=== PATIENT | male | born 1950 | race Caucasian/White ===

== ENCOUNTER 2018-03-20 12:15 | Inpatient (IN) | payer OTHER ==
[2018-03-20] MEDS ORDERED: NA CHLORIDE 0.9% 1,000 ML ONE (12:35)
[2018-03-20] MEDS ORDERED: FAMOTIDINE 20 MG/2 ML VIAL IV ONE (12:35)
[2018-03-20] MEDS ORDERED: ONDANSETRON 4 MG/2 ML VIAL ONE (12:35)
[2018-03-20 12:44] LABS: Absolute Lymphocytes (CBC) 0.9 K/uL (0.7-4.9); Absolute Monocytes 0.4 K/uL (0.1-1.3); Absolute Neutrophil 4.6 K/uL (1.8-8.0); Basophils % 1.2 % (0-1.3); Eosinophils % 1.9 % (0-4.4); Hematocrit 34.7 % (39.6-49.0); Lymphocytes % 14.6 % (15.3-44.8); MCH 31.2 pg (27.0-35.0); MCV 89.9 fL (80-100); MPV 8.9 fL (7.6-11.3); Monocytes % 7.2 % (3.3-12.3); RBC Red Blood Cell Count 3.86 M/uL (4.33-5.43)
--- NOTE | 2018-03-20 13:03 | RAD REPORT ---
EXAM DESCRIPTION: RAD - Chest Single View - 03/20/2018 12:55 pm CLINICAL HISTORY: Cough, weakness, ataxia COMPARISON: July 2010 TECHNIQUE: AP portable chest image was obtained 1252 hours . FINDINGS: No peripheral mass, consolidation or failure finding. Lung markings are not significantly different from the prior study. Minimal fullness of the right hilum is not substantially different wh en adjusting for the difference between the current AP film and the prior PA film. Heart and vasculat ure are normal. No measurable pleural effusion and no pneumothorax. No gross bony abnormality seen. N o acute aortic findings suspected. IMPRESSION: No acute cardiopulmonary process. When adjusting for technique differences, chest is not substantially different from July 2010.
[2018-03-20 13:05] LABS: Protime INR 1.15
[2018-03-20 14:47] LABS: Albumin 3.5 g/dL (3.4-5.0); Bilirubin Direct 0.1 mg/dL (0-0.2); Bilirubin Total 0.6 mg/dL (0.2-1.0); Magnesium 2.3 mg/dL (1.8-2.4); Potassium 3.8 mmol/L (3.5-5.1)
--- NOTE | 2018-03-20 14:51 | EKG ---
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
--- NOTE | 2018-03-20 15:18 | ER ---
Nurse's Notes [facility] Name: Jhonatan Solis Age: 67 yrs Sex: Male : 1950 Arrival Date: 03/20/2018 Time: 12:19 Bed 4 Private MD: Diagnosis: Syncope and collapse;Vomiting;Weakness;Malaise and fatigue;Atrial fibrillation and flutter Presentation: 03/20 12:19 Presenting complaint: EMS states: Pt c/o N/V and increased weakness for the past few jl7 days. 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 Transition of care: patient was not received from another setting of care. Onset of symptoms was March 17, 2018. Risk Assessment: Do you want to hurt yourself or someone else? Patient reports no desire to harm self or others. Initial Sepsis Screen: Does the patient meet any 2 criteria? No. Patient's initial sepsis screen is negative. Does the patient have a suspected source of infection? No. Patient's initial sepsis screen is negative. Care prior to arrival: Medication(s) given: Normal saline infusion, 500 mL, IV initiated. 20 GA, in the right antecubital area. 12:19 Method Of Arrival: EMS: [facility] jl7 12:19 Acuity: TAMAR 3 jl7 Triage Assessment: 12:26 General: Appears in no apparent distress. uncomfortable, Behavior is calm, cooperative, jl7 appropriate for age. Pain: Denies pain. GI: Reports nausea, vomiting, Patient currently denies diarrhea. Historical: - Allergies: 12:26 Levaquin; jl7 - Home Meds: 12:26 Lisinopril Oral [Active]; carvedilol oral oral [Active]; Aricept Oral [Active]; jl7 PreserVision AREDS oral oral [Active]; - PMHx: 12:26 Hyperlipidemia; Hypertension; Atrial Fib; Depression; stent; jl7 - PSHx: 12:26 partial L nephrectomy; Cholecystectomy; L medial meniscus; R medial menicus repair jl7 08/04/13; green light repair; bladder stone removal by cystotomy; partial L neprectomy; - Immunization history:: Adult Immunizations up to date. - Social history:: Smoking status: Patient/guardian denies using tobacco, Patient uses alcohol, occasionally. - Ebola Screening: : No symptoms or risks identified at this time. - Family history:: not pertinent. Screenin:30 Abuse screen: Denies threats or abuse. Denies injuries from another. iw 12:55 Nutritional screening: No deficits noted. Tuberculosis screening: No symptoms or risk jl7 factors identified. Fall Risk IV access (20 points). Gait- Weak (10 pts.). Total Smyth Fall Scale indicates Low Risk Score (25-44 pts). Fall prevention measures have been instituted. Side Rails Up X 2 Placed close to Nursing Station Frequent Obs/Assesments occuring Family Present and informed to notify staff if they need to leave bedside As available Patient and Family Educated on Fall Prevention Program and strategies. Assessment: 12:30 General: Appears in no apparent distress. uncomfortable, Behavior is calm, cooperative, jl7 appropriate for age. Pain: Denies pain. 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 Cardiovascular: Patient's skin is warm and dry. Respiratory: Airway is patent Respiratory effort is even, unlabored, Respiratory pattern is regular, symmetrical, Breath sounds are clear bilaterally. GI: Abdomen is flat, non-distended, Bowel sounds present X 4 quads. : No signs and/or symptoms were reported regarding the genitourinary system. EENT: No signs and/or symptoms were reported regarding the EENT system. Musculoskeletal: No signs and/or symptoms reported regarding the musculoskeletal system. 13:18 Reassessment: Patient appears in no apparent distress at this time. Patient is resting ae1 with eyes closed, respirations even and unlabored. 14:04 Reassessment: Lab reports they are having trouble with the analyzer and have had to iw rerun labs. 15:00 Reassessment: Patient and/or family updated on plan of care and expected duration. Pain jl7 level reassessed. Patient is alert, oriented x 3, equal unlabored respirations, skin warm/dry/pink. 16:00 Reassessment: Patient and/or family updated on plan of care and expected duration. Pain jl7 level reassessed. Patient is alert, oriented x 3, equal unlabored respirations, skin warm/dry/pink. 17:00 Reassessment: Pt requesting to talk to the provider prior to Lovenox injection. jl7 Provider notified and states he will be to bedside. 17:15 Reassessment: Dr. Monson at bedside discussing plan of care. jl7 19:35 Reassessment: Patient appears in no apparent distress at this time. Patient and/or aa1 family updated on plan of care and expected duration. Pain level reassessed. Patient is alert, oriented x 3, equal unlabored respirations, skin warm/dry/pink. Report given to Rozina on 4th floor Patient states feeling better. Vital Signs: 12:26 BP 154 / 87; Pulse 56; Resp 16 S; Pulse Ox 100% on R/A; Weight 98.43 kg (R); Height 6 jl7 ft. 1 in. (185.42 cm) (R); 12:55 BP 135 / 91; Pulse 90; Resp 16; Pulse Ox 96% ; jl7 13:17 BP 147 / 99; Pulse 83; Resp 14; Pulse Ox 93% on R/A; ae1 14:00 BP 148 / 98; Pulse 83; Resp 16; Pulse Ox 96% on R/A; jl7 16:30 BP 153 / 106; Pulse 94; Resp 18; Pulse Ox 98% ; jl7 17:15 BP 151 / 101; Pulse 88; Resp 16; Pulse Ox 98% ; jl7 17:37 BP 155 / 104; Pulse 77; Resp 16; Pulse Ox 98% ; Pain 0/10; jl7 19:36 BP 153 / 101; Pulse 95; Resp 16; Temp 98.2; Pulse Ox 97% on R/A; Pain 0/10; aa1 12:26 Body Mass Index 28.63 (98.43 kg, 185.42 cm) jl7 ED Course: 12:19 Patient arrived in ED. jl7 12:22 Triage completed. jl7 12:23 José Monson MD is Attending Physician. [facility] 12:26 Arm band placed on right wrist. jl7 12:29 Initial lab(s) drawn, by dc, sent to lab. Maintain EMS IV. Dressing intact. Good blood iw return noted. Site clean \T\ dry. Gauge \T\ site: 20 RAC. 12:31 EKG done, by pharmacy resource tech. reviewed by José Monson MD. at1 12:46 Rubén Ji RN is Primary Nurse. jl7 12:55 XRAY Chest (1 view) In Process Unspecified. EDMS 12:55 Patient has correct armband on for positive identification. Placed in gown. Bed in low jl7 position. Call light in reach. Side rails up X 1. wound nurse on. Pulse ox on. NIBP on. Warm blanket given. 15:14 Cesar Arceo MD is Hospitalizing Provider. kylie 15:21 US Carotid Artery Bilateral In Process Unspecified. EDMS 16:50 EKG done, by pharmacy resource tech. reviewed by José Monson MD. sm3 17:38 Report given to SERGE [place]. jl7 17:49 Inserted saline lock: 20 gauge in left forearm, using aseptic technique. aj 18:28 Patient moved to MRI via wheelchair. em2 18:36 MRI completed. Patient tolerated well. Patient moved back from [facility]. em2 19:32 No provider procedures requiring assistance completed. Patient admitted, IV remains in aa1 place. Administered Medications: 12:45 Drug: NS 0.9% 500 ml Route: IV; Rate: bolus; Site: right antecubital; jl7 13:30 Follow up: Response: No adverse reaction; IV Status: Completed infusion jl7 12:46 Drug: Zofran 4 mg Route: IVP; Site: right antecubital; jl7 13:20 Follow up: Response: No adverse reaction; Nausea unchanged jl7 12:48 Drug: Pepcid 20 mg Route: IVP; Site: right antecubital; jl7 13:20 Follow up: Response: No adverse reaction jl7 13:30 Drug: NS 0.9% 1000 ml Route: IV; Rate: 125 ml/hr; Site: right antecubital; jl7 19:40 Follow up: IV Status: Infusion continued upon admission aa1 19:02 Drug: Sotalol 40 mg Route: PO; aj 19:50 Follow up: Response: No adverse reaction; No change in condition aa1 Outcome: 15:18 Decision to Hospitalize by Provider. kylie 19:50 Admitted to [facility] accompanied by tech, via wheelchair, room 423, with chart, Report aa1 called to Rozina 19:50 Condition: stable 19:50 Instructed on the need for admit, Demonstrated understanding of instructions. 19:56 Patient left the ED. bb Signatures: Dispatcher [employer] EDLetty Sparks, RN RN aa1 Rabia Diane, RN José Gil MD MD cha Ballard, Brenda, RN RN Gita Cyr RN RN iw Montes, Enrique 2 Rabia basilio, tool and die maker level five EKG Tat1 Rian Araya RN RN ae1 Rubén Ji RN RN jl7 Nan Ruiz 3 Corrections: (The following items were deleted from the chart) 17:13 12:45 NS 0.9% 1000 ml IV at 125 ml/hr in right antecubital jl7 jl7
--- NOTE | 2018-03-20 15:19 | EDPHYS ---
Physician Documentation [facility] Name: Jhonatan Solis Age: 67 yrs Sex: Male : 1950 Arrival Date: 03/20/2018 Time: 12:19 Bed 4 Private MD: ED Physician José Monson HPI: 03/20 12:24 This 67 yrs old Male presents to ER via EMS with complaints of kylie Nausea/Vomiting. 12:24 The patient presents to the emergency department with nausea, vomiting. Onset: The kylie symptoms/episode began/occurred 21 day(s) ago. Possible causes: unknown. The symptoms are aggravated by nothing. The symptoms are alleviated by nothing. Associated signs and symptoms: The patient has no apparent associated signs or symptoms. Severity of symptoms: At their worst the symptoms were mild in the emergency department the symptoms are unchanged. The patient has not experienced similar symptoms in the past. Historical: - Allergies: 12:26 Levaquin; jl7 - Home Meds: 12:26 Lisinopril Oral [Active]; carvedilol oral oral [Active]; Aricept Oral [Active]; jl7 PreserVision AREDS oral oral [Active]; - PMHx: 12:26 Hyperlipidemia; Hypertension; Atrial Fib; Depression; stent; jl7 - PSHx: 12:26 partial L nephrectomy; Cholecystectomy; L medial meniscus; R medial menicus repair jl7 08/04/13; green light repair; bladder stone removal by cystotomy; partial L neprectomy; - Immunization history:: Adult Immunizations up to date. - Social history:: Smoking status: Patient/guardian denies using tobacco, Patient uses alcohol, occasionally. - Ebola Screening: : No symptoms or risks identified at this time. - Family history:: not pertinent. ROS: 12:24 Constitutional: Negative for fever, chills, and weight loss, Eyes: Negative for injury, kylie pain, redness, and discharge, ENT: Negative for injury, pain, and discharge, Neck: Negative for injury, pain, and swelling, Cardiovascular: Negative for chest pain, palpitations, and edema, Respiratory: Negative for shortness of breath, cough, wheezing, and pleuritic chest pain, Back: Negative for injury and pain, : Negative for injury, bleeding, discharge, and swelling, MS/Extremity: Negative for injury and deformity, Skin: Negative for injury, rash, and discoloration, Neuro: Negative for headache, weakness, numbness, tingling, and seizure, Psych: Negative for depression, anxiety, suicide ideation, homicidal ideation, and hallucinations, Allergy/Immunology: Negative for hives, rash, and allergies, Endocrine: Negative for neck swelling, polydipsia, polyuria, polyphagia, and marked weight changes, Hematologic/Lymphatic: Negative for swollen nodes, abnormal bleeding, and unusual bruising. 12:24 Abdomen/GI: Positive for nausea and vomiting. Exam: 12:24 Constitutional: This is a well developed, well nourished patient who is awake, alert, kylie and in no acute distress. Head/Face: Normocephalic, atraumatic. Eyes: Pupils equal round and reactive to light, extra-ocular motions intact. Lids and lashes normal. Conjunctiva and sclera are non-icteric and not injected. Cornea within normal limits. Periorbital areas with no swelling, redness, or edema. ENT: Nares patent. No nasal discharge, no septal abnormalities noted. Tympanic membranes are normal and external auditory canals are clear. Oropharynx with no redness, swelling, or masses, exudates, or evidence of obstruction, uvula midline. Mucous membranes moist. Neck: Trachea midline, no thyromegaly or masses palpated, and no cervical lymphadenopathy. Supple, full range of motion without nuchal rigidity, or vertebral point tenderness. No Meningismus. Chest/axilla: Normal chest wall appearance and motion. Nontender with no deformity. No lesions are appreciated. Cardiovascular: Regular rate and rhythm with a normal S1 and S2. No gallops, murmurs, or rubs. Normal PMI, no JVD. No pulse deficits. Respiratory: Lungs have equal breath sounds bilaterally, clear to auscultation and percussion. No rales, rhonchi or wheezes noted. No increased work of breathing, no retractions or nasal flaring. Abdomen/GI: Soft, non-tender, with normal bowel sounds. No distension or tympany. No guarding or rebound. No evidence of tenderness throughout. Back: No spinal tenderness. No costovertebral tenderness. Full range of motion. Male : Normal genitalia with no discharge or lesions. Skin: Warm, dry with normal turgor. Normal color with no rashes, no lesions, and no evidence of cellulitis. MS/ Extremity: Pulses equal, no cyanosis. Neurovascular intact. Full, normal range of motion. Neuro: Awake and alert, GCS 15, oriented to person, place, time, and situation. Cranial nerves II-XII grossly intact. Motor strength 5/5 in all extremities. Sensory grossly intact. Cerebellar exam normal. Normal gait. Psych: Awake, alert, with orientation to person, place and time. Behavior, mood, and affect are within normal limits. Vital Signs: 12:26 BP 154 / 87; Pulse 56; Resp 16 S; Pulse Ox 100% on R/A; Weight 98.43 kg (R); Height 6 jl7 ft. 1 in. (185.42 cm) (R); 12:55 BP 135 / 91; Pulse 90; Resp 16; Pulse Ox 96% ; jl7 13:17 BP 147 / 99; Pulse 83; Resp 14; Pulse Ox 93% on R/A; ae1 14:00 BP 148 / 98; Pulse 83; Resp 16; Pulse Ox 96% on R/A; jl7 16:30 BP 153 / 106; Pulse 94; Resp 18; Pulse Ox 98% ; jl7 17:15 BP 151 / 101; Pulse 88; Resp 16; Pulse Ox 98% ; jl7 17:37 BP 155 / 104; Pulse 77; Resp 16; Pulse Ox 98% ; Pain 0/10; jl7 19:36 BP 153 / 101; Pulse 95; Resp 16; Temp 98.2; Pulse Ox 97% on R/A; Pain 0/10; aa1 12:26 Body Mass Index 28.63 (98.43 kg, 185.42 cm) [facility] MDM: 12:23 Patient medically screened. [facility] 12:29 Data reviewed: vital signs, nurses notes. [facility] 03/20 12:24 Order name: Basic Metabolic Panel; Complete Time: 15:07 [facility] 03/20 12:24 Order name: CBC with Diff; Complete Time: 13:52 [facility] 03/20 12:24 Order name: Ckmb; Complete Time: 15:07 [facility] 03/20 12:24 Order name: CPK; Complete Time: 15:07 [facility] 03/20 12:24 Order name: LFT's; Complete Time: 15:07 [facility] 03/20 12:24 Order name: Magnesium; Complete Time: 15:07 [facility] 03/20 12:24 Order name: NT PRO-BNP; Complete Time: 15:07 [facility] 03/20 12:24 Order name: PT-INR; Complete Time: 13:52 [facility] 03/20 12:24 Order name: Ptt, Activated; Complete Time: 13:52 [facility] 03/20 12:24 Order name: Troponin (emerg Dept Use Only); Complete Time: 13:52 [facility] 03/20 12:24 Order name: Lipase; Complete Time: 15:07 [facility] 03/20 14:43 Order name: Urine Dipstick--Ancillary (enter results); Complete Time: 16:30 03/20 15:13 Order name: Cortisol; Complete Time: 16:40 [facility] 03/20 15:13 Order name: TSH; Complete Time: 16:40 [facility] 03/20 12:24 Order name: XRAY Chest (1 view); Complete Time: 13:52 [facility] 03/20 15:12 Order name: US Carotid Artery Bilateral; Complete Time: 19:40 [facility] 03/20 15:12 Order name: Echo w/ Doppler [facility] 03/20 15:25 Order name: MRI - Brain Wo Cont [facility] 03/20 15:25 Order name: Basic Metabolic Panel [facility] 03/20 15:25 Order name: Basic Metabolic Panel [facility] 03/20 15:25 Order name: CBC with Automated Diff [facility] 03/20 15:25 Order name: CBC with Automated Diff [facility] 03/20 15:26 Order name: Troponin I [facility] 03/20 15:26 Order name: Troponin I; Complete Time: 16:40 [facility] 03/20 15:26 Order name: Troponin I [facility] 03/20 18:51 Order name: MRI; Complete Time: 19:40 [facility] 03/20 12:24 Order name: EKG; Complete Time: 12:24 03/20 12:24 Order name: Cardiac monitoring; Complete Time: 12:59 kylie 03/20 12:24 Order name: EKG - Nurse/Tech; Complete Time: 12:59 kylie 03/20 12:24 Order name: IV Saline Lock; Complete Time: 12:59 [facility] 03/20 12:24 Order name: Labs collected and sent; Complete Time: 12:59 kylie 03/20 12:24 Order name: O2 Per Protocol; Complete Time: 12:59 kylie 03/20 12:24 Order name: O2 Sat Monitoring; Complete Time: 12:59 03/20 15:25 Order name: CONS Physician Consult [facility] 03/20 15:25 Order name: CONS Physician Consult [facility] 03/20 15:25 Order name: Consistent Carb (ADA) [address] [facility] 03/20 15:25 Order name: EKG Electrocardiogram [facility] 03/20 15:25 Order name: EKG Electrocardiogram [facility] 03/20 15:25 Order name: EKG Electrocardiogram [facility] 03/20 15:25 Order name: EKG Electrocardiogram [facility] 03/20 16:39 Order name: EKG; Complete Time: 16:41 kylie 03/20 16:39 Order name: EKG - Nurse/Tech; Complete Time: 17:13 kylie Administered Medications: 12:45 Drug: NS 0.9% 500 ml Route: IV; Rate: bolus; Site: right antecubital; jl7 13:30 Follow up: Response: No adverse reaction; IV Status: Completed infusion jl7 12:46 Drug: Zofran 4 mg Route: IVP; Site: right antecubital; jl7 13:20 Follow up: Response: No adverse reaction; Nausea unchanged jl7 12:48 Drug: Pepcid 20 mg Route: IVP; Site: right antecubital; jl7 13:20 Follow up: Response: No adverse reaction jl7 13:30 Drug: NS 0.9% 1000 ml Route: IV; Rate: 125 ml/hr; Site: right antecubital; jl7 19:40 Follow up: IV Status: Infusion continued upon admission aa1 19:02 Drug: Sotalol 40 mg Route: PO; aj 19:50 Follow up: Response: No adverse reaction; No change in condition aa1 Disposition: 03/20/18 15:18 Hospitalization ordered by Cesar Arceo for Observation. Preliminary diagnosis are Syncope and collapse, Vomiting, Weakness, Malaise and fatigue, Atrial fibrillation and flutter. - Bed requested for Telemetry/MedSurg (observation). - Status is Observation. bb - Condition is Fair. - Problem is new. - Symptoms have improved. UTI on Admission? No Signatures: Dispatcher [employer] [facility] Roxana Enriquez Amanda RN José Gil MD MD cha Ballard, Brenda RN Rubén Jefferson RN RN jl7 Pauline Kam RN RN df Letty Tinoco RN aa1 Corrections: (The following items were deleted from the chart) 16:54 15:18 Hospitalization Ordered by Cesar Arceo MD for Observation. Preliminary diagnosis kylie is Syncope and collapse; Vomiting; Weakness; Malaise and fatigue. Bed requested for Telemetry/MedSurg (observation). Status is Observation. Condition is Fair. Problem is new. Symptoms have improved. UTI on Admission? No. kylie 17:01 16:54 03/20/2018 15:18 Hospitalization Ordered by Cesar Arceo MD for Observation. bd Preliminary diagnosis is Syncope and collapse; Vomiting; Weakness; Malaise and fatigue; Atrial fibrillation and flutter. Bed requested for Telemetry/MedSurg (observation). Status is Observation. Condition is Fair. Problem is new. Symptoms have improved. UTI on Admission? No. kylie 18:51 17:01 03/20/2018 15:18 Hospitalization Ordered by Cesar Arceo MD for Observation. df Preliminary diagnosis is Syncope and collapse; Vomiting; Weakness; Malaise and fatigue; Atrial fibrillation and flutter. Bed requested for Telemetry/MedSurg (observation). Status is Observation. Condition is Fair. Problem is new. Symptoms have improved. UTI on Admission? No. bd 19:56 18:51 03/20/2018 15:18 Hospitalization Ordered by Cesar Arceo MD for Observation. bb Preliminary diagnosis is Syncope and collapse; Vomiting; Weakness; Malaise and fatigue; Atrial fibrillation and flutter. Bed requested for Telemetry/MedSurg (observation). Status is Observation. Condition is Fair. Problem is new. Symptoms have improved. UTI on Admission? No. df
[2018-03-20] MEDS ORDERED: ACETAMINOPHEN 500 MG TAB PO PRN (15:22)
[2018-03-20] MEDS ORDERED: ONDANSETRON 4 MG/2 ML VIAL IV PRN (15:22)
[2018-03-20 15:29] LABS: Urine Blood NEGATIVE (NEG); Urine Glucose NEGATIVE (NEG); Urine Protein NEGATIVE (NEG); Urine Specific Gravity 1.025 (1.005-1.030); Urine pH 6.5 (5.0-7.0)
[2018-03-20] MEDS ORDERED: ENOXAPARIN 100 MG/ML SYR SQ ONE (17:05)
--- NOTE | 2018-03-20 18:30 | RAD REPORT ---
EXAM DESCRIPTION: KAYLI - CACHORRO - 03/20/2018 4:02 pm CLINICAL HISTORY: Dizziness, syncope COMPARISON: None. TECHNIQUE: Real-time sonographic evaluation of both carotid systems was performed. Doppler interroga tion was performed with waveform tracing bilaterally. FINDINGS: Normal high resistance waveforms are noted in both external carotid arteries. The common c arotid arteries and internal carotid arteries show normal low resistance waveforms. Soft plaquing seen in the right carotid bulb with calcified plaquing in the left carotid bulb. On vis ual inspection no significant luminal narrowing identifiable. Peak systolic and end diastolic velocit y values and the ICA/CCA ratios are in the non-hemodynamically significant range. Common carotid velo cities are 61 cm/second on the right and 66 cm/second on the left. Internal carotid velocities range from 45-53 cm/second on the right and 44-66 cm/second on the left. ICA/CCA ratios are 0.9 on the righ t and 1.0 on the left. No dissection findings. Antegrade flow seen in both vertebral arteries. Velocity values and ratios were recorded and are retained in the patient's imaging records. IMPRESSION: Bilateral carotid bulb calcified and noncalcified plaquing changes are present. No signi ficant luminal narrowing identified. Velocity values and ratios do not indicate any hemodynamically significant stenosis. No dissection findings.
--- NOTE | 2018-03-20 18:50 | RAD REPORT ---
EXAM DESCRIPTION: MRI - Brain Wo Cont - 03/20/2018 6:38 pm CLINICAL HISTORY: Nausea, vomiting, increasing weakness, ataxia COMPARISON: None. TECHNIQUE: Sagittal T1-weighted images were obtained along with axial PD, heavily T2-weighted and T2 -FLAIR images. Axial DWI and ADC mapping sequences were also obtained along with coronal heavily T2-w eighted images. FINDINGS: No intracranial hemorrhage, mass or acute infarction. There is no edema or shift of midlin e structures. No extra-axial fluid collections. Cortes-matter/white matter junction is preserved. Signa l voids are seen as a normal finding in the major intracranial vessels. Volume loss changes are mild. Ventricular size is in proportion. T2/IR signal abnormalities are seen in the periventricular white matter with a small area in the anterior superior left cerebellum. No th alamus or basal ganglia signal abnormalities. No brainstem signal abnormality. Findings are consisten t with a mild chronic ischemic pattern. No characteristics that would favor demyelinization over tear down matcher betty ischemic change. Vasculitis and migraine headache etiologies are doubtful without supporting clin ical presentation. No globe or orbital content abnormality. No sella or supra sella abnormality. No tonsillar ectopia. Mastoid air cells and paranasal sinuses are clear. IMPRESSION: No infarction changes are present. No mass, hemorrhage or acute intracranial finding. Atrophy is mild and there is mild cerebral chronic ischemic change. No chronic ischemic changes of th e brainstem, thalamus or basal ganglia tissues.
[2018-03-20] MEDS ORDERED: SOTALOL HCL 80 MG TAB ONE (19:01)
[2018-03-20] MEDS ORDERED: ENOXAPARIN 80 MG/0.8 ML SQ SCH (21:00)
[2018-03-20] MEDS: NA CHLORIDE 0.9% 1,000 ML IV SCH (21:34)
[2018-03-21] MEDS: NA CHLORIDE 0.9% 1,000 ML IV SCH ×3 (01:19→21:24)
[2018-03-21 05:15] VITALS: BMI 28.6
--- NOTE | 2018-03-21 05:19 | HP ---
Date of Admission: 03/20/2018 Chief Complaint: Nausea, vomiting, and fainting. History Of Present Illness: A 67-year-old pleasant male patient who was at his office today, and all of a sudden, he had an episode of where he nausea, vomiting, associated with cold sweats, diaphoresis, and felt dizzy and lightheaded and weak. He was brought into emergency room with these complaints. After he was evaluated in the ER, he was admitted to the hospital. There is questionable history of atrial fibrillation in the past, and he was on some anticoagulant medication, but the patient says that he stopped it as it was discontinued by branch customer service representative, and we will have to wait for cardiology's input on this one, but he has been taking aspirin as prescribed along with his antihypertensive medication and cholesterol medication. He recently saw Dr. Gonzalez and has some gait disturbances, that Dr. Gonzalez is concerned about cerebellar ataxia. The patient denies any fall, injury. He says that usually at nighttime he feels like he has to spit some clear mucus multiple times, and in the morning when he wakes up, he has little bit stomach upset, and once he drinks his morning tea and gets up and walks around, he feels well for the rest of the day. He came into the ER, was evaluated. Initial EKG was normal, sinus rhythm with sinus bradycardia with heart rate around 58 per minute, and subsequently, he went into atrial fibrillation with slow ventricular response with heart rate around 60 per minute. When I saw him in the ER, he was in atrial fibrillation with heart rate around 100 per minute. He denies any chest pain, shortness of breath. Past Medical History: Significant for hypertension, coronary artery disease, right kidney cancer, hyperlipidemia, benign prostatic hypertrophy, impaired fasting glucose. Past Surgical History: Significant for partial nephrectomy due to kidney cancer , prostate biopsy in 2003 which came back negative for high PSA, cataract surgery, coronary artery angioplasty with stent placement in August 2015, arthroscopic knee surgery, cholecystectomy, and LASIK surgery on her eyes. Review of Systems: GI: As mentioned above. Constitutional: As mentioned above. All other systems reviewed and negative. Allergies: TO LEVAQUIN, CAUSING PAIN IN HIS HANDS. Family History: Significant for hypertension, lung cancer, ulcerative colitis. Social History: Negative for smoking or alcohol use. Medications: Aspirin 81 mg daily, carvedilol 3.125 mg p.o. b.i.d., donepezil 10 mg p.o. daily, lisinopril 5 mg p.o. daily, rosuvastatin 10 mg p.o. daily. Physical Examination: Vital Signs. Height is 6 feet 1 inch, weight 218 pounds or weight 98.8 kg, respiratory rate 16, temperature 98, pulse 102, blood pressure was 170/107 when I saw him in emergency room. General: Awake, alert, oriented, not in distress. HEENT: Head atraumatic, normocephalic. Conjunctivae nonerythematous. Sclerae white. Mouth, no thrush or edema noted. Ears/Nose, no mass, lesion, discharge noted. Neck: Supple. No JVD, lymph nodes, bruit, thyromegaly noted. Lungs: Bilateral good equal air entry. Clear to auscultation. No rhonchi. No rales. Heart: Normal heart sounds, no murmur or gallop. Abdomen: Soft, bowel sounds normal. No guarding, rigidity, tenderness, mass, hepatosplenomegaly, distention, or bruit noted. Extremities: No leg edema. No calf tenderness. Skin: No rash, ulcer, cellulitis. Lymphatics: No lymph node enlargement in neck, supraclavicular, infraclavicular region. Neuro: No focal neurological deficit. Chest: Unremarkable. External Genitalia: Deferred. Rectal: Deferred. Laboratory Data: White count 6.1, hemoglobin 12, platelets 220. Sodium 141, potassium 3.8, chloride 109, bicarb 25, BUN 20, creatinine 1.20, glucose 105. Liver function tests unremarkable. Troponin less than 0.02. TSH 0.61. Lipase 390. Magnesium 2.2. Urinalysis normal. Chest x-ray: No acute cardiopulmonary changes. Impression: 1. Atrial fibrillation. 2. Syncope. 3. Coronary artery disease. 4. Hypertension. 5. Mixed hyperlipidemia. 6. Kidney cancer. 7. Benign prostatic hypertrophy. 8. Impaired fasting glucose. Plan: Admit the patient to hospital for further evaluation and management of this problem. The patient is appropriate for inpatient and is expected to spend 2 midnights in hospital. We will go ahead and get an echo with carotid Doppler and start the patient on Lovenox. We will consider to car changer to Xarelto or Eliquis probably tomorrow or at the time of discharge. Cardiology consultation will be requested. I did discuss details with branch customer service representative, Dr. Ambrocio, who is on-call, and as per my discussion, we will go ahead and start him on sotalol 40 mg twice a day and we will not give carvedilol. We will continue his lisinopril, make adjustment on antihypertensive medication if necessary. We will continue his cholesterol medications per order. Details and plan of treatment discussed with the patient and his , and I will see him tomorrow morning for followup. YARELI/EMILY Voice ID: [id number] RADHA
[2018-03-21 05:21] LABS: Hematocrit 36.6 % (39.6-49.0); MCH 31.1 pg (27.0-35.0); MCV 89.2 fL (80-100)
[2018-03-21 05:22] LABS: Absolute Lymphocytes (CBC) 1.2 K/uL (0.7-4.9); Absolute Monocytes 0.5 K/uL (0.1-1.3); Absolute Neutrophil 3.4 K/uL (1.8-8.0); Basophils % 1.2 % (0-1.3); Lymphocytes % 23.5 % (15.3-44.8); MPV 9.3 fL (7.6-11.3); Monocytes % 8.8 % (3.3-12.3)
[2018-03-21 05:42] LABS: Potassium 4.5 mmol/L (3.5-5.1)
[2018-03-21] MEDS ORDERED: SOTALOL HCL 80 MG TAB PO SCH (06:00)
--- NOTE | 2018-03-21 06:02 | EKG ---
Test Date: 2018-03-20 Test Time: 16:40:37 Mechanics Handyman: LINDSEY MEASUREMENT RESULTS: Intervals: Rate: 81 DC: QRSD: 94 QT: 386 QTc: 448 [place]: P: DC: QRS: 64 T: 66 INTERPRETIVE STATEMENTS: Atrial fibrillation Abnormal ECG Compared to ECG 03/20/2018 12:25:26 Sinus bradycardia no longer present Electronically Signed On 03-21-18 06:01:52 CDT by Leander Hidalgo
--- NOTE | 2018-03-21 06:02 | EKG ---
Test Date: 2018-03-20 Test Time: 21:17:16 [place] Tower Loader: RT T MEASUREMENT RESULTS: Intervals: Rate: 77 FL: QRSD: 94 QT: 404 QTc: 457 [place]: P: FL: QRS: 25 T: 50 INTERPRETIVE STATEMENTS: Atrial fibrillation with a competing junctional pacemaker Abnormal ECG Compared to ECG 03/20/2018 16:40:37 No significant changes Electronically Signed On 03-21-18 06:01:24 CDT by Leander Hidalgo
[2018-03-21] MEDS ORDERED: SOTALOL HCL 80 MG TAB PO ONE (08:30)
--- NOTE | 2018-03-21 08:30 | ECHO ---
HEIGHT: 6 ft 1 in WEIGHT: 217 lb 0 oz DATE OF STUDY: 03/20/[address]: José Monson MD 2-DIMENSIONAL: YES M.MODE: YES DOPPLER: YES COLOR FLOW: YES TDS: NO PORTABLE: YES DEFINITY: NO BUBBLE STUDY: NO DIAGNOSIS: SYNCOPE CARDIAC HISTORY: CATHERIZATION: YES SURGERY: NO PROSTHETIC VALVE: NO PACEMAKER: NO MEASUREMENTS (cm) DIASTOLIC (NORMALS) SYSTOLIC (NORMALS) IVSd 1.1 (0.6-1.2) LA Diam (1.9-4.0) LVEF 58% LVIDd 3.1 (3.5-5.7) LVIDs 2.2 (2.0-3.5) %FS 30% LVPWd 0.8 (0.6-1.2) Ao Diam 3.8 (2.0-3.7) 2 DIMENSIONAL ASSESSMENT: RIGHT ATRIUM: NORMAL LEFT ATRIUM: DILATED RIGHT VENTRICLE: NORMAL LEFT VENTRICLE: NORMAL TRICUSPID VALVE: NORMAL MITRAL VALVE: NORMAL PULMONIC VALVE: NORMAL AORTIC VALVE: NORMAL PERICARDIAL EFFUSION: NONE AORTIC ROOT: NORMAL LEFT VENTRICULAR WALL MOTION: NORMAL DOPPLER/COLOR FLOW: NORMAL COMMENTS: NORMAL LEFT VENTRICULAR EJECTION FRACTION. DILATED LEFT ATRIUM. ATRIAL FIBRILLATION. HEART RATE 60-80 BEATS PER MINUTE. TECHNOLOGIST: [place] JO
[2018-03-21] MEDS: ASPIRIN EC 81 MG TAB PO SCH (09:06)
[2018-03-21] MEDS: ENOXAPARIN 100 MG/ML SYR SQ SCH ×2 (09:06→21:24)
[2018-03-21] MEDS ORDERED: REGADENOSON 0.4 MG/5 ML SYR IV ONE (09:47)
--- NOTE | 2018-03-21 12:13 | PN ---
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 I think we need to do a pharmacologic nuclear stress reynaldo t because of his history of obtuse marginal stent, make sure he is not suffering again from angina. I will have him remain on enoxaparin and sotalol and if he is still in atrial fibrillation tomorrow, I will recommend we do a cardioversion, chronic long-term anticoagulation is clearly indicated. DANY/EMILY Voice ID: [id number] Report ID: [id number]
--- NOTE | 2018-03-21 12:27 | RAD REPORT ---
EXAM DESCRIPTION: NM - Rest Stress Cardiac Imaging - 03/21/2018 12:17 pm CLINICAL HISTORY: Chest pain COMPARISON: None. TECHNIQUE: The patient was administered approximately 10 mCi of Tc 99m Sestamibi prior to resting SP ECT imaging of the heart. The patient was then administered approximately 30 mCi of Tc 99m Sestamibi following exercise or pharmacologic stress. Multiplanar SPECT images were reviewed. FINDINGS: The end diastolic volume is 105 ml, the end systolic volume is 52 ml, and the ejection fra ction is 51 %. No stress-induced ischemic change identifiable. Relatively diminished activity along the inferior wal l base and midportion does not change between rest and stress imaging. This is probably diaphragm att enuation artifact. Inferior wall scarring is unlikely but can be correlated with any EKG findings. IMPRESSION: No stress-induced ischemia. Diminished inferior wall activity is favored to be attenuation artifact rather than scarring. Correla tion can be made with EKG findings. End-diastolic volume and ejection fraction are normal range.
--- NOTE | 2018-03-21 12:38 | TREADPHA ---
DX: CHEST PAIN Date of Study: 03/21/2018 Ht: 6 1 Wt: 217 lb 0 oz Consulting Physician: LASHAWN MEDICATIONS: TYLENOL, ASPIRIN, LOVENOX, ZOFRAN, BETAPACE HISTORY: 67 YEAR OLD MALE WITH COMPLAINTS OF CHEST PAIN. HISTORY OF HYPERLIPIDEMIA, ATRIAL FIBRILLATION, DEPRESSION AND STENT PHYSICIAL EXAMINATION: RESTING B.P.: 142/60 RESTING H.R.: 52 RESTING EKG: SINUS BRADYCARDIA PROTOCOL: LEXISCAN EXERCISE TIME: 3:30 B.P. AT PEAK STRESS: 120/78 IMPRESSION: LEXISCAN INJECTED, CARDIOLITE INJECTED PER PROTOCOL. SEE NUCLEAR MEDICINE REPORT. NO SUPRAVENTRICULAR TACHYCARDIA. NO VENTRICULAR TACHYCARDIA. NO PREMATURE VENTRICUALR COMPLEXES. DENIED CHEST PAIN. NON-DIAGNOSTIC ELECTROCARDIOGRAM WITH LEXISCAN STRESS.
[2018-03-21] MEDS: SOTALOL HCL 80 MG TAB PO SCH (17:33)
[2018-03-21] MEDS ORDERED: ROSUVASTATIN 10 MG TAB PO SCH (21:00)
--- NOTE | 2018-03-21 22:51 | PN ---
Date of Progress Note: 03/21/2018 Subjective: Patient was seen this morning for followup. No new complaints or problems reported by h im overnight. No chest pain. No shortness of breath. Objective: Vital Signs: Reviewed. HEENT Examination: Unremarkable. Lungs: Clear to auscultation. Heart: Heart sounds normal. Abdomen: Soft. Bowel sounds normal. No guarding, rigidity, tenderness, or distention. Extremities: No leg edema. Laboratory Data: White count 5.2, hemoglobin 12.8, platelets 232. Sodium 143, potassium 4.5, chlori de 110, bicarb 29, BUN 18, creatinine 1.20, glucose 91, troponin less than 0.02. Carotid Doppler pam ws some plaque buildup, but no evidence of any hemodynamically significant stenotic lesion. MRI of t he brain was negative for any acute findings; it does show evidence of some chronic ischemic changes, likely due to underlying atherosclerosis. Impression: 1.Atrial fibrillation, paroxysmal. 2.Hypertension. 3.Hyperlipidemia, mixed. 4.Kidney cancer. Plan: The patient was still in atrial fibrillation this morning when I saw him, and he was getting s otalol 40 mg twice a day. I did increase the dose to 80 mg twice a day. We will continue Lovenox an d continue his statin therapy. Fasting lipid profile will be done tomorrow. Today, the patient will have echocardiogram and a stress test, and I will see him tomorrow for followup. Possible discharge to go home tomorrow if the stress test comes back negative. Details and plan of treatment discussed wit h him. YARELI/MODL Voice ID: [id number] Report ID: [id number]
[2018-03-22] MEDS: SOTALOL HCL 80 MG TAB PO SCH (05:47)
[2018-03-22] MEDS: NA CHLORIDE 0.9% 1,000 ML IV SCH (05:47)
[2018-03-22] MEDS: ASPIRIN EC 81 MG TAB PO SCH (08:11)
[2018-03-22 08:40] VITALS: BP 148/84; TEMP 97.1
[2018-03-22] MEDS ORDERED: LISINOPRIL 5 MG PO SCH (09:00)
[2018-03-22 09:59] VITALS: O2SAT 97
--- NOTE | 2018-03-23 05:29 | DS ---
Date of Discharge: 03/22/2018 Disposition: Discharged to go home. Physical Examination: HEENT: Unremarkable. Lungs: Clear to auscultation. Heart: Sounds normal. Abdomen: Soft. Bowel sounds normal. No guarding, rigidity, tenderness, or distention. Extremities: No leg edema. Discharge Medications And Instructions: 1.Lisinopril 5 mg 1 tablet by mouth daily in morning. 2.Sotalol 80 mg 1 tablet by mouth 2 times a day, like 8 a.m. and 8 p.m. 3.Xarelto 20 mg p.o. daily with evening meal. 4.Donepezil 10 mg p.o. daily. 5.Rosuvastatin 10 mg p.o. daily at bedtime. 6.Follow up at my office in 3 weeks. 7.Follow up with Dr. Hidalgo in 2 weeks. Hospital Course: A 67-year-old male patient, admitted to the hospital with nausea, vomiting, and mauricio nting type of problem. Please see dictated H and P for more information. After the patient was eval uated in the emergency room, he was admitted to the hospital. Initially when he came into the ER, he was in sinus rhythm but while he was in the emergency room he went into atrial fibrillation. After his admission to the hospital, he did not have any recurrence of nausea or vomiting, weakness, sweati ng, etc. Cardiac enzymes remained negative. Cardiology consultation was obtained from Dr. Ambrocio/Jhon Hidalgo. Because of his atrial fibrillation, he was started on Lovenox and sotalol which was 40 mg twice a day. Day after admission, sotalol dose was increased to 80 mg twice a day because he was st ill in atrial fibrillation with heart rate around 70-80 per minute. He tolerated sotalol very well a nd he did convert to sinus rhythm with this medication. Echocardiogram showed normal ejection fracti on. No other significant finding on echocardiogram. Carotid Doppler showed evidence of carotid lucia ry plaquing without any evidence of hemodynamically significant stenotic lesion. Stress test shows n o evidence of stress-induced ischemia. MRI of the brain was negative for any acute stroke. It did s how some changes of chronic ischemic changes. Chest x-ray, no acute changes noted. Blood work other duval unremarkable. The patient was feeling fine, had no complaints, and I did talk to him about the importance of taking his medications as prescribed, and instruction explained to him. I will see him for followup on outpatient basis. Final Diagnoses: 1.Paroxysmal atrial fibrillation. 2.Syncope. 3.Coronary artery disease. 4.Hypertension. 5.Mixed hyperlipidemia. 6.Kidney cancer. 7.Benign prostatic hypertrophy. 8.Impaired fasting glucose. YARELI/MODL Voice ID: [id number] Report ID: [id number]
--- NOTE | 2018-03-24 00:29 | PN ---
History: He was followed by Dr. Arceo and Dr. Hidalgo for atrial fibrillation, was placed on Betapace 80 mg b.i.d. Had a negative Cardiolite, negative echo, remained in sinus rhythm since Betapace has b een initiated. He is feeling great. We will send him home on Betapace and an anticoagulant of choic e by Dr. Arceo. We would like to see him in the office in the next 2 weeks. KING/EMILY Voice ID: [id number] Report ID: [id number]
== END 2018-03-22 10:24 | disposition home or self-care (01) | DRG 310 ==
LOC: ER 12:15 → SUPCPDRO 12:15 → OBSVTOIN 15:18 → INTOOBSV 15:18 → ERHOLD 15:18 → 4TH 19:36 → OBSVTOIN 21:31
PROVIDERS: ADMIT Internal Medicine; ATTEND Internal Medicine
DX: I48.0 Paroxysmal atrial fibrillation (principal); I25.10 Atherosclerotic heart disease of native coronary artery without angina pectoris; I10 Essential (primary) hypertension; E78.2 Mixed hyperlipidemia; N40.0 Benign prostatic hyperplasia without lower urinary tract symptoms; R73.01 Impaired fasting glucose; Z95.5 Presence of coronary angioplasty implant and graft; Z85.528 Personal history of other malignant neoplasm of kidney; Z79.82 Long term (current) use of aspirin; Z90.5 Acquired absence of kidney; Z88.1 Allergy status to other antibiotic agents
CPT/HCPCS: 36415; 70551; 71045; 78452; 80048; 80061; 80076; 81003; 82533; 82550; 82553; 83690; 83735; 83880; 84443; 84484; 85025; 85610; 85730; 93005; 93017; 93306; 93880; 96361; 96374; 96375; 97163; 99285; A9500; J1650; J2405; J2785; J7030

== ENCOUNTER → 2021-02-17 | Day surgery (SDC) | payer OTHER ==
[2021-02-11 09:30] LABS: Absolute Lymphocytes (CBC) 0.9 K/uL (0.7-4.9); Basophils % 1.2 % (0-1.3); Hematocrit 40.4 % (39.6-49.0); Lymphocytes % 14.8 % (15.3-44.8); MPV 9.4 fL (7.6-11.3)
--- NOTE | 2021-02-11 09:43 | RAD REPORT ---
EXAM DESCRIPTION: RAD - Chest Pa And Lat (2 Views) - 02/11/2021 9:35 am CLINICAL HISTORY: preop Chest pain. COMPARISON: Chest Single View dated 03/20/2018; Abdomen 1 View (KUB) dated 06/14/2016; ABDOMEN 1 VIEW KUB dated 05/13/2015; ABDOMEN 1 VIEW KUB dated 04/21/2015 FINDINGS: The lungs are clear. The heart is normal in size. No displaced fractures. IMPRESSION: No acute or concerning finding suspected.
[2021-02-11 09:47] LABS: Protime INR 1.52
[2021-02-11 09:50] LABS: Potassium 4.6 mmol/L (3.5-5.1)
== END ==
LOC: OR 06:40
PROVIDERS: ATTEND Orthopaedic Surgery Sports Medicine
DX: M25.562 Pain in left knee (principal); M17.12 Unilateral primary osteoarthritis, left knee; Z20.822 Contact with and (suspected) exposure to COVID-19; Z88.3 Allergy status to other anti-infective agents; Z53.8 Procedure and treatment not carried out for other reasons
CPT/HCPCS: 85025; 80048; 36415; 85610; 85730; 71046; U0002

== ENCOUNTER 2021-03-04 13:02 | Emergency (ER) | payer OTHER ==
--- OUTSIDE RECORDS SUMMARY | 2021-03-04 13:07 | XMS REPORT | Continuity of Care Document ---
:1950 Author Organization [facility] t Address [address] [place] [address] Care Team Providers Name Role Phone Milagros Arceo MD Primary Care Physician Violet Mccormick DO Attending Clinician Patricia Hayward MD Attending Clinician Eren PhD, K Attending Clinician MERVIN RUIZ Attending Clinician Unavailable REBECA ROME Attending Clinician Unavailable Payers Payer Name Policy Type Policy Number Effective Expiration Source Date Date MEDICAREMEDICARE PART [id number] 2013 Negrito Castro AND 00:00:00 Mandaen [id number] [place] A \T\ B [id number] - MEDICARE GENERIC PPO - GENERIC [id number] 2019 PAYOR 00:00:00 Problems Condition Condition Condition Status Onset Resolution Last Treating Co mments Source Name Details Category Date Date Treatment Clinician Date Nausea Nausea Disease Active [place] 02-24 [facility] 00:00: st 00 Anorexia Anorexia Disease Active [place] 02[place]24 [facility] 00:00: st 00 Diarrhea Diarrhea Disease Active [place] due to due to 02-24 [facility] malabsorpt malabsorpt 00:00: st ion ion 00 Weight Weight Disease Active [place] loss, loss, 02-24 [facility] unintentio unintentio 00:00: st nal nal 00 Allergies, Adverse Reactions, Alerts Allergy Allergy Status Severity Reaction(s) Onset Inactive Treating Comm ents Source Name Type Date Date Clinician Levoflox Propensi Active Other [facility] 7-[facility] reaction( [facility] - adverse 00:00: s): Medical reaction 00 Unknown - Cent[facility] r s See commentsO ther reaction( s): Unknown - See comments Social History Social Habit Start Date Stop Date Quantity Comments Source Exposure to Not sure [place] [facility] dist SARS-CoV-2 (event) Tobacco use and 2021-02-24 2021-02-24 Never used Keith Glass ethodist exposure 00:00:00 00:00:00 Sex Ass[birth year] At [birth year] Parker Quan ethodist 00:00:00 00:00:00 Medications Ordered Filled Start Stop Current Ordering Indication Dosage Frequency Signature Comments Components Source Medication Medication Date Date Medication? Clinician (SIG) Name Name ascorbic Yes 500mg QD Take 500 [place] acid, 6-23 mg by [facility] vitamin C, 16:22: mouth st (ascorbic 08 daily. acid with lisa hips) 500 MG tablet calcium Yes 1{tbl} Q.5D Take 1 [place] carbonate-v 6-23 tablet by Met hodi itamin D3 16:22: mouth 2 st 500 mg-200 08 (two) unit per times a tablet day with meals. vitamin E Yes 1000U QD Take 1,000 [place] 1000 UNIT 6-23 Units by Method i capsule 16:22: mouth st 08 daily. vitamin A Yes 93978A QD [place] [id number] UNIT 6-23 10,000 [facility] capsule 16:22: Units by st 07 mouth daily. vit B comp Yes 1{tbl} QD Take 1 Rekha ston no.3-folic- 6-23 tablet by Met hodi C-biotin 16:22: mouth st (NEPHRO-VIT 07 daily. E RX) 1-60-300 mg-mg-mcg tablet mecobalamin Yes Take by Rekha ston (B12 ACTIVE 6-23 mouth. Method i ORAL) 16:22: st 07 evolocumab Yes Inject [place] (REPATHA) 6-23 under the Meth[facility] di 140 mg/mL 16:18: skin. st pen 28 injector injection aspirin Yes 81mg Take 81 mg [place] (ECOTRIN) 6-23 by mouth. [facility] di 81 MG 16:12: st enteric 18 coated tablet levothyroxi Yes TAKE 1 [place] 5-02 TABLET BY [facility] (Euthyrox) 00:00: MOUTH ONCE s t 125 mcg 00 DAILY tablet hydrocortis Yes 10mg Take 10 mg [place] one 4-30 by mouth. [facility] (CORTEF) 10 00:00: st MG tablet 00 donepeziL Yes TAKE 1 [place] (ARICEPT) 1-04 TABLET BY Metho di 10 MG 00:00: MOUTH ONCE st tablet 00 DAILY rivaroxaban 2017-09 Yes [place] (XARELTO) 1-26 [facility] 20 mg 00:00: st tablet 00 sotaloL 2017-09 Yes 80mg Take 80 mg [place] (BETAPACE) 09-29 by mouth. Meth zoë 80 MG 00:00: st tablet 00 lisinopriL Yes Keith (PRINIVIL) 02-26 [facility] 5 mg tablet 00:00: st 00 Vital Signs Vital Name Observation Time Observation Value Comments Source Systolic blood 2021-02-24 16:10:00 142 mm[Hg] Nadjato n Mandaen pressure Diastolic blood 2021-02-24 16:10:00 87 mm[Hg] [place] Mandaen pressure Heart rate 2021-02-24 16:10:00 67 /min Keith Huang Body temperature 2021-02-24 16:10:00 36.78 [place]ah [place] Manda[place] Body height 2021-02-24 16:10:00 185.4 cm Keith Huang Body weight 2021-02-24 16:10:00 99.338 kg [place] Mandaen BMI 2021-02-24 16:10:00 28.89 kg/m2 Keith Huang Procedures This patient has no known procedures. Plan of Care Planned Activity Planned Date Details Comments Source Future Scheduled 2021-04-04 INFLUENZA VACCINE [facility] n Mandaen Test 00:00:00 [code = INFLUENZA VACCINE] Future Scheduled 2020-09-[address] [facility] - Test 00:00:00 (12+) [code = Medical Center DEPRESSION SCREENING (12+)] Future Scheduled 2020-05-05 INFLUENZA VACCINE (#1) [facility] Test 00:00:00 [code = INFLUENZA Medical Ce nter VACCINE (#1)] Future Scheduled 2014-12-[address] [facility] - Test 00:00:00 WELLNESS (YEAR 2 or Medical Center FIRST YEAR if no IPPE) [code = MEDICARE ANNUAL WELLNESS (YEAR 2 or FIRST YEAR if no IPPE)] Future Scheduled 2013 PNEUMOCOCCAL 65+ YRS [facility] - Test 00:00:00 (1 of 1 - Medical Center [id number] PCV13) [code = PNEUMOCOCCAL 65+ YRS (1 of 1 - [id number] PCV13)] Future Scheduled 1998 COLONOSCOPY SCREENING [place] [facility]anda[facility] Test 00:00:00 [code = COLONOSCOPY SCREENING] Future Scheduled 1998 SHINGLES VACCINES (#1) [place] [facility]anda[facility] Test 00:00:00 [code = SHINGLES VACCINES (#1)] Future Scheduled 1966 Hepatitis C screening [place] Manda[facility] Test 00:00:00 (procedure) [code = 101439194] Future Scheduled [address] [facility] - Test 00:00:00 malignant neoplasm of Medica l Center colon (procedure) [code = 496442874] Encounters Start End Encounter Admission Attending Care Care Encounter Source Date/Time Date/Time Type Type Clinicians Facility Department ID 2021-02-25 2021-02-25 Office Reshma Mccormick [facility] [id number] 07:55:50 08:59:16 Visit H AMBULATOR [id number] Y [id number] 2021-02-24 2021-02-24 Outpatient [facility] [id number] [place] 00:00:00 00:00:[address] 2021-01-05 2021-01-05 Office KEMI Jason [id number] 12:31:06 15:54:26 Visit Guru Beckford AMBULATOR [id number] Y [id number] 2020-09-09 2020-09-09 Outpatient KEMI RUIZ [facility] [id number] [facility] 10:43:52 16:03:26 MANUELITO haro of Medicin e Results Test Description Test Time Test Comments Results Result Comments Source CT, ABDOMEN 2019-11-18 FINAL REPORT PATIENT 09:23:00 ID: [id number] CT abdomen and pelvis with contrast History: Abnormal CT scan Comparison: none Technique: serial axial imaging was performed following up to 100cc of non ionic iodinated intravenous contrast as per departmental protocol. Multiplanar images are reconstructed and reviewed when indicated. This CT examination is performed using one or more of the following dose reduction techniques: Automated exposure control, adjustment of the mA and /or kV according to patient size, and/or use of iterative reconstruction technique. Findings:Unremarkable appearance of pancreas and spleen. Scattered simple-appearing hepatic cysts, largest measuring 12 mm in size. Liver is otherwise unremarkable. The patient is status post cholecystectomy. There is nonspecific prominence of the common bile duct, without visualized skeletal obstructive lesion. This could reflect reservoir effect. Multiple bilateral simple appearing renal cysts, many of which are parapelvic in location. Otherwise, unremarkable appearance of the adrenal glands, kidneys, ureters, and bladder. . No small or large bowel obstruction. No apparent bowel wall thickening. Moderate sigmoid diverticulosis, without diverticulitis. No findings to indicate acute appendicitis. No free fluid or lymphadenopathy. No abdominal aortic aneurysm. Scattered sclerotic lesions throughout the axial skeleton, the largest of which is seen within the right iliac crest measuring 17 mm in size. No pathologic fracture is seen. Impression: 1. No acute findings in the abdomen or pelvis.2. Scattered nonaggressive sclerotic lesions throughout the axial skeleton measuring up to 17 mm in size. Differential diagnostic considerations would include multiple bone islands versus sclerotic bone metastases. Recommend further evaluation with nuclear bone scan.3. Moderate sigmoid diverticulosis, without diverticulitis. Signed: [place] MDReport Verified Date/Time: 11/18/2019 09:23:12 Reading Location: [facility] C0X Ortho Consult Reading Room -CREATININE 2019-11-18 08:47:00 Test Item Value Reference Range Interpretation Comme nts POC-CREATININE (BEAKER) 1.1 mg/dL 0.6-1.3 : TE STED AT [facility] 0213 (test code = 1859) [facility] [address]: Rest Room Attendant /Android Framework Developer ID = [id number] for BOBBI MESSER POC-EGFR (SARAVANAN) (test 66 mL/min/1.73M2 code = 1860) CT, HEART CORONARY TIEN, WITHOUT IV [id number] 13:48:00FINAL REPORT EXAM: CT Coronary calcium scoring only WITHOUT contrast INDICATION: encounter for preventative health examination COMPARISON: Chest radiograph 10/17/2019 TECHNIQUE: Prospectively triggered multi-detector CT technology was with minimal slice thickness, without intravenous administration of contrast. Postprocessing to evaluate for coronary artery calcium score was performed. IV CONTRAST: None ORAL CONTRAST: None COMPLICATIONS: NoneRADIATION DOSE: Total DLP: 114.4 mGy*cm Estimated effective dose: (DLP x 0.015 x size factor) mSv CTDIvol has been reviewed. It is below the limits set by the Radiation Protocol Committee (RPC). FINDINGS: CALCIUM SCORE: The observed Agatston Calcium Score of 1851 is at percentile greater than 90% for subjects of the same age and gender who are free of clinical cardiovascular disease and treated diabetes. The Agatston score for each vessel is as follows:LM: 133LAD: 661LCx: 762RCA: 296 DISTRIBUTION OF THE CALCIFIED PLAQUES: Extensive calcified plaque throughout all coronary arteries. Normal origin of the coronary arteries. LIMITED CHEST:Limited non-contrast views of the visualizedchest show no abnormality within chest wall and mediastinum. Few calcified lymph nodes in the AP window and left hilar region. In addition, there are multiple enlarged noncalcified lymph nodes in the right and left paratracheal and AP window as well as subcarinal regions. The largest measures 1.6 cm in transverse diameter in the subcarinal region. There is a 7 mm subpleural solid nodule in the anterior left upper lobe on series 1, image 23. Mild scarring in the right lower lobe. The visualized portions of the ascending and descending thoracic aorta are of normal size. LIMITED ABDOMEN:Limited imag es of the upper abdomen reveal no abnormalities of the visualized organs. BONES:No acute osseous abnormalities. IMPRESSION: Total Agatston Calcium Score: 1851 that corresponds to percentile greater than%, representing extensive plaque burden distributed in all coronary arteries. Mediastinal lymphadenopathy and indeterminate 7 mm solid nodule of uncertain etiology. If these findings are unknown to the patient, recommend further evaluation with CT chest and pulmonary consultation. Signed: Bobbi Sharif MDRepdeng Verified Date/Time: 10/07/2019 13:48:52 RAD, BONE DENSITY [id number] 12:53:00Reason for Exam:- >encounter for preventative health examinationFINAL REPORT Exam: Bone mineral density study. History: Osteopenia. Comparison: None Discussion: Evaluation of the left forearm, bilateral hips, and lumbar spine was performed utilizing DEXA Hologic bone densitometer. The study is technically adequate.Left forearm 1/3 bone mineral density: 0.915gm/cm2, T-score is 1.8, Z-score is 3.2. Left forearm total bone mineral density: 0.653gm/cm2, T- score is -0.7, Z-score is 0.6. Left hip total bone mineral density: 0.983gm/cm2, T-score is -0.3, Z-score is 0.4. Left hip femoral neck bone mineral density: 0.841gm/cm2, T-score is -0.7, Z-score is 0.6. Right hip total bone mineral density: 0.957gm/cm2, T-score is -0.5, Z-score is 0.2. Right hip femoral neck bone mineral density: 0.847gm/cm2, T-score is -0.6, Z-score is 0.6. Lumbar spine total bone mineral density: 1.360gm/cm2, T-score is 2.4, Z-score is 3.4. Impression:1.Normal bone mineral density of the left forearm, fracture risk is not increased.2.Normal bone mineral density of the left hip, fracture risk is not increased.3.Normal bone mineral density of the right hip, fracture risk is not increased.4.Normal bone mineral density of the lumbar spine, fracture risk is not increased. Least significant change (LSC) for bone mineral density as provided by spring intern is 0.023 g/cm2 for lumbar spine and 0.027 g/cm2 for total hip. 10 -year fracture risk per WHO Fracture Risk Assessment Tool (FRAX) for:Not reported when T scores are at or above -1.0The above fracture probabili ty is calculated for an untreated patient. Fracture probably may be lower if the patient has received treatment. All treatment decisions require clinical judgment and consideration of individual patient factors, including patient preferences, comorbidities, previous drug use and risk factors not captured in the FRAX model (e.g. frailty, falls, vitamin D deficiency, increased bone turnover, interval significant decline in BMD). The patient's fracture risk is compared to an age-matched control. Medical evaluation for secondary causes of low bone bone mineral density may be appropriate. Correlate clinically for the necessity and timing of the next bone mineral density study. Signed: Bobbi Sharif Verified Date/Time: 10/07/2019 12:53:26 RAD, CHEST, 2 [id number] 08:57:00Reason for Exam:->encounter for preventative health examinationFINAL REPORT CHEST RADIOGRAPH - 2 VIEWS INDICATION: Encounter for preventative health examination. COMPARISON: None FINDINGS:LINES: None LUNGS: The lungs are well inflated. No evidence of pneumonia or pulmonary edema. There is a faint focal opacity in the left lower lung, best seen on one of the frontal views, and less conspicuous on additional frontal view. PLEURA: No evidence of pleural effusion or pneumothorax. HEART AND MEDIASTINUM: The cardiac silhouette is unremarkable. Calcified bilateral hilar lymph nodes. BONES: No acute osseous abnormality. UPPER ABDOMEN: No evide nce of free intraperitoneal air. IMPRESSION:No acute radiographic abnormality. A focal opacity in the left lower lung, which may represent superimposition of structures or atelectasis. Underlying pulmonary nodule is not excluded. Recommend repeat radiograph or chest CT for further evaluation. Signed: Jack Zhao Verified Date/Time: 10/07/2019 08:57:55 Reading Location: [facility] Reading Room [address] [place] [address]
[2021-03-04] MEDS ORDERED: ONDANSETRON 4 MG/2 ML VIAL ONE (14:22)
[2021-03-04] MEDS ORDERED: dexAMETHasone 10 MG/ML VIAL ONE (14:22)
[2021-03-04] MEDS ORDERED: MORPHINE 2 MG/ML SYR ONE (14:22)
[2021-03-04] MEDS ORDERED: FAMOTIDINE 20 MG/2 ML VIAL IV ONE (14:22)
[2021-03-04 14:23] LABS: Urine Blood Trace-intact (Negative); Urine Glucose Negative (Negative); Urine Protein Negative (Negative); Urine Specific Gravity >=1.030 (1.005-1.030)
[2021-03-04] MEDS ORDERED: NA CHLORIDE 0.9% 1,000 ML ONE (14:23)
--- NOTE | 2021-03-04 15:25 | RAD REPORT ---
EXAM DESCRIPTION: MRI - Lumbar Spine Wo Con - 03/04/2021 2:51 pm CLINICAL HISTORY: Pain;Numbness/tingling;Radiculopathy COMPARISON: Abdomen Pelvis W/Wo Contrast dated 10/30/2019 TECHNIQUE: Sagittal T1-weighted, T2-weighted and T2-STIR weighted sequences were obtained. Axial T1 -weighted and heavily T2-weighted sequenceswere obtained through the lumbar disc levels. FINDINGS: Lumbar bodies are normal in height and alignment. No suspicious marrow signal. No paraspi nal masses. Conus is normal with no clumping or thickening of the cauda equina. T12-L1 level: No significant findings. L1-2 level: Disc is desiccated. There is mild circumferential disc material with an annular fissure i n the midline. No central spinal stenosis and no significant foraminal stenosis. L2-3 level: Disc is thinned and desiccated. There is a prominent circumferential bulging of disc mate rial with endplate spurring. Posterior ligamentous thickening and facet hypertrophy are present. Ther e is significant circumferential narrowing of the thecal sac and central canal narrowed to 8 mm. Mild bilateral foraminal stenosis present. L3-4 level: Disc is desiccated. Minimal disc bulge is present. No foraminal stenosis or central spina l stenosis. Facet degenerative change and ligamentous thickening changes are mild. L4-5 level: Disc is desiccated without loss in disc height. There is a small midline disc herniation flattening the thecal sac. Thecal sac is reduced to 9-10 mm. Prominent facet joint degenerative mckeon es are present. The facet hypertrophy, endplate spurring and disc bulge changes result in moderate bi lateral foraminal stenosis. L5-S1 level: There is significant loss in disc height with desiccation change. No herniation or signi ficant disc bulge in the central canal. Facet degenerative changes are present. There is disc bulge a nd endplate spurring changes in each exit foramen causing moderate foraminal stenosis. IMPRESSION: No compression fracture or pathologic bone process identifiable. Degenerative changes are present throughout the lumbar spine as detailed. There is L2-3 central spina l stenosis and L4-5 borderline to mild central spinal stenosis. Multiple levels cause foraminal stenosis. Findings are detailed at each level in the body of the repo rt.
[2021-03-04 16:24] LABS: Absolute Lymphocytes (CBC) 0.9 K/uL (0.7-4.9); Basophils % 1.2 % (0-1.3); Hematocrit 40.8 % (39.6-49.0); Lymphocytes % 15.6 % (15.3-44.8); MPV 9.7 fL (7.6-11.3); RBC Red Blood Cell Count 4.59 M/uL (4.33-5.43)
[2021-03-04 16:39] LABS: Potassium 3.7 mmol/L (3.5-5.1)
[2021-03-04 16:40] LABS: Albumin 3.7 g/dL (3.4-5.0); Bilirubin Total 0.8 mg/dL (0.2-1.0); Protein, Total 7.3 g/dL (6.4-8.2)
--- NOTE | 2021-03-04 17:38 | RAD REPORT ---
EXAM DESCRIPTION: CT - Angio Aorta For Dissection - 03/04/2021 5:07 pm CLINICAL HISTORY: BACK PAIN;Abdominal distention, history of renal cell carcinoma COMPARISON: Two view chest February 11, CT abdomen and pelvis October 2019, CT chest December 2010 TECHNIQUE: Dynamically enhanced 3 mm thick images of the chest, abdomen, and upper pelvis were obtai [place] during administration of approximately 150mL Isovue 370 IV contrast. Sagittal and coronal reconst ruction images were generated using MIP and reviewed. Exam utilizes a protocol to evaluate entire cou rse of the aorta. All CT scans are performed using dose optimization technique as appropriate and may include automated exposure control or mA/KV adjustment according to patient size. FINDINGS: Aorta is normal in diameter with no dissection or other acute aortic findings. Aortoiliac atherosclerotic calcifications are present primarily below the renal vascular level. No significant l uminal narrowing. Reconstruction images show no significant findings. Pulmonary arteries are normal. No cardiomegaly, pericardial thickening or pericardial effusion. No mass or infiltrate in the lung parenchyma. No pleural thickening, pleural effusion or pneumothorax . Multiple mediastinal and hilar lymph nodes are present greater than typically seen. Most of the lymph nodes range 1.5 to 2 0.5 cm in size. There is a confluence of subcarinal lymphadenopathy that measur es 4 x 2.5 cm in size. Multiple small hilar lymph nodes are seen. These abnormal lymph nodes were not present on 2010 study. No intervening cross-sectional imaging of the chest available. No chest wall mass or abnormal axillary lymphadenopathy. Celiac, SMA and renal arteries show no suspicious findings. Small cysts in the liver have show no change from October 2019. Solid mass lesion or worrisome liver finding. No pancreatic or peripancreatic abnormality. No acute splenic finding. Cholecystectomy clip s are present. No abnormal biliary tree dilatation. No adrenal abnormality. Symmetric function is see n in the kidneys. Numerous bilateral parapelvic cysts are again noted. No residual or recurrent mass lesion of either kidney. No perinephric stranding. Small cluster of lymph nodes noted near the gastro hepatic ligament unchanged from most recent comparison. No new or progressive abdominal or pelvic lym phadenopathy pattern. Prominent sigmoid diverticulosis without diverticulitis. No acute GI process identifiable. No free ai r, free fluid or inflammatory stranding. No inguinal lymphadenopathy, hernia or other finding to exp hammad the patient's current pain pattern. No muscle hematoma, mass or soft tissue abnormality. Prostate gland is prominent and has a lobulated contour. This is not clearly different from compariso n. Urinary bladder remains mostly contracted which limits assessment of the bladder base. Prostate pr ojects into the bladder base. No posttraumatic or pathologic fracture changes the proximal left femur left hemipelvis. Numerous kimmy iably sized blastic areas are seen in the skeleton. These have not changed since the October [address] ud. IMPRESSION: Negative CT scan of the aorta for acute finding. Multiple abnormal mediastinal and hilar lymph nodes new from 2011 imaging. No intervening studies chely ilable imaging the chest. Prostate gland is prominent projecting into the bladder base. Base the bladder has a somewhat lobulat ed appearance that may be due to the prostate gland or possibly a bladder related abnormality. On mul tiple prior studies and bladder has been too contracted to allow accurate assessment. Multiple blastic skeletal changes are present not clearly different from October 2019. Both prostate and bladder malignancies could account for the skeletal findings and the chest findings. Correlation is needed to determine if either of these malignancies have been diagnosed in this patient. No abnormality on this study seen that would explain the left hip growing or lower abdomen pain patte rn.
--- NOTE | 2021-03-04 18:15 | ER ---
Nurse's Notes [facility] Name: Jhonatan Solis Age: 70 yrs Sex: Male : 1950 Arrival Date: 03/04/2021 Time: 13:03 Bed 24 Private MD: Matthew Arceo C Diagnosis: Low back pain;Sciatica, left side;Pain in left hip Presentation: 03/04 13:30 Chief complaint: Patient states: L low back pain radiating to L hip and groin, denies ph injury. Coronavirus screen: Client denies travel out of the [place] in the last 14 days. At this time, the client does not indicate any symptoms associated with coronavirus-19. Ebola Screen: No symptoms or risks identified at this time. Initial Sepsis Screen: Does the patient meet any 2 criteria? No. Patient's initial sepsis screen is negative. Does the patient have a suspected source of infection? No. Patient's initial sepsis screen is negative. Risk Assessment: Do you want to hurt yourself or someone else? Patient reports no desire to harm self or others. Onset of symptoms was March 04, 2021. 13:30 Method Of Arrival: Ambulatory ph 13:30 Acuity: TAMAR 3 ph Historical: - Allergies: 13:31 Levaquin; ph - PMHx: 13:31 Atrial Fib; Depression; Hyperlipidemia; Hypertension; stent; Kidney cancer; ph - PSHx: 13:31 L kidney partially removed; ph - Immunization history:: Client reports receiving the 2nd dose of the Covid vaccine. - Social history:: Smoking status: Patient denies any tobacco usage or history of. Patient uses alcohol, occasionally. - Family history:: not pertinent. Screenin:50 Abuse screen: Denies threats or abuse. Denies injuries from another. Nutritional ld1 screening: No deficits noted. Tuberculosis screening: No symptoms or risk factors identified. Fall Risk None identified. Assessment: 13:50 General: Appears in no apparent distress. comfortable, Behavior is calm, cooperative, ld1 appropriate for age. Pain: Complains of pain in left low back Pain does not radiate. Pain currently is 8 out of 10 on a pain scale. Quality of pain is described as throbbing, Pain began 2-3 days ago. Is continuous, Aggravated by Inhaling. Neuro: Level of Consciousness is awake, alert, obeys commands, Oriented to person, place, time, situation. Cardiovascular: Capillary refill < 3 seconds Patient's skin is warm and dry. Respiratory: Airway is patent Respiratory effort is even, unlabored, Respiratory pattern is regular, symmetrical. GI: Abdomen is flat, non-distended. : No signs and/or symptoms were reported regarding the genitourinary system. EENT: No signs and/or symptoms were reported regarding the EENT system. Derm: No signs and/or symptoms reported regarding the dermatologic system. Musculoskeletal: No signs and/or symptoms reported regarding the musculoskeletal system. 15:19 Reassessment: Patient appears in no apparent distress at this time. No changes from ld1 previously documented assessment. Patient is alert, oriented x 3, equal unlabored respirations, skin warm/dry/pink. 16:45 Reassessment: Patient appears in no apparent distress at this time. No changes from ld1 previously documented assessment. Patient is alert, oriented x 3, equal unlabored respirations, skin warm/dry/pink. Waiting on results with at bedside. RR 20. 17:30 Reassessment: Patient appears in no apparent distress at this time. No changes from ld1 previously documented assessment. Patient is alert, oriented x 3, equal unlabored respirations, skin warm/dry/pink. Vital Signs: 13:30 BP 154 / 94; Pulse 66; Resp 18; Temp 98.2; Pulse Ox 100% on R/A; Weight 98.88 kg; ph Height 6 ft. 1 in. (185.42 cm); 13:50 BP 154 / 94; Pulse 56; Resp 18; Pulse Ox 96% on R/A; ld1 15:19 BP 136 / 78; Pulse 56; Resp 18; Pulse Ox 96% on R/A; Pain 0/10; ld1 16:45 BP 174 / 91; Pulse 51; Resp 18; Pulse Ox 98% on R/A; ld1 17:23 BP 185 / 97; Pulse 51; Resp 18; Pulse Ox 99% on R/A; ld1 18:55 BP 167 / 82; Pulse 60; Resp 18; Pulse Ox 100% ; ld1 13:30 Body Mass Index 28.76 (98.88 kg, 185.42 cm) ph ED Course: 13:03 Patient arrived in ED. am2 13:03 Matthew Arceo MD is Private Physician. am2 13:25 José Monson MD is Attending Physician. kylie 13:26 Lottie Green, SERGE is Primary Nurse. ld1 13:31 Triage completed. ph 13:32 Arm band placed on Patient placed in an exam room, on a stretcher. ph 13:50 Patient has correct armband on for positive identification. Placed in gown. Bed in low ld1 position. Call light in reach. Side rails up X2. Pulse ox on. NIBP on. Door closed. Noise minimized. Warm blanket given. 13:50 No provider procedures requiring assistance completed. Maintain EMS IV. Dressing ld1 intact. Good blood return noted. Site clean \T\ dry. Gauge \T\ site: 18G LFA. 14:39 MRI Lumbar Spine wo Con In Process Unspecified. EDMS 17:12 CT Aorta for Dissection In Process Unspecified. EDMS 18:12 Matthew Arceo MD is Referral Physician. kylie 18:13 Siddharth Summers MD is Referral Physician. kylie 18:13 Clifton Crooks MD is Referral Physician. kylie 18:55 IV discontinued, intact, bleeding controlled, No redness/swelling at site. ld1 Administered Medications: 15:18 Drug: morphine 2 mg Route: IVP; Site: right antecubital; ld1 15:18 Drug: Zofran (Ondansetron) 4 mg Route: IVP; Site: right antecubital; ld1 15:18 Drug: Decadron - Dexamethasone 10 mg Route: IVP; Site: right antecubital; ld1 15:18 Drug: Pepcid (famotidine) 20 mg Route: IVP; Site: right antecubital; ld1 15:19 Drug: NS 0.9% 1000 ml Route: IV; Rate: 125 ml/hr; Site: right antecubital; ld1 Outcome: 18:14 Discharge ordered by . kylie 18:55 Discharged to home ambulatory. ld1 18:55 Condition: stable 18:55 Discharge instructions given to patient, family, Instructed on discharge instructions, follow up and referral plans. medication usage, Demonstrated understanding of instructions, follow-up care, medications. 18:55 Patient left the ED. ld1 Signatures: Dispatcher [employer] EDMS José Monson MD MD cha Hall, Patricia, RN Rabia Doe ph am2 Lottie Green RN RN ld1 Corrections: (The following items were deleted from the chart) 15:21 15:19 Pulse 56bpm; Resp 18bpm; Pulse Ox 96% RA; Pain 0/10; ld1 ld1
--- NOTE | 2021-03-04 18:15 | EDPHYS ---
Physician Documentation [facility] Name: Jhonatan Solis Age: 70 yrs Sex: Male : 1950 Arrival Date: 03/04/2021 Time: 13:03 Bed 24 Private MD: Matthew Arceo C ED Physician José Monson HPI: 03/04 15:25 This 70 yrs old Male presents to ER via Ambulatory with complaints of Back kylie Pain. 15:25 The patient presents with pain that is acute, with no known mechanism of injury. The kylie symptoms are located in the left low back and left mid back. Onset: The symptoms/episode began/occurred 4 day(s) ago. The pain does not radiate. Associated signs and symptoms: The patient has no apparent associated signs or symptoms. The problem was sustained from unknown cause. Modifying factors: The patient symptoms are alleviated by nothing, the patient symptoms are aggravated by movement. Severity of symptoms: At their worst the symptoms were moderate, in the emergency department the symptoms are unchanged. Historical: - Allergies: 13:31 Levaquin; ph - PMHx: 13:31 Atrial Fib; Depression; Hyperlipidemia; Hypertension; stent; Kidney cancer; ph - PSHx: 13:31 L kidney partially removed; ph - Immunization history:: Client reports receiving the 2nd dose of the Covid vaccine. - Social history:: Smoking status: Patient denies any tobacco usage or history of. Patient uses alcohol, occasionally. - Family history:: not pertinent. ROS: 15:25 Constitutional: Negative for fever, chills, and weight loss, Eyes: Negative for injury, kylie pain, redness, and discharge, ENT: Negative for injury, pain, and discharge, Neck: Negative for injury, pain, and swelling, Cardiovascular: Negative for chest pain, palpitations, and edema, Respiratory: Negative for shortness of breath, cough, wheezing, and pleuritic chest pain, Abdomen/GI: Negative for abdominal pain, nausea, vomiting, diarrhea, and constipation, : Negative for injury, bleeding, discharge, and swelling, Skin: Negative for injury, rash, and discoloration, Neuro: Negative for headache, weakness, numbness, tingling, and seizure, Psych: Negative for depression, anxiety, suicide ideation, homicidal ideation, and hallucinations, Allergy/Immunology: Negative for hives, rash, and allergies, Endocrine: Negative for neck swelling, polydipsia, polyuria, polyphagia, and marked weight changes, Hematologic/Lymphatic: Negative for swollen nodes, abnormal bleeding, and unusual bruising. 15:25 Back: Positive for pain at rest, pain with movement, radiated pain, of the left low back. Exam: 15:25 Constitutional: This is a well developed, well nourished patient who is awake, alert, kylie and in no acute distress. Head/Face: Normocephalic, atraumatic. Eyes: Pupils equal round and reactive to light, extra-ocular motions intact. Lids and lashes normal. Conjunctiva and sclera are non-icteric and not injected. Cornea within normal limits. Periorbital areas with no swelling, redness, or edema. ENT: Nares patent. No nasal discharge, no septal abnormalities noted. Tympanic membranes are normal and external auditory canals are clear. Oropharynx with no redness, swelling, or masses, exudates, or evidence of obstruction, uvula midline. Mucous membranes moist. Neck: Trachea midline, no thyromegaly or masses palpated, and no cervical lymphadenopathy. Supple, full range of motion without nuchal rigidity, or vertebral point tenderness. No Meningismus. Chest/axilla: Normal chest wall appearance and motion. Nontender with no deformity. No lesions are appreciated. Cardiovascular: Regular rate and rhythm with a normal S1 and S2. No gallops, murmurs, or rubs. Normal PMI, no JVD. No pulse deficits. Respiratory: Lungs have equal breath sounds bilaterally, clear to auscultation and percussion. No rales, rhonchi or wheezes noted. No increased work of breathing, no retractions or nasal flaring. Abdomen/GI: Soft, non-tender, with normal bowel sounds. No distension or tympany. No guarding or rebound. No evidence of tenderness throughout. Male : Normal genitalia with no discharge or lesions. Skin: Warm, dry with normal turgor. Normal color with no rashes, no lesions, and no evidence of cellulitis. MS/ Extremity: Pulses equal, no cyanosis. Neurovascular intact. Full, normal range of motion. Neuro: Awake and alert, GCS 15, oriented to person, place, time, and situation. Cranial nerves II-XII grossly intact. Motor strength 5/5 in all extremities. Sensory grossly intact. Cerebellar exam normal. Normal gait. Psych: Awake, alert, with orientation to person, place and time. Behavior, mood, and affect are within normal limits. 15:25 Back: pain, that is moderate, ROM is decreased, normal spinal alignment noted, CVA tenderness, is absent, vertebral tenderness, is not appreciated, muscle spasm, is appreciated in the left low back, left mid back, right mid back and right low back. Vital Signs: 13:30 BP 154 / 94; Pulse 66; Resp 18; Temp 98.2; Pulse Ox 100% on R/A; Weight 98.88 kg; ph Height 6 ft. 1 in. (185.42 cm); 13:50 BP 154 / 94; Pulse 56; Resp 18; Pulse Ox 96% on R/A; ld1 15:19 BP 136 / 78; Pulse 56; Resp 18; Pulse Ox 96% on R/A; Pain 0/10; ld1 16:45 BP 174 / 91; Pulse 51; Resp 18; Pulse Ox 98% on R/A; ld1 17:23 BP 185 / 97; Pulse 51; Resp 18; Pulse Ox 99% on R/A; ld1 18:55 BP 167 / 82; Pulse 60; Resp 18; Pulse Ox 100% ; ld1 13:30 Body Mass Index 28.76 (98.88 kg, 185.42 cm) ph MDM: 13:25 Patient medically screened. kylie 15:40 Differential diagnosis: Abdominal Aortic Aneurysm chronic back pain, Fatigue Fracture kylie Hydronephrosis Neoplasm Obesity Osteoarthritis Osteoporosis Perforated Ulcer ruptured disc, sprain, Ureterolithiasis vertebral fracture. Data reviewed: vital signs, nurses notes, lab test result(s), CBC, electrolytes, radiologic studies, CT scan, MRI. Data interpreted: electronic device monitor: rate is 56 beats/min, rhythm is regular, Pulse oximetry: on room air is 96 %. Test interpretation: by ED physician or midlevel provider:. Counseling: I had a detailed discussion with the patient and/or guardian regarding: the historical points, exam findings, and any diagnostic results supporting the discharge/admit diagnosis, lab results, radiology results. 03/04 13:52 Order name: CBC with Diff; Complete Time: 17:10 [facility] 03/04 13:52 Order name: Comprehensive Metabolic Panel; Complete Time: 17:10 [facility] 03/04 13:52 Order name: MRI Lumbar Spine wo Con; Complete Time: 15:38 [facility] 03/04 14:23 Order name: Urine Dipstick-Ancillary; Complete Time: 15:38 EDPR 03/04 16:07 Order name: Lipase [facility] 03/04 16:07 Order name: Lipase; Complete Time: 17:10 EDPR 03/04 13:52 Order name: Urine Dipstick-Ancillary (obtain specimen); Complete Time: 14:22 [facility] 03/04 15:40 Order name: CT Aorta for Dissection; Complete Time: 17:58 kylie Administered Medications: 15:18 Drug: morphine 2 mg Route: IVP; Site: right antecubital; ld1 15:18 Drug: Zofran (Ondansetron) 4 mg Route: IVP; Site: right antecubital; ld1 15:18 Drug: Decadron - Dexamethasone 10 mg Route: IVP; Site: right antecubital; ld1 15:18 Drug: Pepcid (famotidine) 20 mg Route: IVP; Site: right antecubital; ld1 15:19 Drug: NS 0.9% 1000 ml Route: IV; Rate: 125 ml/hr; Site: right antecubital; ld1 Disposition Summary: 03/04/21 18:14 Discharge Ordered Location: Home kylie Problem: new kylie Symptoms: have improved kylie Condition: Stable kylie Diagnosis - Low back pain kylie - Sciatica, left side kylie - Pain in left hip kylie Followup: kylie - With: Matthew Arceo MD - When: 5 - 6 days - Reason: Recheck today's complaints, Continuance of care, Re-evaluation by your physician Followup: kylie - With: Siddharth Summers MD - When: 2 - 3 days - Reason: Recheck today's complaints, Continuance of care, Re-evaluation by your physician Followup: kylie - With: Clifotn Crooks MD - When: 2 - 3 days - Reason: Recheck today's complaints, Re-evaluation by your physician Discharge Instructions: - Discharge Summary Sheet kylie - Arthritis kylie - Acute Back Pain, Adult kylie - Chronic Back Pain kylie - Musculoskeletal Pain kylie - Sciatica kylie - Back Injury Prevention, [id number] kylie - Chronic Back Pain, [id number] kylie Forms: - Medication Reconciliation Form kylie - Thank You Letter kylie - Antibiotic Education kylie - Prescription Opioid Use kylie Prescriptions: - Zofran 4 mg Oral tablet - take 1 tablet by ORAL route 4 times per day; 20 tablet; Refills: 0, Product [facility] Selection Permitted - acetaminophen-codeine 300-15 mg Oral tablet - take 2 tablet by ORAL route every 4-6 hours; 20 tablet; Refills: 0, Product [facility] Selection Permitted Signatures: Dispatcher [employer] José Massey MD MD cha Hall, Patricia, RN RN Lottie Green RN RN ld1
[2021-03-04 19:08] VITALS: TEMP 98.2
[2021-03-04 19:16] VITALS: BP 167/82; O2SAT 100
== END 2021-03-04 18:55 | disposition home or self-care (01) ==
LOC: ER 13:02
DX: M54.32 Sciatica, left side (principal); M25.552 Pain in left hip; I10 Essential (primary) hypertension; Z88.1 Allergy status to other antibiotic agents; Z85.528 Personal history of other malignant neoplasm of kidney
CPT/HCPCS: 85025; 36415; 81003; 83690; 80053; 71275; 74175; 72148; 96375; 96374; 99284; Q9967; J1100; J2270; J7030; J2405

== ENCOUNTER 2021-04-08 10:48 | Emergency (ER) | payer OTHER ==
--- OUTSIDE RECORDS SUMMARY | 2021-04-08 10:52 | XMS REPORT | Continuity of Care Document ---
:1950 Author Organization [facility] t Address [address] Bob [address] [place] [id number] Care Team Providers Name Role Phone Milagros Arceo MD Primary Care Physician Beata VALENTINE Attending Clinician Unavailable Particia Hayward MD Attending Clinician Violet Mccormick DO Attending Clinician Eren PhD, K Attending Clinician MERVIN RUIZ Attending Clinician Unavailable REBECA ROME Attending Clinician Unavailable Payers Payer Name Policy Type Policy Number Effective Expiration Source Date Date MEDICAREMEDICARE PART [id number] 2013 [facility] AND 00:00:00 [facility] [id number] [place] [facility] \T\ B [id number] - MEDICARE GENERIC PPO - GENERIC [id number] 2019 PAYOR 00:00:00 Problems Condition Condition Condition Status Onset Resolution Last Treating Co mments Source Name Details Category Date Date Treatment Clinician Date Diarrhea Diarrhea Disease Active Metho di due to due to 02-24 malabsorpt malabsorpt 00:00: Ho spita ion ion 00 l Weight Weight Disease Active Methodi loss, loss, 02-24 st unintentio unintentio 00:00: Ho spita nal nal 00 l Nausea Nausea Disease Active Methodi 02-24 st 00:00: Hospita 00 l Anorexia Anorexia Disease Active Metho di 02-24 00:00: Hospita 00 l Allergies, Adverse Reactions, Alerts Allergy Allergy Status Severity Reaction(s) Onset Inactive Treating Comm ents Source Name Type Date Date Clinician Levoflox Propensi Active Other [facility] 7-[facility] reaction( [facility] - adverse 00:[facility]: s): Medical reaction 00 Unknown - Cente r s See commentsO ther reaction( s): Unknown - See comments Levoflox Propensi Active GI Other Method i acin ty to Intolerance 713 reaction( st adverse 00:00: s): Hospita reaction 00 Unknown - l s to See drug commentsO ther reaction( s): Unknown - See commentsO ther reaction( s): Unknown - See commentsO ther reaction( s): Unknown - See commentsO ther reaction( s): Unknown - See comments Social History Social Habit Start Date Stop Date Quantity Comments Source [facility] Tobacco use and 2021-02-24 2021-02-24 Never used [facility] exposure 00:00:00 00:00:00 [birth year] [facility] 00:00:00 00:00:00 Smoking Status Start Date Stop Date Source Unknown if ever smoked [facility] Medications Ordered Filled Start Stop Current Ordering Indication Dosage Frequency Signature Comments Components Source Medication Medication Date Date Medication? Clinician (SIG) Name Name deshawn 2020- Yes 625mg Q.5D Take 1 Me thodi (WELCHOL) 8 09-[address] 625 mg 00:00: 04:59 (625 mg Hospita tablet 00 :00 total) by l mouth 2 (two) times a day with meals for 60 doses. colesevelam 2020- No 625mg Q.5D Take 1 Me thodi (WELCHOL) 04-01 08-[address] 625 mg 00:00: 00:00 (625 mg Hospita tablet 00 :00 total) by l mouth 2 (two) times a day with meals for 60 doses. ascorbic Yes 500mg QD Take 500 Meth zoë acid, 6-[address] vitamin C, 21:22: mouth Hospit a (ascorbic 08 daily. l acid with lisa hips) 500 MG tablet calcium Yes 1{tbl} Q.5D Take 1 Method i carbonate-v - tablet by st itamin D3 21:22: mouth 2 Hospi ta 500 mg-200 08 (two) l unit per times a tablet day with meals. vitamin E Yes 1000U QD Take 1,000 M ethodi 1000 UNIT 6-[address] capsule 21:22: mouth Hospita 08 daily. l vitamin A 0 [place] [id number] [address] UNIT -23 10,000 st capsule 21:22: Units by Hospit a 07 mouth l daily. vit B comp Yes 1{tbl} QD Take 1 Met hodi no.3-folic- 02-24 tablet by C-biotin 21:22: mouth Hospita (NEPHRO-VIT 07 daily. l E RX) 1-60-300 mg-mg-mcg tablet mecobalamin Yes Take by Met hodi (B12 ACTIVE 02-[address] ORAL) 21:22: Hospita 07 l evolocumab Yes Inject Metho di (REPATHA) 02-[address] 140 mg/mL 21:18: skin. Hospita pen 28 l injector injection aspirin Yes 81mg Take 81 mg Meth zoë (ECOTRIN) 02-[address] 81 MG 21:12: Hospita enteric 18 l coated tablet levothyroxi Yes TAKE 1 Meth zoë ne 5-[address] (Euthyrox) 00:00: MOUTH ONCE H ospita 125 mcg 00 DAILY l tablet hydrocortis Yes 10mg Take 10 mg Methodi one 4-[address] (CORTEF) 10 00:00: Hospit a MG tablet 00 l donepeziL Yes TAKE 1 Method i (ARICEPT) 1-[address] 10 MG 00:00: MOUTH ONCE Hospit a tablet 00 DAILY l rivaroxaban 2017-09 Yes Method i (XARELTO) 09-29 st 20 mg 00:00: Hospita tablet 00 l sotaloL 2017-09 Yes 80mg Take 80 mg Meth zoë (BETAPACE) 09-[address] 80 MG 00:00: Hospita tablet 00 l lisinopriL Yes Methodi (PRINIVIL) 02-26 st 5 mg tablet 00:00: Hospit a 00 l Vital Signs Vital Name Observation Time Observation Value Comments Source Body height 2021-03-16 14:38:00 185.4 cm [facility] Body weight 2021-03-16 14:38:00 99.791 kg [facility] BMI 2021-03-16 14:38:00 29.03 kg/m2 [facility] Systolic blood 2021-02-24 21:10:00 142 mm[Hg] [facility] pressure Diastolic blood 2021-02-24 21:10:00 87 mm[Hg] [facility] pressure Heart rate 2021-02-24 21:10:00 67 /min [facility] Body temperature 2021-02-24 21:10:00 36.78 Norah [facility] Procedures Procedure Date / Time Performed Performing Clinician Sour e FECAL CALPROTECTIN 2021-03-18 19:36:00 [facility] PANCREATIC ELASTASE, 2021-03-18 19:36:00 [facility] FECAL FECAL FAT, QUALITATIVE 2021-03-18 19:36:00 [facility] ENTEROGRAPHY 2021-03-16 15:28:16 [place] [facility] POC CREATININE 2021-03-16 14:45:00 [facility] 2021-03-16 14:45:00 [facility] FOLATE LEVEL 2021-03-16 12:51:00 [place] [facility] VITAMIN B12 LEVEL 2021-03-16 12:51:00 [facility] TOTAL IRON BINDING 2021-03-16 12:51:00 [facility] CAPACITY CELIAC DISEASE PANEL 2021-02-24 22:02:00 [facility] Plan of Care Planned Activity Planned Date Details Comments Source Future Scheduled 2020-09-[address] [...] 00:00:00 (1 of 1 - Medical Center [id number] PCV13) [code = PNEUMOCOCCAL 65+ YRS (1 of 1 - YBVH82_Rvzayso PCV13)] Future Scheduled [address] [facility] - Test 00:00:00 malignant neoplasm of [facility] colon (procedure) [code = 228515510] Future Scheduled Hepatitis C screening [facility] Test (procedure) [code = 861283032] Future Scheduled COLONOSCOPY SCREENING [facility] Test [code = COLONOSCOPY SCREENING] Future Scheduled SHINGLES VACCINES (#1) [facility] Test [code = SHINGLES VACCINES (#1)] Future Scheduled INFLUENZA VACCINE Method ist Hospital Test [code = INFLUENZA VACCINE] Encounters Start End Encounter Admission Attending Care Care Encounter Source Date/Time Date/Time Type Type Clinicians Facility Department ID 2021-04-05 2021-04-05 Orders Beata, 1.2.840.1 [id number] Methodi 00:00:00 00:00:00 Only Jai [address]98.1.[address] 3.430.2.7 Hospit a .3.579854 l .8 2021-04-05 2021-04-05 Orders Beata, 1.2.840.1 [id number] Methodi 00:00:00 00:00:00 Only Jai 54188.1.[address] 3.430.2.7 Hospit a .3.695003 l .8 2021-03-26 2021-03-26 Orders Pita 1.2.840.1 [id number] Methodi 00:00:00 00:00:00 Only Bar Gomez 90287.1.[address] 3.430.2.7 Hospit a .3.623987 l .8 2021-03-18 2021-03-18 Orders Pita, 1.2.840.1 [id number] Methodi 00:00:00 00:00:00 Only Bar Gomez 67771.1.[address] 3.430.2.7 Hospit a .3.171150 l .8 2021-03-16 2021-03-16 Lab Pita 1.2.840.1 [id number] Methodi 07:48:55 07:53:55 Bar Gomez [address]97[address] 3.430.2.7 Hospit a .3.527997 l .8 2021-03-16 2021-03-16 Outpatient P[facility] [id number] [place] 00:00:00 00:00:00 BAR [address] 2021-03-16 2021-03-16 Outpatient PITA [facility] [id number] [address] [place] 00:00:00 00:00:00 BAR [address] 2021-03-16 2021-03-16 Travel 1.2.840.1 1.2.159.735 [id number] Methodi 00:00:00 00:00:[address] 3.430.2.7 0.2.7.3.698 Ho spita .3.477151 084.8 l .8 2021-03-10 2021-03-10 Travel 1.2.840.1 1.2.139.907 2205 [id number] Methodi 00:00:00 00:00:[address] 3.430.2.7 0.2.7.3.698 Ho spita .3.126546 084.8 l .8 2021-02-26 2021-02-26 Travel 1.2.840.1 1.2.671.071 [id number] [id number] Methodi 00:00:00 00:00:[address] 3.430.2.7 0.2.7.3.698 Ho spita .3.485159 084.8 l .8 2021-02-25 2021-02-25 Office Anny Reshma CARISA 1.2.840.114 [id number] 07:55:50 08:59:16 Visit H AMBULATOR 350.1.13.21 Y 0.2.7.2.686 [id number] 800 2021-02-24 2021-02-24 Office Pita 1.2.840.1 [id number] Methodi 14:50:16 17:17:15 Visit Bar QuanValentino 80615.1.[address] 3.430.2.7 Hospit a .3.772777 l .8 2021-02-24 2021-02-24 Outpatient PITA [facility] [id number] [place] 00:00:00 00:00:[address] 2021-02-24 2021-02-24 Travel 1.2.840.1 1.2.027.850 [id number] Methodi 00:00:00 00:00:[address] 3.430.2.7 0.2.7.3.698 Ho spita .3.506617 084.8 l .8 2021-01-05 2021-01-05 Office KEMI Jason 1.2.840.114 [id number] 12:31:06 15:54:26 Visit Guru Beckford AMBULATOR 350.1.13.21 Y 0.2.7.2.686 [id number] 2020-09-09 2020-09-09 Outpatient KEMI RUIZ [facility] [id number] [place] 10:43:52 16:03:26 MANUELITO Blanc Results Test Description Test Time Test Comments Results Result Comments Source Fecal fat, qualitative 2021-03-25 21:08:00 Test Item Value Reference Range Interpretation Comme nts Fat qual neutral, stool (test code = 14702-3) Normal Fat qual, stool (test code = 48817-9) Normal LORETTA (test code = LORETTA) [facility] [id number] 18:10:00 Test Item Value Reference Range Interpretation Comments Pancreatic elastase See_Comment [Automa ary message] The (test code = 79477-7) system which generated this result tra nsmitted reference range : >200 ug Elast./g. The r eference range was not u sed to interpret this result as normal/abnormal . LORETTA (test code = LORETTA) [facility] [id number] 14:10:00 Test Item Value Reference Range Interpretation Comments Fecal calprotectin (test code = 17 ug/g 0-120 85041-1) LORETTA (test code = LORETTA) [facility] disease [id number] 13:12:00 Test Item Value Reference Range Interpretation Comments Endomysial IgA (test code = Negative Negative 31433-6) Tissue transglutaminase Ab, IgA <2 0-3 (test code = 16856-4) IgA (test code = 2458-8) 228 mg/dL 61-437 LORETTA (test code = LORETTA) [facility]12 [id number] 08:07:00 Test Item Value Reference Range Interpretation Comments Vitamin B12 (test code = 2132-9) 552 pg/mL 232-1245 LORETTA (test code = LORETTA) [facility] [id number] 08:07:00 Test Item Value Reference Range Interpretation Comments Folate (test code = 2284-8) 9.7 ng/mL >3.0 LORETTA (test code = LORETTA) [facility] binding [id number] 07:07:00 Test Item Value Reference Range Interpretation Comments Iron binding capacity (test code = 313 ug/dL 875-413 3860-7) Unsaturated iron binding capacity 242 ug/dL 111-343 (test code = 2501-5) Iron level (test code = 2498-4) 71 ug/dL 38-169 Iron saturation (test code = 23 % 15-55 2502-3) LORETTA (test code = LORTETA) [facility], [id number] 09:23:00FINAL REPORT CT abdomen and pelvis with contrast History: Abnormal CT scan Com parison: none Technique: serial axial imaging was performed [...] Findings:Unremarkable appearance of pancreas and spleen. Scattered simple- appearing hepatic cysts, largest measuring 12 mm in [...] kidneys, ureters, and bladder. . No small orlarge bowel obstruction. No apparent bowel wall thickening. Moderate sigmoid diverticulosis, without diverticulitis. No findings to indicate acute appendicitis. No free fluid or lymphadenopathy. Noabdominal aortic aneurysm. Scattered sclerotic lesions throughout the [...] islands versus sclerotic bone metastases. Recommend further evaluationwith nuclear bone scan.3. Moderate sigmoid diverticulosis, without diverticulitis. Signed: [place] MDReport Verified Date/Time: 11/18/2019 09:23:12 Reading Location: [address] Ortho ConsultReading Room -[id number] 08:47:00 Test Item Value Reference Range Interpretation Comments POC-CREATININE 1.1 mg/dL 0.6-1.3 : TESTED AT [facility] ([facility]) (test [address] [facility] Jason [facility] code = 1859) A, [facility] [phone]: Labor Gang Supervisor/Techni mary ID = [id number] for CORDELIA FIERRO ICA POC-EGFR 66 mL/min/1.73M2 ([facility]) (test code = 1860) CT, HEART CORONARY TIEN, WITHOUT IV [id number] 13:48:00FINAL REPORT EXAM: CT Coronary calcium scoring [...] chest and pulmonary consultation. Signed: Bobbi Sharif MDReport Verified Date/Time: 10/07/2019 13:48:52 RAD, BONE DENSITY [id number] 12:53:00Reason for Exam:- >encounter for preventative health [...] for bone mineral density as provided by news anchor is 0.023 g/cm2 for lumbar spine and [...] Verified Date/Time: 10/07/2019 12:53:26 RAD, CHEST, 2 [id number] 08:57:00Reason for Exam:->encounter for preventative health examinationFINAL [...] Zhao Verified Date/Time: 10/07/2019 08:57:55 Reading Location: [facility] Reading Room [address] [place] [address]
--- NOTE | 2021-04-08 12:00 | RAD REPORT ---
EXAM DESCRIPTION: RAD - Chest Single View - 04/08/2021 11:49 am CLINICAL HISTORY: COUGH Chest pain. COMPARISON: Chest Pa And Lat (2 Views) dated 02/11/2021; Chest Single View dated 03/20/2018; Abdomen 1 View (KUB) dated 06/14/2016; ABDOMEN 1 VIEW KUB dated 05/13/2015; Angio Aorta For Dissection dated 03/04/2021; Lumbar Spine Wo Con dated 03/04/2021 FINDINGS: Portable technique limits examination quality. The lungs are grossly clear. The heart is normal in size. No displaced fractures. IMPRESSION: No acute intrathoracic process suspected.
--- NOTE | 2021-04-08 13:31 | ER ---
Nurse's Notes [facility] Name: Jhonatan Solis Age: 70 yrs Sex: Male : 1950 Arrival Date: 04/08/2021 Time: 10:53 Bed 4 Private MD: Matthew Arceo C Diagnosis: Shortness of breath;COVID Presentation: 04/08 11:09 Chief complaint: Patient states: Fatigue, N/V/D x 2 - 3 days. Coronavirus screen: ca1 Client denies travel out of the [place] in the last 14 days. diarrhea, fatigue, nausea, vomiting. Client presents with at least one sign or symptom that may indicate coronavirus-19. Standard/surgical mask placed on the client. Provider contacted for isolation considerations. Ebola Screen: Patient negative for fever greater than or equal to 101.5 degrees Fahrenheit, and additional compatible Ebola Virus Disease symptoms Patient denies exposure to infectious person. Patient denies travel to an Ebola-affected area in the 21 days before illness onset. No symptoms or risks identified at this time. Initial Sepsis Screen: Does the patient meet any 2 criteria? No. Patient's initial sepsis screen is negative. Does the patient have a suspected source of infection? No. Patient's initial sepsis screen is negative. Risk Assessment: Do you want to hurt yourself or someone else? Patient reports no desire to harm self or others. Onset of symptoms was April 08, 2021. 11:09 Method Of Arrival: Wheelchair ca1 11:09 Acuity: TAMAR 3 ca1 Historical: - Allergies: 11:12 Levaquin; ca1 - PMHx: 11:12 Atrial Fib; Depression; Hyperlipidemia; Hypertension; kidney cancer; stent; ca1 - PSHx: 11:12 L kidney partially removed; ca1 - Immunization history:: Client reports receiving the 2nd dose of the Covid vaccine, Client reports receiving the 1st dose of the Covid vaccine, Pneumococcal vaccine is not up to date, Flu vaccine is not up to date. - Social history:: Smoking status: Patient denies any tobacco usage or history of. Screenin:16 Abuse screen: Denies threats or abuse. Nutritional screening: No deficits noted. ll1 Tuberculosis screening: No symptoms or risk factors identified. 13:37 Fall Risk None identified. Ambulatory Aid- Crutches/Cane/Walker (15 pts). Gait- Weak ll1 (10 pts.). Total Smyth Fall Scale indicates Low Risk Score (25-44 pts). Fall prevention measures have been instituted. Side Rails Up X 2 Frequent Obs/Assesments occuring As available Patient and Family Educated on Fall Prevention Program and strategies. Assessment: 13:36 General: Appears in no apparent distress. Behavior is calm, cooperative, appropriate ll1 for age. Pain: Denies pain. Neuro: No deficits noted. Cardiovascular: No deficits noted. Respiratory: No deficits noted. GI: Abdomen is flat, Bowel sounds present X 4 quads. Reports nausea, vomiting. Vital Signs: 11:09 BP 109 / 77; Pulse 94; Resp 18; Temp 98.6; Pulse Ox 97% on R/A; Weight 99.79 kg (R); ca1 Height 6 ft. 1 in. (185.42 cm) (R); Pain 0/10; 11:09 Body Mass Index 29.03 (99.79 kg, 185.42 cm) ca1 ED Course: 10:53 Patient arrived in ED. mr 10:53 Matthew Arceo MD is Private Physician. mr 11:11 Triage completed. ca1 11:12 Arm band placed on right wrist. ca1 11:27 Juan Alberto Robles MD is Attending Physician. kdr 11:49 CXR XRAY In Process Unspecified. EDMS 13:12 Patient placed in an exam room, on a stretcher. ll1 13:15 Abilio Moore RN is Primary Nurse. ll1 13:16 Patient has correct armband on for positive identification. Bed in low position. Call ll1 light in reach. Cardiac monitoring not applicable on this patient. 13:29 Matthew Arceo MD is Referral Physician. kdr 13:36 No provider procedures requiring assistance completed. Patient did not have IV access ll1 during this emergency room visit. Administered Medications: No medications were administered Outcome: 13:30 Discharge ordered by . kdr 13:36 Discharged to home ambulatory. ll1 13:36 Condition: stable 13:36 Discharge instructions given to patient, family, Instructed on discharge instructions, follow up and referral plans. Demonstrated understanding of instructions, follow-up care. 13:37 Patient left the ED. ll1 Signatures: Dispatcher [employer] EDMS Juan Alberto Robles MD MD kdr Kellie Sharma mr Denia Palacio RN RN ca1 Fide Moorey, RN RN ll1
--- NOTE | 2021-04-08 13:31 | EDPHYS ---
Physician Documentation [facility] Name: Jhonatan Solis Age: 70 yrs Sex: Male : 1950 Arrival Date: 04/08/2021 Time: 10:53 Bed 4 Private MD: Matthew Arceo C ED Physician Juan Alberto Robles HPI: 04/08 16:05 This 70 yrs old Male presents to ER via Wheelchair with complaints of Covid kdr Symptoms. 16:05 The patient has shortness of breath at rest, with light activity. Onset: The kdr symptoms/episode began/occurred gradually, 3 day(s) ago. Duration: The symptoms are continuous, and are steadily getting worse. The patient's shortness of breath is aggravated by exertion, light activity, is alleviated by rest. Associated signs and symptoms: Pertinent positives:. Severity of symptoms: At their worst the symptoms were mild in the emergency department the symptoms are unchanged. The patient has not experienced similar symptoms in the past. The patient has not recently seen a physician. Patient had a recent exposure to a Covid positive patient from [place]. Additionally, his was recently diagnosed with Covid.. 16:12 Over the past 2 to 3 days, the patient has some very mild nausea vomiting and kdr occasional diarrhea. The patient is stable on my initial exam and completely nontoxic appearing.. Historical: - Allergies: 11:12 Levaquin; ca1 - PMHx: 11:12 Atrial Fib; Depression; Hyperlipidemia; Hypertension; kidney cancer; stent; ca1 - PSHx: 11:12 L kidney partially removed; ca1 - Immunization history:: Client reports receiving the 2nd dose of the Covid vaccine, Client reports receiving the 1st dose of the Covid vaccine, Pneumococcal vaccine is not up to date, Flu vaccine is not up to date. - Social history:: Smoking status: Patient denies any tobacco usage or history of. ROS: 16:12 Constitutional: Negative for fever, chills, and weight loss, Eyes: Negative for injury, kdr pain, redness, and discharge, Neck: Negative for injury, pain, and swelling, Cardiovascular: Negative for chest pain, palpitations, and edema, Respiratory: Negative for shortness of breath, cough, wheezing, and pleuritic chest pain, Back: Negative for injury and pain, : Negative for injury, bleeding, discharge, and swelling, MS/Extremity: Negative for injury and deformity. 16:12 Abdomen/GI: Positive for nausea, vomiting, and diarrhea, Negative for abdominal cramps, abdominal distension, anorexia, dysphagia, hematemesis, black/tarry stool, rectal pain, rectal bleeding, bowel incontinence. Exam: 16:12 Constitutional: This is a well developed, well nourished patient who is awake, alert, kdr and in no acute distress. No further exam was conducted. Patient was alert and oriented and appropriate. He had no signs of any physical distress or limitations. Vital Signs: 11:09 BP 109 / 77; Pulse 94; Resp 18; Temp 98.6; Pulse Ox 97% on R/A; Weight 99.79 kg (R); ca1 Height 6 ft. 1 in. (185.42 cm) (R); Pain 0/10; 11:09 Body Mass Index 29.03 (99.79 kg, 185.42 cm) ca1 MDM: 13:30 Patient medically screened. kdr 16:12 Data reviewed: vital signs, nurses notes. Counseling: I had a detailed discussion with kdr the patient and/or guardian regarding: the historical points, exam findings, and any diagnostic results supporting the discharge/admit diagnosis, lab results, radiology results, the need for outpatient follow up. Special discussion: I discussed with the patient/guardian in detail that at this point there is no indication for admission to the hospital. It is understood, however, that if the symptoms persist or worsen the patient needs to return immediately for re-evaluation. ED course: The patient was very affable and indicated understanding of his current diagnosis. His family member was present with him in the room. I presumed it to be his son. I explained the findings to both the patient and his son. I discussed the fact that his vital signs were stable and that he was otherwise well-appearing. I indicated that he would be discharged with instructions for [id number] medications at this time. The patient and his son were agreeable to discharge and follow-up with Dr. Arceo. Prior to my final discussion with the patient and his son, I had called Dr. Arceo to relate all findings to him and to indicate to Dr. Arceo that I would be planning on discharging the patient based on findings. Dr. Arceo had no further orders or requests. Subsequently, I was called by administration informed that the patient's family had called to complain about the patient not being admitted to the hospital. There was absolutely no indication of any concern for this at the time of my final discussion with the patient and his son. I subsequently contacted Dr. Arceo to inform him of the concern expressed by the family. He said he would call the family today and follow-up with them and respond to any further concerns that they may have.. 04/08 11:07 Order name: Flu; Complete Time: 13:02 ca1 04/08 11:27 Order name: CXR XRAY; Complete Time: 13: kdr 04/08 12:40 Order name: SARS-COV-2 RT PCR; Complete Time: 13: EDMS Administered Medications: No medications were administered Disposition Summary: 04/08/21 13:30 Discharge Ordered Location: Home kdr Problem: an ongoing problem kdr Symptoms: are unchanged kdr Condition: Stable kdr Diagnosis - Shortness of breath kdr - COVID kdr Followup: kdr - With: Matthew Arceo MD - When: 2 - 3 days - Reason: If symptoms return, Further diagnostic work-up, Recheck today's complaints, Continuance of care, Re-evaluation by your physician Discharge Instructions: - Discharge Summary Sheet kdr - Shortness of Breath, Adult, [id number] kdr - COVID-19 Frequently Asked Questions kdr - Things to Know about the COVID-19 Pandemic - [facility] kdr Forms: - Medication Reconciliation Form kdr - Thank You Letter kdr Signatures: Dispatcher [employer] Juan Alberto Camacho MD MD kdr Denia Palacio RN RN ca1 Corrections: (The following items were deleted from the chart) 11:19 11:08 CORONAVIRUS+BRZ ordered. ED[facility] EDMS
[2021-04-08 13:47] VITALS: BP 109/77; TEMP 98.6; O2SAT 97
== END 2021-04-08 13:37 | disposition home or self-care (01) ==
LOC: ER 10:48
DX: U07.1 COVID-19 (principal); I10 Essential (primary) hypertension; Z85.528 Personal history of other malignant neoplasm of kidney; Z88.1 Allergy status to other antibiotic agents
CPT/HCPCS: 87804 ×2; 71045; 99283; U0003

== ENCOUNTER 2021-04-24 18:56 | Emergency (ER) | payer OTHER ==
--- OUTSIDE RECORDS SUMMARY | 2021-04-24 18:59 | XMS REPORT | Continuity of Care Document ---
:1950 Author Organization [facility] t Address [address] [place] [address] Care Team Providers Name Role Phone Milagros Arceo MD Primary Care Physician Violet MCCORMICK Attending Clinician Unavailable Beata VALENTINE Attending Clinician Unavailable Patricia Hayward MD Attending Clinician Violet Mccormick DO Attending Clinician Eren PhD, K Attending Clinician MERVIN RUIZ Attending Clinician Unavailable REBECA ROME Attending Clinician Unavailable Payers Payer Name Policy Type Policy Number Effective Expiration Source Date Date MEDICARE PART A \T\ B [id number] - MEDICARE GENERIC PPO - GENERIC [id number] 2019 PAYOR 00:00:00 MEDICAREMEDICARE PART [id number] 2013 [facility] AND 00:00:00 [facility] [id number] [address], [place] Condition Condition Condition Status Onset Resolution Last Treating Co mments Source Name Details Category Date Date Treatment Clinician Date Diarrhea Diarrhea Disease Active Metho di due to due to 02-24 st malabsorpt malabsorpt 00:00: Ho spita ion ion 00 l Weight Weight Disease Active Methodi loss, loss, - st unintentio unintentio 00:00: Ho spita nal nal 00 l Nausea Nausea Disease Active Methodi 02-24 st 00:00: Hospita 00 l Anorexia Anorexia Disease Active Metho di 6-23 st 00:00: Hospita 00 l Allergies, Adverse Reactions, [...] Other Method i acin ty to Intolerance 7-13 reaction( st adverse 00:00: s): Hospita reaction 00 Unknown - l s to See drug commentsO ther reaction( s): Unknown - See commentsO ther reaction( s): Unknown - See commentsO ther reaction( s): Unknown - See commentsO ther reaction( s): Unknown - See comments Social History Social Habit Start Date Stop Date Quantity Comments Source [facility] sure [facility] Tobacco use and 2021-02-24 2021-02-24 Never used [facility] exposure 00:00:00 00:00:00 [birth year] [facility] 00:00:00 00:00:00 Smoking Status Start Date Stop Date Source Unknown if ever smoked [facility] Medications Ordered Filled Start Stop Current Ordering Indication Dosage Frequency Signature Comments Components Source Medication Medication Date Date Medication? Clinician (SIG) Name Name deshawn 2020- Yes 625mg Q.5D Take 1 Me thodi (WELCHOL) 04-[address] 625 mg 00:00: 04:59 (625 mg Hospita tablet 00 :00 total) by l mouth 2 (two) times a day with meals for 60 doses. colesevelam 2020- Yes 625mg Q.5D Take 1 Me thodi (WELCHOL) 04-[address] 625 mg 00:00: 04:59 (625 mg Hospita tablet 00 :00 total) by l mouth 2 (two) times a day with meals for 60 doses. yairsevelam 2020- No 625mg Q.5D Take 1 Me thodi (WELCHOL) 04-[address] 625 mg 00:00: 00:00 (625 mg Hospita tablet 00 :00 total) by l mouth 2 (two) times a day with meals for 60 doses. colesevelam 202-0 2021- No 625mg Q.5D Take 1 Me thodi (WELCHOL) 04-01 08-[address] 625 mg 00:00: 00:00 (625 mg Hospita tablet 00 :00 total) by l mouth 2 (two) times a day with meals for 60 doses. ascorbic 2020-0 Yes 500mg QD Take 500 Meth zoë acid, 6-23 mg by vitamin C, 21:22: mouth Hospit a (ascorbic 08 daily. l acid with lisa hips) 500 MG tablet calcium 2020-0 Yes 1{tbl} Q.5D Take 1 Method i carbonate-v 6-23 tablet by itamin D3 21:22: mouth 2 Hospi ta 500 mg-200 08 (two) l unit per times a tablet day with meals. vitamin E 2020-0 Yes 1000U QD Take 1,000 M ethodi 1000 UNIT 6-[address] capsule 21:22: mouth Hospita 08 daily. l ascorbic 2020-0 Yes 500mg QD Take 500 Meth zoë acid, 6-23 mg by vitamin C, 21:22: mouth Hospit a (ascorbic 08 daily. l acid with lisa hips) 500 MG tablet calcium 2020-0 Yes 1{tbl} Q.5D Take 1 Method i carbonate-v 6-23 tablet by itamin D3 :22: mouth 2 Hospi ta 500 mg-200 08 (two) l unit per times a tablet day with meals. vitamin E 2020-0 Yes 1000U QD Take 1,000 M ethodi 1000 UNIT 6-[address] capsule :22: mouth Hospita 08 daily. l vitamin A 2020-0 [place] 83129F [place] [id number] UNIT 6-23 10,000 [address] capsule 21:22: Units by Hospit a 07 mouth l daily. vit B comp 2020-0 Yes 1{tbl} QD Take 1 Met hodi no.3-folic- 6-23 tablet by C-biotin 21:22: mouth Hospita (NEPHRO-VIT 07 daily. l E RX) 1-60-300 mg-mg-mcg tablet mecobalamin 2020-0 Yes Take by Met ana paulai (B12 ACTIVE 6-[address] ORAL) 21:22: Hospita 07 l vitamin A Yes 27984M [place] i [id number] UNIT 02-24 10,000 [address] capsule 21:22: Units by Hospit a 07 mouth l daily. vit B comp Yes 1{tbl} QD Take 1 Met rigoberto no.3-folic- 02-[address] C-biotin 21:22: mouth Hospita (NEPHRO-VIT 07 daily. l E RX) 1-60-300 mg-mg-mcg tablet mecobalamin Yes Take by Met hodi (B12 ACTIVE 02-[address] ORAL) 21:22: Hospita 07 l evolocumab Yes Inject Metho di (REPATHA) 02-[address] 140 mg/mL 21:18: skin. Hospita pen 28 l injector injection evolocumab Yes Inject Metho di (REPATHA) 02-[address] 140 mg/mL 21:18: skin. Hospita pen 28 l injector injection aspirin Yes 81mg Take 81 mg Meth zoë (ECOTRIN) 02-[address] 81 MG 21:12: Hospita enteric 18 l coated tablet aspirin Yes 81mg Take 81 mg Meth zoë (ECOTRIN) [address] 81 MG 21:12: Hospita enteric 18 l coated tablet levothyroxi Yes TAKE 1 Meth zoë ne 5-[address] (Euthyrox) 00:00: MOUTH ONCE H ospita 125 mcg 00 DAILY l tablet levothyroxi Yes TAKE 1 Meth zoë ne 5-[address] (Euthyrox) 00:00: MOUTH ONCE H ospita 125 mcg 00 DAILY l tablet hydrocortis Yes 10mg Take 10 mg Methodi one 4-[address] (CORTEF) 10 00:00: Hospit a MG tablet 00 l hydrocortis Yes 10mg Take 10 mg Methodi one 4-[address] (CORTEF) 10 00:00: Hospit a MG tablet 00 l donepeziL Yes TAKE 1 Method i (ARICEPT) 1-[address] 10 MG 00:00: MOUTH ONCE Hospit a tablet 00 DAILY l donepeziL Yes TAKE 1 Method i (ARICEPT) 1-[address] 10 MG 00:00: MOUTH ONCE Hospit a tablet 00 DAILY l rivaroxaban 2017-09 Yes Method i (XARELTO) 1- st 20 mg 00:00: Hospita tablet 00 l sotaloL 2017-09 Yes 80mg Take 80 mg Meth zoë (BETAPACE) 09-[address] 80 MG 00:00: Hospita tablet 00 l rivaroxaban 2017-09 Yes Method i (XARELTO) - st 20 mg 00:00: Hospita tablet 00 l sotaloL 2017-09 Yes 80mg Take 80 mg Meth zoë (BETAPACE) 09-[address] 80 MG 00:00: Hospita tablet 00 l lisinopriL Yes Methodi (PRINIVIL) 6-25 st 5 mg tablet 00:00: Hospit a 00 l lisinopriL Yes Methodi (PRINIVIL) 6-25 st 5 mg tablet 00:00: Hospit a 00 l Vital Signs Vital Name Observation Time Observation Value Comments Source Body height 2021-03-16 14:38:00 185.4 cm [facility] Body weight 2021-03-16 14:38:00 99.791 kg [facility] BMI 2021-03-16 14:38:00 29.03 kg/m2 [facility] Systolic blood 2021-02-24 21:10:00 142 mm[Hg] [facility] pressure Diastolic blood 2021-02-24 21:10:00 87 mm[Hg] [facility] pressure Heart rate 2021-02-24 21:10:00 67 /min [facility] Body temperature 2021-02-24 21:10:00 36.78 Norah [facility] Procedures Procedure Date / Time Performed Performing Clinician Sourc e FECAL CALPROTECTIN 2021-03-18 19:36:00 Bar Hayward [facility] PANCREATIC ELASTASE, 2021-03-18 19:36:00 Bar Hayward [facility] FECAL FECAL FAT, QUALITATIVE 2021-03-18 19:36:00 Bar Hayward [facility] CT ENTEROGRAPHY 2021-03-16 15:28:16 Bar Hayward [facility] POC CREATININE 2021-03-16 14:45:00 [facility] Shane ESTIMATED GFR 2021-03-16 14:45:00 [facility] Shane FOLATE LEVEL 2021-03-16 12:51:00 [facility] VITAMIN B12 LEVEL 2021-03-16 12:51:00 [facility] TOTAL IRON BINDING 2021-03-16 12:51:00 [facility] CAPACITY CELIAC DISEASE PANEL 2021-02-24 22:02:00 [facility] Plan of Care Planned Activity Planned Date Details Comments Source Future Scheduled 2021-05-05 INFLUENZA VACCINE (#1) [facility] 00:00:00 [code = INFLUENZA Medical Ce nter VACCINE (#1)] Future Scheduled 2020-09-[address] [facility] Test 00:00:00 (12+) [code = Medical Center DEPRESSION SCREENING (12+)] Future Scheduled 2020-09-04 FALLS RISK SCREENING [facility] Test 00:00:00 [code = FALLS RISK Medical C enter SCREENING] Future Scheduled 2014-12-[address] [facility] [facility] 00:00:00 WELLNESS (YEAR 2 or Medical Center FIRST YEAR if no IPPE) [code = MEDICARE ANNUAL WELLNESS (YEAR 2 or FIRST YEAR if no IPPE)] Future Scheduled 2013 PNEUMOCOCCAL 65+ YRS [facility] - Test 00:00:00 (1 of 1 - Medical Center [id number]) [code = PNEUMOCOCCAL 65+ YRS (1 of 1 - [id number] PCV13)] Future Scheduled 1998 SHINGLES VACCINES ([address] [facility] - Test 00:00:00 of 2) [code = SHINGLES Medic al Center VACCINES (1 of 2)] Future Scheduled 1967-12-23 DTAP/TDAP/TD VACCINES [facility] Test 00:00:00 (1 - Tdap) [code = Medical C enter DTAP/TDAP/TD VACCINES (1 - Tdap)] Future Scheduled 1966 HEPATITIS C SCREENING [facility] 00:00:00 [code = HEPATITIS C Medical Center SCREENING] Future Scheduled 1960 COVID-19 VACCINE (1) [facility] Test 00:00:00 [code = COVID-[address] VACCINE (1)] Future Scheduled [address] [facility] 00:00:00 malignant neoplasm of Medica l Center colon (procedure) [code = 832075932] Future Scheduled [facility] (procedure) [code = 256528554] Future Scheduled [facility]CRE[facility] [code = COLONOSCOPY SCREENING] Future Scheduled SHINGLES VACCINES (#1) [facility] [code = SHINGLES VACCINES (#1)] Future Scheduled INFLUENZA VACCINE [facility] Test [code = INFLUENZA VACCINE] Future Scheduled Hepatitis C screening Me [facility] Test (procedure) [code = 081619667] Future Scheduled COLONOSCOPY SCREENING Me [facility] Test [code = COLONOSCOPY SCREENING] Future Scheduled SHINGLES VACCINES (#1) [facility] [code = SHINGLES VACCINES (#1)] Future Scheduled INFLUENZA VACCINE [facility] Test [code = INFLUENZA VACCINE] Encounters Start End Encounter Admission Attending Care Care Encounter Source Date/Time Date/Time Type Type Clinicians Facility Department ID 2021-04-21 2021-04-21 Outpatient [facility] [id number] [facility] 09:48:00 10:34:21 Leah e 2021-04-05 2021-04-05 Orders Beata, 1.2.840.1 [id number] Methodi 00:00:00 00:00:00 Only Jai 69834.1.[address] 3.430.2.7 Hospit a .3.143197 l .8 2021-04-05 2021-04-05 Orders Manclif, 1.2.840.1 [id number] 4609 Methodi 00:00:00 00:00:00 Only Jai 08391.1.[address] 3.430.2.7 Hospit a .3.344385 l .8 2021-04-05 2021-04-05 Orders Manio, 1.2.840.1 [id number] 6272 Methodi 00:00:00 00:00:00 Only Jai 61335.1.[address] 3.430.2.7 Hospit a .3.538019 l .8 2021-04-05 2021-04-05 Orders Manio, 1.2.840.1 [id number] 3132 Methodi 00:00:00 00:00:00 Only Jai 53566.1.[address] 3.430.2.7 Hospit a .3.249186 l .8 2021-03-26 2021-03-26 Orders Mainor, 1.2.840.1 [id number] 07291 Methodi 00:00:00 00:00:00 Only Bar M. 41531.1.[address] 3.430.2.7 Hospit a .3.883487 l .8 2021-03-26 2021-03-26 Orders Mainor, 1.2.840.1 [id number] 17234 Methodi 00:00:00 00:00:00 Only Bar M. 71140.1.[address] 3.430.2.7 Hospit a .3.956969 l .8 2021-03-18 2021-03-18 Orders Mainor, 1.2.840.1 [id number] 30828 09147 Methodi 00:00:00 00:00:00 Only Bar M. 78414.1.[address] 3.430.2.7 Hospit a .3.804780 l .8 2021-03-18 2021-03-18 Orders Mainor, 1.2.840.1 [id number] 81856 56690 Methodi 00:00:00 00:00:00 Only Bar M. 97925.1.[address] 3.430.2.7 Hospit a .3.439417 l .8 2021-03-16 2021-03-16 Lab Mainor, 1.2.840.1 [id number] 98433 Methodi 07:48:55 07:53:55 Bar M. 60693.1.[address] 3.430.2.7 Hospit a .3.193132 l .8 2021-03-16 2021-03-16 Lab Mainor, 1.2.840.1 [id number] 94587 84990 Methodi 07:48:55 07:53:55 Bar Gomez [address]9732.1.[address] 3.430.2.7 Hospit a .3.503110 l .8 2021-03-16 2021-03-16 Travel 1.2.840.1 1.2.702.056 9267 492421 Methodi 00:00:00 00:00:[address] 3.430.2.7 0.2.7.3.698 Ho spita .3.231047 084.8 l .8 2021-03-16 2021-03-16 Travel 1.2.840.1 1.2.847.268 4005 116336 Methodi 00:00:00 00:00:[address] 3.430.2.7 0.2.7.3.698 Ho spita .3.939150 084.8 l .8 2021-03-10 2021-03-10 Travel 1.2.840.1 1.2.824.416 0366 338425 Methodi 00:00:00 00:00:[address] 3.430.2.7 0.2.7.3.698 Ho spita .3.509835 084.8 l .8 2021-03-10 2021-03-10 Travel 1.2.840.1 1.2.046.859 5135 593648 Methodi 00:00:00 00:00:[address] 3.430.2.7 0.2.7.3.698 Ho spita .3.277788 084.8 l .8 2021-02-26 2021-02-26 Travel 1.2.840.1 1.2.277.658 5083 592598 Methodi 00:00:00 00:00:[address] 3.430.2.7 0.2.7.3.698 Ho spita .3.584561 084.8 l .8 2021-02-26 2021-02-26 Travel 1.2.840.1 1.2.682.535 2551 265021 Methodi 00:00:00 00:00:[address] 3.430.2.7 0.2.7.3.698 Ho spita .3.974162 084.8 l .8 2021-02-25 2021-02-25 Office Augustin Mccormick [facility] 1.2.840.114 [id number] 07:55:50 08:59:16 Visit H AMBULATOR 350.1.13.21 Y 0.2.7.2.686 [id number] [facility] 2021-02-24 2021-02-24 Office Mainor, 1.2.840.1 [id number] Methodi 14:50:16 17:17:15 Visit Bar Gomez 55621.1.[address] 3.430.2.7 Hospit a .3.253246 l .8 2021-02-24 2021-02-24 Office Mainor, 1.2.840.1 [id number] Methodi 14:50:16 17:17:15 Visit Bar Gomez 57273.1.[address] 3.430.2.7 Hospit a .3.641357 l .8 2021-02-24 2021-02-24 Travel 1.2.840.1 1.2.681.371 2679 679681 Methodi 00:00:00 00:00:[address] 3.430.2.7 0.2.7.3.698 Ho spita .3.650733 084.8 l .8 2021-02-24 2021-02-24 Travel 1.2.840.1 1.2.678.945 6012 997247 Methodi 00:00:00 00:00:[address] 3.430.2.7 0.2.7.3.698 Ho spita .3.505437 084.8 l .8 2021-01-05 2021-01-05 Office CARISA Jason 1.2.840.114 [id number] 12:31:06 15:54:26 Visit Guru Beckford AMBULATOR 350.1.13.21 Y 0.2.7.2.686 [id number] 2020-09-09 2020-09-09 Outpatient KEMI RUIZ [facility] [id number] [facility] 10:43:52 16:03:26 MANUELITO [facility] Medic[facility] e Results Test Description Test Time Test Comments Results Result Comments Source Fecal fat, qualitative 2021-03-25 21:08:00 Test Item Value Reference Range Interpretation Comme nts Fat qual neutral, stool (test code = 15214-5) Normal Fat qual, stool (test code = 85540-4) Normal LORETTA (test code = LORETTA) [facility] [id number] 21:08:00 Test Item Value Reference Range Interpretation Comments Fat qual neutral, stool (test code = Normal 95761-3) Fat qual, stool (test code = 78811-8) Normal LORETTA (test code = LORETTA) [facility] [id number] 18:10:00 Test Item Value Reference Range Interpretation Comments Pancreatic elastase See_Comment [Automa ary message] The (test code = 61693-4) system which generated this result tra nsmitted reference range : >200 ug Elast./g. The r eference range was not u sed to interpret this result as normal/abnormal . LORETTA (test code = LORETTA) [facility] [id number] 18:10:00 Test Item Value Reference Range Interpretation Comments Pancreatic elastase See_Comment [Automa ary message] The (test code = 99032-1) system which generated this result tra nsmitted reference range : >200 ug Elast./g. The r eference range was not u sed to interpret this result as normal/abnormal . LORETTA (test code = LORETTA) [facility] [id number] 14:10:00 Test Item Value Reference Range Interpretation Comments Fecal calprotectin (test code = 17 ug/g 0-120 75451-8) LORETTA (test code = LORETTA) [facility] [id number] 14:10:00 Test Item Value Reference Range Interpretation Comments Fecal calprotectin (test code = 17 ug/g 0-120 90252-4) LORETTA (test code = LORETTA) [facility] disease [id number] 13:12:00 Test Item Value Reference Range Interpretation Comments Endomysial IgA (test code = Negative Negative 62863-0) Tissue transglutaminase Ab, IgA <2 0-3 (test code = 24803-2) IgA (test code = 2458-8) 228 mg/dL 61-437 LORETTA (test code = LORETTA) [facility] disease [id number] 13:12:00 Test Item Value Reference Range Interpretation Comments Endomysial IgA (test code = Negative Negative 39118-3) Tissue transglutaminase Ab, IgA <2 0-3 (test code = 77716-5) IgA (test code = 2458-8) 228 mg/dL 61-437 LORETTA (test code = LORETTA) [facility] [id number] 08:07:00 Test Item Value Reference Range Interpretation Comments Vitamin B12 (test code = 2132-9) 552 pg/mL 232-1245 LORETTA (test code = LORETTA) [facility] [id number] 08:07:00 Test Item Value Reference Range Interpretation Comments Folate (test code = 2284-8) 9.7 ng/mL >3.0 LORETTA (test code = LORETTA) [facility] [id number] 08:07:00 Test Item Value Reference Range Interpretation Comments Vitamin B12 (test code = 2132-9) 552 pg/mL 232-1245 LORETTA (test code = LORETTA) [facility] [id number] 08:07:00 Test Item Value Reference Range Interpretation Comments Folate (test code = 2284-8) 9.7 ng/mL >3.0 LORETTA (test code = LORETTA) [facility] iron binding [id number] 07:07:00 Test Item Value Reference Range Interpretation Comments Iron binding capacity (test code = 313 ug/dL 241-252 3955-7) Unsaturated iron binding capacity 242 ug/dL 111-343 (test code = 2501-5) Iron level (test code = 2498-4) 71 ug/dL 38-169 Iron saturation (test code = 23 % 15-55 2502-3) LORETTA (test code = LORETTA) [facility] iron binding [id number] 07:07:00 Test Item Value Reference Range Interpretation Comments Iron binding capacity (test code = 313 ug/dL 112-450 5399-7) Unsaturated iron binding capacity 242 ug/dL 111-343 (test code = 2501-5) Iron level (test code = 2498-4) 71 ug/dL 38-169 Iron saturation (test code = 23 % 15-55 2502-3) LORETTA (test code = LORETTA) [facility], [id number] 09:23:00FINAL REPORT CT abdomen and pelvis with [...] MDReport Verified Date/Time: 11/18/2019 09:23:12 [place] Location: [facility] [id number] Ortho ConsultReading Room -[id number] 08:47:00 Test Item Value Reference Range Interpretation Comments POC-CREATININE 1.1 mg/dL 0.6-1.3 : TESTED AT [facility] (test [address] [facility] E DG code = 1859) [facility] 7 7030: Visual Design Lead/Techni mary ID = [id number] for CORDELIA FIERRO ICA POC-EGFR 66 mL/min/1.73M2 ([facility]) (test code = 1860) CT, HEART CORONARY TIEN, WITHOUT IV [id number] 13:48:00FINAL REPORT EXAM: CT Coronary calcium scoring [...] chest and pulmonary consultation. Signed: Bobbi Sharif [facility] Verified Date/Time: 10/07/2019 13:48:52 RAD, BONE DENSITY [id number] 12:53:00Reason for Exam:- >encounter for preventative health [...] for bone mineral density as provided by process improvement specialist is 0.023 g/cm2 for lumbar spine and [...] bone mineral density study. Signed: Bobbi Sharif [facility] Verified Date/Time: 10/07/2019 12:53:26 RAD, CHEST, 2 [id number] 08:57:00Reason for Exam:->encounter for preventative health examinationFINAL [...] CT for further evaluation. Signed: Jack Zhao MDReport Verified Date/Time: 10/07/2019 08:57:55 [place] Location: [facility] Reading Room [address] [place] [address]
[2021-04-24 19:17] LABS: Urine Blood 1+ (Negative); Urine Glucose Negative (Negative); Urine Protein 1+ (Negative); Urine pH 7.5 (5.0-7.0)
[2021-04-24 20:05] LABS: Basophils % 0.9 % (0-1.3); Hematocrit 46.2 % (39.6-49.0); Lymphocytes % 10.5 % (15.3-44.8); MPV 9.4 fL (7.6-11.3); RBC Red Blood Cell Count 5.15 M/uL (4.33-5.43)
--- NOTE | 2021-04-24 20:05 | RAD REPORT ---
EXAM DESCRIPTION: Gabriel Single View04/24/2021 7:56 pm CLINICAL HISTORY: Weakness COMPARISON: April 08, 2021 FINDINGS: The lungs appear clear of acute infiltrate. The heart is normal size IMPRESSION: No acute abnormalities displayed
[2021-04-24 20:06] LABS: Protime INR 1.12
[2021-04-24 20:13] LABS: Urine Bacteria <20 /HPF (NONE SEEN); Urine RBC <5 /HPF (NONE SEEN)
[2021-04-24 20:21] LABS: ALT/SGPT 33 U/L (12-78); AST/SGOT 34 U/L (15-37); Albumin 3.9 g/dL (3.4-5.0); Alkaline Phosphatase 81 U/L (45-117); BUN Blood Urea Nitrogen 17 mg/dL (7-18); Bicarbonate 27 mmol/L (21-32); Bilirubin Direct 0.1 mg/dL (0-0.2); Bilirubin Total 0.5 mg/dL (0.2-1.0); Glucose Level 120 mg/dL (74-106); Lipase 288 U/L (73-393); NT PRO-BNP 335 pg/mL (<125); Potassium 3.9 mmol/L (3.5-5.1); Protein, Total 7.7 g/dL (6.4-8.2); Sodium Level 140 mmol/L (136-145); Troponin (Emerg Dept Use Only) < 0.02 ng/mL (0.0-0.045)
[2021-04-24] MEDS ORDERED: NA CHLORIDE 0.9% 500 ML ONE (20:23)
[2021-04-24] MEDS ORDERED: HYDROCORTISONE SUC 100 MG INJ ONE (20:23)
--- NOTE | 2021-04-24 20:23 | RAD REPORT ---
EXAM DESCRIPTION: CT - Head Brain Wo Cont - 04/24/2021 7:56 pm CLINICAL HISTORY: Confusion and dizziness COMPARISON: None TECHNIQUE: Computed axial tomography of the head was obtained. IV contrast was not requested. All CT scans are performed using dose optimization technique as appropriate and may include automated exposure control or mA/KV adjustment according to patient size. FINDINGS: An intracranial bleed is not seen . Mild to moderate prominence of the fourth, third and lateral ventricles. No extra-axial fluid collection is noted. Mild low-density areas within periventricular, deep and subcortical white matter likely represent isc hemic changes secondary to small vessel disease. Fluid within the sinuses/ mastoids is not seen. IMPRESSION: Mild to moderate prominence of the fourth, third and lateral ventricles. This may be sec ondary to cerebral atrophy. Normal pressure hydrocephalus can also result in this appearance and shou ld be correlated clinically.
--- NOTE | 2021-04-24 21:51 | EDPHYS ---
Physician Documentation [facility] Name: Jhonatan Solis Age: 70 yrs Sex: Male : 1950 Arrival Date: 04/24/2021 Time: 18:57 Bed 5 Private MD: ED Physician Aldo Brambila HPI: 04/24 19:20 This 70 yrs old Male presents to ER via EMS with complaints of mh7 Nausea/Vomiting, General Weakness. 19:20 The patient presents to the emergency department with nausea, that is moderate, mh7 vomiting, that is intermittent, described as clear fluid. Onset: The symptoms/episode began/occurred 2 day(s) ago. Possible causes: unknown. The symptoms are aggravated by nothing. The symptoms are alleviated by nothing. Associated signs and symptoms: Pertinent positives: nausea, vomiting, Generalized fatigue/weakness, Pertinent negatives: abdominal pain, anorexia, belching, constipation, diarrhea, dysuria, fever, flatulence, GI bleeding, hematuria. Severity of symptoms: At their worst the symptoms were moderate yesterday, in the emergency department the symptoms have improved moderately. 19:59 Patient brought to ED via EMS due to nausea, vomiting, generalized fatigue/weakness for mh7 2 days. He also reported some intermittent dizziness, muscle aches, headaches, confusion. Denies any abdominal pain, chest pain, fever, cough, diarrhea, dysuria, numbness/tingling, or focal weakness.. Historical: - Allergies: 19:13 Levaquin; iw - Home Meds: 19:13 Euthyrox 125 mcg oral tab 1 tab once daily [Active]; tadalafil 5 mg oral tab 1 tab once iw daily [Active]; Xarelto 20 mg oral tab 1 tab once daily [Active]; donepezil 23 mg oral tab 1 tab once daily [Active]; lisinopril 5 mg Oral tab twice a day [Active]; sotalol 80 mg Oral tab 1 tab 2 times per day [Active]; hydrocortisone 10 mg Oral tab 1 tab 3 times per day [Active]; colesevelam 625 mg oral tab 2 times per day [Active]; aspirin 81 mg Oral TbEC 1 tab once daily [Active]; memantine 5 mg oral tab 1 tab once daily [Active]; - PMHx: 19:13 Atrial Fib; Depression; Hyperlipidemia; Hypertension; kidney cancer; stent; iw - PSHx: 19:13 L kidney partially removed; iw - Immunization history:: Adult Immunizations up to date, Client reports receiving the 2nd dose of the Covid vaccine. - Social history:: Smoking status: unknown. ROS: 19:20 Constitutional: Negative for fever, chills, and weight loss, Eyes: Negative for injury, mh7 pain, redness, and discharge, ENT: Negative for injury, pain, and discharge, Neck: Negative for injury, pain, and swelling, Cardiovascular: Negative for chest pain, palpitations, and edema, Respiratory: Negative for shortness of breath, cough, wheezing, and pleuritic chest pain, Back: Negative for injury and pain, : Negative for injury, bleeding, discharge, and swelling, MS/Extremity: Negative for injury and deformity, Skin: Negative for injury, rash, and discoloration, Psych: Negative for depression, anxiety, suicide ideation, homicidal ideation, and hallucinations, Allergy/Immunology: Negative for hives, rash, and allergies, Endocrine: Negative for neck swelling, polydipsia, polyuria, polyphagia, and marked weight changes, Hematologic/Lymphatic: Negative for swollen nodes, abnormal bleeding, and unusual bruising. Exam: 19:20 Constitutional: This is a well developed, well nourished patient who is awake, alert, mh7 and in no acute distress. Head/Face: Normocephalic, atraumatic. Eyes: Pupils equal round and reactive to light, extra-ocular motions intact. Lids and lashes normal. Conjunctiva and sclera are non-icteric and not injected. Cornea within normal limits. Periorbital areas with no swelling, redness, or edema. Neck: Trachea midline, no thyromegaly or masses palpated, and no cervical lymphadenopathy. Supple, full range of motion without nuchal rigidity, or vertebral point tenderness. No Meningismus. Chest/axilla: Normal chest wall appearance and motion. Nontender with no deformity. No lesions are appreciated. 19:20 Respiratory: Lungs have equal breath sounds bilaterally, clear to auscultation and percussion. No rales, rhonchi or wheezes noted. No increased work of breathing, no retractions or nasal flaring. Abdomen/GI: Soft, non-tender, with normal bowel sounds. No distension or tympany. No guarding or rebound. No evidence of tenderness throughout. Back: No spinal tenderness. No costovertebral tenderness. Full range of motion. Skin: Warm, dry with normal turgor. Normal color with no rashes, no lesions, and no evidence of cellulitis. MS/ Extremity: Pulses equal, no cyanosis. Neurovascular intact. Full, normal range of motion. 19:20 Psych: Awake, alert, with orientation to person, place and time. Behavior, mood, and affect are within normal limits. 19:20 Cardiovascular: Rate: bradycardic, Rhythm: irregularly irregular, Pulses: no pulse deficits are appreciated, Heart sounds: normal, normal S1and S2, Edema: is not appreciated, JVD: is not appreciated. 19:20 Neuro: Orientation: is normal, Mentation: is normal, Memory: appropriate for stated age, Cranial nerves: grossly normal, Cerebellar function: is grossly normal, Motor: is normal, Sensation: is normal, Gait: not tested. seizure activity, is not displayed by the patient, Abnormal movements: there are no abnormal movements. Vital Signs: 19:10 Resp 16; Temp 96.0; Pulse Ox 95% on R/A; Height 6 ft. 1 in. (185.42 cm) (R); iw 20:14 BP 172 / 95; Pulse 47; Resp 16; Temp 98.1; Pulse Ox 96% ; Pain 0/10; ms4 22:05 BP 151 / 92; Pulse 48; Resp 18; Temp 98.4; Pulse Ox 97% on R/A; Pain 0/10; ms4 MDM: 21:47 Differential diagnosis: gastritis, pancreatitis, viral gastroenteritis. Data reviewed: [facility] vital signs, nurses notes, old medical records, lab test result(s), cardiac enzymes, CBC, electrolytes, urinalysis, EKG, radiologic studies, CT scan, plain films. Data interpreted: Pulse oximetry: on room air is 96 %. Interpretation: normal. Counseling: I had a detailed discussion with the patient and/or guardian regarding: the historical points, exam findings, and any diagnostic results supporting the discharge/admit diagnosis, the presence of at least one elevated blood pressure reading (>120/80) during this emergency department visit, lab results, radiology results, the need for further work-up and treatment in the hospital. Response to treatment: the patient's symptoms have markedly improved after treatment. Refusal of service: The patient/guardian displays adequate decision making capability and despite a detailed discussion of alternatives, benefits, risks, and consequences refuses: Admission to the hospital for further work-up and treatment, Medications. 21:50 Patient medically screened. [facility] 22:00 ED course: Well-appearing, no acute distress, vitals are stable, no focal neurological [facility] deficits. Awake, alert, and oriented x 4. He states that his symptoms have completely resolved. Discussed all test results and findings patient and recommend admission for further care and evaluation. Also discussed with his PCP Dr. Arceo who agrees with admission. Patient refused admission and wants to leave AGAINST MEDICAL ADVICE. Explained the possibility of permanent disability and/or and serious condition is present and goes untreated. He verbalized that he understood this information is presented. He has a normal mental status and neurological exam. He knows he can return to the ED if he has return of symptoms or other urgent concerns.. 04/24 19:17 Order name: Urine Dipstick-Ancillary; Complete Time: 19:30 [facility] 04/24 19:23 Order name: Cortisol; Complete Time: 20:47 [facility] 04/24 19:30 Order name: Basic Metabolic Panel [facility] 04/24 19:30 Order name: CBC with Diff [facility] 04/24 19:30 Order name: LFT's [facility] 04/24 19:30 Order name: Magnesium [facility] 04/24 19:30 Order name: NT PRO-BNP; Complete Time: 20:25 [facility] 04/24 19:30 Order name: PT-INR; Complete Time: 20:25 [facility] 04/24 19:30 Order name: Troponin (emerg Dept Use Only); Complete Time: 20:25 [facility] 04/24 19:30 Order name: Lipase; Complete Time: 20:25 [facility] 04/24 19:31 Order name: Basic Metabolic Panel; Complete Time: 20:25 [facility] 04/24 19:31 Order name: CBC with Automated Diff; Complete Time: 20:25 [facility] 04/24 19:31 Order name: Liver (Hepatic) Function; Complete Time: 20:25 [facility] 04/24 19:31 Order name: Magnesium; Complete Time: 20:25 [facility] 04/24 19:30 Order name: XRAY Chest (1 view); Complete Time: 20:25 [facility] 04/24 19:30 Order name: EKG; Complete Time: 19:31 [facility] 04/24 19:30 Order name: Cardiac monitoring; Complete Time: 19:52 [facility] 04/24 19:30 Order name: EKG - Nurse/Tech; Complete Time: 19:50 [facility] 04/24 19:30 Order name: CT Head Brain wo Cont; Complete Time: 20:25 [facility] 04/24 19:34 Order name: Influenza Screen (a \T\ B); Complete Time: 20:47 [facility] 04/24 19:35 Order name: TSH [facility] 04/24 19:35 Order name: Thyroid Stimulating Hormone; Complete Time: 20:47 [facility] 04/24 19:38 Order name: CPK [facility] 04/24 19:38 Order name: Urine Microscopic Only [facility] 04/24 19:39 Order name: Creatine Phosphokinase; Complete Time: 20:47 [facility] 04/24 19:39 Order name: Urine Microscopic Only; Complete Time: 20:25 [facility] 04/24 21:57 Order name: SARS-COV-2 RT PCR; Complete Time: 22:18 [facility] 04/24 19:30 Order name: IV Saline Lock; Complete Time: 19:52 [facility] 04/24 19:30 Order name: Labs collected and sent; Complete Time: 19:52 [facility] 04/24 19:30 Order name: O2 Per Protocol; Complete Time: 19:52 [facility] 04/24 19:30 Order name: O2 Sat Monitoring; Complete Time: 19:52 [facility] Administered Medications: 20:12 Drug: NS 0.9% 500 ml Route: IV; Rate: bolus; Site: right antecubital; ms4 20:13 Drug: Solu-CORTEF (hyrdoCORTISONE) 100 mg Route: IVP; Site: right antecubital; ms4 Disposition Summary: 04/24/21 21:50 Left Against Medical Advice Location: Home [facility] Problem: new [facility] Symptoms: have improved [facility] Condition: Stable [facility] Diagnosis - Nausea with vomiting, unspecified 7 - Dizziness and giddiness [facility] - Dehydration [facility] - Essential (primary) hypertension 7 - Chronic atrial fibrillation 7 - COVID 7 Followup: [facility] - With: Private Physician - When: 1 - 2 days - Reason: Worsening of condition, Recheck today's complaints, Continuance of care, Re-evaluation by your physician Discharge Instructions: - Discharge Summary Sheet mh7 - Dehydration, Elderly mh7 - Dizziness mh7 - Hypertension, Adult mh7 - Nausea and Vomiting, Adult mh7 - Atrial Fibrillation, Bvuo-ay-Awjg mh7 - COVID-19 mh7 Signatures: Dispatcher [employer] EDMS José Monson MD MD cha Williams, Irene RN RN iw Aldo Brambila MD MD 7 Misty Herrera RN RN ms4 Corrections: (The following items were deleted from the chart) 20:25 19:35 CORONAVIRUS+.BRZ ordered. EDMS EDMS
--- NOTE | 2021-04-24 21:51 | ER ---
Nurse's Notes [facility] Name: Jhonatan Solis Age: 70 yrs Sex: Male : 1950 Arrival Date: 04/24/2021 Time: 18:57 Bed 5 Private MD: Diagnosis: Nausea with vomiting, unspecified;Dizziness and giddiness;Dehydration;Essential (primary) hypertension;Chronic atrial fibrillation;COVID Presentation: 04/24 19:10 Chief complaint: EMS states: pt has had n/v X 2 days , has been weak, dizzy, confused , iw pt states he had a headache and was taking some muscle relaxers that made him sick. Coronavirus screen: Client presents with at least one sign or symptom that may indicate coronavirus-19. Ebola Screen: Patient negative for fever greater than or equal to 101.5 degrees Fahrenheit, and additional compatible Ebola Virus Disease symptoms Patient denies exposure to infectious person. Patient denies travel to an Ebola-affected area in the 21 days before illness onset. No symptoms or risks identified at this time. Initial Sepsis Screen: Does the patient meet any 2 criteria? No. Patient's initial sepsis screen is negative. Does the patient have a suspected source of infection? No. Patient's initial sepsis screen is negative. Risk Assessment: Do you want to hurt yourself or someone else? Patient reports no desire to harm self or others. Onset of symptoms was April 24, 2021. 19:10 Method Of Arrival: EMS: [facility] iw 19:10 Acuity: TAMAR 3 iw Historical: - Allergies: 19:13 Levaquin; iw - Home Meds: 19:13 Euthyrox 125 mcg oral tab 1 tab once daily [Active]; tadalafil 5 mg oral tab 1 tab once iw daily [Active]; Xarelto 20 mg oral tab 1 tab once daily [Active]; donepezil 23 mg oral tab 1 tab once daily [Active]; lisinopril 5 mg Oral tab twice a day [Active]; sotalol 80 mg Oral tab 1 tab 2 times per day [Active]; hydrocortisone 10 mg Oral tab 1 tab 3 times per day [Active]; colesevelam 625 mg oral tab 2 times per day [Active]; aspirin 81 mg Oral TbEC 1 tab once daily [Active]; memantine 5 mg oral tab 1 tab once daily [Active]; - PMHx: 19:13 Atrial Fib; Depression; Hyperlipidemia; Hypertension; kidney cancer; stent; iw - PSHx: 19:13 L kidney partially removed; iw - Immunization history:: Adult Immunizations up to date, Client reports receiving the 2nd dose of the Covid vaccine. - Social history:: Smoking status: unknown. Screenin:53 Abuse screen: Denies threats or abuse. Denies injuries from another. Nutritional ms4 screening: No deficits noted. Tuberculosis screening: No symptoms or risk factors identified. Fall Risk None identified. Assessment: 20:13 General: Appears in no apparent distress. Behavior is calm, cooperative. Pain: Denies ms4 pain. Neuro: Reports weakness in generalized. Cardiovascular: Rhythm is sinus bradycardia. 20:13 Respiratory: No deficits noted. GI: Abdomen is flat, Abd is soft and non tender Reports ms4 diarrhea, nausea, vomiting. 22:04 Reassessment: Patient appears in no apparent distress at this time. No changes from ms4 previously documented assessment. Patient and/or family updated on plan of care and expected duration. Pain level reassessed. Reassessment: patient reports he is feeling much better and he wants to leave AMA. Dr. Brambila at bedside to speak with patient. patient to sign AMA paperwork at this time. Neuro: No deficits noted. Level of Consciousness is awake, alert, obeys commands, Oriented to person, place, time, situation, Appropriate for age. Vital Signs: 19:10 Resp 16; Temp 96.0; Pulse Ox 95% on R/A; Height 6 ft. 1 in. (185.42 cm) (R); iw 20:14 BP 172 / 95; Pulse 47; Resp 16; Temp 98.1; Pulse Ox 96% ; Pain 0/10; ms4 22:05 BP 151 / 92; Pulse 48; Resp 18; Temp 98.4; Pulse Ox 97% on R/A; Pain 0/10; ms4 ED Course: 18:57 Patient arrived in ED. am2 19:07 Aldo Brambila MD is Attending Physician. 7 19:13 Triage completed. iw 19:19 Arm band placed on. iw 19:52 Misty Herrera, RN is Primary Nurse. ms4 19:52 XRAY Chest (1 view) Sent. ms4 19:53 No provider procedures requiring assistance completed. Inserted saline lock: 18 gauge ms4 in right antecubital area, using aseptic technique. Blood collected. 19:56 CT Head Brain wo Cont In Process Unspecified. EDMS 19:57 XRAY Chest (1 view) In Process Unspecified. EDMS 19:58 Urine Microscopic Only Sent. ms4 22:37 IV discontinued, intact, bleeding controlled. ms4 22:38 Patient has correct armband on for positive identification. ms4 Administered Medications: 20:12 Drug: NS 0.9% 500 ml Route: IV; Rate: bolus; Site: right antecubital; ms4 20:13 Drug: Solu-CORTEF (hyrdoCORTISONE) 100 mg Route: IVP; Site: right antecubital; ms4 Outcome: 20:15 Condition: stable ms4 22:37 Discharged to home ambulatory. ms4 22:37 Discharge instructions given to patient, Instructed on discharge instructions, follow up and referral plans. 22:38 Patient left the ED. ms4 Signatures: Dispatcher [employer] EDGita Dennis RN RN Rabia Sam am2 Aldo Brambila MD MD 7 Misty Herrera RN RN ms4 Corrections: (The following items were deleted from the chart) 19:20 19:10 Resp 16bpm; Pulse Ox 95% RA; Temp 96.0F; iw danyelle
[2021-04-24 22:47] VITALS: BP 151/92; TEMP 98.4; O2SAT 97
--- NOTE | 2021-04-25 10:40 | EKG ---
Test Date: 2021-04-24 Test Time: 19:47:[address] Referee: LINDA MEASUREMENT RESULTS: Intervals: Rate: 49 [place]: QRSD: 88 QT: 532 QTc: 480 [place]: P: [place]: QRS: 58 T: 91 INTERPRETIVE STATEMENTS: Atrial fibrillation with slow ventricular response ST & T wave abnormality, consider lateral ischemia or digitalis effect Prolonged QT Abnormal ECG Compared to ECG 03/20/2018 21:17:16 ST (T wave) deviation now present Possible ischemia now present Prolonged QT interval now present Electronically Signed On 04-25-21 10:39:45 CDT by Srinivasa Ambrocio
== END 2021-04-24 22:38 | disposition left against medical advice (07) ==
LOC: ER 18:56
DX: U07.1 COVID-19 (principal); E86.0 Dehydration; I48.20 Chronic atrial fibrillation, unspecified; R42 Dizziness and giddiness; I10 Essential (primary) hypertension; E78.5 Hyperlipidemia, unspecified; Z79.01 Long term (current) use of anticoagulants; Z79.82 Long term (current) use of aspirin; Z88.1 Allergy status to other antibiotic agents; Z85.528 Personal history of other malignant neoplasm of kidney
CPT/HCPCS: 93005; 85025; 80048; 36415; 83735; 82550; 85610; 80076; 84443; 84484; 83690; 82533; 83880; 87804 ×2; 70450; 71045; 96374; 99284; U0003; J7040; J1720; 81003; 81015

== ENCOUNTER 2021-05-13 22:22 | Inpatient (IN) | payer OTHER ==
--- OUTSIDE RECORDS SUMMARY | 2021-05-13 22:25 | XMS REPORT | Continuity of Care Document ---
:1950 Author Organization [facility] t Address [address] [place] [address] Care Team Providers Name Role Phone Milagros Arceo MD Primary Care Physician Violet MCCORMICK Attending Clinician Unavailable Beata VALENTINE Attending Clinician Unavailable Patricia Hayward MD Attending Clinician Violet Mccormick DO Attending Clinician Eren PhD, K Attending Clinician MERVIN RUIZ Attending Clinician Unavailable REBECA ROME Attending Clinician Unavailable Payers Payer Name Policy Type Policy Number Effective Date Expiration Date S kai MEDICARE PART A [id number] \T\ B - MEDICARE GENERIC PPO - [id number] 2019 GENERIC PAYOR 00:00:00 Problems Condition Condition Condition Status Onset Resolution Last Treating Co mments Source Name Details Category Date Date Treatment Clinician Date Diarrhea Diarrhea Disease Active Metho di due to due to 02-24 malabsorpt malabsorpt 00:00: Ho spita ion ion 00 l Weight Weight Disease Active Methodi loss, loss, 02-24 unintentio unintentio 00:00: Ho spita nal nal 00 l Nausea Nausea Disease Active Methodi 02-24 00:00: Hospita 00 l Anorexia Anorexia Disease [...] Start Date Stop Date Quantity Comments Source Tobacco use and 2021-02-24 2021-02-24 Never used [facility] exposure 00:00:00 00:00:00 [birth year] [facility] 00:00:00 00:00:00 Smoking Status Start Date Stop Date Source Unknown if ever smoked [facility] Medications Ordered Filled Start Stop Current Ordering Indication Dosage Frequency Signature Comments Components Source Medication Medication Date Date Medication? Clinician (SIG) Name Name colesevelam 2020- No 625mg Q.5D Take 1 [...] zoë acid, 6-23 mg by vitamin C, :22: mouth Hospit a (ascorbic 08 daily. l acid with lisa hips) 500 MG tablet calcium 0 Yes 1{tbl} Q.5D Take 1 Method i carbonate-v 6-23 tablet by itamin D3 21:22: mouth 2 Hospi ta 500 mg-200 08 (two) l unit per times a tablet day with meals. vitamin E 0 Yes 1000U QD Take 1,000 M ethodi 1000 UNIT 6-[address] capsule 21:22: mouth Hospita 08 daily. l vitamin A 2020-0 [place] [id number] [place] [address] UNIT 6-23 10,000 [address] capsule 21:22: Units by Hospit a 07 mouth l daily. vit B comp 0 Yes 1{tbl} QD Take 1 Met hodi no.3-folic- 6-23 tablet by C-biotin 21:22: mouth Hospita (NEPHRO-VIT 07 daily. l E RX) 1-60-300 mg-mg-mcg tablet mecobalamin 0 Yes Take by Met ana paulai (B12 ACTIVE 6-[address] ORAL) 21:22: Hospita 07 l vitamin A 2020-0 Yes 34098P [place] i [address] UNIT 6-23 10,000 [address] capsule 21:22: Units by Hospit a 07 mouth l daily. vit B comp 2020-0 Yes 1{tbl} QD Take 1 Met hodi no.3-folic- 6-23 tablet by C-biotin 21:22: mouth Hospita (NEPHRO-VIT 07 daily. l E RX) 1-60-300 mg-mg-mcg tablet mecobalamin Yes Take by Met franklin (B12 ACTIVE 02-[address] ORAL) 21:22: [...] Source Body height 2021-03-16 14:38:00 185.4 cm [facility] Body weight 2021-03-16 14:38:00 99.791 kg [facility] BMI 2021-03-16 14:38:00 29.03 kg/m2 [facility] Systolic blood 2021-02-24 21:10:00 142 mm[Hg] [facility] pressure Diastolic blood 2021-02-24 21:10:00 87 mm[Hg] [facility] pressure Heart rate 2021-02-24 21:10:00 67 /min [facility] Body temperature 2021-02-24 21:10:00 36.78 Norah [facility] Procedures Procedure Date / Time Performed Performing Clinician Sour e FECAL CALPROTECTIN 2021-03-18 19:36:00 MainorBar edward [facility] PANCREATIC ELASTASE, 2021-03-18 19:36:00 MainorBar edward [facility] FECAL FECAL FAT, QUALITATIVE 2021-03-18 19:36:[address] [facility] CT ENTEROGRAPHY 2021-03-16 15:28:16 MainorBar edward [facility] POC CREATININE 2021-03-16 14:45:00 [facility] Shane ESTIMATED GFR 2021-03-16 14:45:00 [facility] Shane FOLATE LEVEL 2021-03-16 12:51:00 Bar Hayward [facility] VITAMIN B12 LEVEL 2021-03-16 12:51:00 Bar Hayward [facility] TOTAL IRON BINDING 2021-03-16 12:51:00 Bar Hayward [facility] CAPACITY CELIAC DISEASE PANEL 2021-02-24 22:02:00 Bar Hayward [facility] Plan of Care Planned Activity Planned Date Details Comments Source Future Scheduled 2021-05-05 INFLUENZA VACCINE (#1) [facility] 00:00:00 [code = INFLUENZA Medical Ce nter VACCINE (#1)] Future Scheduled 2021-05-05 INFLUENZA VACCINE (#1) [facility] 00:00:00 [code = INFLUENZA Medical Ce nter VACCINE (#1)] Future Scheduled 2020-09-[address] [facility] - Test 00:00:00 (12+) [code = Medical Center DEPRESSION SCREENING (12+)] Future Scheduled 2020-09-04 FALLS RISK SCREENING [facility] Test 00:00:00 [code = FALLS RISK Medical C enter SCREENING] Future Scheduled 2020-09-[address] [...] FIRST YEAR if no IPPE)] Future Scheduled 2014-12-[address] [facility] 00:00:00 WELLNESS (YEAR 2 or Medical Center FIRST YEAR if no IPPE) [code = MEDICARE ANNUAL WELLNESS (YEAR 2 or FIRST YEAR if no IPPE)] Future Scheduled 2013 PNEUMOCOCCAL 65+ YRS [facility] - Test 00:00:00 (1 of 1 - Medical Center [id number] PCV13) [code = PNEUMOCOCCAL 65+ YRS (1 of 1 - [id number] PCV13)] Future Scheduled 2013 PNEUMOCOCCAL 65+ YRS [facility] - Test 00:00:00 (1 of 1 - Medical Center [id number] PCV13) [code = PNEUMOCOCCAL 65+ YRS (1 of 1 - [id number] PCV13)] Future Scheduled 1998 SHINGLES VACCINES ([address] [facility] - Test 00:00:00 of 2) [code = SHINGLES Medic al Center VACCINES (1 of 2)] Future Scheduled 1998 SHINGLES VACCINES ([address] [facility] - Test 00:00:00 of 2) [code = SHINGLES Medic al Center VACCINES (1 of 2)] Future Scheduled 1967-12-23 DTAP/TDAP/TD [facility]ACCINES [facility] 00:00:00 (1 - Tdap) [code = Medical C enter DTAP/TDAP/TD VACCINES (1 - Tdap)] Future Scheduled 1967-12-23 DTAP/TDAP/TD VACCINES [facility] 00:00:00 (1 - Tdap) [code = Medical C enter DTAP/TDAP/TD VACCINES (1 - Tdap)] Future Scheduled 1966 HEPATITIS C SCREENING [facility] 00:00:00 [code = HEPATITIS C Medical Center SCREENING] Future Scheduled 1966 HEPATITIS C [facility]CREENING [facility] 00:00:00 [code = HEPATITIS C Medical Center SCREENING] Future Scheduled 1960 COVID-19 VACCINE (1) [facility] Test 00:00:00 [code = COVID-[address] VACCINE (1)] Future Scheduled 1960 COVID-19 VACCINE (1) [facility] Test 00:00:00 [code = COVID-[address] VACCINE (1)] Future Scheduled [address] [facility] 00:[facility]:00 malignant neoplasm of Medica l Center colon (procedure) [code = 658000501] Future Scheduled [address] [facility] 00:00:00 malignant neoplasm of Medica l Center colon (procedure) [code = 338698319] Future Scheduled COLONOSCOPY SCREENING [facility] Test [code = COLONOSCOPY SCREENING] Future Scheduled SHINGLES VACCINES (#1) [facility] Test [code = SHINGLES VACCINES (#1)] Future Scheduled INFLUENZA VACCINE [facility] Test [code = INFLUENZA VACCINE] Future Scheduled Hepatitis C screening [facility] Test (procedure) [code = 422663571] Future Scheduled COLONOSCOPY SCREENING [facility] Hospital Test [code = COLONOSCOPY SCREENING] Future Scheduled SHINGLES VACCINES (#1) [facility] Test [code = SHINGLES VACCINES (#1)] Future Scheduled INFLUENZA VACCINE [facility] Test [code = INFLUENZA VACCINE] Future Scheduled Hepatitis C screening [facility] Test (procedure) [code = 254884118] Encounters Start End Encounter Admission Attending Care Care Encounter Source Date/Time Date/Time Type Type Clinicians Facility Department ID 2021-04-21 2021-04-21 Outpatient AUGUSTIN MCCORMICK [facility] [id number] [facility] 09:48:00 10:34:21 Oli Medicin tahir 2021-04-05 2021-04-05 Orders Manio, 1.2.840.1 [id number] Methodi 00:00:00 00:00:00 Only Jai [address]013.1.[address] 3.430.2.7 Hospit a .3.179412 l .8 2021-04-05 2021-04-05 Orders Manio, 1.2.840.1 [id number] 5060 Methodi 00:00:00 00:00:00 Only Jai 81474.1.[address] 3.430.2.7 Hospit a .3.045952 l .8 2021-04-05 2021-04-05 Orders Manio, 1.2.840.1 [id number] 1564 Methodi 00:00:00 00:00:00 Only Jai 48807.1.[address] 3.430.2.7 Hospit a .3.942874 l .8 2021-04-05 2021-04-05 Orders Manio, 1.2.840.1 [id number] [id number] 4651 Methodi 00:00:00 00:00:00 Only Jai 68697.1.[address] 3.430.2.7 Hospit a .3.075401 l .8 2021-03-26 2021-03-26 Orders Mainor, 1.2.840.1 [id number] 16981 Methodi 00:00:00 00:00:00 Only Bar M. 17445.1.[address] 3.430.2.7 Hospit a .3.024860 l .8 2021-03-26 2021-03-26 Orders Mainor, 1.2.840.1 [id number] 85862 Methodi 00:00:00 00:00:00 Only Bar M. 00195.1.[address] 3.430.2.7 Hospit a .3.194381 l .8 2021-03-18 2021-03-18 Orders Mainor, 1.2.840.1 [id number] 05406 Methodi 00:00:00 00:00:00 Only Bar M. 50900.1.[address] 3.430.2.7 Hospit a .3.180430 l .8 2021-03-18 2021-03-18 Orders Mainor, 1.2.840.1 [id number] 38579 Methodi 00:00:00 00:00:00 Only Bar M. 47742.1.[address] 3.430.2.7 Hospit a .3.472754 l .8 2021-03-16 2021-03-16 Lab Mainor, 1.2.840.1 [id number] 87724 06993 Methodi 07:48:55 07:53:55 Bar M. 33959.1.[address] 3.430.2.7 Hospit a .3.685123 l .8 2021-03-16 2021-03-16 Lab Mainor, 1.2.840.1 [id number] 11126 Methodi 07:48:55 07:53:55 Bar M. 59474.1.[address] 3.430.2.7 Hospit a .3.391559 l .8 2021-03-16 2021-03-16 Travel 1.2.840.1 1.2.778.936 5829 406305 Methodi 00:00:00 00:00:[address] 3.430.2.7 0.2.7.3.698 Ho spita .3.382129 084.8 l .8 2021-03-16 2021-03-16 Travel 1.2.840.1 1.2.333.331 9221 589732 Methodi 00:00:00 00:00:[address] 3.430.2.7 0.2.7.3.698 Ho spita .3.859517 084.8 l .8 2021-03-10 2021-03-10 Travel 1.2.840.1 1.2.028.904 8530 528911 Methodi 00:00:00 00:00:[address] 3.430.2.7 0.2.7.3.698 Ho spita .3.607329 084.8 l .8 2021-03-10 2021-03-10 Travel 1.2.840.1 1.2.126.779 9046 169631 Methodi 00:00:00 00:00:[address] 3.430.2.7 0.2.7.3.698 Ho spita .3.298636 084.8 l .8 2021-02-26 2021-02-26 Travel 1.2.840.1 1.2.643.331 5533 375143 Methodi 00:00:00 00:00:[address] 3.430.2.7 0.2.7.3.698 Ho spita .3.898030 084.8 l .8 2021-02-26 2021-02-26 Travel 1.2.840.1 1.2.267.302 4461 674155 Methodi 00:00:00 00:00:[address] 3.430.2.7 0.2.7.3.698 Ho spita .3.958069 084.8 l .8 2021-02-25 2021-02-25 Office Augustin Mccormick 1.2.840.114 [id number] 07:55:50 08:59:16 Visit H AMBULATOR 350.1.13.21 Y 0.2.7.2.686 [id number] 800 2021-02-24 2021-02-24 Office Mainor, 1.2.840.1 [id number] 58774 Methodi 14:50:16 17:17:15 Visit Bar Gomez 78614.1.[address] 3.430.2.7 Hospit a .3.142581 l .8 2021-02-24 2021-02-24 Office Mainor, 1.2.840.1 [id number] 31 Methodi 14:50:16 17:17:15 Visit Bar Gomez 30722.1.[address] 3.430.2.7 Hospit a .3.005937 l .8 2021-02-24 2021-02-24 Travel 1.2.840.1 1.2.909.464 9897 907720 Methodi 00:00:00 00:00:[address] 3.430.2.7 0.2.7.3.698 Ho spita .3.594473 084.8 l .8 2021-02-24 2021-02-24 Travel 1.2.840.1 1.2.796.345 7879 413810 Methodi 00:00:00 00:00:[address] 3.430.2.7 0.2.7.3.698 Ho spita .3.386386 084.8 l .8 2021-01-05 2021-01-05 Office KEMI Jason 1.2.840.114 [id number] 13 12:31:06 15:54:26 Visit Guru Beckford AMBULATOR 350.1.13.21 Y 0.2.7.2.686 [id number] 810 2020-09-09 2020-09-09 Outpatient KEMI RUIZ [facility] [id number] [facility] 10:43:52 16:03:26 MANUELITO haro of Medicin e Results Test Description Test Time Test Comments Results Result Comments Source Fecal fat, qualitative 2021-03-25 21:08:00 Test Item Value Reference Range Interpretation Comme nts Fat qual neutral, stool Normal (test code = 18131-7) Norm al (<60 Droplets/HPF) Fat qual, stool (test Normal code = 14589-6) Normal (<10 0 Droplets/HPF) [facility] (test code = [place]) Test(s) 841143-Lwii, Neutral; 407217-Fyez, Totalwas developed and its performance characteristics determinedby [facility]. It has not been cleared or approved by the Foodand Drug Administration.Performed at: - [address] [id number] Director: Yane Helton MD, Phone: [phone] [facility] fat, [id number] 21:08:00 Test Item Value Reference Range Interpretation Comments Fat qual neutral, stool (test code = Normal 67479-1) Fat qual, stool (test code = 74373-6) Normal [facility] (test code = [facility]) [facility] [id number] 18:10:00 Test Item Value Reference Range Interpretation Comments Pancreatic See_Comment Severe elastase (test Pancreatic code = 89153-3) Insufficienc y: <100 Moderate Pancreatic Insufficiency: 100 - 200 Normal: >200 [Automated message] The system which generated this result transmit ray reference range : >200 ug Elast./ g. The reference range was not u sed to interpret th is result as normal/abnormal . [place] (test code = Performed at: [facility]) - [address] [id number] Director: Yane Helton MD, Phone: [phone] [facility], [id number] 18:10:00 Test Item Value Reference Range Interpretation Comments Pancreatic elastase See_Comment [Automa ary message] The (test code = 62127-6) system which generated this result tra nsmitted reference range : >200 ug Elast./g. The r eference range was not u sed to interpret this result as normal/abnormal . [place] (test code = [facility]) [facility] [id number] 14:10:00 Test Item Value Reference Range Interpretation Comments Fecal calprotectin 17 ug/g 0-120 Concentra tion (test code = Interpretation 37861-0) Follow-Up<16 - 50 ug/g Normal None>50 -1 20 ug/g Border line Re-evaluat e in 4-6 weeks >1 20 ug/g Abnorm al Repeat as clinically indicated [facility] (test code = Performed at: [facility]) [facility] [id number] Director: Yane Helton MD, Phone: [phone] [facility] [id number] 14:10:00 Test Item Value Reference Range Interpretation Comments Fecal calprotectin (test code = 17 ug/g 0-120 25203-0) [place] (test code = [place]) [facility] disease [id number] 13:12:00 Test Item Value Reference Interpretation Comments Range Endomysial IgA (test Negative Negative code = 80520-3) Tissue <2 0-3 transglutaminase Ab, Negative IgA (test code = 0 - 3 13197-0) Weak Positive 4 - 10 Posi tive >10 Ti ssue Transglutaminas e (tTG) has been identified as t he endomysial anti gen. Studies have demonstr- ated that endomysial IgA antibodies have over 99% specificity for gluten sensitiv e enteropathy. IgA (test code = 228 mg/dL 61-437 2458-8) [place] (test code = [place]) Performed at: [facility] [id number] Director: Yane Helton MD, Phone: [phone] rmed at: 02 - [address] [id number] Director: Partha Ray MD, Phone: [phone] [facility] disease [id number] 13:12:00 Test Item Value Reference Range Interpretation Comments Endomysial IgA (test code = Negative Negative 26883-4) Tissue transglutaminase Ab, IgA <2 0-3 (test code = 83898-0) IgA (test code = 2458-8) 228 mg/dL 61-437 [facility] (test code = [facility]) [facility]12 [id number] 08:07:00 Test Item Value Reference Range Interpretation Comments Vitamin B12 (test 552 pg/mL 232-1245 code = 2132-9) [facility] (test code = [place]) Performed at: [address] [place] [id number] Director: Partha Ray MD, Phone: [phone] [facility] [id number] 08:07:00 Test Item Value Reference Range Interpretation Comments Folate (test 9.7 ng/mL >3.0 A serum folate code = 2284-8) concentration of less than 3.1 ng/mL isconsidered to represent clini tien deficiency. [facility] (test code Performed at: = [facility]) [address] [id number] Director: Partha Ray MD, Phone: [phone] [facility]it[facility] B12 [id number] 08:07:00 Test Item Value Reference Range Interpretation Comments Vitamin B12 (test code = 2132-9) 552 pg/mL 232-1245 [facility] (test code = [facility]) [facility] [id number] 08:07:00 Test Item Value Reference Range Interpretation Comments Folate (test code = 2284-8) 9.7 ng/mL >3.0 [facility] (test code = [facility]) [facility] iron binding [id number] 07:07:00 Test Item Value Reference Range Interpretation Comments Iron binding capacity 313 ug/dL 250-450 (test code = 2500-7) Unsaturated iron 242 ug/dL 111-343 binding capacity (test code = 2501-5) Iron level (test code = 71 ug/dL 38-169 2498-4) Iron saturation (test 23 % 15-55 code = 2502-3) [facility] (test code = [place]) Performed at: [address] [place] [id number] Director: Partha Ray MD, Phone: [phone] [facility] iron binding [id number] 07:07:00 Test Item Value Reference Range Interpretation Comments Iron binding capacity (test code = 313 ug/dL 880-740 5775-7) Unsaturated iron binding capacity 242 ug/dL 111-343 (test code = 2501-5) Iron level (test code = 2498-4) 71 ug/dL 38-169 Iron saturation (test code = 23 % 15-55 2502-3) [facility] (test code = [facility]) [facility], [id number] 09:23:00FINAL REPORT CT abdomen and pelvis with [...] MDReport Verified Date/Time: 11/18/2019 09:23:12 Reading Location: [facility] B1 C013X Ortho ConsultReading Room -[id number] 08:47:00 Test Item Value Reference Range Interpretation Comments POC-CREATININE 1.1 mg/dL 0.6-1.3 : TESTED AT [facility] (test [address] [facility] E DG code = 1859) A, [facility] 7 7836: [employer] Specialist/Techni mary ID = [id number] for CORDELIA FIERRO ICA POC-EGFR 66 mL/min/1.73M2 ([place]) (test code = 1860) CT, HEART CORONARY TIEN, WITHOUT IV [id number] 13:48:00FINAL REPORT EXAM: CT Coronary calcium scoring [...] Verified Date/Time: 10/07/2019 13:48:52 RAD, BONE DENSITY [id number] 12:53:00Reason for Exam:- >encounter for preventative health [...] for bone mineral density as provided by diagrammer is 0.023 g/cm2 for lumbar spine and [...] bone mineral density study. Signed: Bobbi Sharif MDReport Verified Date/Time: 10/07/2019 12:53:26 RAD, CHEST, 2 [id number] 08:57:00Reason for Exam:->encounter for preventative health examinationFINAL [...] MDReport Verified Date/Time: 10/07/2019 08:57:55 Reading Location: [facility] Reading Room [address] [place] [address]
--- NOTE | 2021-05-13 23:20 | ER ---
Nurse's Notes [facility] Name: Jhonatan Solis Age: 70 yrs Sex: Male : 1950 Arrival Date: 05/13/2021 Time: 22:41 Bed 27 Private MD: Diagnosis: Altered mental status, unspecified;Solitary pulmonary nodule-lingular region Presentation: 05/13 23:10 Chief complaint: Patient states: Pt found laying in bed by family member, family ea reported pt was confused and disoriented. EMS reports upon arrival pt was not able to follow commands and was not verbal. Coronavirus screen: At this time, the client does not indicate any symptoms associated with coronavirus-19. Initial Sepsis Screen: Does the patient meet any 2 criteria? No. Patient's initial sepsis screen is negative. Does the patient have a suspected source of infection? No. Patient's initial sepsis screen is negative. Risk Assessment: Do you want to hurt yourself or someone else? Patient reports no desire to harm self or others. Onset of symptoms was May 13, 2021. 23:10 Method Of Arrival: Ambulatory ea 23:10 Acuity: TAMAR 3 ea 23:16 Ebola Screen: No symptoms or risks identified at this time. ea Triage Assessment: 05/14 20:00 General: Appears in no apparent distress. Behavior is agitated, combative. kh1 Historical: - Allergies: 05/13 23:24 Levaquin; ea - Home Meds: 23:24 aspirin 81 mg Oral TbEC 1 tab once daily [Active]; colesevelam 625 mg Oral tab 2 times ea per day [Active]; donepezil 23 mg Oral tab 1 tab once daily [Active]; Euthyrox 125 mcg Oral tab 1 tab once daily [Active]; hydrocortisone 10 mg Oral tab 1 tab 3 times per day [Active]; lisinopril 5 mg Oral tab twice a day [Active]; memantine 5 mg Oral tab 1 tab once daily [Active]; sotalol 80 mg Oral tab 1 tab 2 times per day [Active]; tadalafil 5 mg Oral tab 1 tab once daily [Active]; Xarelto 20 mg Oral tab 1 tab once daily [Active]; - PMHx: 23:24 stent; kidney cancer; Hypertension; Hyperlipidemia; Depression; Atrial Fib; ea - PSHx: 23:24 L kidney partially removed; ea - Immunization history:: Adult Immunizations unknown. - Family history:: not pertinent. - Social history:: Smoking status: unknown. Screenin:15 Abuse screen: Denies threats or abuse. Nutritional screening: No deficits noted. ea Tuberculosis screening: No symptoms or risk factors identified. Fall Risk IV access (20 points). Assessment: 23:25 Pain: Denies pain. Neuro: Level of Consciousness is awake, alert, obeys commands, ea Oriented to person. Cardiovascular: Patient's skin is warm and dry. Respiratory: Airway is patent. Derm: Skin is pink, warm \T\ dry. 05/14 01:00 Reassessment: Patient and/or family updated on plan of care and expected duration. Pain ea level reassessed. pt alert and oriented to self, respirations even and unlabored. Chest expansions even and symmetrical. Vital Signs: 05/13 23:10 BP 196 / 112; Pulse 65; Resp 18; Temp 98; Pulse Ox 99% on R/A; ea 05/14 19:59 BP 170 / 98; Pulse 96; Resp 20; Temp 98.6; Pulse Ox 98% ; kh1 NIH Stroke Scale Scores: 05/13 22:42 NIHSS Score: 0 ea ED Course: 22:41 Patient arrived in ED. ea 22:48 José Monson MD is Attending Physician. kylie 23:07 Lizz Ferreira, RN is Primary Nurse. bb 23:10 Arm band placed on right wrist. Patient placed in an exam room, on a stretcher, on ea pulse oximetry. 23:17 Matthew Arceo MD is Hospitalizing Provider. kylie 23:24 Triage completed. ea 23:24 Patient has correct armband on for positive identification. Bed in low position. Call ea light in reach. Side rails up X2. community nurse on. Pulse ox on. NIBP on. 23:31 XRAY Chest (1 view) In Process Unspecified. EDMS 05/14 06:32 Report given to Jesús VALENTINE. ea 07:35 Initial lab(s) drawn, by ED staff, sent to lab. Inserted saline lock: 20 gauge in left mh5 forearm, using aseptic technique. 07:36 Warm blanket given. Pillow given. 5 08:10 Primary Nurse role handed off by Lizz Ferreira, RN eb Administered Medications: 05/13 23:10 Drug: NS 0.9% 1000 ml Route: IV; Rate: 1 bolus; Site: right wrist; elaina 05/14 01:00 Follow up: Response: No adverse reaction; IV Status: Completed infusion; IV Intake: ea 1000ml Intake: 01:00 IV: 1000ml; Total: 1000ml. elaina Outcome: 05/13 23:20 Decision to Hospitalize by Provider. kylie 05/14 20:09 Patient left the ED. kh1 NIH Stroke Scale - NIH Stroke Score Date: 05/13/2021 Time: 22:42 Total Score = 0 1a. Level of Consciousness (LOC) - 0(Alert) 1b. Level of Consciousness (LOC) (Month \T\ Age) - 0(Both) 1c. LOC Commands (Open \T\ Closes Eyes/Production Crew Supervisor) - 0(Both) 2. Best Gaze (Lateral Gaze Paresis) - 0(Normal) 3. Visual Field Loss - 0(No visual loss) 4. Facial Palsy - 0(Normal) 5a. Left Arm: Motor (10-second hold) - 0(No drift) 5b. Right Arm: Motor (10-second hold) - 0(No drift) 6a. Left Leg: Motor (5-second hold - always test supine) - 0(No drift) 6b. Right Leg: Motor (5-second hold - always test supine) - 0(No drift) 7. Limb Ataxia (finger/nose \T\ heel/lockhart - test with eyes open) - 0(Absent) 8. Sensory Loss (pinprick arms/legs/face) - 0(Normal) 9. Best Language: Aphasia (description/naming/reading) - 0(No aphasia) 10. Dysarthria (speech clarity - read or repeat words) - 0(Normal) 11. Extinction and Inattention (visual/tactile/auditory/spatial/personal) - 0(No abnormality) Initials: elaina Signatures: Dispatcher [employer] EDJosé Mallory MD MD cha Ballard, Brenda, RN Romy Diaz [facility] Bia Anderson RN RN ea Botello, Elizabeth eb Harris, Kecia [facility]
--- NOTE | 2021-05-13 23:21 | EDPHYS ---
Physician Documentation [facility] Name: Jhonatan Solis Age: 70 yrs Sex: Male : 1950 Arrival Date: 05/13/2021 Time: 22:41 Bed 27 Private MD: ED Physician José Monson HPI: 05/13 23:08 This 70 yrs old Male presents to ER via Unassigned with complaints of ams, kylie fall and difficult to arouse. 23:08 The patient's problem is reported as altered mental status, decreased responsiveness. kylie Onset: The symptoms/episode began/occurred just prior to arrival. Duration: The episode is continuous. Context: the episode(s) was witnessed, by family. The symptoms are alleviated by nothing. The symptoms are aggravated by nothing. The patient presents with confusion. Onset: The symptoms/episode began/occurred today. Possible causes: CVA or TIA, head injury, a direct blow, a fall, low blood sugar, seizure. Associated signs and symptoms: The patient has no apparent associated signs or symptoms. Current symptoms: In the emergency department the patient's symptoms have improved, moderately, is less confused. Historical: - Allergies: 23:24 Levaquin; ea - Home Meds: 23:24 aspirin 81 mg Oral TbEC 1 tab once daily [Active]; colesevelam 625 mg Oral tab 2 times ea per day [Active]; donepezil 23 mg Oral tab 1 tab once daily [Active]; Euthyrox 125 mcg Oral tab 1 tab once daily [Active]; hydrocortisone 10 mg Oral tab 1 tab 3 times per day [Active]; lisinopril 5 mg Oral tab twice a day [Active]; memantine 5 mg Oral tab 1 tab once daily [Active]; sotalol 80 mg Oral tab 1 tab 2 times per day [Active]; tadalafil 5 mg Oral tab 1 tab once daily [Active]; Xarelto 20 mg Oral tab 1 tab once daily [Active]; - PMHx: 23:24 stent; kidney cancer; Hypertension; Hyperlipidemia; Depression; Atrial Fib; ea - PSHx: 23:24 L kidney partially removed; ea - Immunization history:: Adult Immunizations unknown. - Family history:: not pertinent. - Social history:: Smoking status: unknown. ROS: 23:08 Constitutional: Negative for fever, chills, and weight loss, Eyes: Negative for injury, kylie pain, redness, and discharge, ENT: Negative for injury, pain, and discharge, Neck: Negative for injury, pain, and swelling, Cardiovascular: Negative for chest pain, palpitations, and edema, Respiratory: Negative for shortness of breath, cough, wheezing, and pleuritic chest pain, Abdomen/GI: Negative for abdominal pain, nausea, vomiting, diarrhea, and constipation, Back: Negative for injury and pain, : Negative for injury, bleeding, discharge, and swelling, MS/Extremity: Negative for injury and deformity, Skin: Negative for injury, rash, and discoloration, Psych: Negative for depression, anxiety, suicide ideation, homicidal ideation, and hallucinations, Allergy/Immunology: Negative for hives, rash, and allergies, Endocrine: Negative for neck swelling, polydipsia, polyuria, polyphagia, and marked weight changes, Hematologic/Lymphatic: Negative for swollen nodes, abnormal bleeding, and unusual bruising. 23:08 Neuro: Positive for altered mental status, weakness. Exam: 23:08 Constitutional: This is a well developed, well nourished patient who is awake, alert, kylie and in no acute distress. Head/Face: Normocephalic, atraumatic. Eyes: Pupils equal round and reactive to light, extra-ocular motions intact. Lids and lashes normal. Conjunctiva and sclera are non-icteric and not injected. Cornea within normal limits. Periorbital areas with no swelling, redness, or edema. ENT: Nares patent. No nasal discharge, no septal abnormalities noted. Tympanic membranes are normal and external auditory canals are clear. Oropharynx with no redness, swelling, or masses, exudates, or evidence of obstruction, uvula midline. Mucous membranes moist. Neck: Trachea midline, no thyromegaly or masses palpated, and no cervical lymphadenopathy. Supple, full range of motion without nuchal rigidity, or vertebral point tenderness. No Meningismus. Chest/axilla: Normal chest wall appearance and motion. Nontender with no deformity. No lesions are appreciated. Cardiovascular: Regular rate and rhythm with a normal S1 and S2. No gallops, murmurs, or rubs. Normal PMI, no JVD. No pulse deficits. Respiratory: Lungs have equal breath sounds bilaterally, clear to auscultation and percussion. No rales, rhonchi or wheezes noted. No increased work of breathing, no retractions or nasal flaring. Abdomen/GI: Soft, non-tender, with normal bowel sounds. No distension or tympany. No guarding or rebound. No evidence of tenderness throughout. Back: No spinal tenderness. No costovertebral tenderness. Full range of motion. Male : Normal genitalia with no discharge or lesions. Skin: Warm, dry with normal turgor. Normal color with no rashes, no lesions, and no evidence of cellulitis. MS/ Extremity: Pulses equal, no cyanosis. Neurovascular intact. Full, normal range of motion. Neuro: Awake and alert, GCS 15, oriented to person, place, time, and situation. Cranial nerves II-XII grossly intact. Motor strength 5/5 in all extremities. Sensory grossly intact. Cerebellar exam normal. Normal gait. Psych: Awake, alert, with orientation to person, place and time. Behavior, mood, and affect are within normal limits. 23:13 Radiologist reports: hiro [facility] 05/14 01:33 ECG was reviewed by the Attending Physician. kylie 02:39 Abdomen/GI: Exam negative for acute changes, Inspection: abdomen appears normal, Bowel kylie sounds: normal, Palpation: abdomen is soft and non-tender, in all quadrants, Liver: no appreciated palpable abnormalities, Hernia: not appreciated. 02:39 Musculoskeletal/extremity: DVT Exam: No signs of deep vein thrombosis. no pain, no swelling, no tenderness, negative Homans' sign noted on exam, no appreciated bluish discoloration, no erythema, no increased warmth. Vital Signs: 05/13 23:10 BP 196 / 112; Pulse 65; Resp 18; Temp 98; Pulse Ox 99% on R/A; ea 05/14 19:59 BP 170 / 98; Pulse 96; Resp 20; Temp 98.6; Pulse Ox 98% ; kh1 NIH Stroke Scale Scores: 05/13 22:42 NIHSS Score: 0 ea MDM: 22:49 Patient medically screened. kylie 23:13 Differential diagnosis: CVA, TIA, Dementia, Alzheimer disease. Differential Diagnosis: kylie CVA, electrolyte abnormality, hypoglycemia, intracranial bleed, TIA, UTI, volume depletion. Data reviewed: vital signs, nurses notes, lab test result(s), EKG, radiologic studies, CT scan, plain films. Data interpreted: nuclear monitoring technician: rate is 80 beats/min, rhythm is regular, Pulse oximetry: on room air is 100 %. Test interpretation: by ED physician or midlevel provider: ECG, plain radiologic studies. Counseling: I had a detailed discussion with the patient and/or guardian regarding: the historical points, exam findings, and any diagnostic results supporting the discharge/admit diagnosis, lab results, radiology results, the need for further work-up and treatment in the hospital. 05/13 22:50 Order name: Basic Metabolic Panel 05/13 22:50 Order name: CBC with Diff 05/13 22:50 Order name: LFT's 05/13 22:50 Order name: Magnesium 05/13 22:50 Order name: NT PRO-BNP 05/13 22:50 Order name: PT-INR 05/13 22:51 Order name: Basic Metabolic Panel [facility] 05/13 22:51 Order name: CBC with Diff [facility] 05/13 22:51 Order name: LFT's [facility] 05/13 22:51 Order name: Magnesium [facility] 05/13 22:51 Order name: NT PRO-BNP [facility] 05/13 22:51 Order name: PT-INR; Complete Time: 00:32 [facility] 05/13 22:51 Order name: Troponin (emerg Dept Use Only); Complete Time: 00:32 [facility] 05/13 22:51 Order name: Lipase; Complete Time: 00:32 [facility] 05/13 22:51 Order name: Urine Culture [facility] 05/13 22:51 Order name: Basic Metabolic Panel; Complete Time: 00:32 [facility] 05/13 22:51 Order name: CBC with Automated Diff; Complete Time: 00:32 [facility] 05/13 22:51 Order name: Liver (Hepatic) Function; Complete Time: 00:32 [facility] 05/13 22:51 Order name: Magnesium; Complete Time: 00:32 [facility] 05/13 22:52 Order name: NT PRO-BNP; Complete Time: 00:32 [facility] 05/13 23:13 Order name: ETOH Level; Complete Time: 00:32 [facility] 05/13 23:30 Order name: Troponin I [facility] 05/13 22:50 Order name: XRAY Chest (1 view) 05/13 22:50 Order name: EKG; Complete Time: 22:50 05/13 22:50 Order name: Cardiac monitoring 05/13 22:50 Order name: EKG - Nurse/Tech 05/13 22:50 Order name: IV Saline Lock 05/13 22:50 Order name: Labs collected and sent 05/13 22:50 Order name: O2 Per Protocol 05/13 22:50 Order name: O2 Sat Monitoring 05/13 22:51 Order name: EKG; Complete Time: 22:52 [facility] 05/13 22:51 Order name: Cardiac monitoring; Complete Time: 23:08 [facility] 05/13 22:51 Order name: EKG - Nurse/Tech; Complete Time: 23:08 [facility] 05/13 22:51 Order name: IV Saline Lock; Complete Time: 23:08 [facility] 05/13 22:51 Order name: Labs collected and sent; Complete Time: 23:08 [facility] 05/13 22:51 Order name: O2 Per Protocol; Complete Time: 23:08 [facility] 05/13 22:51 Order name: O2 Sat Monitoring; Complete Time: 23:08 [facility] 05/13 22:51 Order name: CT Traumagram (Head C Spine CAP W Con) [facility] 05/13 22:51 Order name: Urine Dipstick-Ancillary (obtain specimen) [facility] 05/13 23:30 Order name: CONS Physician Consult [facility] 05/13 23:30 Order name: Regular [facility] 05/13 23:30 Order name: EKG Electrocardiogram [facility] 05/13 23:30 Order name: EKG Electrocardiogram [facility] 05/14 00:28 Order name: SARS-COV-2 RT PCR; Complete Time: 00:32 [facility] 05/14 03:53 Order name: CREATININE WHOLE BLOOD [facility] 05/14 08:01 Order name: Basic Metabolic Panel [facility] 05/14 08:02 Order name: Troponin I [facility] 05/14 08:02 Order name: CBC with Automated Diff [facility] 05/14 14:12 Order name: CT [facility] 05/14 17:54 Order name: MRI [facility] EC/10 01:33 Rate is 63 beats/min. Rhythm is regular. QRS [place] is Normal. RI interval is normal. QRS kylie interval is normal. QT interval is normal. No Q waves. T waves are Normal. No ST changes noted. Clinical impression: NSR w/ Non-specific ST/T Changes and No evidence of ischemia. Interpreted by me. Reviewed by me. Administered Medications: 05/13 23:10 Drug: NS 0.9% 1000 ml Route: IV; Rate: 1 bolus; Site: right wrist; ea 05/14 01:00 Follow up: Response: No adverse reaction; IV Status: Completed infusion; IV Intake: ea 1000ml Disposition Summary: 05/13/21 23:20 Hospitalization Ordered Hospitalization Status: Observation kylie Provider: Matthew Arceo cha Condition: Stable kylie Problem: new kylie Symptoms: have improved kylie Bed/Room Type: Standard kylie Location: Telemetry/MedSurg (observation)(05/14/21 17:10) dw Room Assignment: 402(05/14/21 17:10) dw Diagnosis - Altered mental status, unspecified kylie - Solitary pulmonary nodule - lingular region kylie Forms: - Medication Reconciliation Form kylie - SBAR form kylie NIH Stroke Scale - NIH Stroke Score Date: 05/13/2021 Time: 22:42 Total Score = 0 1a. Level of Consciousness (LOC) - 0(Alert) 1b. Level of Consciousness (LOC) (Month \T\ Age) - 0(Both) 1c. LOC Commands (Open \T\ Closes Eyes/Tug Boat Engineer) - 0(Both) 2. Best Gaze (Lateral Gaze Paresis) - 0(Normal) 3. Visual Field Loss - 0(No visual loss) 4. Facial Palsy - 0(Normal) 5a. Left Arm: Motor (10-second hold) - 0(No drift) 5b. Right Arm: Motor (10-second hold) - 0(No drift) 6a. Left Leg: Motor (5-second hold - always test supine) - 0(No drift) 6b. Right Leg: Motor (5-second hold - always test supine) - 0(No drift) 7. Limb Ataxia (finger/nose \T\ heel/lockhart - test with eyes open) - 0(Absent) 8. Sensory Loss (pinprick arms/legs/face) - 0(Normal) 9. Best Language: Aphasia (description/naming/reading) - 0(No aphasia) 10. Dysarthria (speech clarity - read or repeat words) - 0(Normal) 11. Extinction and Inattention (visual/tactile/auditory/spatial/personal) - 0(No abnormality) Initials: ea Signatures: Dispatcher [employer] Heather Young RN RN dw Anderson, Corey, MD MD cha Ballard, Brenda, RN RN bb Chiquita Urias, RN RN tl1 Bia Anderson RN RN ea Corrections: (The following items were deleted from the chart) 05/13 22:53 22:52 Chest Single View+RAD.RAD.BRZ ordered. EDMS EDMS 23:11 22:52 CORONAVIRUS+MR.LAB.BRZ ordered. EDMS EDMS 23:16 22:50 Basic Metabolic Panel ordered. EDMS EDMS 23:16 22:50 CBC with Automated Diff ordered. EDMS EDMS 23:16 22:50 Liver (Hepatic) Function ordered. EDMS EDMS 23:16 22:50 Magnesium ordered. EDMS EDMS 23:16 22:50 NT PRO-BNP ordered. EDMS EDMS 23:16 22:50 Protime (+INR) ordered. EDMS EDMS 23:16 22:50 TROPONIN (EMERG DEPT USE ONLY)+C.LAB.BRZ ordered. EDMS EDMS 23:55 23:20 Telemetry/MedSurg (observation) [facility] tl1 23:55 23:20 [facility] tl1 05/14 17:10 05/13 23:55 [facility] ER HOLD tl1 dw 05/14 17:10 05/13 23:55 ERHOLD- tl1 dw
[2021-05-13 23:25] LABS: Absolute Lymphocytes (CBC) 0.8 K/uL (0.7-4.9); Hematocrit 39.5 % (39.6-49.0); Lymphocytes % 15.8 % (15.3-44.8); MPV 8.7 fL (7.6-11.3); RBC Red Blood Cell Count 4.42 M/uL (4.33-5.43)
[2021-05-13] MEDS ORDERED: ACETAMINOPHEN 325 MG TABLET PO PRN (23:26)
[2021-05-13] MEDS ORDERED: ONDANSETRON 4 MG/2 ML VIAL IV PRN (23:26)
[2021-05-13] MEDS ORDERED: NA CHLORIDE 0.9% 1,000 ML ONE (23:37)
[2021-05-13 23:38] LABS: Protime INR 1.09
[2021-05-13 23:43] LABS: ALT/SGPT 46 U/L (12-78); AST/SGOT 38 U/L (15-37); Albumin 3.5 g/dL (3.4-5.0); Alkaline Phosphatase 68 U/L (45-117); BUN Blood Urea Nitrogen 14 mg/dL (7-18); Bicarbonate 26 mmol/L (21-32); Bilirubin Direct 0.1 mg/dL (0-0.2); Bilirubin Total 0.7 mg/dL (0.2-1.0); Glucose Level 103 mg/dL (74-106); Lipase 183 U/L (73-393); Magnesium 2.2 mg/dL (1.8-2.4); NT PRO-BNP 263 pg/mL (<125); Potassium 3.6 mmol/L (3.5-5.1); Protein, Total 6.8 g/dL (6.4-8.2); Sodium Level 141 mmol/L (136-145); Troponin (Emerg Dept Use Only) < 0.02 ng/mL (0.0-0.045)
[2021-05-13] MEDS: NA CHLORIDE 0.9% 1,000 ML IV SCH (23:45)
[2021-05-14] MEDS ORDERED: NA CHLORIDE 0.9% 1,000 ML ONE ×2 (00:26→09:11)
[2021-05-14] MEDS ORDERED: CEFTRIAXONE 500 MG/VIAL ONE (03:12)
[2021-05-14 03:33] VITALS: BMI 24.4
[2021-05-14] MEDS ORDERED: LORazepam 2 MG/ML VIAL IV SCH ×2 (05:00→09:00)
--- NOTE | 2021-05-14 07:03 | RAD REPORT ---
EXAM DESCRIPTION: RAD - Chest Single View - 05/13/2021 11:31 pm CLINICAL HISTORY: . COMPARISON: Chest Single View dated 04/24/2021; Chest Single View dated 04/08/2021; Chest Pa And Lat (2 Views) dated 02/11/2021; Chest Single View dated 03/20/2018 FINDINGS: Lines: None. Lungs: No evidence of edema or pneumonia. Pleural: No significant pleural effusions or pneumothorax. Cardiac: The heart size is within normal limits. Bones: No acute fractures. Other: IMPRESSION: No acute cardiopulmonary disease.
[2021-05-14 07:51] LABS: Absolute Lymphocytes (CBC) 0.8 K/uL (0.7-4.9); Basophils % 0.7 % (0-1.3); Hematocrit 40.2 % (39.6-49.0); Lymphocytes % 14.5 % (15.3-44.8); RBC Red Blood Cell Count 4.53 M/uL (4.33-5.43)
[2021-05-14 08:01] LABS: Potassium 3.4 mmol/L (3.5-5.1)
[2021-05-14] MEDS ORDERED: LORazepam 2 MG/ML VIAL ONE ×2 (08:03→12:55)
[2021-05-14] MEDS ORDERED: ASPIRIN EC 81 MG TAB PO SCH (09:00)
[2021-05-14] MEDS: NA CHLORIDE 0.9% 1,000 ML IV SCH (09:10)
[2021-05-14] MEDS: LORazepam 2 MG/ML VIAL IV PRN ×3 (12:35→21:07)
[2021-05-14] MEDS ORDERED: METHYLPRED NA SUC 1,000 MG in NA CHLORIDE 0.9% 100 ML IV ONE ×2 (14:00→16:00)
--- NOTE | 2021-05-14 14:11 | RAD REPORT ---
EXAM DESCRIPTION: CT - Head C Spine Cap Barrie Pacheco - 05/14/2021 4:55 am CLINICAL HISTORY: The patient is 70 years old and is Male; PAIN TECHNIQUE: Axial computed tomography images of the head/brain and cervical spine without intravenous contrast. Sagittal and coronal reformatted images were created and reviewed. This CT exam was pe rformed using one or more of the following dose reduction techniques: automated exposure control, a djustment of the mA and/or kV according to patient size, and/or use of iterative reconstruction techn ique. COMPARISON: No relevant prior studies available. FINDINGS: Brain: Mild nonspecific white matter changes likely related to chronic microvascular isc hemic disease. Mild cerebral atrophy. No hemorrhage. Ventricles: Unremarkable. No ventriculomegaly. Skull: No acute fracture. Sinuses: Unremarkable as visualized. No acute sinusitis. Mastoid air cells: Unremarkable as visualized. No mastoid effusion. Vertebrae: No acute fracture or subluxation. Minimal retrolisthesis of C3 on C4. Discs/spinal canal/neural foramina: Disc space narrowing with degenerative endplate changes at C3 -C4 and C6-C7. Moderate bilateral neural foraminal narrowing at C2-C3. Moderate bilateral neural foraminal narrowing at C3-C4. Soft tissues: Subcutaneous fat stranding along the left posterior scalp. Lymph nodes: There are a couple prominent left supraclavicular lymph nodes. * A single impression for all exams can be found at the end of this report EXAM DESCRIPTION: CT Chest, Abdomen and Pelvis With Intravenous Contrast CLINICAL HISTORY: The patient is 70 years old and is Male; PAIN TECHNIQUE: Axial computed tomography images of the chest, abdomen and pelvis with intravenous contra st. Sagittal and coronal reformatted images were created and reviewed. This CT exam was performed using one or more of the following dose reduction techniques: automated exposure control, adjustme nt of the mA and/or kV according to patient size, and/or use of iterative reconstruction technique. COMPARISON: No relevant prior studies available. FINDINGS: CHEST: Lungs: 8mm pulmonary nodule in the lingular region, image 31 series 601. 6 mm nodule in the left upper lobe, image 22 series 601. 5 mm nodule in the left upper lobe, image 15 series 601. Pleural space: Unremarkable. No significant effusion. No pneumothorax. Heart: Unremarkable. No cardiomegaly. No significant pericardial effusion. ABDOMEN: Liver: Multiple rounded low-density lesions throughout the liver measuring up to 1.6 cm the right mid liver. Gallbladder and bile ducts: The gallbladder is surgically absent. No ductal dilation. Pancreas: Unremarkable. No ductal dilation. No mass. Spleen: Unremarkable. No splenomegaly. Adrenals: Unremarkable. No mass. Kidneys and ureters: Left extrarenal pelvis. Cyst in the right kidney. ACR White Paper guidelines (Herts, et al. JACR 2018; 15(2):264-273) suggest no follow-up is necessary. No hydronephrosis. No solid mass. Stomach and bowel: Mild fat stranding surrounding a segment of the left colon with associated div erticula in the left lower quadrant. Scattered colonic diverticula. No obstruction. No mucosal thickening. PELVIS: Appendix: No findings to suggest acute appendicitis. Bladder: Unremarkable. No mass. Reproductive: Unremarkable as visualized. CHEST, ABDOMEN and PELVIS: Intraperitoneal space: Unremarkable. No significant fluid collection. No free air. Bones/joints: Numerous sclerotic lesions in the ribs, spine, and pelvis. No acute fracture. No dislocation. Soft tissues: Unremarkable. Vasculature: Scattered atherosclerotic vascular calcifications. No aortic aneurysm. Lymph nodes: There are a few prominent mediastinal nodes measuring up to 1.7 cm in short axis cole meter in the right pretracheal region. * A single impression for all exams can be found at the end of this report IMPRESSION: CT Head and Cervical Spine Without Intravenous Contrast: 1. No acute intracranial abnormality. 2. No acute fracture or subluxation. CT Chest, Abdomen and Pelvis With Intravenous Contrast: 1. 8mm pulmonary nodule in the lingular region, image 31 series 601. 6 mm nodule in the left upper lobe, image 22 series 601. 5 mm nodule in the left upper lobe, image 15 series 601. [employer] Guidelines (MacMahon, et al. Radiology 2017; 284(1):228-43) suggest the following. For low-risk patients recommend follow-up chest CT at 3-6 months. If unchanged consider an additional follow-up CT at 18-24 months. For high-risk patients initial follow-up chest CT at 3-6 months and if unchang ed, 18-24 months. 2. There are a few prominent mediastinal nodes measuring up to 1.7 cm in short axis diameter in the right pretracheal region. 3. Multiple rounded low-density lesions throughout the liver measuring up to 1.6 cm the right mid l iver. Metastatic disease is not excluded. 4. Numerous sclerotic lesions in the ribs, spine, and pelvis. Metastatic disease is not excluded. 5. Mild fat stranding surrounding a segment of the left colon with associated diverticula in the le ft lower quadrant. Correlate with any concern for diverticulitis. Electronically signed by: Herman Osorio MD 05/14/2021 1:30 AM CDT Due to temporary technical issues with the PACS/Fluency reporting system, reports are being signed by the in house radiologists without review as a courtesy to insure prompt reporting. The interpreting radiologist is fully responsible for the content of the report.
--- NOTE | 2021-05-14 17:53 | RAD REPORT ---
EXAM DESCRIPTION: MRI - Brain W/Wo Cont - 05/14/2021 5:19 pm CLINICAL HISTORY: R/O meningeal enhancement (encephalitis), disoriented, AMS COMPARISON: Brain Wo Cont dated 03/20/2018 TECHNIQUE: Sagittal and axial T1-weighted images were obtained. Axial PD/heavily T2-weighted and T2- FLAIR images were obtained along with axial DWI/ADC mapping sequences. Coronal heavily T2 weighted s equence obtained. Axial and coronal post-contrast T1-weighted images were also obtained. A 20 ml Mul tihance contrast following utilized. FINDINGS: Exam has motion degradation limitations but is still considered diagnostic. No intracranial hemorrhage is present. No mass effect, edema or shift of midline structures. Patient has a baseline mild for age atrophy with mild to moderate chronic ischemic change. Ventricles are in proportion to any volume loss. There is no dural thickening or abnormal dural enhancement. Diffusion weighted imaging shows punctate areas of hyperintense signal in the medial aspect of the le ft frontal lobe near the frontal horn left lateral ventricle and continuing in the frontal lobe and p arietal lobe white matter. There is corresponding diminished signal on ADC mapping. This could be lef t anterior cerebral artery distribution acute/subacute CVA or possibly left YARELI/ MCA watershed infarc tion. No other areas of suspected acute/ subacute infarction. No extra-axial fluid collection. Signal voids are seen as a normal finding in the major intracranial vessels. No abnormal brain parenchymal enhancement. No globe or orbital content abnormality. No sella or supra sella abnormality. Mastoid air cells and visualized paranasal sinuses are clear. IMPRESSION: Acute/subacute nonhemorrhagic infarction changes are present involving the anterior medi al left frontal lobe continuing has punctate infarction foci into the left frontal lobe and parietal lobe white matter. Infarction pattern could represent entirely left anterior cerebral artery distribution or this may re present a left YARELI/MCA watershed infarction pattern. Patient has underlying mild atrophy with mild to moderate chronic ischemic change. Meningitis/encephalitis not suspected based on imaging.
--- NOTE | 2021-05-14 18:34 | CON ---
Consultation called by Dr. Arceo because of altered mental status. 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 Dementia is reportedly Alzheimer's dementia who comes to the hospital with worsening confusion, disorientation, inability to follow simple commands. It should be noted that he is also diagnosed with adrenal insuf ficiency and should be on hydrocortisone. The patient has had in the last month and a half multiple admissions with nausea, vomiting, and declining cognitive functioning. However, the event that preci pitated today's visit per the patient's daughter occurred two nights ago when after dinner, which she said he appeared to be his baseline, was able to get up, follow instructions and be independent on h is own, but after he had dinner, developed severe nausea, vomiting and was not able to follow any ins tructions or commands. He did not have any focal findings in terms of face, arm or leg weakness, but was doing purposeless activity, could not be redirected and was brought to [facility]. His head CT scan which was done with trauma series, full report is not yet available. However, his prio r CT scan on the 24 of April shows mild to moderate prominent dilatation of the fourth, third, lat eral ventricles, which the radiologist notes may be secondary to cerebral atrophy. However, there is also the possibility of normal-pressure hydrocephalus, but the condition may again represent ischemi c changes secondary to small-vessel ischemic disease. There was no report of a patterns consistent w [facility] Alzheimer's disease where the temporal lobes are out of proportion, atrophied, and to the rest of the brain. His laboratory studies showed essentially unremarkable complete blood count w [facility] differential. Coagulation panel was unremarkable. Chemistries and liver function studies remark able for mild abnormalities and his chloride of 109. His AST slightly elevated at 38 but ALT, alkali ne phosphatase all normal. He has cortisol level of 34.2 in the morning in the normal range. TSH 0. 493. Urinalysis was not done this visit. On the , trace of blood and protein was identified wit h pH of 7.5. His alcohol level was less than 10. Now he has COVID-19 test on April 08 that was po sitive by RT PCR and there was another presumptive positive on April 24, 2021 and positive again by RT PCR for COVID-19 on April 12, 2021. Since hospitalization, he has required Ativan due to agitatio n, pulling out IVs and oxygen monitors, removing blood pressure cuff and attempting to get out of bed and not following any instructions even of his daughter sitting there, he just stares at her and the n does what he plans to do without any acknowledgement that someone was even speaking to him. Past Medical History: Past medical history is noted, although it is not clear that the diagnosis is Alzheimer disease, but at least he was given donepezil 23 mg daily along with memantine 5 mg daily, b ut his daughter states he has stopped all medications a few days ago. In addition to past medical hi story is noted, there is dyslipidemia, kidney cancer, and stent placement. Surgical History: Partial removal of left kidney. Social History: No alcohol, tobacco, or IV drug use. Family History: Noncontributory. Allergies: LEVAQUIN. Medications: At home; thyroid 125 mcg daily, Tadalafil 5 mg daily, Xarelto 20 mg daily, donepezil 20 mg daily, lisinopril 5 mg daily, sotalol 80 mg twice daily, hydrocortisone 10 mg 3 times daily, yair sevelam 625 mg 2 daily, aspirin 81 mg daily, memantine 5 mg daily. Review of Systems: No reliable review of systems is possible at this point, however, the patient's daughter does not rep ort any fevers or chills. He did have a nausea and vomiting and some apparent myalgias; however, it is unclear as he is not able to give a history. Physical Examination: Vital Signs: Blood pressure 137 systolic up to 190 systolic over 89 to 113 systolic, respiratory rat e 16 up to 24, pulse 57 to 72, oxygen saturation 96% on room air, and temperature is 98.4. General: Dr. 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 He does appear to look at you and track, but does not have recognition. He does not follow any verbal instructions. He has to be redirected multiple times to stop attempting to pull out his IV and remove his oxygen saturation monitor and blood pressure cuff i n addition to trying to get out of bed constantly. He does not have any apparent trauma to his head, arms, legs. Has good air movement. Soft abdomen. No edema in the lower extremities or upper extre mities. Neurologically, he appears alert. He does not follow any verbal commands. He does track vis ually. He did not smile even as smile was shown to him. He did not verbalize. His face, however, i s symmetric and his motor examination, he has symmetric strength in the upper and lower extremities. Cannot determine proper . Sensory exam, unable to fully assess [id number] changes. He has coordination exam. He does have smooth movement in the upper and lower extremities as he moves a nd reflexes are symmetric and his tone appears to be normal. Gait examination is unable to be done a t this point. He would require gait belt and 2 persons to try to get him to stand. Unable to do isha t at this point. 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 There is possible dementia. Differential diagnosis of the Alzheimer disease including vascular ashley ntia and normal-pressure hydrocephalus is possibilities of his chronic cognitive decline in addition to COVID encephalopathy, which is a likely condition as well. However, the possibility of an encepha litis if there is inflammation in the brain should be pursued. 1.A brain MRI without and with contrast will be ordered. 2.Lumbar puncture under fluoroscopy will be considered, that may be done next week since he is on Xa relto. 3.Routine EEG should be done. At this point, some quetiapine may be helpful for calming him down. He also has benzodiazepines available. He should have a 24 hour one-on-one sitter at this point. 4.He may benefit and actually has been started on high dose steroids. He received 1 g of Solu-Medro l daily for 3 days and if able to, a switch to oral and steroids for a taper. He may hold donepezil and memantine at this point. Continue his other medications as appropriate. SARITA/FRANCISCOL Voice ID: [id number] Report ID: [id number]
[2021-05-14] MEDS ORDERED: SOTALOL HCL 80 MG TAB PO SCH (18:45)
[2021-05-14] MEDS ORDERED: lisinopriL 5 MG TAB PO SCH (18:45)
[2021-05-14] MEDS: NITROGLYCERIN 1 GM PKT TD SCH (18:45)
[2021-05-14] MEDS ORDERED: AMLODIPINE 5 MG TAB PO ONE (19:00)
[2021-05-14] MEDS: D5 0.9 NS 1,000 ML IV SCH (19:00)
[2021-05-14] MEDS ORDERED: levETIRAcetam 1,000 MG in NA CHLORIDE 0.9% 100 ML IV ONE (19:00)
[2021-05-14] MEDS ORDERED: NITROGLYCERIN 1 GM PKT TD ONE (20:16)
[2021-05-14] MEDS ORDERED: METOPROLOL TARTRATE 5 MG/5 ML INJ IV ONE (20:17)
[2021-05-14] MEDS: ENOXAPARIN 80 MG/0.8 ML SQ SCH (21:00)
[2021-05-14] MEDS: METOPROLOL TARTRATE 5 MG/5 ML INJ IV PRN (21:08)
[2021-05-14] MEDS ORDERED: LEVETIRACETAM 500 MG/5 ML VIAL IV ONE (21:35)
[2021-05-14] MEDS ORDERED: NA CHLORIDE 0.9% 100 ML ONE (21:41)
[2021-05-15] MEDS: NITROGLYCERIN 1 GM PKT TD SCH ×4 (05:49→17:20)
[2021-05-15] MEDS ORDERED: LEVOTHYROXINE SOD 0.125 MG TAB PO SCH (06:30)
[2021-05-15] MEDS: D5 0.9 NS 1,000 ML IV SCH ×2 (08:23→20:13)
[2021-05-15] MEDS: ENOXAPARIN 80 MG/0.8 ML SQ SCH ×2 (08:24→20:15)
[2021-05-15] MEDS: levETIRAcetam 500 MG in NA CHLORIDE 0.9% 100 ML IV SCH ×2 (09:58→20:13)
--- NOTE | 2021-05-15 12:01 | HP ---
Date of Admission: 05/14/2021 Chief Complaint: Nausea, vomiting, and altered mental status. History Of Present Illness: This is a 70-year-old male patient who has Alzheimer disease with dementia and behavioral problem with that along with vascular dementia and he is under the care of his neurologist in [place]. He has had some recurrent falls at home lately. His recently went out of town and daughter has been staying with him during this time. He was in his normal usual state of health until yesterday all of a sudden he developed altered mental status. As per my discussion with daughter, the patient was staring at her and he had his eyes wide open, mouth open, and his tongue would move in and out of his mouth and he stopped responding. He started to have nausea, vomiting, and he was brought into emergency room. After he was evaluated in the ER, he was admitted to the hospital. When I saw him this morning, he was lying in bed on right side, not in any distress, but did not communicate with me, did not answer any questions, did not follow any commands. There was no family member at that time, but subsequently in the afternoon I did talk to the patient's daughter and the patient's regarding all the details. The patient is very noncompliant with his medication. I have had a long discussion with him regarding the importance of taking medications regularly and what would happen if he does not take those medications regularly including risk of stroke, heart attack, kidney damage, etc. He does not allow his to manage his medications either and sometimes he takes medications, sometime he does not take medications and he makes his own decisions on this. Allergies: TO LEVAQUIN CAUSING PAIN IN HIS HAND. Medications: According to office medication list, he should be taking the following medications: 1. Aspirin 81 mg daily. 2. Welchol 625 mg and I am not sure whether he takes it 1 tablet 2 times a day or 2 tablets 2 times a day as this is not prescribed by me. 3. Donepezil 23 mg daily. 4. Hydrocortisone 10 mg 3 times a day. 5. Levothyroxine 125 mcg daily. 6. Lisinopril 5 mg 2 times a day. 7. Xarelto 20 mg daily in the evening with evening meal. 8. Sotalol 80 mg 2 times a day. 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 GI: As mentioned above. All other systems reviewed and negative. Past Medical History: Alzheimer disease with dementia with behavioral problems, vascular dementia, hypothyroidism, impaired fasting glucose, pituitary adenoma with testicular hypofunction, hypertension, mixed hyperlipidemia, coronary artery disease, paroxysmal atrial fibrillation, kidney cancer involving left kidney, benign prostatic hypertrophy, chronic kidney disease, elevated PSA for which he had a negative prostate biopsy in the past by Dr. Salcedo in 2003. Past Surgical History: Cataract surgery, cholecystectomy, coronary artery angioplasty with stent placement in 2014, left-sided partial nephrectomy in 2007 because of kidney cancer, prostate biopsy in [address] Salcedo and arthroscopic knee surgery. Family History: Father and mother both had lung cancer. Brother, hypertension. Sister, ulcerative colitis. Social History: Negative for smoking. Use of alcohol rarely. Physical Examination: Vital Signs: Temperature 97.8, pulse 57, respiratory rate 16, blood pressure 137/89, oxygen saturation 97% on room air. Height 6 feet, weight 180 pounds. General: Awake, alert, oriented, not in distress. HEENT: Head atraumatic, normocephalic. Conjunctivae nonerythematous. Sclerae white. Mouth, no thrush or edema noted. Ears/Nose, no mass, lesion, discharge noted. Neck: Supple. No JVD, lymph nodes, bruit, thyromegaly noted. Lungs: Bilateral good equal air entry. Clear to auscultation. No rhonchi. No rales. Heart: Normal heart sounds, no murmur or gallop. Abdomen: Soft, bowel sounds normal. No guarding, rigidity, tenderness, mass, hepatosplenomegaly, distention, or bruit noted. Extremities: No leg edema. No calf tenderness. Skin: No rash, ulcer, cellulitis. Lymphatics: No lymph node enlargement in neck, supraclavicular, infraclavicular region. Neuro: The patient is totally disoriented, lying in bed, does not follow any commands, does not answer any questions. Chest: Unremarkable. External Genitalia: Deferred. Rectal: Deferred. Laboratory Data: Last night, white count was 4.9, hemoglobin 13.2, platelets 215. This morning, white count 5.8, hemoglobin 13.8, platelets 220. INR 1.09. Last night, sodium 141, potassium 3.6, chloride 109, bicarb 26, BUN 14, creatinine 0.92, glucose 103. Liver function tests unremarkable. Troponin less than 0.02. Lipase 183. ProBNP 263. This morning, sodium 141, potassium 3.4, chloride 109, bicarb 26, BUN 12, creatinine 1.03, glucose 90. Serum alcohol level less than 10. COVID-19 test positive. Chest x-ray, no acute cardiopulmonary changes. CAT scan per trauma protocol shows no acute intracranial changes. No acute cervical spine findings. The patient has pulmonary nodules anywhere from 5-8 mm in size and we will see if we have prior CAT scan of the chest for comparison. Some prominent mediastinal nodes. Multiple rounded low-density lesions throughout the liver and numerous sclerotic lesion in the ribs, spine and pelvis. The radiologist has not compared his current CAT scan with prior CAT scans and we will request radiologist to do so and provide us addendum reports. I have reviewed multiple prior CAT scan results including bone scan results that the patient had last year in October. MRI of the brain done today shows multiple left-sided nonhemorrhagic acute/subacute infarct. Impression: 1. Acute stroke, likely due to underlying atrial fibrillation, involving left anterior cerebral artery and middle cerebral artery distributions, embolic in nature. 2. Paroxysmal atrial fibrillation. 3. Rule out seizure. 4. Alzheimer's dementia with behavioral changes. 5. Vascular dementia. 6. Hypertension. 7. Hyperlipidemia, mixed. 8. Coronary artery disease. 9. Benign prostatic hypertrophy. 10. Left kidney cancer. 11. Hypothyroidism. 12. Impaired glucose. Plan: Admit the patient to hospital for further evaluation and management of this problem. The patient is appropriate for inpatient and is expected to spend 2 midnights in hospital. I have discussed all the details regarding all test results including MRI results with the patient's and the patient's daughter and the patient is very noncompliant with medications and we believe that his noncompliance now has resulted in this acute stroke, which is due to underlying atrial fibrillation problem. Currently, he is not able to eat or drink safely and will need to have a speech therapist evaluation done down the line, but until he is able to swallow safely, we will go ahead and manage his blood pressure with use of nitroglycerin ointment and IV Lopressor and IV enalapril as per order. We will start him on Lovenox 80 mg subcutaneous injection every 12 hours per order and also start him on Keppra 1000 mg loading dose was ordered IV to be given today and starting tomorrow we will go ahead and start 500 mg IV every 12 hours. All the details were discussed with Dr. Montero as well and he agrees with our concerns about possibility of underlying seizure along with this acute stroke and has suggested to start Keppra. His EEG was done today, result pending. We will consult Inpatient Rehab, Physical and Occupational therapy along with Speech Therapy consultation. Overall, prognosis is guarded. I did talk to the patient's daughter regarding long-term disposition and discharge planning. The patient is really not compliant with his medications and he unfortunately does not listen to my recommendation and does not listen to his for sure about taking medications, so I did talk to the patient's daughter to see if they would think about possibility of moving the patient closer to one of the children and see if they can somehow try to get more involved with day-to-day care and assist the patient. Going to residential is probably not going to happen because the moment he gets back to previous level of functioning, he is going to not stay in a residential or even in an assisted care facility, and the patient's daughter also understands and agrees with that. A lot will depend on his recovery from this acute stroke. YARELI/MODL Voice ID: [id number]
--- NOTE | 2021-05-15 13:31 | PN ---
Date of Progress Note: 05/15/2021 Subjective: The patient was seen this morning for followup. His daughter was with him at bedside. He was sleeping, not in any distress, arousable, did wake up his eyes and he recognized his daughter who was at bedside and said 1 or 2 words. He did follow simple commands when I was examining him. Physical Examination: HEENT: Unremarkable. Lungs: Clear to auscultation. Heart: Sounds normal. Abdomen: Soft. Bowel sounds normal. No guarding, rigidity, tenderness, distention. Extremities: No leg edema. 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 His power in the left side is normal but right side is 4/5. Impression: 1. Acute stroke, embolic. 2. Atrial fibrillation, paroxysmal. 3. Chronic anticoagulation, noncompliant. 4. Alzheimer's disease with dementia. Plan: We will go ahead and continue current medications. Continue current Lovenox and antihypertensive medication. We will keep patient n.p.o. until his condition improves and it is safe for him to swallow. At that time, we will decide about starting diet but not at this time. We will have Physical Therapy, Occupational Therapy, and Speech Therapy evaluate the patient. Details were discussed with the patient's daughter. YARELI/MODL Voice ID: [id number] Report ID: [id number] RADHA
[2021-05-15] MEDS: LORazepam 2 MG/ML VIAL IV PRN (20:15)
[2021-05-16] MEDS: NITROGLYCERIN 1 GM PKT TD SCH ×4 (00:45→17:25)
[2021-05-16] MEDS: METOPROLOL TARTRATE 5 MG/5 ML INJ IV PRN ×2 (05:14→11:29)
[2021-05-16] MEDS: levETIRAcetam 500 MG in NA CHLORIDE 0.9% 100 ML IV SCH ×2 (08:44→22:27)
[2021-05-16] MEDS: ENOXAPARIN 80 MG/0.8 ML SQ SCH ×2 (08:46→22:20)
[2021-05-16] MEDS: ENALAPRILAT 1.25 MG/ML VIAL IV PRN (08:46)
[2021-05-16] MEDS: D5 0.9 NS 1,000 ML IV SCH (11:29)
[2021-05-16] MEDS ORDERED: AMLODIPINE 5 MG TAB PO ONE (14:00)
[2021-05-16] MEDS: LORazepam 2 MG/ML VIAL IV PRN (16:30)
[2021-05-16] MEDS: SOTALOL HCL 80 MG TAB PO SCH (17:17)
--- NOTE | 2021-05-16 18:17 | PN ---
Date of Progress Note: 05/16/2021 Subjective: The patient was seen this morning for followup. His was present with him at [facility] and he actually was more awake and alert today. He recognized his , but was not able to recogn ize me. He did follow simple commands and was not in any respiratory distress. Objective: Vital Signs: Reviewed. HEENT: Unremarkable. Lungs: Clear to auscultation. Heart: Sounds normal. Abdomen: Soft. Bowel sounds normal. No guarding, rigidity, tenderness, distention. Extremity: No leg edema. Neuro: Right-sided weakness is still present. Power in right upper and right lower extremity is abo ut 4 to 4+/5 and left upper left lower extremity is 5/5. Laboratory Data: There were no new labs this morning. Impression: 1.Stroke. 2.Atrial fibrillation, paroxysmal. 3.Hypertension. 4.Alzheimer disease with dementia, with behavior changes. 5.Vascular dementia. Plan: After I saw the patient, bedside swallowing evaluation was done by nursing staff and the patie nt did pass that and subsequently we started him on liquid diet and nurse was instructed to feed him in 90-degree upright position with one-to-one supervision with the nursing staff and he has tolerated diet very well. Tomorrow, we will have speech therapist evaluate him also, Physical Therapy to cont inue to work with the patient. Amlodipine 5 mg p.o. x1 dose was given for blood pressure control. W e will continue Lovenox. This afternoon, he got very agitated and started pulling out IVs and 1 dose of Ativan was given and I have ordered some Haldol and we will start him on Seroquel tonight. We wi ll go ahead and give another dose of amlodipine tonight for better blood pressure control. He still has p.r.n. IV blood pressure medication that will be continued. We will see him tomorrow morning for followup. YARELI/MODL Voice ID: [id number] Report ID: [id number]
[2021-05-16] MEDS: lisinopriL 5 MG TAB PO SCH ×2 (21:00→22:19)
[2021-05-16] MEDS: DONEPEZIL HCL 5 MG TAB PO SCH ×2 (21:00→22:19)
[2021-05-16] MEDS: MEMANTINE HCL 10 MG TABLET PO SCH ×2 (21:00→22:22)
[2021-05-16] MEDS: AMLODIPINE 5 MG TAB PO SCH ×2 (21:00→22:20)
[2021-05-16] MEDS: QUETIAPINE 25 MG TAB PO SCH ×2 (21:00→22:20)
[2021-05-17] MEDS: NITROGLYCERIN 1 GM PKT TD SCH ×4 (00:50→17:08)
[2021-05-17] MEDS: LORazepam 2 MG/ML VIAL IV PRN (00:50)
[2021-05-17] MEDS: D5 0.9 NS 1,000 ML IV SCH ×2 (00:50→13:42)
[2021-05-17] MEDS: METOPROLOL TARTRATE 5 MG/5 ML INJ IV PRN ×2 (02:40→10:28)
[2021-05-17] MEDS: ENALAPRILAT 1.25 MG/ML VIAL IV PRN (04:13)
[2021-05-17 04:45] LABS: BUN Blood Urea Nitrogen 14 mg/dL (7-18); Bicarbonate 27 mmol/L (21-32); Glucose Level 97 mg/dL (74-106); HDL Cholesterol 43 mg/dL (40-60); LDL Cholesterol, Calculated 121 (<130); Magnesium 1.8 mg/dL (1.8-2.4); Potassium 3.1 mmol/L (3.5-5.1); Sodium Level 140 mmol/L (136-145); Thyroid Stimulating Hormone 0.017 uIU/mL (0.360-3.740)
[2021-05-17] MEDS: SOTALOL HCL 80 MG TAB PO SCH ×2 (06:00→17:07)
[2021-05-17] MEDS ORDERED: ENALAPRILAT 1.25 MG/ML VIAL IV ONE (06:30)
[2021-05-17] MEDS ORDERED: CLONIDINE 0.3 MG/PATCH TD SCH (07:00)
[2021-05-17] MEDS ORDERED: MAGNESIUM SULFATE 1 gm IVPB 1 GM/100 ML BAG IV ONE (08:29)
[2021-05-17] MEDS: LEVOTHYROXINE SOD 0.125 MG TAB PO SCH (10:07)
[2021-05-17] MEDS: lisinopriL 5 MG TAB PO SCH ×2 (10:07→20:55)
[2021-05-17] MEDS: MEMANTINE HCL 10 MG TABLET PO SCH ×2 (10:07→20:55)
[2021-05-17] MEDS: ENOXAPARIN 80 MG/0.8 ML SQ SCH ×2 (10:08→20:54)
[2021-05-17] MEDS: KCL 20 MEQ/100 mL IVPB 20 MEQ/100 ML BAG IV SCH ×2 (10:08→12:12)
[2021-05-17] MEDS: levETIRAcetam 500 MG in NA CHLORIDE 0.9% 100 ML IV SCH ×2 (10:09→20:54)
[2021-05-17] MEDS: HALOPERIDOL LACT 5 MG/ML INJ IV PRN (13:38)
[2021-05-17 20:51] LABS: Potassium 3.4 mmol/L (3.5-5.1)
[2021-05-17] MEDS: DONEPEZIL HCL 5 MG TAB PO SCH (20:55)
[2021-05-17] MEDS: QUETIAPINE 25 MG TAB PO SCH (20:55)
[2021-05-17] MEDS: AMLODIPINE 5 MG TAB PO SCH (20:56)
[2021-05-17] MEDS: ENSURE PUDDING 4 OZ CUP PO SCH (21:00)
--- NOTE | 2021-05-17 23:40 | PN ---
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 He was asleep and could not be aroused easily. He did move his mouth around and shake his head a bit but was not following i nstructions. Did not open his eyes or moving the arms. Objective: Vital Signs: Blood pressure 153/84, pulse 82, respirations 16, temperature 98.2, oxygen saturation 91%. Weight 180 pounds, height 6 feet, BMI 24.4. 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 Does not have apparent focal difference in t erms of facial asymmetry. Face is symmetric. Movement of the arms and legs were actually not sponta neous. The patient is very sedated. His tone is normal. Laboratory Studies: Complete blood count with differential is normal, but very slightly elevated nickolas trophils of 76.3, INR 1.09. Chemistries show low potassium of 3.1, low calcium of 8.4, very low thyr oid-stimulating hormone of 0.017. Total cholesterol elevated to 213, triglycerides elevated to 245. His liver function studies essentially unremarkable except for slightly elevated AST of 38. Magnesi um is normal. His COVID-19 test is positive and has been so on 3 successive testings. His brain MRI identified left frontal medial stroke, also spread to the left parietal lobe white matter, which mike ears to be off the left anterior cerebral artery and MCA watershed area. There was also mild atrophy . Mild to moderate chronic ischemic change. There was no evidence of meningitis or encephalitis. M agnetic resonance angiogram of the head and neck not done. 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 He does not have evidence of an infection in his system or in the central nervous system or generali zed infection. Plan: 1.Continue with high-dose Lovenox now 80 mg subcutaneously every 12 hours. May switch to continue h is Xarelto 20 mg daily as appropriate. 2.Aricept 10 mg at bedtime. 3.Haldol as needed for behavioral control. 4.Continue Keppra as he possibly had seizure-like activity given the stroke. Keppra 500 mg twice da [place], given IV. 5.If the patient can be awake enough and followup instructions may benefit from physical, occupation al, and speech therapy as early as possible, which may include inpatient services. SARITA/EMILY Voice ID: [id number] Report ID: [id number]
[2021-05-18] MEDS: NITROGLYCERIN 1 GM PKT TD SCH ×4 (00:54→17:16)
[2021-05-18] MEDS: D5 0.9 NS 1,000 ML IV SCH ×2 (03:15→17:16)
[2021-05-18 05:16] LABS: Potassium 3.4 mmol/L (3.5-5.1)
[2021-05-18] MEDS: LEVOTHYROXINE SOD 0.125 MG TAB PO SCH (06:02)
[2021-05-18] MEDS: SOTALOL HCL 80 MG TAB PO SCH ×2 (06:02→17:17)
[2021-05-18] MEDS ORDERED: METOPROLOL TARTRATE 5 MG/5 ML INJ IV STA (07:08)
[2021-05-18] MEDS: ENSURE PUDDING 4 OZ CUP PO SCH ×2 (09:00→21:00)
[2021-05-18] MEDS: ENOXAPARIN 80 MG/0.8 ML SQ SCH ×2 (09:57→21:20)
[2021-05-18] MEDS: levETIRAcetam 500 MG in NA CHLORIDE 0.9% 100 ML IV SCH (09:57)
[2021-05-18] MEDS: lisinopriL 5 MG TAB PO SCH ×2 (09:58→21:21)
[2021-05-18] MEDS: MEMANTINE HCL 10 MG TABLET PO SCH ×2 (09:58→21:22)
[2021-05-18] MEDS: KCL 20 MEQ/100 mL IVPB 20 MEQ/100 ML BAG IV SCH ×2 (09:59→12:04)
--- NOTE | 2021-05-18 18:16 | PN ---
Date of Progress Note: 05/17/2021 Subjective: The patient was seen this morning for followup. No new complaints or problems reported by the patient. Lying in bed, sleeping, arousable, not in distress. Objective: Vital Signs: Reviewed. HEENT: Unremarkable. Lungs: Clear to auscultation. Heart: Sounds normal. Abdomen: Soft. Bowel sounds normal. No guarding, rigidity, tenderness, or distention. Extremities: No leg edema. Laboratory Data: Sodium 140, potassium 3.1, chloride 107, bicarb 27, BUN 14, creatinine 0.80, glucose 97, magnesium 1.8. His triglycerides 245, total cholesterol 213, LDL 121, HDL 43, TSH 0.017. Impression: 1. Stroke, due to atrial fibrillation. 2. Paroxysmal atrial fibrillation. 3. Hypertension. 4. Hypokalemia. 5. Hyperlipidemia. 6. Hypothyroidism. Plan: We will go ahead and replace potassium per electrolyte replacement protocol, order is in place and nurse should follow this instruction. We will continue current medication per order. Followup with Physical Therapy, Occupational Therapy, and Speech Therapy. Rehab is not going to be able to accept the patient at this time because of his COVID positive status. We will see him tomorrow for followup. YARELI/MODL Voice ID: [id number] Report ID: [id number] RADHA
--- NOTE | 2021-05-18 18:19 | PN ---
Date of Progress Note: 05/18/2021 Subjective: The patient was seen this morning for followup. He was lying in bed, sleeping. There was no family member at bedside. He opened his eyes, but did not communicate with me. Nursing staff informs me that he is able to swallow his medication and able to eat. Objective: Vital Signs: Reviewed. HEENT: Unremarkable. Lungs: Clear to auscultation. Heart: Sounds normal. Abdomen: Soft. Bowel sounds normal. No guarding, rigidity, tenderness, or distention. Extremities: No leg edema. Laboratory Data: Sodium 141, potassium 3.4, chloride 110, bicarb 22, BUN 14, creatinine 0.96, glucose 106, magnesium 2. Impression: 1. Stroke. 2. Paroxysmal atrial fibrillation. 3. Hypokalemia. 4. Hypertension. 5. Hyperlipidemia. Plan: We will continue current medications. Continue current Lovenox. Replace electrolytes per protocol. Continue current antihypertensive medication and cholesterol medication. We will have Physical Therapy continue to work with the patient and I will communicate with the patient's regarding senior living facility placement. YARELI/MODL Voice ID: [id number] Report ID: [id number] RADHA
[2021-05-18] MEDS: levETIRAcetam 500 MG TAB PO SCH (21:21)
[2021-05-18] MEDS: AMLODIPINE 5 MG TAB PO SCH (21:21)
[2021-05-18] MEDS: DONEPEZIL HCL 5 MG TAB PO SCH (21:21)
[2021-05-18] MEDS: QUETIAPINE 25 MG TAB PO SCH (21:22)
[2021-05-18] MEDS: HALOPERIDOL LACT 5 MG/ML INJ IV PRN (21:29)
[2021-05-19 03:55] LABS: Absolute Lymphocytes (CBC) 1.1 K/uL (0.7-4.9); Basophils % 0.9 % (0-1.3); Hematocrit 46.2 % (39.6-49.0); Lymphocytes % 14.1 % (15.3-44.8); MPV 9.1 fL (7.6-11.3); RBC Red Blood Cell Count 5.17 M/uL (4.33-5.43)
[2021-05-19 04:31] LABS: Potassium 3.6 mmol/L (3.5-5.1); Thyroid Stimulating Hormone 0.027 uIU/mL (0.360-3.740)
[2021-05-19] MEDS: D5 0.9 NS 1,000 ML IV SCH (05:40)
[2021-05-19] MEDS: NITROGLYCERIN 1 GM PKT TD SCH ×4 (06:08→17:43)
[2021-05-19] MEDS: LEVOTHYROXINE SOD 0.1 MG TAB PO SCH (06:09)
[2021-05-19] MEDS: SOTALOL HCL 80 MG TAB PO SCH ×2 (06:09→17:29)
--- NOTE | 2021-05-19 07:57 | RAD REPORT ---
EXAM DESCRIPTION: CT - Head Brain Wo Cont - 05/19/2021 7:50 am CLINICAL HISTORY: stroke COMPARISON: Head Brain Wo Cont dated 04/24/2021 TECHNIQUE: All CT scans are performed using dose optimization technique as appropriate and may inclu de automated exposure control or mA/KV adjustment according to patient size. FINDINGS: No intracranial hemorrhage, hydrocephalus or extra-axial fluid collection.No areas of brai n edema or evidence of midline shift. Chronic small vessel ischemic changes. Cerebral atrophy. The paranasal sinuses and mastoids are clear. The calvarium is intact. IMPRESSION: No acute intracranial abnormality. Moderate chronic small vessel ischemic changes in ce rebral atrophy.
[2021-05-19] MEDS: ENSURE PUDDING 4 OZ CUP PO SCH ×2 (08:41→20:09)
[2021-05-19] MEDS: APIXABAN 5 MG TABLET PO SCH ×2 (08:41→20:09)
[2021-05-19] MEDS: MEMANTINE HCL 10 MG TABLET PO SCH ×2 (08:42→20:09)
[2021-05-19] MEDS: levETIRAcetam 500 MG TAB PO SCH ×2 (08:42→20:09)
[2021-05-19] MEDS: lisinopriL 5 MG TAB PO SCH ×2 (08:42→20:09)
[2021-05-19] MEDS ORDERED: POTASSIUM 25 MEQ EFFERV TAB PO ONE (09:00)
--- NOTE | 2021-05-19 14:40 | EKG ---
Test Date: 2021-05-18 Test Time: 06:37:48 [facility]: RT-O MEASUREMENT RESULTS: Intervals: Rate: 123 OH: QRSD: 88 QT: 344 QTc: 492 [place]: P: OH: QRS: 12 T: 57 INTERPRETIVE STATEMENTS: Atrial fibrillation with rapid ventricular response Nonspecific ST and T wave abnormality, probably digitalis effect Abnormal ECG Compared to ECG 05/13/2021 22:56:31 ST (T wave) deviation now present Sinus rhythm no longer present Myocardial infarct finding no longer present Electronically Signed On 05-19-21 14:38:40 CDT by Srinivasa Ambrocio
[2021-05-19] MEDS: HALOPERIDOL LACT 5 MG/ML INJ IV PRN (15:29)
[2021-05-19] MEDS: AMLODIPINE 5 MG TAB PO SCH (20:08)
[2021-05-19] MEDS: DONEPEZIL HCL 5 MG TAB PO SCH (20:09)
[2021-05-19] MEDS: QUETIAPINE 25 MG TAB PO SCH (20:09)
--- NOTE | 2021-05-19 21:54 | PN ---
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 However, I spoke with Dr. Arceo and after I saw the patient, he became very combative, aggressive, agitated, and required sedating medications to which he did calm down. A head CT scan was done that showed no acut e intracranial abnormalities. As noted previously there was diffuse brain atrophy, although did not point to a specific difference between the patient's brain lobes but the MRI earlier that was done on the 14 of May did show diffuse punctate hyperintense signals in the left frontal lobe near t he left lateral ventricle and in the left parietal lobe consistent with left anterior cerebral artery stroke or perhaps an enlarged MCA/YARELI territory. No evidence of meningitis or encephalitis was susp ected. He did have an electrocardiogram demonstrating atrial fibrillation with rapid ventricular res ponse that is managed by Dr. Arceo. Objective: Vital signs: Blood pressure 122/77, pulse 65, respiratory rate 18, temperature 98, oxyge n saturation 95% on room air. 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 He is in no acute distress. He has facial symmetry an d equal excursion as he moves his mouth and speaks. Response to visual threat equally well on both s ides. In terms of motor examination, no obvious focal weakness in the upper and lower extremities bi laterally. Sensory exam difficult to fully assess. Coordination appears intact. Did not have obvio us asymmetry [id number]. There was an attempt made to have the patient ambulate, but he was unable to work with physical therapy. He did have a code salas at the time because of his behavior. He was seen by Speech therapy and he was tolerating pureed and nectar thickened liquids without difficulty. There was no choking or wet vocal quality to his speech. Laboratory Studies: Complete blood count with differential is essentially unremarkable. His organic chemistry professor simon also essentially unremarkable. He does have a very low TSH of 0.027, which is slightly increase d from 0.017. He is on Synthroid 0.1 mg daily. He also had Haldol to control agitation, Keppra 500 mg twice daily, donepezil 10 mg at bedtime, Eliquis 5 mg twice a day, Norvasc 5 mg daily. Vasotec as needed for blood pressure control. Lisinopril 5 mg twice daily. Metoprolol 5 mg IV as needed along with quetiapine for behavior and Namenda 5 mg twice daily. 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 He has a behavioral changes either equal to or greater than his amnestic changes plus he had a left anterior stroke, which may be big contributing factor t o the patient's impulsivity and lack of control of his behaviors. 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 His stroke is likely due to not being on antic oagulation while having atrial fibrillation as well as being COVID positive. In terms of his long-te rm plan, he at this point is not able to follow instructions to perform physical, occupational and co gnitive therapy for 3 hours a day as required by inpatient rehabilitation. He may benefit more from long term, where he can have less than an hour a day of therapy, but requiring the 24 hour care supervision while management and psychotic medication. He also may be a candidate for a psychiatric unit where the medications can be managed on a more acute basis. Plan: This was discussed with Dr. Arceo. The patient may then be a candidate for transfer to long term once his behaviors are controlled by his antipsychotic medication, may continue all of the m edications as noted above, and at some point, if the patient does improve his behavioral changes, he may be a candidate to go back home with family and continue aggressive physical, occupational and spe ech therapy. Otherwise, continue all treatment plans as determined by Dr. Arceo and as per our discus melody. SARITA/EMILY Voice ID: [id number] Report ID: [id number]
[2021-05-20] MEDS: NITROGLYCERIN 1 GM PKT TD SCH ×2 (00:19→06:00)
[2021-05-20] MEDS: SOTALOL HCL 80 MG TAB PO SCH ×3 (06:00→21:03)
[2021-05-20] MEDS: LEVOTHYROXINE SOD 0.1 MG TAB PO SCH (06:40)
--- NOTE | 2021-05-20 06:52 | PN ---
Date of Progress Note: 05/19/2021 Subjective: The patient was seen this morning for followup. He was lot better this morning when I saw him lying in bed, more awake, alert, and I believe he recognized me, followed commands, was very cooperative with physical exam. I also informed him that he was in hospital for last few days and details about his problems explained to him. Objective: Vital Signs: Reviewed. HEENT: Unremarkable. Lungs: Clear to auscultation. Heart: Heart sounds normal. Abdomen: Soft, bowel sounds normal. No guarding, rigidity, tenderness, or distention. Extremities: No leg edema. Neuro: There is no focal neurological deficit noted today. His power is normal and equal in all the 4 extremities. Speech is normal. No facial asymmetry. Laboratory Data: White count 7.7, hemoglobin 15.7, platelets 205. Sodium 143, potassium 3.6, chloride 113, bicarb 24, BUN 15, creatinine 0.93, magnesium 2, TSH 0.027. Diagnostic Studies: CAT scan of the head done today without contrast was negative for any acute intracranial changes, no hemorrhage. Impression: 1. Stroke. 2. Atrial fibrillation. 3. Chronic anticoagulation therapy. 4. Hypertension. 5. Alzheimer's disease with dementia, with behavioral changes. 6. Vascular dementia. Plan: We will go ahead and have Physical Therapy continue to work with the patient. Continue current medications. Reduce dose of his levothyroxine from 125 down to 100 mcg daily. We will continue current anticoagulation therapy with Eliquis 5 mg 2 times a day and discontinue Lovenox as of this morning. Physical Therapy to continue to work with the patient. I did discuss details with the patient's regarding our disposition plan. We are keeping 2 options in mind; 1 option is for patient to go to inpatient rehab, another option is correction facility and all this depends on his condition and ability to participate with therapy. I talked to patient's regarding all these details in the morning and later in the afternoon today patient had episode where for no obvious reason all of a sudden he became very aggressive and dayton Cortes was called. No intervention required and he calmed down on his own subsequently. It is important to note that last night he did refuse his Seroquel, but he did receive 1 dose of Haldol during nighttime. I did communicate all the details with Dr. Montero as well today. YARELI/MODL Voice ID: [id number] Report ID: [id number] RADHA
[2021-05-20] MEDS: ENSURE PUDDING 4 OZ CUP PO SCH ×2 (09:00→21:00)
[2021-05-20] MEDS: APIXABAN 5 MG TABLET PO SCH ×2 (09:42→21:04)
[2021-05-20] MEDS: levETIRAcetam 500 MG TAB PO SCH ×2 (09:42→21:04)
[2021-05-20] MEDS: lisinopriL 5 MG TAB PO SCH ×2 (09:43→21:04)
[2021-05-20] MEDS: MEMANTINE HCL 10 MG TABLET PO SCH ×2 (09:43→21:04)
[2021-05-20] MEDS ORDERED: HALOPERIDOL LACT 5 MG/ML INJ IV PRN (14:51)
[2021-05-20] MEDS: QUETIAPINE 25 MG TAB PO SCH (21:03)
[2021-05-20] MEDS: AMLODIPINE 5 MG TAB PO SCH (21:03)
[2021-05-20] MEDS: DONEPEZIL HCL 5 MG TAB PO SCH (21:08)
[2021-05-21] MEDS: LEVOTHYROXINE SOD 0.1 MG TAB PO SCH (06:12)
--- NOTE | 2021-05-21 06:52 | PN ---
Date of Progress Note: 05/20/2021 Patient was seen for followup this morning. He was sleeping, not as awake as yesterday but opened his eyes this morning. He did not follow any commands as he was still very sleepy. Objective: Vital Signs: Reviewed. HEENT: Unremarkable. Lungs: Clear to auscultation. HEART: Sounds normal. ABDOMEN: Soft. Bowel sounds normal. No guarding, rigidity, tenderness, or distention. Extremities: No leg edema. Impression: 1. COVID-19 infection. 2. Alzheimer disease with dementia, with behavioral changes. 3. Vascular dementia. 4. Hypertension. 5. Paroxysmal atrial fibrillation. 6. Chronic anticoagulation therapy. Plan: The patient slept well last night. He did take his medication including Seroquel last night. This morning when I saw him, he was still sleeping, but later on during the course of day today, late morning, the patient had another episode of very aggressive behavior where for no obvious reason all of a sudden he became very aggressive, agitated and would not allow anybody come close to him. After we left him alone in the room, he kind of settled down on his own. He was so agitated and aggressive looking that we were concerned about that he might actually end up hurting nursing staff if they try to go close to him. Subsequently, he did settle down and similar type of episode happened yesterday and each time he did not require any medication administration. With this kind of behavior and as per my discussion with Dr. Montero, he will not be an appropriate candidate to go to inpatient rehab and I am also concerned about him going to fci facility like [facility] as the patient's was thinking because the moment he has this kind of behavior problem over there, he will not be able to stay at certain facility like that and he will be sent back to emergency room, so we did entertain possibility of sending him to [facility] and Social Service was consulted and they would assist us with this. I did call the patient's this evening to give her all the details and she also informed me that the children would prefer him to come home and not go to skilled nursing. I explained to her that is definitely a possibility provided they will have some extra help at home because in my opinion will not be able to handle everything on her own. She is going to think about getting 24 hour care at home and this weekend as she informs me her children will be available at her house, so if we can possibly discharge him to come home tomorrow if he is medically stable, provided that is what family wants instead of taking him to [facility] Unit. So is supposed to let us know with her decision tomorrow. YARELI/FRANCISCOL Voice ID: [id number] Report ID: [id number] MTDJhon
[2021-05-21] MEDS ORDERED: HALOPERIDOL LACT 5 MG/ML INJ IM PRN (07:43)
[2021-05-21] MEDS: SOTALOL HCL 80 MG TAB PO SCH ×2 (08:15→20:33)
[2021-05-21] MEDS: ARIPiprazole 5 MG TAB PO SCH (08:15)
[2021-05-21] MEDS: levETIRAcetam 500 MG TAB PO SCH ×2 (08:16→20:32)
[2021-05-21] MEDS: lisinopriL 5 MG TAB PO SCH ×2 (08:16→20:32)
[2021-05-21] MEDS: MEMANTINE HCL 10 MG TABLET PO SCH ×2 (08:16→20:32)
[2021-05-21] MEDS: APIXABAN 5 MG TABLET PO SCH ×2 (08:16→20:32)
[2021-05-21] MEDS: BENZTROPINE 1 MG TAB PO SCH (08:35)
[2021-05-21] MEDS: ENSURE PUDDING 4 OZ CUP PO SCH (08:35)
[2021-05-21] MEDS: LORazepam 2 MG/ML VIAL IV PRN (10:07)
[2021-05-21] MEDS: AMLODIPINE 5 MG TAB PO SCH (20:31)
[2021-05-21] MEDS: QUETIAPINE 25 MG TAB PO SCH (20:32)
[2021-05-21] MEDS: ENSURE ENLIVE 237 ML CAN PO SCH (20:32)
[2021-05-21] MEDS: DONEPEZIL HCL 5 MG TAB PO SCH (20:32)
--- NOTE | 2021-05-21 22:05 | PN ---
Date of Progress Note: 05/21/2021 Subjective: The patient was seen for followup this morning. He was lying in bed. He slept very wel l last night. He took his medications last night including Seroquel and slept throughout night witho ut any problem. This morning when I walked into his room, he was awake, communicating well, followin g commands and he was not agitated at all. Objective: Vital signs: Reviewed. HEENT: Unremarkable. Lungs: Clear to auscultation. Heart: Sounds normal. Abdomen: Soft. Bowel sounds normal. No guarding, rigidity, tenderness, or distention. Extremities: No leg edema. Neuro exam: No focal neurological deficits. Impression: 1.COVID-19 infection. 2.Atrial fibrillation, paroxysmal. 3.Chronic anticoagulation therapy. 4.Hypertension. 5.Alzheimer disease with dementia, with behavioral changes. 6.Hypothyroidism. 7.Vascular dementia. Plan: 1.The patient's heart rate has stayed on low side from time to time. This morning it was 48-50 per minute and sometime during nighttime, it was 116. Yesterday, it was in range of 50-70. We will go a head and reduce the dose of his sotalol from 80 mg 2 times a day down to 40 mg 2 times a day. Contin ue his current anticoagulation therapy. Continue his antihypertensive medication and we will also co priyankue to follow up with psychiatrist who has started him on Abilify as of this morning. The patient is not steady on his feet and he will need some physical therapy and we will request physical therap y to go ahead and start working with him today. I did communicate with Dr. Montero from [facility], and he will be re-evaluated for inpatient rehab benefit on Monday as when Dr. Shiv robin evaluated him today he was sleeping after receiving lorazepam as Dr. Montero told me and I will communicate with the nursing staff regarding what actually happened that he required lorazepam becau se that made him sleepy and obviously he was not going to be able to participate with therapy after t hat. We will see how his Abilify and Seroquel helps him over a period of next few days. 2.We will continue to follow with psychiatrist for further management. YARELI/MODL Voice ID: [id number] Report ID: [id number]
--- NOTE | 2021-05-22 02:36 | PN ---
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 and he had received Ativan around 10:30 also and received Abilify earlier in the day along with Seroquel. He did not open his eyes to verbal stimulation and tactile stimulation of the shoulders and legs, but his eyes are obviously movi ng. close eyelids and his mouth would move around and his head had turned slightly side t o side. Objective: Vital Signs: Blood pressure 154/97, pulse 55, respiratory rate 16, temperature 96.9, sat uration 97% on room air. 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 It should be noted that there were code salas called 1 per day over the last 2 days due to aggressive behavior and was combat latisha after received IV medication. Two days ago, his head CT scan was done and interestingly did not mention the strokes, which were altaf ntified in the MRI on the and the scans on the . On the MRI identified punctate areas of st roke in addition to ischemia in the left anterior cerebral artery distribution and perhaps some water shed areas. Laboratory Studies: Complete blood count with differential is unremarkable. Chemistries showed a lo w EGFR of 80, calcium 8.3, chloride 113, and thyroid-stimulating hormone 0.027. 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 He does have a baseline dementia, possibly frontotemporal dementia. He has COVID infection, which then produced COVID encephalopathy in addition to the left frontal stroke, which can impact his abil ity to communicate. He has received multiple psychotic medications. He is also on Keppra for possib le seizures. At this point, he is not able to withstand 3 hours of aggressive therapy as would be re quired for admission to the acute inpatient rehabilitation unit. He is actually at this point better served in the [facility] where medication management can help with the behavioral changes assoc iated with his cognitive deficits. His thyroid function is addressed by Dr. Arceo. He is on Synthroi d at 0.1 mg daily, the Namenda 5 mg twice daily may continue and perhaps should increase to 10 mg twi ce daily within the next 2 weeks. May continue Keppra for now at 500 mg twice daily. It is unclear if the patient has had episodes consistent with seizures. He may require EEG monitoring to help clar yannick the presence of epileptiform discharges or to rule that out. At this point, the patient's family does want either to have him at home and manage at home or if possible in a facility where physical therapy and psychiatric care can be as managed simultaneously. This again was discussed with Dr. Cher STEIN/EMILY Voice ID: [id number] Report ID: [id number]
[2021-05-22] MEDS: LEVOTHYROXINE SOD 0.1 MG TAB PO SCH (05:40)
[2021-05-22] MEDS: ARIPiprazole 5 MG TAB PO SCH (08:30)
[2021-05-22] MEDS: APIXABAN 5 MG TABLET PO SCH ×2 (08:30→19:30)
[2021-05-22] MEDS: SOTALOL HCL 80 MG TAB PO SCH ×2 (08:30→19:31)
[2021-05-22] MEDS: lisinopriL 5 MG TAB PO SCH ×2 (08:30→19:30)
[2021-05-22] MEDS: levETIRAcetam 500 MG TAB PO SCH ×2 (08:31→19:29)
[2021-05-22] MEDS: MEMANTINE HCL 10 MG TABLET PO SCH ×2 (08:31→19:29)
[2021-05-22] MEDS: BENZTROPINE 1 MG TAB PO SCH (08:33)
[2021-05-22] MEDS: ENSURE ENLIVE 237 ML CAN PO SCH ×2 (08:35→20:52)
[2021-05-22] MEDS: METOPROLOL TARTRATE 5 MG/5 ML INJ IV PRN (12:47)
--- NOTE | 2021-05-22 13:11 | PN ---
Date of Progress Note: 05/22/2021 Subjective: The patient was seen for followup in the morning. No new complaints or problems reporte d by him. His daughter was present with him at bedside. As per my discussion with nursing staff, he took all his medications last night and this morning, has not had any additional problem. After sonja e time yesterday late morning when he had agitation, he did require 1 dose of IV lorazepam. I did in form nursing staff to try to use as per order before using lorazepam and if Haldol does not work, the n use lorazepam as patient became sleepy after lorazepam yesterday and was not able to participate wi th the physical therapy. Today, we would definitely would like to see how he does with the physical therapy. He is eating well. He was able to recognize his daughter and was asking about some other [facility] by their name when he was communicating with the daughter, but when he was discussing w ith me, he was not completely oriented and his thought process and reasoning was not appropriate as I noted while I was talking to him. He is not in any distress. Objective: Vital Signs: Reviewed. HEENT: Unremarkable. Lungs: Clear to auscultation. Not in any respiratory distress. Heart: Sounds normal. Abdomen: Soft. Bowel sounds normal. No guarding, rigidity, tenderness, or distention. Extremities: No leg edema. Laboratory Data: There were no new labs this morning. Impression: 1.Stroke secondary to atrial fibrillation. 2.Paroxysmal atrial fibrillation. 3.Chronic anticoagulation therapy. 4.Hypertension. 5.Hyperlipidemia. 6.Hypothyroidism. 7.Alzheimer disease with dementia, with behavioral changes. 8.Vascular dementia. Plan: We will go ahead and continue medication. Sotalol dose was reduced to 40 mg twice a day and w e will continue his antihypertensive medication and anticoagulation therapy. Physical therapy and oc cupational therapy to continue to work with the patient. We will see him tomorrow for followup. YARELI/MODL Voice ID: [id number] Report ID: [id number]
[2021-05-22] MEDS: DONEPEZIL HCL 5 MG TAB PO SCH (19:29)
[2021-05-22] MEDS: QUETIAPINE 25 MG TAB PO SCH (19:30)
[2021-05-22] MEDS: AMLODIPINE 5 MG TAB PO SCH (20:52)
[2021-05-23] MEDS: LEVOTHYROXINE SOD 0.1 MG TAB PO SCH (05:08)
[2021-05-23] MEDS: ARIPiprazole 5 MG TAB PO SCH (08:00)
[2021-05-23] MEDS: APIXABAN 5 MG TABLET PO SCH ×2 (08:01→20:07)
[2021-05-23] MEDS: SOTALOL HCL 80 MG TAB PO SCH ×2 (08:02→20:08)
[2021-05-23] MEDS: MEMANTINE HCL 10 MG TABLET PO SCH ×2 (08:02→20:07)
[2021-05-23] MEDS: levETIRAcetam 500 MG TAB PO SCH ×2 (08:02→20:07)
[2021-05-23] MEDS: BENZTROPINE 1 MG TAB PO SCH (08:02)
[2021-05-23] MEDS: ENSURE ENLIVE 237 ML CAN PO SCH ×2 (08:02→20:14)
[2021-05-23] MEDS: lisinopriL 5 MG TAB PO SCH ×2 (08:04→20:06)
--- NOTE | 2021-05-23 09:07 | PN ---
Date of Progress Note: 05/23/2021 Subjective: Patient was seen this morning for followup. He was sitting at the bedside in the chair, not in any distress. Denies any complaints. He slept well last night and took all his medication a s prescribed. Yesterday, during daytime, he did participate with the physical therapy and ambulated with the therapist. He did not have any agitation problem yesterday and did not require any Haldol o r Ativan. This morning, also he is very comfortable. He is not completely oriented. Denies any com plaints this morning. Objective: Vital Signs: Reviewed. HEENT: Unremarkable. Lungs: Clear to auscultation. Heart: Heart sounds normal. Abdomen: Soft, bowel sounds normal. No guarding, rigidity, tenderness, or distention. Extremities: No leg edema. Impression: 1.Stroke. 2.Paroxysmal atrial fibrillation. 3.Hypertension. 4.Hypothyroidism. 5.Alzheimer disease with dementia, with behavioral changes. 6.Vascular dementia. Plan: We will go ahead and continue current medication. Continue sotalol, Eliquis, lisinopril per o rder. The patient remains on Abilify in the morning and Seroquel at night time and his agitation is well controlled at present time. We will have Physical therapy work with him again today and I will see him tomorrow for followup. YARELI/MODL Voice ID: [id number] Report ID: [id number]
[2021-05-23] MEDS: METOPROLOL TARTRATE 5 MG/5 ML INJ IV PRN (16:25)
[2021-05-23] MEDS: DONEPEZIL HCL 5 MG TAB PO SCH (20:06)
[2021-05-23] MEDS: AMLODIPINE 5 MG TAB PO SCH (20:07)
[2021-05-23] MEDS: QUETIAPINE 25 MG TAB PO SCH (20:07)
[2021-05-24] MEDS: LEVOTHYROXINE SOD 0.1 MG TAB PO SCH (06:30)
[2021-05-24] MEDS: ARIPiprazole 5 MG TAB PO SCH (08:43)
[2021-05-24] MEDS: METOPROLOL TARTRATE 5 MG/5 ML INJ IV PRN (08:43)
[2021-05-24] MEDS: APIXABAN 5 MG TABLET PO SCH (08:44)
[2021-05-24] MEDS: MEMANTINE HCL 10 MG TABLET PO SCH (08:44)
[2021-05-24] MEDS: levETIRAcetam 500 MG TAB PO SCH (08:44)
[2021-05-24] MEDS: BENZTROPINE 1 MG TAB PO SCH (08:45)
[2021-05-24] MEDS: lisinopriL 5 MG TAB PO SCH (08:45)
[2021-05-24] MEDS: ENSURE ENLIVE 237 ML CAN PO SCH (08:51)
[2021-05-24] MEDS ORDERED: SOTALOL HCL 80 MG TAB PO SCH (09:00)
[2021-05-24 09:23] VITALS: O2SAT 92
[2021-05-24 12:39] VITALS: BP 131/84; TEMP 97.7
--- NOTE | 2021-05-24 15:29 | EEG ---
CHART: [id number] TEST ID#: [id number] DATE OF STUDY: 05-14-2021 THE EEG WAS RECORDED PORTABLE IN THE EMERGENCY ROOM ON A 17 CHANNEL MACHINE. ELECTRODES WERE APPLIED IN THE USUAL MANNER USING THE INTERNATIONAL 10-20 SYSTEM. THE WAKING BACKGROUND RHYTHM IN THIS RECORD CONSISTS OF POORLY DEVELOPED AND POORLY ORGANIZED WAVES OF 6-7 HZ., IN A WIDE DISTRIBUTION WHICH ATTENUATE NORMALLY WITH EYE OPENING. MODERATE VOLTAGE 1.5-3 HZ ACTIVITY MIXED WITH 4-6 HZ ACTIVITY IS DIFFUSELY EXPRESSED. THERE ARE NO FOCAL OR LATERALIZING FEATURES. NO EPILEPTIFORM ACTIVITY APPEARS. SLEEP DID NOT OCCUR. HYPERVENTILATION WAS NOT PERFORMED. PHOTIC STIMULATION PRODUCED FAIR DRIVING BILATERALLY. IMPRESSION: THIS IS A MODERATELY ABNORMAL EEG DUE TO A DIFFUSELY SLOW BACKGROUND AND POORLY EXPRESSED POSTERIOR DOMINANT RHYTHM. THESE ARE NON-SPECIFIC FINDING INDICATING THE PRESENCE OF A MODERATE DIFFUSE DISTURBANCE IN CEREBAL ACTIVITY.
--- NOTE | 2021-05-25 06:54 | DS ---
Date of Discharge: 05/24/2021 Disposition: Discharged to go to inpatient rehab. Physical Examination: HEENT: Unremarkable. Lungs: Clear to auscultation. Heart: Sounds normal. Abdomen: Soft. Bowel sounds normal. No guarding, rigidity, tenderness, or distention. Extremities: No leg edema. Discharge Medications And Instructions: Continue all current medications. See copy of transfer orde r for details. Discharge Diagnoses: 1.Acute embolic stroke due to underlying atrial fibrillation, involving left anterior cerebral arter y and middle cerebral artery distribution. 2.Paroxysmal atrial fibrillation. 3.Alzheimer dementia with behavioral changes. 4.Vascular dementia. 5.Hypertension. 6.Hyperlipidemia, mixed. 7.Coronary artery disease. 8.Benign prostatic hypertrophy. 9.Left kidney cancer. 10.Hypothyroidism. 11.Impaired fasting glucose. 12.Rule out seizure. Hospital Course: A 70-year-old pleasant male patient admitted to the hospital with nausea, vomiting, and altered mental status. Please see dictated H and P for more information. The patient's initial CAT scan of the head was negative, but MRI of the brain revealed evidence of acute non-hemorrhagic s troke involving left cerebral hemisphere in anterior cerebral artery and middle cerebral artery distr ibution. This is likely embolic in nature from underlying atrial fibrillation and the patient has no t been compliant with his medication. Initially, we started him on Lovenox and subsequently we mckeon ed it to oral anticoagulation therapy which is Eliquis 5 mg 2 times a day. Speech Therapy, Physical Therapy, and Occupational Therapy were consulted. Dr. Montero was consulted from Neurology Service and other concern we had was possibility of seizure and as per recommendation from Dr. Montero, we s tarted him on Keppra. Overall, his condition improved over this hospitalization. He had lot of epis odes of agitation and aggressive behavior. Psychiatrist was consulted and we started him on initiall y Seroquel at nighttime and started him on Abilify in the morning time. The patient did require some p.r.n. use of Haldol and Ativan and now with his improved condition, the patient was transferred to rehab floor. Initially when he came in, he had some weakness on the right upper and right lower extr emity and that weakness has resolved. YARELI/MODL Voice ID: [id number] Report ID: [id number]
--- NOTE | 2021-05-25 07:52 | ECHO ---
HEIGHT: 6 ft 0 in WEIGHT: 180 lb 0 oz DATE OF STUDY: 05/24/[address]: Cesar Arceo MD 2-DIMENSIONAL: YES M.MODE: YES DOPPLER: YES COLOR FLOW: YES TDS: YES PORTABLE: NO DEFINITY: NO BUBBLE STUDY: NO DIAGNOSIS: ATRIAL FIBRILLATION CARDIAC HISTORY: CATHERIZATION: SURGERY: PROSTHETIC VALVE: PACEMAKER: MEASUREMENTS (cm) DIASTOLIC (NORMALS) SYSTOLIC (NORMALS) IVSd 1.2 (0.6-1.2) LA Diam (1.9-4.0) LVEF 57% LVIDd 3.6 (3.5-5.7) LVIDs 2.5 (2.0-3.5) %FS 29% LVPWd 1.1 (0.6-1.2) Ao Diam 2.8 (2.0-3.7) 2 DIMENSIONAL ASSESSMENT: RIGHT ATRIUM: NORMAL LEFT ATRIUM: NORMAL RIGHT VENTRICLE: NORMAL LEFT VENTRICLE: NORMAL TRICUSPID VALVE: NORMAL MITRAL VALVE: NORMAL PULMONIC VALVE: NORMAL AORTIC VALVE: NORMAL PERICARDIAL EFFUSION: NONE AORTIC ROOT: NORMAL LEFT VENTRICULAR WALL MOTION: NORMAL DOPPLER/COLOR FLOW: TRACE MITRAL REGURGITATION. COMMENTS: NORMAL LEFT VENTRICULAR EJECTION FRACTION 55-60%. ATRIAL FIBRILLATION. TRACE MITRAL REGURGITATION. TECHNOLOGIST: Clifton JO
--- NOTE | 2021-05-31 15:21 | CON ---
History Of Present Illness: Mr. Corenll Solis is a 70-year-old male with psychiatric histo ry significant for Alzheimer dementia with behavioral disturbances. The patient also has significant medical comorbidities, such as hypertension, altered mental status, stroke, hyperlipidemia, coronary artery disease, benign prostatic hyperplasia. Other medical pathology included left kidney cancer, hypothyroidism, and impaired fasting glucose. The patient was admitted via the ER with altered menta l status. He was found confused at home by his daughter and , and subsequently transported to [facility] ER by the Emergency Medical Services. Psychiatry was consulted at the time of worsening agitation and combative behavior. On , history was provided mostly by the as well as caregiver. states the patient's dementia in the hospital was getting worse with associated history of vis ual hallucination, worsening cognitive functioning, and . She also stated that the patient wanders around the house, making it difficult no history of falls. No history of seizure disorder. States the patient does follow and is on Aricept for dementia. No history of d epression. No history of anxiety or other psychiatric . On evaluation, the patient was ly ing in bed, was fairly nourished, not in any obvious acute distress. Mental Status Examination: No preservation observed. Speech is spontaneous. The patient was unable to provide answers to questions. He was alert. No waxing or waning of . No lamar icidal ideation. The patient is observed internal stimuli. The patient was observed to be agitated during the rest of the examination. Memory and concentration were poor. Vital Signs: Blood pressure 130/78, temperature 97, pulse rate is 54, respirations 16 from a.m. Assessment: A 70-year-old male with history of dementia due to multiple etiolog ies episode of agitation and physical aggression. History of suicidal ideation in the pas t, he also had attempts. Diagnoses: Recommendations: 1.Start Abilify 5 mg p.o. daily for physical aggression. 2.Recommend Haldol 2 mg p.r.n. for severe agitation. 3.Recommend Cogentin 0.5 mg IM/IV p.r.n. for EPS. 4.Recommendations were discussed with treatment team. Psychiatry consult followup as needed. SRINIVASA/EMILY Voice ID: [id number] Report ID: [id number]
== END 2021-05-24 14:57 | DRG 64 ==
LOC: ER 22:22 → ERHOLD 23:35 → 4TH 05-14 18:24 → OBSVTOIN 05-14 18:28
PROVIDERS: ADMIT Internal Medicine; ATTEND Internal Medicine
DX: I63.419 Cerebral infarction due to embolism of unspecified middle cerebral artery (principal); U07.1 COVID-19; G81.91 Hemiplegia, unspecified affecting right dominant side; F02.81 Dementia in other diseases classified elsewhere, unspecified severity, with behavioral disturbance; G93.40 Encephalopathy, unspecified; R29.700 NIHSS score 0; I63.422 Cerebral infarction due to embolism of left anterior cerebral artery; I48.0 Paroxysmal atrial fibrillation; G30.9 Alzheimer's disease, unspecified; F01.50 Vascular dementia, unspecified severity, without behavioral disturbance, psychotic disturbance, mood disturbance, and anxiety; I10 Essential (primary) hypertension; R47.01 Aphasia; E78.2 Mixed hyperlipidemia; I25.10 Atherosclerotic heart disease of native coronary artery without angina pectoris; N40.0 Benign prostatic hyperplasia without lower urinary tract symptoms; E03.9 Hypothyroidism, unspecified; R73.01 Impaired fasting glucose; R56.9 Unspecified convulsions; E87.6 Hypokalemia; Z79.01 Long term (current) use of anticoagulants; Z91.14 Patient's other noncompliance with medication regimen; Z95.5 Presence of coronary angioplasty implant and graft; Z85.528 Personal history of other malignant neoplasm of kidney; Z90.5 Acquired absence of kidney
CPT/HCPCS: 36415; 70450; 70553; 71045; 71260; 72125; 74177; 80048; 80061; 80076; 80320; 82565; 83690; 83735; 83880; 84132; 84443; 84484; 85025; 85610; 92526; 92610; 93005; 93306; 95816; 96360; 96361; 97110; 97116; 97161; 97530; 99285; A9577; G0378; J0696; J1630; J1953; J2930; J3475; J3480; J7030; J7042; Q9967; U0003

== ENCOUNTER 2021-05-24 11:17 | Inpatient (IN) | payer OTHER ==
--- NOTE | 2021-05-24 14:27 | R.PREADM ---
PRE-ADMISSION SCREENING FORM SCREENING DATE AND TIME 05/24/2021 11:25 (CDT) ANTICIPATED REHAB ADMISSION DATE 05/26/2021 REFERRING FACILITY [facility] REFERRAL DATE AND TIME 05/24/2021 11:26 (CDT) REFERRAL ROOM# 402 ACUTE ADMIT DATE 05/14/2021 Previous Rehabilitation(s): No. 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 Danis Montero M.D. MR# [id number] NAME LUISA ROSS ADDRESS [address] PHONE [facility] [id number] DATE OF 1950 AGE 70 SSN# [id number] GENDER male MARITAL STATUS ADMIT FROM 02 - [facility] PRE-HOSPITAL LIVING SETTING 01 - Home (private home/apt. board/care, assisted living, care home, transitional living) HOME TYPE AND DETAILS Type of home: single family house # of steps to enter the residence: 0 # of steps within the residence: 0 # of levels in the residence: 1 PRE-HOSPITAL LIVING WITH Family/Relatives FAMILY SUPPORT Yes PRIMARY FAMILY CONTACT NAME MODESTA ROSS PRIMARY FAMILY CONTACT PHONE PRIMARY FAMILY CONTACT RELATIONSHIP PHONE PRIMARY FAMILY CONTACT ON ADM.? no IS PRIMARY FAMILY CONTACT AUTH. REP.? no 1ST EMERGENCY CONTACT MODESTA ROSS 1ST CONTACT PHONE 1ST CONTACT RELATIONSHIP PHONE 1ST CONTACT ON ADM. no IS 1ST CONTACT AUTH. REP.? no PHONE 2ND CONTACT ON ADM.? no PATIENT EMPLOYMENT STATUS Retired (for age) PATIENT EMPLOYER No Employer PAYOR INFORMATION: 1ST PAYOR NAME MEDICARE 1ST PAYOR PHONE 1ST PAYOR INJURY/ILLNESS DUE TO ACCIDENT? No ANOTHER LIBERTARIAN RESPONSIBLE? No PRIMARY REHAB/ACUTE DIAGNOSIS: ACUTE CVA ONSET DATE 05/14/2021 REHAB IMPAIRMENT CATEGORY (EZEQUIEL): 01 Stroke (STR) MEETS 60% rule AFFECTED EXTREMITIES: RLE, and RUE PRIMARY DIAGNOSIS-RELATED SURGERIES: N/A RISK FOR COMPLICATIONS: - N/A VASCULAR DEMENTIA BEHAVIORAL PROBLEMS HYPOTHYROIDISM HYPERTENSION HYPOFUNCTION IMPAIRED FASTING GLUCOSE CORONARY ARTERY DISEASE AFIB Falls SUMMARY OF ACUTE HOSPITALIZATION: Pt. is a 70 yo Right-handed male. On 05/14/2021 Pt. presented to [facility] with sudden onset of right-side weakness. On 05/14/2021 he was admitted to [facility] with diagnosis ACUTE CVA. His impairment category is Stroke 01 - Right Body (Left Brain) (01.2). Pre-morbidly, Pt. was independent/mod-I in Locomotion, Social Cognition, Safety Awareness, Balance, a nd Transfers Control; and he had good Endurance, Communication, Self-Care, and Sphincter Control. Currently, he has deficits of Locomotion, Safety Awareness, Social Cognition, Transfers Control, Ayden nce, Sphincter Control, Communication, Self-Care, and Endurance. Pt. is now referred to [facility] for acute in-patient rehabilitation in order to maximize patient's functional independence in activities of daily living, strength, ROM, and mobi lity. Patient has realistic goal of being discharged at assistance level 7-Ind to reside at Home with Fami ly/Relatives. 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 HYPERLIPIDEMIA CORONARY ARTERY DISEASE PAROXYSMAL ARTIL FIB KIDNEY CANCER INVOLVING LEFT KIDNEY benign prostatic hypertrophy (BPH) CHRONIC KIDNEY DISEASE elevated psa COVID-19 (U07.1) PAST SURGICAL HISTORY: CATARACT SURGERY CHOLECYSTECTOMY CORONARY ARTERY ANGIOPLASTY W STENT PLACEMENT 2014 LEFT SIDED PARTIAL NEPHRECTOMY 2008 DUE TO KIDNEY CANCER PROSTATE BIOPSY IN 2003 ARTHROSCOPIC KNEE SURGERY MEDICATION ALLERGIES: LEVAQUIN CAUSING PAIN IN HIS HAND ENVIRONMENTAL ALLERGIES: - Substance Allergies None Known - Other Allergies None Known CODE STATUS: Full code WEIGHT/HEIGHT/BMI: WEIGHT 180 lbs HEIGHT 6' 0" BMI 24.4 DIET: - Diet Type Regular - Diet - Solid Texture Regular - Diet - Liquid Texture Regular - Tube Feed N/A REVIEW OF SYSTEMS: - Gen Alert and awake Lying in bed No apparent distress Oriented to: person, time, and place - Vital Signs Temperature: 97.7 F SBP/DBP: 131/84 Pulse: 50 Resp: 18 Vital signs stable, afebrile - CVS RRR VITAL SIGNS Temperature: 97.7 F SBP/DBP: 131/84 05/24/21 Pulse: 50 Resp: 18 Vital signs stable, afebrile MEDICATIONS/TREATMENT: Other- See attached MAR (Medication Administration Record). CURRENT SPHINCTER CONTROL: Pre-hospital bladder status: unspecified # of bladder accidents in the last 7 days prior to screenin Pre-hospital bowel status: unspecified # of bowel accidents in the last 7 days prior to screenin Last Bowel Movement Date: 05/24/2021 CURRENT LOCOMOTION STATUS: distance walked 275 feet using FWW with CGA DETAILED CURRENT FUNCTIONAL STATUS: - Bladder accident frequency: 7-Ind - No accidents in the past 7 days - Bowel accident frequency: 7-Ind - No accidents in the past 7 days - Walking score based on distance walked: 0(N/A) - Wheelchair score based on distance traveled: 0(N/A) QI SCORES: - Self-Care A. Eating 03-Partial/moderate assistance B. Oral hygiene 03-Partial/moderate assistance C. Toileting hygiene 02-Substantial/maximal assistance E. Shower/bathe self 02-Substantial/maximal assistance F. Upper body dressing 02-Substantial/maximal assistance G. Lower body dressing 02-Substantial/maximal assistance H. Putting on/taking off footwear 88-Not attempted due to medical condition or safety concerns - Mobility A. Roll left and right 03-Partial/moderate assistance B. Sit to lying 03-Partial/moderate assistance C. Lying to sitting on side of bed 03-Partial/moderate assistance D. Sit to stand 03-Partial/moderate assistance E. Chair/uwm-bc-bbyfs transfer 03-Partial/moderate assistance F. Toilet transfer 02-Substantial/maximal assistance G. Car transfer 88-Not attempted due to medical condition or safety concerns I. Walk 10 feet 03-Partial/moderate assistance J. Walk 50 feet with two turns 03-Partial/moderate assistance K. Walk 150 feet 03-Partial/moderate assistance L. Walking 10 feet on uneven surfaces 88-Not attempted due to medical condition or safety concerns M. 1 step (curb) 88-Not attempted due to medical condition or safety concerns N. 4 steps 88-Not attempted due to medical condition or safety concerns O. 12 steps 88-Not attempted due to medical condition or safety concerns P. Picking up object 88-Not attempted due to medical condition or safety concerns R. Wheel 50 feet with two turns 88-Not attempted due to medical condition or safety concerns S. Wheel 150 feet 88-Not attempted due to medical condition or safety concerns - Bladder and Bowel Bladder continence Bowel continence - Endurance Fair - Balance Poor - Safety Awareness Fair CURRENT FUNC. DEFICITS: Self-Care, Mobility, Endurance, Balance, and Safety Awareness CURRENT / PREVIOUS ASSISTIVE DEVICES: Rolling Walker HISTORY OF FALLS. HAS THE PATIENT HAD TWO OR MORE FALLS IN THE PAST YEAR OR ANY FALL WITH INJURY IN T HE PAST YEAR?: No PRIOR SURGERY. DID THE PATIENT HAVE MAJOR SURGERY DURING THE 100 DAYS PRIOR TO ADMISSION?: No THERAPY NOTES FROM ACUTE CARE: Attached. SPECIAL NEEDS: - Safety Concerns Skin breakdown precautions needed due to skin breakdown risk PATIENT NEEDS ACTIVE AND ONGOING THERAPEUTIC INTERVENTION OF MULTIPLE THERAPY DISCIPLINES, INCLUDING: - Dietary and Nutrition Adequate Nutrition. Nutritional Education. Nutritional Supplements. - Occupational Therapy Cognitive Retraining. Visual Perceptual Training. ADL Training. - Speech Therapy Cognitive Training. Expressive Language Skills. Memory Strategies. Receptive Language Skills. Speech Intelligibility Training. - Physical Therapy Evaluate and Treat. Gait Training. Balance Training. LE Strengthening. Mobility Training. PATIENT NEEDS CLOSE MEDICAL SUPERVISION BY A REHABILITATION PHYSICIAN FOR: Coordination of Treatment Team Pain Management Medical and Co-Morbidity Management PATIENT REQUIRES 24X7 REHAB NURSING FOR MEDICAL AND FUNCTIONAL MGT. OF THE FOLLOWING DEFICITS: Disease Management Medication Management Patient/Family Education Providing Safe Environment PATIENT REQUIRES INTENSIVE, COORDINATED INTERDISCIPLINARY APPROACH TO REHAB: Arranging Home Equipment/Services Discharge Planning Family Intervention/Training Medical Education Specialist/Case Management PATIENT REHAB POTENTIAL: Bryan ROSS is able and expected to receive 3 hours of individualized therapy daily on at least 5 of e very 7 days Bryan ROSS's prognosis for significant practical improvement within a reasonable period of time appea rs Good Expected level of measurable improvement will be of a practical value to Bryan ROSS's functional capa city or adaptations to impairments Has a viable Discharge Plan Medically appropriate; condition is sufficiently stable to participate in intensive rehab program DISCHARGE PLAN: - Estimated Length of Stay (days) 17. - Consensus on plan Discharge plan has been discussed with primary caregiver. Patient/Family is in agreement with the yanet n. Primary caregiver is in agreement with the plan. - Patient/Family Goals Return home independently. - Planned Living Setting Upon Discharge Home, to live with Family/Relatives. Transitional Living. RECOMMENDED CARE LEVEL: IRF RECOMMENDATION DETAILS: Recommended Admission to Comprehensive Rehabilitation Program to Increase Functional [place] SCREENER'S COMPLETENESS CONFIRMATION: - Screening Confirmation The patient data collection on this preadmission screening form is finished PHYSICIANS REVIEW AND ADMISSION DETERMINATION Admit - Based on my review of the Pre-Admission Screening results, in my medical judgment and experie nce, I concur with the findings and recommend admission to [facility], as this patient requires an IRF level of care. SIGNATURE PANEL: Roustabout Supervisor - [electronically] signed by Abhijit Gaitan on 05/24/2021 at 14:08 (CDT) Roustabout Supervisor - [electronically] signed by Vinny Chacon PT on 05/24/2021 at 14:14 (CDT) Physician Reviewer - [electronically] signed by Dr. Danis Montero M.D. on 05/24/2021 at 14:26 (CDT )
[2021-05-24] MEDS ORDERED: HALOPERIDOL LACT 5 MG/ML INJ IM PRN (16:22)
[2021-05-24] MEDS ORDERED: HALOPERIDOL LACT 5 MG/ML INJ IV PRN (16:23)
[2021-05-24] MEDS ORDERED: LORazepam 2 MG/ML VIAL IV PRN (16:44)
[2021-05-24] MEDS ORDERED: ONDANSETRON 4 MG (ODT) TAB PO PRN (16:46)
[2021-05-24] MEDS: APIXABAN 5 MG TABLET PO SCH (20:16)
[2021-05-24] MEDS: MEMANTINE HCL 10 MG TABLET PO SCH (20:16)
[2021-05-24] MEDS: DONEPEZIL HCL 5 MG TAB PO SCH (20:18)
[2021-05-24] MEDS: levETIRAcetam 500 MG TAB PO SCH (20:19)
[2021-05-24] MEDS: ENSURE ENLIVE 237 ML CAN PO SCH (20:50)
[2021-05-24] MEDS: lisinopriL 5 MG TAB PO SCH (20:50)
[2021-05-24] MEDS: AMLODIPINE 5 MG TAB PO SCH (20:50)
[2021-05-24] MEDS ORDERED: QUETIAPINE 25 MG TAB PO SCH (21:00)
[2021-05-24 23:30] VITALS: BMI 24.4
[2021-05-25] MEDS ORDERED: HALOPERIDOL LACT 5 MG/ML INJ IM PRN (00:29)
[2021-05-25] MEDS ORDERED: HALOPERIDOL LACT 5 MG/ML INJ IV PRN (00:29)
[2021-05-25] MEDS ORDERED: LORazepam 2 MG/ML VIAL IV PRN (00:29)
[2021-05-25] MEDS: SOTALOL HCL 80 MG TAB PO SCH (05:33)
[2021-05-25 05:56] LABS: Absolute Lymphocytes (CBC) 1.2 K/uL (0.7-4.9); Basophils % 0.7 % (0-1.3); Hematocrit 41.8 % (39.6-49.0); Lymphocytes % 10.5 % (15.3-44.8); MPV 9.2 fL (7.6-11.3); RBC Red Blood Cell Count 4.68 M/uL (4.33-5.43)
[2021-05-25 06:17] LABS: Albumin 3.9 g/dL (3.4-5.0); Magnesium 2.4 mg/dL (1.8-2.4); Prealbumin 16.9 mg/dL (20-40)
[2021-05-25] MEDS ORDERED: LEVOTHYROXINE SOD 0.1 MG TAB PO SCH (06:30)
[2021-05-25] MEDS: LEVOTHYROXINE SOD 0.1 MG TAB PO SCH ×2 (06:30→06:51)
[2021-05-25] MEDS: NA CHLORIDE 0.9% 1,000 ML IV SCH ×2 (07:00→07:27)
[2021-05-25] MEDS ORDERED: SOTALOL HCL 80 MG TAB PO SCH (08:00)
[2021-05-25] MEDS ORDERED: ARIPiprazole 5 MG TAB PO SCH (08:00)
[2021-05-25] MEDS: BENZTROPINE 1 MG TAB PO SCH (08:00)
[2021-05-25] MEDS ORDERED: MEMANTINE HCL 10 MG TABLET PO SCH (08:00)
[2021-05-25] MEDS ORDERED: lisinopriL 5 MG TAB PO SCH (08:00)
[2021-05-25] MEDS: APIXABAN 5 MG TABLET PO SCH ×4 (08:00→19:36)
[2021-05-25] MEDS: MEMANTINE HCL 10 MG TABLET PO SCH ×3 (08:00→19:39)
[2021-05-25] MEDS ORDERED: levETIRAcetam 500 MG TAB PO SCH (08:00)
[2021-05-25] MEDS ORDERED: BENZTROPINE 1 MG TAB PO SCH (08:00)
[2021-05-25] MEDS: ENSURE ENLIVE 237 ML CAN PO SCH ×2 (08:00→19:36)
[2021-05-25] MEDS: ARIPiprazole 5 MG TAB PO SCH ×3 (08:00→13:53)
[2021-05-25] MEDS ORDERED: APIXABAN 5 MG TABLET PO SCH (08:00)
[2021-05-25] MEDS: levETIRAcetam 500 MG TAB PO SCH ×3 (08:00→19:36)
[2021-05-25] MEDS ORDERED: ENSURE ENLIVE 237 ML CAN PO SCH (08:00)
--- NOTE | 2021-05-25 12:13 | RAD REPORT ---
EXAM DESCRIPTION: CT - Head Brain Wo Cont - 05/25/2021 11:22 am CLINICAL HISTORY: Alteration of awareness/confusion COMPARISON: None TECHNIQUE: Computed axial tomography of the head was obtained. IV contrast was not requested. All CT scans are performed using dose optimization technique as appropriate and may include automated exposure control or mA/KV adjustment according to patient size. FINDINGS: An intracranial bleed is not seen . Mild prominence of the ventricles is unchanged No extra-axial fluid collection is noted. Mild to moderate low-density areas within periventricular, deep and subcortical white matter likely r epresent ischemic changes secondary to small vessel disease. Small low-density areas within the white matter left frontal and left parietal lobes without significant change from May 14, 2021 MRI Fluid within the sinuses/ mastoids is not seen. IMPRESSION: Small subacute white matter infarcts left cerebrum without significant change from the S ep2020 MRI
--- NOTE | 2021-05-25 18:38 | R.HP ---
HISTORY AND PHYSICAL FACILITY: [facility] ENCOUNTER DATE AND TIME: 05/25/2021 18:06 (CDT) MR#: [id number] NAME LUISA ROSS ADDRESS: [address] [place] [address] CITY: [place] [address]IP [address] PHONE: DATE OF : 1950 AGE: 70 SSN# [id number] GENDER: Male MARITAL STATUS PRE-HOSPITAL LIVING SETTING 01 - Home (private home/apt. board/care, assisted living, intermediate, transitional living) PRE-HOSPITAL LIVING WITH Family/Relatives ENCOUNTER PHYSICIAN: Dr. Danis Montero M.D. REFERRING DOCTOR: DATE OF ADMISSION: 05/24/2021 15:10 (CDT) REFERRING FACILITY [facility] HOME TYPE AND DETAILS: Type of home: single family house # of steps to enter the residence: 0 # of steps within the residence: 0 # of levels in the residence: 1 ONSET DATE: 05/14/2021 PRIMARY DIAGNOSIS-RELATED SURGERIES: N/A HISTORY OF PRESENT ILLNESS (HPI): Pt. is a 70 yo Right-handed male. On 05/14/2021 Pt. presented to [facility] with sudden onset of right-side weakness. On 05/14/2021 he was admitted to [facility] with diagnosis ACUTE CVA. His impairment category is Stroke 01 - Right Body (Left Brain) (01.2). Pre-morbidly, Pt. was independent/mod-I in Locomotion, Social Cognition, Safety Awareness, Balance, a nd Transfers Control; and he had good Endurance, Communication, Self-Care, and Sphincter Control. Currently, he has deficits of Locomotion, Safety Awareness, Social Cognition, Transfers Control, [place] nce, Sphincter Control, Communication, Self-Care, and Endurance. Pt. is now referred to [facility] for acute in-patient rehabilitation in order to maximize patient's functional independence in activities of daily living, strength, ROM, and mobi lity. Patient has realistic goal of being discharged at assistance level 7-Ind to reside at Home with Fami ly/Relatives. Due to his chronic cognitive and behavioral dysfunction, he often only follows commands intermittentl y. He may only respond to his 's voice and ignore the therapist. 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 HYPERLIPIDEMIA CORONARY ARTERY DISEASE PAROXYSMAL ARTIL FIB KIDNEY CANCER INVOLVING LEFT KIDNEY benign prostatic hypertrophy (BPH) CHRONIC KIDNEY DISEASE elevated psa COVID-19 (U07.1) PAST SURGICAL HISTORY: CATARACT SURGERY CHOLECYSTECTOMY CORONARY ARTERY ANGIOPLASTY W STENT PLACEMENT 2014 LEFT SIDED PARTIAL NEPHRECTOMY 2007 DUE TO KIDNEY CANCER PROSTATE BIOPSY IN 2003 ARTHROSCOPIC KNEE SURGERY SOCIAL HISTORY: - Home Living Family/Relatives REVIEW OF SYSTEMS: - Gen No Chills No Fatigue No Fever - Eyes No Double Vision No itchiness - ENMT No Difficulty Swallowing - CVS No Chest Discomfort No Chest Pain No Fatigue No Weight Gain - Resp No Cough No Shortness of Breath - GI Continent No Abdominal Pain No Constipation No Diarrhea - Continent No Kidney Pain No Painful Urination No Urinary Urgency - MSK No Joint Pain No Muscle Cramps No Stiffness - Skin No Itching No Rash No Suspicious Lesions - Neuro No Coordination Difficulty No Difficulty with Concentration No Memory Loss No Seizures No Weakness - Psych No Anxiety No Depression No HIV Exposure No Persistent Infections No Seasonal Allergies - Endo No Cold/Heat Intolerance No Excessive Hunger No Excessive Thirst No Excessive Urination PHYSICAL EXAM - Gen Alert and awake Lying in bed No apparent distress - Skin No skin breakdown. No abnormalities - Eyes No abnormalities - ENMT No abnormalities - Neck No abnormalities - CVS RRR - Chest No abnormalities - Resp Clear to auscultation - Abd + bowel sounds - GI nondistended No abnormalities - No abnormalities - Ext No significant edema - MSK 4/5 weakness in both lower extremities. - Neuro No focal deficits - Psych Marked decrease in verbal fluency. Flat affect with emotional lability. VITAL SIGNS Temperature: 97.6 F SBP/DBP: 111/64 Pulse: 56 Resp: 16 NURSING: - Shower allowing shower - Bladder care per protocol - Skin care per protocol PRECAUTIONS: - Weight Bearing Precaution WBAT both LE ACTIVITIES OOB only with supervision QI SCORES: - Self-Care A. Eating 03-Partial/moderate assistance B. Oral hygiene 03-Partial/moderate assistance C. Toileting hygiene 02-Substantial/maximal assistance E. Shower/bathe self 02-Substantial/maximal assistance F. Upper body dressing 02-Substantial/maximal assistance G. Lower body dressing 02-Substantial/maximal assistance H. Putting on/taking off footwear 88-Not attempted due to medical condition or safety concerns - Mobility A. Roll left and right 03-Partial/moderate assistance B. Sit to lying 03-Partial/moderate assistance C. Lying to sitting on side of bed 03-Partial/moderate assistance D. Sit to stand 03-Partial/moderate assistance E. Chair/tca-in-csenc transfer 03-Partial/moderate assistance F. Toilet transfer 02-Substantial/maximal assistance G. Car transfer 88-Not attempted due to medical condition or safety concerns I. Walk 10 feet 03-Partial/moderate assistance J. Walk 50 feet with two turns 03-Partial/moderate assistance K. Walk 150 feet 03-Partial/moderate assistance L. Walking 10 feet on uneven surfaces 88-Not attempted due to medical condition or safety concerns M. 1 step (curb) 88-Not attempted due to medical condition or safety concerns N. 4 steps 88-Not attempted due to medical condition or safety concerns O. 12 steps 88-Not attempted due to medical condition or safety concerns P. Picking up object 88-Not attempted due to medical condition or safety concerns R. Wheel 50 feet with two turns 88-Not attempted due to medical condition or safety concerns S. Wheel 150 feet 88-Not attempted due to medical condition or safety concerns - Bladder and Bowel Bladder continence Bowel continence - Endurance Fair - Balance Poor - Safety Awareness Fair CURRENT FUNC. DEFICITS: Self-Care, Mobility, Endurance, Balance, and Safety Awareness MEDICATIONS: - Other See attached MAR (Medication Administration Record) ASSESSMENT: Pt. is a 70 yo Right-handed male.On 05/14/2021 Pt. presented to [facility] with sudden o nset of right-side weakness.On 05/14/2021 he was admitted to [facility] with diagnosis A CUTE CVA.His impairment category is Stroke 01 - Right Body (Left Brain) (01.2).Pre-morbidly, Pt. was independent/mod-I in Locomotion, Social Cognition, Safety Awareness, Balance, and Transfers Control; and he had good Endurance, Communication, Self-Care, and Sphincter Control.Currently, he has deficit s of Locomotion, Safety Awareness, Social Cognition, Transfers Control, Balance, Sphincter Control, C ommunication, Self-Care, and Endurance.Pt. is now referred to [facility] for a cute in-patient rehabilitation in order to maximize patient's functional independence in activities o f daily living, strength, ROM, and mobility.- Rehab Goal Patient has realistic goal of being discharged at assistance level 7-Ind to reside at Home with Fami ly/Relatives. for Dementia, TBI, Stroke, or others - Physical Therapy Gait dysfunction - to improve, our physical therapists will perform initial evaluation of pt's status upon admission and devise an individualized program for Gait Training, and Wheel Chair mobility Inability to transfer - to improve, our physical therapists will perform initial evaluation of pt's s tatus upon admission and devise an individualized program for Bed mobility Need for home safety evaluation - to improve, our physical therapists will perform initial evaluation of pt's status upon admission and devise an individualized program for Home Evaluation Need in caregiver upon discharge - to improve, our physical therapists will perform initial evaluatio n of pt's status upon admission and devise an individualized program for Caregiver Training New precaution - to improve, our physical therapists will perform initial evaluation of pt's status u roxie admission and devise an individualized program for Patient precaution education Edema - to improve, our physical therapists will perform initial evaluation of pt's status upon admi ssion and devise an individualized program for Elevation Training, and Lymphedema Therapy Poor balance - to improve, our physical therapists will perform initial evaluation of pt's status upo n admission and devise an individualized program for Balance Training Poor endurance - to improve, our physical therapists will perform initial evaluation of pt's status u roxie admission and devise an individualized program for Endurance Training Weakness - to improve, our physical therapists will perform initial evaluation of pt's status upon ad mission and devise an individualized program for Aquatic Therapy, Neuromuscular Reeducation, and Stre ngthening Achieving independence - to improve, our physical therapists will perform initial evaluation of pt's status upon admission and devise an individualized program for Community Reintegration Activities - Occupational Therapy ADL deficits - to improve, our occupation therapists will perform initial evaluation of pt's status u roxie admission and devise an individualized program for Bathing, Bed mobility, Community Reintegration , Cooking, Dressing, Eating, Fine Motor Skills, Grooming, Homemaking, Kitchen Mobility, Laundry, Jeanie ent Education, Safety Awareness, Splinting - Positioning, Transfers(Toilet, Tub, Shower), and Wheel C hair Management Cognitive deficits - to improve, our occupation therapists will perform initial evaluation of pt's st atus upon admission and devise an individualized program for Cognition - orientation Need for day care assistant - to improve, our occupation therapists will perform initial evaluation of pt's s tatus upon admission and devise an individualized program for Caregiver Training Weakness - to improve, our occupation therapists will perform initial evaluation of pt's status upon admission and devise an individualized program for Aquatic Therapy, Balance, Endurance, UE ROM, and U E strengthening MEDICAL PLAN: - Diet Type Regular - Diet - Liquid Texture Regular - Tube Feed N/A - Bladder care per protocol - Weight Bearing Precaution WBAT LE - Skin care per protocol - Other See attached MAR (Medication Administration Record) - Diet - Solid Texture Regular - Shower shower DISCHARGE PLAN: - Estimated Length of Stay (days) 17. - Consensus on plan Discharge plan has been discussed with primary caregiver. Patient/Family is in agreement with the yante n. Primary caregiver is in agreement with the plan. - Patient/Family Goals Return home independently. - Planned Living Setting Upon Discharge Home, to live with Family/Relatives. Transitional Living. SIGNATURE PANEL: (CDT)
--- NOTE | 2021-05-25 18:43 | PAPE ---
POST ADMISSION PHYSICIAN EVALUATION PATIENT: [facility] MR# [id number] REFERRING DOCTOR EVALUATION DATE AND TIME 05/25/2021 18:38 (CDT) NAME LUISA ROSS DATE OF 1950 AGE 70 PHONE SSN# [id number] GENDER male EVALUATING PHYSICIAN Dr. Danis Montero M.D. ADMISSION DIAGNOSIS: ACUTE CVA ONSET DATE 05/14/2021 POST-ADMISSION FUNCTIONAL/MEDICAL STATUS: - Bladder Same accident frequency: 7-Ind - No accidents in the past 7 days - Bowel Same accident frequency: 7-Ind - No accidents in the past 7 days - Walking Same score based on distance walked: 0(N/A) - Wheelchair Same score based on distance traveled: 0(N/A) STATUS CHANGE EVALUATION: No change in Functional or Medical Status is identified compared with Pre-Admission screening. PATIENT NEEDS CLOSE MEDICAL SUPERVISION BY A REHABILITATION PHYSICIAN FOR: Coordination of Treatment Team Pain Management Medical and Co-Morbidity Management PATIENT REQUIRES 24X7 REHAB NURSING FOR MEDICAL AND FUNCTIONAL MGT. OF THE FOLLOWING DEFICITS: Disease Management Medication Management Patient/Family Education Providing Safe Environment PATIENT REQUIRES INTENSIVE, COORDINATED INTERDISCIPLINARY APPROACH TO REHAB: Arranging Home Equipment/Services Discharge Planning Family Intervention/Training Branch Customer Service Representative/Case Management LIST OF IDENTIFIED AND POTENTIAL PROBLEMS: Alteration in leisure activities Bladder, Incontinence Bowel, Incontinence Infection, Actual or Potential Mobility Impaired Pain, Alteration in Comfort Self Care Deficit Skin Integrity, Actual or Potential Urinary Tract Infection (UTI), Actual or Potential RISK FOR COMPLICATIONS - N/A VASCULAR DEMENTIA. BEHAVIORAL PROBLEMS. HYPOTHYROIDISM. HYPERTENSION. HYPOFUNCTION. IMPAIRED FASTING GLUCOSE. CORONARY ARTERY DISEASE. AFIB. Falls. PATIENT COULD BE AT RISK FOR COMPLICATIONS FROM ADVERSE MEDICAL CONDITIONS DUE TO HIS/HER COMORBIDITI ES AND THE RIGORS OF THE INTENSIVE REHABILLITATION PROGRAM. METHODS OR INTERVENTIONS TO AVOID COMPLIC ATIONS INCLUDE: - Bleeding Stroke patients assessed for lethargy or change in status. - Infection Clinical staff to assess and manage the signs and symptoms of infection including fever, redness, war mth, etc. - Urinary Tract Infection - Aspiration Clinical staff will assess and manage coughing, drooling, congestion. - Falls Patient will be evaluated for Fall Precautions and will be placed on Fall Precautions as indicated pe r protocol. - Skin Breakdown Nursing will assess skin daily using assessment tool and will place on Skin Breakdown Precautions as indicated per protocol. - Pain Clinical staff may employ non-medication methods such as massage, distraction, decrease stimulus, etc . as needed. Clinical staff will assess patient's pain level every shift per protocol to assess and e nsure pain management effectiveness. Medications will be given and the pain level re-assessed. PRELIMINARY PLAN OF CARE: - Physical Therapy Patient needs Physical Therapy for a daily minimum of 1.5 hours at least 5 out of 7 days, to improve: Mobility, Strengthening, Transfers, Stretching, ROM, Endurance, Ability to manage stairs, Gait, and Balance. - Speech Therapy Patient needs Speech Therapy for a daily minimum of 0.5 hours at least 5 out of 7 days, to improve: S wallowing, Cognition, Language Skills, and Compensatory Strategies. - Rehabilitation Nursing Patient requires 24x7 Rehabilitation Nursing for: Pain Issues, Identifying and preventing risk factor s, Monitoring and reporting current medical conditions, Assisting with ambulation and transfer, Pamela ting with all ADL-s, Teaching patients about disease process and medications, Family teaching, Provid ing safe environment, Bowel and Bladder Issues, Skin Integrity, and Medication Management. Patient needs Branch Customer Service Representative and/or Case Management for: Discharge Planning, Arranging Home Equipmen t or Services, and Family Interventions. - Dietary and Nutrition Services Patient needs Dietary and Nutrition Services for: Adequate Nutrition, Nutritional Supplements, and Nu tritional Education. - Occupational Therapy Patient needs Occupational Therapy for a daily minimum of 1.5 hours at least 5 out of 7 days, to impr ove Activities of Daily Living, including: Eating, Grooming, Bathing, Dressing, Toileting, Toilet Tra nsfers, Community Reintegration, Higher functional activities, Adaptive Equipment, Splinting, Househo ld Tasks, and Other activities as determined. QI SCORES: - Self-Care A. Eating 03-Partial/moderate assistance B. Oral hygiene 03-Partial/moderate assistance C. Toileting hygiene 02-Substantial/maximal assistance E. Shower/bathe self 02-Substantial/maximal assistance F. Upper body dressing 02-Substantial/maximal assistance G. Lower body dressing 02-Substantial/maximal assistance H. Putting on/taking off footwear 88-Not attempted due to medical condition or safety concerns - Mobility A. Roll left and right 03-Partial/moderate assistance B. Sit to lying 03-Partial/moderate assistance C. Lying to sitting on side of bed 03-Partial/moderate assistance D. Sit to stand 03-Partial/moderate assistance E. Chair/vzt-nb-esvak transfer 03-Partial/moderate assistance F. Toilet transfer 02-Substantial/maximal assistance G. Car transfer 88-Not attempted due to medical condition or safety concerns I. Walk 10 feet 03-Partial/moderate assistance J. Walk 50 feet with two turns 03-Partial/moderate assistance K. Walk 150 feet 03-Partial/moderate assistance L. Walking 10 feet on uneven surfaces 88-Not attempted due to medical condition or safety concerns M. 1 step (curb) 88-Not attempted due to medical condition or safety concerns N. 4 steps 88-Not attempted due to medical condition or safety concerns O. 12 steps 88-Not attempted due to medical condition or safety concerns P. Picking up object 88-Not attempted due to medical condition or safety concerns R. Wheel 50 feet with two turns 88-Not attempted due to medical condition or safety concerns S. Wheel 150 feet 88-Not attempted due to medical condition or safety concerns - Bladder and Bowel Bladder continence Bowel continence - Endurance Fair - Balance Poor - Safety Awareness Fair POTENTIAL FUNCTIONAL GOALS FOR PATIENT TO ACHIEVE BY DISCHARGE: - Safety Precaution Patient will remain free from falls or injury at time of discharge. - Bed Mobility Patient will perform bed mobility at 4-Medardo level of assistance. - Transfers Patient will complete transfers from bed to chair at 4-Medardo level of assistance. - Mobility Patient will ambulate 150 ft with 4-Medardo level of assistance with RW. PATIENT REHAB POTENTIAL Bryan ROSS is able and expected to receive 3 hours of individualized therapy daily on at least 5 of e very 7 days Bryan MALONEYs prognosis for significant practical improvement within a reasonable period of time appea rs Good Expected level of measurable improvement will be of a practical value to Bryan ROSS's functional capa city or adaptations to impairments Has a viable Discharge Plan Medically appropriate; condition is sufficiently stable to participate in intensive rehab program DISCHARGE PLAN: - Estimated Length of Stay (days) 17. - Consensus on plan Discharge plan has been discussed with primary caregiver. Patient/Family is in agreement with the yanet n. Primary caregiver is in agreement with the plan. - Patient/Family Goals Return home independently. - Planned Living Setting Upon Discharge Home, to live with Family/Relatives. Transitional Living. CONCLUSION ON REHABILITATION NECESSITY: I have evaluated patient's pre-admission functional status and, comparing it to the patient's post-ad mission functional status now, I conclude that the pre-admission assessment was accurate. Patient's c ondition on admission supports the medical necessity of admission to [facility]. It is safe to proceed with patient's therapy program. SIGNATURE PANEL: (CDT)
[2021-05-25 18:51] LABS: Potassium 3.9 mmol/L (3.5-5.1)
[2021-05-25] MEDS ORDERED: DOCUSATE NA/SENNA CONC 1 TAB PO PRN (18:56)
[2021-05-25] MEDS: NYSTATIN PWDR 100000 UNIT/GM TOP SCH (19:38)
[2021-05-25] MEDS: DONEPEZIL HCL 5 MG TAB PO SCH (19:39)
[2021-05-25] MEDS: AMLODIPINE 5 MG TAB PO SCH (19:40)
[2021-05-25] MEDS ORDERED: D5 0.9 NS 1,000 ML IV SCH (20:00)
[2021-05-25] MEDS ORDERED: BISACODYL 10 MG RECTAL SUPP PR ONE (20:00)
[2021-05-25] MEDS ORDERED: QUETIAPINE 25 MG TAB PO SCH (21:00)
[2021-05-25] MEDS ORDERED: DONEPEZIL HCL 5 MG TAB PO SCH (21:00)
[2021-05-25] MEDS ORDERED: AMLODIPINE 5 MG TAB PO SCH (21:00)
[2021-05-26] MEDS: SOTALOL HCL 80 MG TAB PO SCH (05:25)
[2021-05-26 05:57] LABS: Potassium 3.9 mmol/L (3.5-5.1)
[2021-05-26] MEDS: LEVOTHYROXINE SOD 0.1 MG TAB PO SCH (06:39)
[2021-05-26] MEDS: ENSURE ENLIVE 237 ML CAN PO SCH ×2 (08:00→20:00)
[2021-05-26] MEDS: levETIRAcetam 500 MG TAB PO SCH ×2 (08:17→20:00)
[2021-05-26] MEDS: BENZTROPINE 1 MG TAB PO SCH (08:18)
[2021-05-26] MEDS: lisinopriL 5 MG TAB PO SCH ×2 (08:18→20:00)
[2021-05-26] MEDS: ARIPiprazole 5 MG TAB PO SCH (08:18)
[2021-05-26] MEDS: MEMANTINE HCL 10 MG TABLET PO SCH ×2 (08:19→20:00)
[2021-05-26] MEDS: APIXABAN 5 MG TABLET PO SCH ×2 (08:19→20:00)
[2021-05-26] MEDS: NYSTATIN PWDR 100000 UNIT/GM TOP SCH ×2 (09:40→20:00)
--- NOTE | 2021-05-26 09:58 | PN ---
Date of Progress Note: 05/25/2021 Subjective: The patient was seen this morning for followup. When I saw him, he was sleeping in the chair and nursing staff informed me that the patient took his medications last night including Seroqu el, donepezil, and memantine and after that, he went to sleep, but he would not stay in the bed and t ried to get out of the bed and bed alarm would go off, so he really got very agitated with that and d ecided to just sleep in the chair and that is where he was all night. He did sleep well last night. This morning, when I saw him, he was still very sleepy, drowsy, barely waking up, not in any distres s. Objective: Vital Signs: Reviewed. HEENT: Unremarkable. Lungs: Clear to auscultation. Heart: Sounds normal. Abdomen: Soft, bowel sounds normal. No guarding, rigidity, tenderness, or distention. Extremities: No leg edema. Diagnostic Studies: CAT scan of the head was done today shows no new changes compared to prior CAT s can. Impression: 1.Stroke. 2.Atrial fibrillation. 3.Hypertension. 4.Acute kidney injury. 5.Volume depletion. 6.Alzheimer disease with dementia, with behavioral changes. 7.Vascular dementia. Plan: Patient's renal function has gone up. Creatinine is around 1.9 and IV fluid was started. Aft er 1 L of IV fluid given, we repeated chemistry this evening and creatinine has improved to 1.5. We will continue IV fluid, but change it from normal saline to D5 normal saline and we will repeat blood work tomorrow morning. CAT scan was repeated today has not shown any recurrence of stroke. He was able to take his Eliquis this afternoon around 1 o'clock and after that because of his altered mental status, we were not able to give him any further oral medication, so we will keep his oral medicatio n on hold this evening. Psychiatrist was requested to be contacted and he discontinued the patient's Seroquel. The patient did not use any Haldol or Ativan last night or during daytime today. I will see him tomorrow for followup and details were discussed with the patient's on the phone and I w ill communicate with her again tomorrow. YARELI/MODL Voice ID: [id number] Report ID: [id number]
[2021-05-26] MEDS ORDERED: ACETAMINOPHEN 500 MG TAB PO PRN (13:37)
[2021-05-26] MEDS: LIDOCAINE 4% PATCH TOP SCH (14:34)
--- NOTE | 2021-05-26 16:41 | R.PN ---
PROGRESS NOTES ENCOUNTER DATE AND TIME: 05/26/2021 16:30 (CDT) NAME LUISA ROSS DATE OF : 1950 DATE OF ADMISSION: 05/24/2021 15:10 (CDT) ACUTE CVACHIEF COMPLAINT: Left frontal stroke, moderate dementia, [id number] syndrome. SUBJECTIVE: Pt denied any depression. Pt denied any Shortness of Breath. He is more alert and follow some simple commands today. He shows disinhibition including making face s during my evaluation today. WBC 11.4, neutrophils 83.9. Showroom Salesperson improved to 1.34 from 1.98 over 2 days. ADLs done with total assistance. He consistently followed 2-step commands with 80% accuracy. VITAL SIGNS Temperature: 97.6 F SBP/DBP: 111/64 Pulse: 56 Resp: 16 MEDICATION ALLERGIES: LEVAQUIN CAUSING PAIN IN HIS HAND ENVIRONMENTAL ALLERGIES: - Substance Allergies None Known - Other Allergies None Known NURSING: - Shower allowing shower - Bladder care per protocol - Skin care per protocol PRECAUTIONS: - Weight Bearing Precaution WBAT both LE ACTIVITIES OOB only with supervision THERAPIES: - Dietary and Nutrition Adequate Nutrition. Nutritional Education. Nutritional Supplements. - Occupational Therapy Cognitive Retraining. Visual Perceptual Training. ADL Training. - Speech Therapy Cognitive Training. Expressive Language Skills. Memory Strategies. Receptive Language Skills. Speech Intelligibility Training. - Physical Therapy Evaluate and Treat. Gait Training. Balance Training. LE Strengthening. Mobility Training. PHYSICAL EXAM - Gen Alert and awake Lying in bed No apparent distress - Skin No skin breakdown. No abnormalities - Eyes No abnormalities - ENMT No abnormalities - Neck No abnormalities - CVS RRR - Chest No abnormalities - Resp Clear to auscultation - Abd + bowel sounds - GI nondistended No abnormalities - No abnormalities - Ext No significant edema - MSK 4/5 weakness in both lower extremities. - Neuro No focal deficits - Psych Marked decrease in verbal fluency. Flat affect with emotional lability. ASSESSMENT: Pt. is a 70 yo Right-handed male.On 05/14/2021 Pt. presented to [facility] with sudden o nset of right-side weakness.On 05/14/2021 he was admitted to [facility] with diagnosis A CUTE CVA.His impairment category is Stroke 01 - Right Body (Left Brain) (01.2).Pre-morbidly, Pt. was independent/mod-I in Locomotion, Social Cognition, Safety Awareness, Balance, and Transfers Control; and he had good Endurance, Communication, Self-Care, and Sphincter Control.Currently, he has deficit s of Locomotion, Safety Awareness, Social Cognition, Transfers Control, Balance, Sphincter Control, C ommunication, Self-Care, and Endurance.Pt. is now referred to [facility] for a cute in-patient rehabilitation in order to maximize patient's functional independence in activities o f daily living, strength, ROM, and mobility.- Rehab Goal Patient has realistic goal of being discharged at assistance level 7-Ind to reside at Home with Fami ly/Relatives. Due to his chronic cognitive and behavioral dysfunction, he often only follows commands intermittentl y. He may only respond to his 's voice and ignore the therapist.MDM/PLAN: - Physical Therapy Gait dysfunction - to improve, our physical therapists will perform initial evaluation of pt's statu s upon admission and devise an individualized program for Gait Training, and Wheel Chair mobility Inability to transfer - to improve, our physical therapists will perform initial evaluation of pt's status upon admission and devise an individualized program for Bed mobility Need for home safety evaluation - to improve, our physical therapists will perform initial evaluatio n of pt's status upon admission and devise an individualized program for Home Evaluation Need in caregiver upon discharge - to improve, our physical therapists will perform initial evaluati on of pt's status upon admission and devise an individualized program for Caregiver Training New precaution - to improve, our physical therapists will perform initial evaluation of pt's status upon admission and devise an individualized program for Patient precaution education Edema - to improve, our physical therapists will perform initial evaluation of pt's status upon admis melody and devise an individualized program for Elevation Training, and Lymphedema Therapy Poor balance - to improve, our physical therapists will perform initial evaluation of pt's status up on admission and devise an individualized program for Balance Training Poor endurance - to improve, our physical therapists will perform initial evaluation of pt's status upon admission and devise an individualized program for Endurance Training Weakness - to improve, our physical therapists will perform initial evaluation of pt's status upon a dmission and devise an individualized program for Aquatic Therapy, Neuromuscular Reeducation, and Str engthening Achieving independence - to improve, our physical therapists will perform initial evaluation of pt's status upon admission and devise an individualized program for Community Reintegration Activities - Occupational Therapy ADL deficits - to improve, our occupation therapists will perform initial evaluation of pt's status upon admission and devise an individualized program for Bathing, Bed mobility, Community Reintegratio n, Cooking, Dressing, Eating, Fine Motor Skills, Grooming, Homemaking, Kitchen Mobility, Laundry, Pat ient Education, Safety Awareness, Splinting - Positioning, Transfers(Toilet, Tub, Shower), and Wheel Chair Management Cognitive deficits - to improve, our occupation therapists will perform initial evaluation of pt's s tatus upon admission and devise an individualized program for Cognition - orientation Need for managed care coordinator - to improve, our occupation therapists will perform initial evaluation of pt's status upon admission and devise an individualized program for Caregiver Training Weakness - to improve, our occupation therapists will perform initial evaluation of pt's status upon admission and devise an individualized program for Aquatic Therapy, Balance, Endurance, UE ROM, and UE strengthening - Other See attached MAR (Medication Administration Record) - Diet Type Continue Regular - Diet - Liquid Texture Continue Regular - Tube Feed Continue N/A - Bladder care per protocol - Weight Bearing Precaution WBAT both LE - Skin care per protocol - Diet - Solid Texture Continue Regular - Shower allowing shower for Dementia, TBI, Stroke, or others FUNCTIONAL STATUS: UPDATED AT WEEKLY TEAM CONFERENCE - Bladder Same accident frequency: 7-Ind - No accidents in the past 7 days - Bowel Same accident frequency: 7-Ind - No accidents in the past 7 days - Walking Same score based on distance walked: 0(N/A) - Wheelchair Same score based on distance traveled: 0(N/A) FUNCTIONAL STATUS: - Self-Care A. Eating modA B. Grooming maxA C. Bathing maxA D. Dressing - Upper maxA E. Dressing - Lower Dep F. Toileting maxA - Sphincter Control G. Bladder control sup H. Bowel control sup - Transfers Control I. Bed/Chair/Wheelchair maxA J. Toilet maxA K. Tub/Shower maxA - Locomotion L. Walk/Wheelchair (B) maxA M. Stairs ADNO - Communication N. Comprehension (B) modA O. Expression (B) maxA - Social Cognition P. Social Interaction modA Q. Problem Solving maxA R. Memory maxA - Endurance Good - Balance Good - Safety Awareness Good QI SCORES: - Self-Care A. Eating 03-Partial/moderate assistance B. Oral hygiene 03-Partial/moderate assistance C. Toileting hygiene 02-Substantial/maximal assistance E. Shower/bathe self 02-Substantial/maximal assistance F. Upper body dressing 02-Substantial/maximal assistance G. Lower body dressing 02-Substantial/maximal assistance H. Putting on/taking off footwear 88-Not attempted due to medical condition or safety concerns - Mobility A. Roll left and right 03-Partial/moderate assistance B. Sit to lying 03-Partial/moderate assistance C. Lying to sitting on side of bed 03-Partial/moderate assistance D. Sit to stand 03-Partial/moderate assistance E. Chair/kyo-le-bgtoo transfer 03-Partial/moderate assistance F. Toilet transfer 02-Substantial/maximal assistance G. Car transfer 88-Not attempted due to medical condition or safety concerns I. Walk 10 feet 03-Partial/moderate assistance J. Walk 50 feet with two turns 03-Partial/moderate assistance K. Walk 150 feet 03-Partial/moderate assistance L. Walking 10 feet on uneven surfaces 88-Not attempted due to medical condition or safety concerns M. 1 step (curb) 88-Not attempted due to medical condition or safety concerns N. 4 steps 88-Not attempted due to medical condition or safety concerns O. 12 steps 88-Not attempted due to medical condition or safety concerns P. Picking up object 88-Not attempted due to medical condition or safety concerns R. Wheel 50 feet with two turns 88-Not attempted due to medical condition or safety concerns S. Wheel 150 feet 88-Not attempted due to medical condition or safety concerns - Bladder and Bowel Bladder continence Bowel continence - Endurance Fair - Balance Poor - Safety Awareness Fair [facility] DEFICITS: Self-Care, Mobility, Endurance, Balance, and Safety Awareness SIGNATURE PANEL: (CDT)
--- NOTE | 2021-05-26 20:49 | PN ---
Date of Progress Note: 05/26/2021 Subjective: The patient was seen this morning for followup. No new complaints or problems reported by the patient. Lying in bed, not in distress. He was lying in bed this morning when I saw him and more awake and alert compared to yesterday. He is not answering questions appropriately, but he trie s to communicate. He is not oriented. He does follow simple commands, move all the 4 extremities eq ually against gravity and there is no focal weakness noted. He did sleep off and on during nighttime as per my discussion with the nursing staff. Physical Examination: Vital Signs: Reviewed. HEENT: Unremarkable. Lungs: Clear to auscultation. Heart: Sounds normal. Abdomen: Soft. Bowel sounds normal. No guarding, rigidity, tenderness, distention. Extremities: No leg edema. Impression: 1.Stroke. 2.Atrial fibrillation. 3.Hypertension. 4.Alzheimer disease with dementia, with behavioral changes. 5.Vascular dementia. Plan: We will continue current medication. Continue to follow with Dr. Montero from [facility], who is guiding his physical therapy. We will see him tomorrow for followup. We will continue c urrent anticoagulation therapy and other current medical management. Details were discussed with the patient's . We also talked about disposition and the patient's children and the patient's want him to go home and I did inform the patient's that given the patient's current situation, i f they want to take him home, they will need to consider and arrange 24-hour caregiver services gordon pate will not be able to provide all the care by herself and she is going to talk to her children and make further decision regarding this. If they decide to take him home and need help with [facility] services, she was given some information regarding help [facility] or any other such a local agency that she may get information from Social Service. I will see him tomorrow for followup. YARELI/MODL Voice ID: [id number] Report ID: [id number]
[2021-05-26] MEDS: AMLODIPINE 5 MG TAB PO SCH (21:00)
[2021-05-26] MEDS: DONEPEZIL HCL 5 MG TAB PO SCH (21:00)
[2021-05-26 21:45] VITALS: O2SAT 92
[2021-05-27] MEDS: SOTALOL HCL 80 MG TAB PO SCH (04:58)
[2021-05-27 06:02] LABS: Absolute Lymphocytes (CBC) 1.2 K/uL (0.7-4.9); Hematocrit 43.1 % (39.6-49.0); Lymphocytes % 11.6 % (15.3-44.8); MPV 9.3 fL (7.6-11.3); RBC Red Blood Cell Count 4.83 M/uL (4.33-5.43)
[2021-05-27 06:32] LABS: Albumin 3.3 g/dL (3.4-5.0); Magnesium 2.1 mg/dL (1.8-2.4); Potassium 3.4 mmol/L (3.5-5.1); Prealbumin 13.2 mg/dL (20-40)
[2021-05-27] MEDS ORDERED: POTASSIUM CL SA 10 MEQ TAB PO ONE (06:44)
[2021-05-27] MEDS: LIDOCAINE 4% PATCH TOP SCH ×2 (07:01→12:28)
[2021-05-27] MEDS: LEVOTHYROXINE SOD 0.1 MG TAB PO SCH (07:01)
[2021-05-27] MEDS: lisinopriL 5 MG TAB PO SCH (07:58)
[2021-05-27] MEDS: levETIRAcetam 500 MG TAB PO SCH (07:58)
[2021-05-27] MEDS: ARIPiprazole 5 MG TAB PO SCH (07:58)
[2021-05-27] MEDS: BENZTROPINE 1 MG TAB PO SCH (07:59)
[2021-05-27] MEDS: APIXABAN 5 MG TABLET PO SCH (07:59)
[2021-05-27] MEDS: MEMANTINE HCL 10 MG TABLET PO SCH (07:59)
[2021-05-27] MEDS: NYSTATIN PWDR 100000 UNIT/GM TOP SCH (08:00)
[2021-05-27] MEDS: ENSURE ENLIVE 237 ML CAN PO SCH (08:00)
[2021-05-27] MEDS ORDERED: NOREPINEPHRINE 4 MG in D5W 250 ML IV PRN (11:53)
[2021-05-27 12:32] LABS: Hematocrit 40.2 % (39.6-49.0); RBC Red Blood Cell Count 4.53 M/uL (4.33-5.43)
[2021-05-27 12:52] LABS: Protime INR 1.7
[2021-05-27 13:01] LABS: Albumin 2.9 g/dL (3.4-5.0); Bilirubin Direct 0.2 mg/dL (0-0.2); Bilirubin Total 0.7 mg/dL (0.2-1.0)
--- NOTE | 2021-05-27 13:11 | P.OP ---
Preoperative diagnosis: Need for Venous Access Postoperative diagnosis: Need for Venous Access Primary procedure: Placement of LEFT subclavian central venous catheter Anesthesia: local 1% lidocaine used Estimated blood loss: <5cc Specimen: none Findings: dark non-pulsatile blood returned Complications: None Implants: triple lumen central line Transferred to: Other (floor bed on 5th floor rehab) Condition: Serious
[2021-05-27 13:23] LABS: Magnesium 1.9 mg/dL (1.8-2.4); Phosphorus 2.9 mg/dL (2.5-4.9)
--- NOTE | 2021-05-27 13:23 | RAD REPORT ---
EXAM DESCRIPTION: RAD - Chest Single View - 05/27/2021 12:48 pm CLINICAL HISTORY: Central line placement Chest pain. COMPARISON: Chest Single View dated 05/13/2021; Chest Single View dated 04/24/2021; Chest Single View d ated 04/08/2021; Chest Pa And Lat (2 Views) dated 02/11/2021 FINDINGS: Portable technique limits examination quality. A left-sided central line has been placed with tip in the SVC. No pneumothorax is present. The heart is normal in size. No displaced fractures. IMPRESSION: No postprocedure pneumothorax.
[2021-05-27 13:28] VITALS: BP 138/78; TEMP 97
[2021-05-27 13:33] LABS: Arterial Blood Carboxyhemoglob 1.3 % (0-1.5); Blood Gas Oxyhemoglobin 91.2 % (94-97)
[2021-05-27 14:01] LABS: CKMB Creatine Kinase MB 4.2 ng/mL (1.0-3.6); Troponin I < 0.02 ng/mL (0.0-0.045)
[2021-05-27 14:16] LABS: Creatine Phosphokinase 3085 U/L (39-308)
[2021-05-27] MEDS ORDERED: DOPAMINE/D5W 400 MG/250 ML BAG IV ONE (15:34)
[2021-05-27] MEDS ORDERED: NALOXONE HCL 2 MG/2 ML VIAL IM ONE (15:34)
[2021-05-27] MEDS ORDERED: NA CHLORIDE 0.9% 1,000 ML IV ONE (15:34)
--- NOTE | 2021-05-27 17:40 | CON ---
Date of Consultation: 05/27/2021 Reason For Consultation: Emergency need for venous access as the patient had a rapid response called and Code Blue due to significant deterioration. Brief History Of Present Illness: Information was obtained primarily from Dr. Arceo and chart. The aaron mccallum is a 70-year-old right-handed male, who presented to the hospital with right-sided weakness. He had some significant decompensation and a Code Blue was called. I was informed from Dr. Ryan and Dr. Arceo that the patient needed an emergency central venous access as he was placed on pressors and remained hemodynamically unstable. His access was very poor, small, and minimally functional. As lamar ch, I was consulted for emergency venous access. Past Medical History: Significant for hypertension, hypothyroidism, vascular dementia, behavioral pr oblems, impaired fasting glucose, pituitary adenoma, testicular hypofunction, mixed hyperlipidemia, c oronary artery disease, paroxysmal atrial fibrillation, kidney cancer on the left kidney, BPH, chroni c kidney disease. He has had COVID-19 in the past. Past Surgical History: Included cataract surgery, cholecystectomy, CABG with stents placed in 2014, left-sided partial nephrectomy in 2007 due to kidney cancer, prostate biopsy in 2003, arthroscopic kn ee surgery. Social History: Unable to obtain. Past remaining history unable to obtain. Physical Examination: The patient was moving minimally, significantly disoriented, making only grunting noises. He was myesha athing and had pulse as such. Assessment And Plan: This is a 70-year-old male, who had a Code Blue recently called in an emergency need for vascular access. As such, we will place a central venous catheter under emergent condition s. I discussed the case with Dr. Arceo who is asked for the placement of the catheter and I have conc urred. As such, I will place the catheter and get a followup chest x-ray to confirm position at the end. Thank you for this interesting consult. JAKY/EMILY Voice ID: [id number] Report ID: [id number]
--- NOTE | 2021-05-27 19:43 | OP ---
Date of Procedure: 05/27/2021 Surgeon: Ary Anguiano MD, Preoperative Diagnosis: Emergency need for venous access. Postoperative Diagnosis: Emergency need for venous access. Procedure Performed: Placement of left subclavian central venous catheter. Anesthesia: Local 1% lidocaine used. Estimated Blood Loss: Less than 5 mL. Specimen: None. Findings: Dark nonpulsatile blood return. Complications: None. Implants: Triple-lumen central venous catheter. Disposition: The patient remained on the fifth floor rehab unit in serious condition about to be tra nsferred to the ICU. Brief History Of Present Illness: The patient is a 70-year-old male, who had a Rapid Response called earlier today and apparent loss of mentation and a Code Blue was called at this point. The patient had essentially minimal venous IV access and was started on dopamine pressors. As such, I was consul ary for emergency placement of a central venous access port/central line. I discussed the case with Dr. Arceo, who asked for emergency placement of this catheter and as such, the patient was hemodynamic ally unstable and on pressor support. I opted to place an emergency central venous catheter at this point. Procedure In Detail: Under emergency conditions, the patient was prepped and draped in the usual brad rile fashion after adequate anesthesia. He received 1% lidocaine in the area of the left subclavian vein. I placed the patient in steep Trendelenburg position, cannulated the left subclavian vein on t he first attempt. A standard wire was advanced at this point. The needle was removed. I then made a small jamey incision at the insertion site and performed a sequential dilatation using Seldinger maura hnique. After the sequential dilatation was performed, the catheter was advanced into the subclavian position without evidence of complication. The wire was removed at this point through the brown por t and I tested all ports. All ports ariel dark red nonpulsatile blood and flushed quite easily. I fl ushed all ports at this point and secured the catheter to the skin with the attached 2-0 silk suture and a sterile dressing placed over top. The patient tolerated the procedure without evidence of comp lication, remained in the rehab unit immediately after the procedure. A stat chest x-ray will be per formed. He tolerated the procedure well without evidence of complication. All counts were correct a t the end of the case. TK/MODL Voice ID: [id number] Report ID: [id number]
--- NOTE | 2021-05-27 20:46 | R.PN ---
PROGRESS NOTES ENCOUNTER DATE AND TIME: 05/27/2021 20:38 (CDT) NAME LUISA ROSS DATE OF : 1950 DATE OF ADMISSION: 05/24/2021 15:10 (CDT) ACUTE CVACHIEF COMPLAINT: Left frontal stroke, moderate dementia, [id number] syndrome. SUBJECTIVE: Dr. 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 Code blue w as called. He received pressors via an emergent central line and did not require chest compressions o r intubation. He was discharged to the ICU. VITAL SIGNS Temperature: 97.6 F SBP/DBP: 111/64 Pulse: 56 Resp: 16 MEDICATION ALLERGIES: LEVAQUIN CAUSING PAIN IN HIS HAND ENVIRONMENTAL ALLERGIES: - Substance Allergies None Known - Other Allergies None Known NURSING: - Shower allowing shower - Bladder care per protocol - Skin care per protocol PRECAUTIONS: - Weight Bearing Precaution WBAT both LE ACTIVITIES OOB only with supervision THERAPIES: - Dietary and Nutrition Adequate Nutrition. Nutritional Education. Nutritional Supplements. - Occupational Therapy Cognitive Retraining. Visual Perceptual Training. ADL Training. - Speech Therapy Cognitive Training. Expressive Language Skills. Memory Strategies. Receptive Language Skills. Speech Intelligibility Training. - Physical Therapy Evaluate and Treat. Gait Training. Balance Training. LE Strengthening. Mobility Training. PHYSICAL EXAM - Gen Alert and awake Lying in bed No apparent distress - Skin No skin breakdown. No abnormalities - Eyes No abnormalities - ENMT No abnormalities - Neck No abnormalities - CVS RRR - Chest No abnormalities - Resp Clear to auscultation - Abd + bowel sounds - GI nondistended No abnormalities - No abnormalities - Ext No significant edema - MSK 4/5 weakness in both lower extremities. - Neuro No focal deficits - Psych Marked decrease in verbal fluency. Flat affect with emotional lability. ASSESSMENT: Pt. is a 70 yo Right-handed male.On 05/14/2021 Pt. presented to [facility] with sudden o nset of right-side weakness.On 05/14/2021 he was admitted to [facility] with diagnosis A CUTE CVA.His impairment category is Stroke 01 - Right Body (Left Brain) (01.2).Pre-morbidly, Pt. was independent/mod-I in Locomotion, Social Cognition, Safety Awareness, Balance, and Transfers Control; and he had good Endurance, Communication, Self-Care, and Sphincter Control.Currently, he has deficit s of Locomotion, Safety Awareness, Social Cognition, Transfers Control, Balance, Sphincter Control, C ommunication, Self-Care, and Endurance.Pt. is now referred to [facility] for a cute in-patient rehabilitation in order to maximize patient's functional independence in activities o f daily living, strength, ROM, and mobility.- Rehab Goal Patient has realistic goal of being discharged at assistance level 7-Ind to reside at Home with Fami ly/Relatives. Due to his chronic cognitive and behavioral dysfunction, he often only follows commands intermittentl y. He may only respond to his 's voice and ignore the therapist.MDM/PLAN: - Physical Therapy Gait dysfunction - to improve, our physical therapists will perform initial evaluation of pt's statu s upon admission and devise an individualized program for Gait Training, and Wheel Chair mobility Inability to transfer - to improve, our physical therapists will perform initial evaluation of pt's status upon admission and devise an individualized program for Bed mobility Need for home safety evaluation - to improve, our physical therapists will perform initial evaluatio n of pt's status upon admission and devise an individualized program for Home Evaluation Need in caregiver upon discharge - to improve, our physical therapists will perform initial evaluati on of pt's status upon admission and devise an individualized program for Caregiver Training New precaution - to improve, our physical therapists will perform initial evaluation of pt's status upon admission and devise an individualized program for Patient precaution education Edema - to improve, our physical therapists will perform initial evaluation of pt's status upon admi ssion and devise an individualized program for Elevation Training, and Lymphedema Therapy Poor balance - to improve, our physical therapists will perform initial evaluation of pt's status up on admission and devise an individualized program for Balance Training Poor endurance - to improve, our physical therapists will perform initial evaluation of pt's status upon admission and devise an individualized program for Endurance Training Weakness - to improve, our physical therapists will perform initial evaluation of pt's status upon a dmission and devise an individualized program for Aquatic Therapy, Neuromuscular Reeducation, and Str engthening Achieving independence - to improve, our physical therapists will perform initial evaluation of pt's status upon admission and devise an individualized program for Community Reintegration Activities - Occupational Therapy ADL deficits - to improve, our occupation therapists will perform initial evaluation of pt's status upon admission and devise an individualized program for Bathing, Bed mobility, Community Reintegratio n, Cooking, Dressing, Eating, Fine Motor Skills, Grooming, Homemaking, Kitchen Mobility, Laundry, Pat ient Education, Safety Awareness, Splinting - Positioning, Transfers(Toilet, Tub, Shower), and Wheel Chair Management Cognitive deficits - to improve, our occupation therapists will perform initial evaluation of pt's s tatus upon admission and devise an individualized program for Cognition - orientation Need for day care attendant - to improve, our occupation therapists will perform initial evaluation of pt's status upon admission and devise an individualized program for Caregiver Training Weakness - to improve, our occupation therapists will perform initial evaluation of pt's status upon admission and devise an individualized program for Aquatic Therapy, Balance, Endurance, UE ROM, and UE strengthening - Other See attached MAR (Medication Administration Record) - Diet Type Continue Regular - Diet - Liquid Texture Continue Regular - Tube Feed Continue N/A - Bladder care per protocol - Weight Bearing Precaution WBAT both LE - Skin care per protocol - Diet - Solid Texture Continue Regular - Shower allowing shower for Dementia, TBI, Stroke, or others FUNCTIONAL STATUS: UPDATED AT WEEKLY TEAM CONFERENCE - Bladder Same accident frequency: 7-Ind - No accidents in the past 7 days - Bowel Same accident frequency: 7-Ind - No accidents in the past 7 days - Walking Same score based on distance walked: 0(N/A) - Wheelchair Same score based on distance traveled: 0(N/A) FUNCTIONAL STATUS: - Self-Care A. Eating modA B. Grooming maxA C. Bathing maxA D. Dressing - Upper maxA E. Dressing - Lower Dep F. Toileting maxA - Sphincter Control G. Bladder control sup H. Bowel control sup - Transfers Control I. Bed/Chair/Wheelchair maxA J. Toilet maxA K. Tub/Shower maxA - Locomotion L. Walk/Wheelchair (B) maxA M. Stairs ADNO - Communication N. Comprehension (B) modA O. Expression (B) maxA - Social Cognition P. Social Interaction modA Q. Problem Solving maxA R. Memory maxA - Endurance Good - Balance Good - Safety Awareness Good QI SCORES: - Self-Care A. Eating 03-Partial/moderate assistance B. Oral hygiene 03-Partial/moderate assistance C. Toileting hygiene 02-Substantial/maximal assistance E. Shower/bathe self 02-Substantial/maximal assistance F. Upper body dressing 02-Substantial/maximal assistance G. Lower body dressing 02-Substantial/maximal assistance H. Putting on/taking off footwear 88-Not attempted due to medical condition or safety concerns - Mobility A. Roll left and right 03-Partial/moderate assistance B. Sit to lying 03-Partial/moderate assistance C. Lying to sitting on side of bed 03-Partial/moderate assistance D. Sit to stand 03-Partial/moderate assistance E. Chair/ccl-lh-tflgu transfer 03-Partial/moderate assistance F. Toilet transfer 02-Substantial/maximal assistance G. Car transfer 88-Not attempted due to medical condition or safety concerns I. Walk 10 feet 03-Partial/moderate assistance J. Walk 50 feet with two turns 03-Partial/moderate assistance K. Walk 150 feet 03-Partial/moderate assistance L. Walking 10 feet on uneven surfaces 88-Not attempted due to medical condition or safety concerns M. 1 step (curb) 88-Not attempted due to medical condition or safety concerns N. 4 steps 88-Not attempted due to medical condition or safety concerns O. 12 steps 88-Not attempted due to medical condition or safety concerns P. Picking up object 88-Not attempted due to medical condition or safety concerns R. Wheel 50 feet with two turns 88-Not attempted due to medical condition or safety concerns S. Wheel 150 feet 88-Not attempted due to medical condition or safety concerns - Bladder and Bowel Bladder continence Bowel continence - Endurance Fair - Balance Poor - Safety Awareness Fair CURRENT [facility] DEFICITS: Self-Care, Mobility, Endurance, Balance, and Safety Awareness SIGNATURE PANEL: (CDT)
--- NOTE | 2021-05-27 21:11 | DS ---
Date of Discharge: 05/27/2021 Disposition: Discharged to go to medical floor. Physical Examination: General: This morning when I saw him; he was lying in bed, not oriented, followed simple commands li ke moving his extremities, but does not realize which one is right-sided and which one is left side. No focal neurological deficits noted as far as weakness is concerned. He does not answer questions appropriately because he is not oriented, but this is his baseline. HEENT: Unremarkable. Lungs: Clear to auscultation. Heart: Sounds normal. Abdomen: Soft. Bowel sounds normal. No guarding, rigidity, tenderness, or distention. Extremities: No leg edema. Hospital Course: This is a 70-year-old pleasant male patient, who was admitted to rehab floor 3 days ago, who was seen for followup this morning and he was like his baseline status this morning. Somet rose later this morning, nurse found out that the patient was unresponsive. His heart rate was low an d his blood pressure was very low. Rapid Response team arrived and I was contacted and I went to see him as well. The patient had received approximately 600 mL of IV fluid and he was already on dopami ne drip at 10 mcg. His lowest blood pressure was 70/50 and lowest heart rate was 52. At some point, there was concern about his airway, but he never required any intubation. He never required any oxy gen supplemental therapy because he was maintaining adequate amount of oxygenation. He never require d any chest compressions either. When I arrived, he was very sleepy, but was noted to be moving his extremities spontaneously and head from [id number] at times. We did finish the bolus of 1 L of IV fluid and we were able to discontinue his dopamine drip because his systolic blood pressure was aroun d 150-160 and with close monitoring, we were able to discontinue dopamine drip. His pupils were equa l, but pinpoint and with help of Dr. Anguiano, we did establish central line in left subclavian region because we had only one peripheral access to his right hand and we needed better IV access, so centr al line was placed emergently. Once his condition was stabilized, he was transferred to [facility]. I did discuss all the details with the patient's . Laboratory Data: Labs done today; white count 9.4, hemoglobin 13.6, platelets 260. Blood gas; pH 7. 46, pCO2 33, pO2 65, saturation 93% on room air. Chemistry; sodium 143, potassium 4, chloride 112, b icarb 23, BUN 19, creatinine 1.05, glucose 114. Liver function test unremarkable. CPK of 3085. Tro ponin less than 0.02. Final Diagnoses: 1.Stroke. 2.Atrial fibrillation, paroxysmal. 3.Hypotension. 4.Altered mental status. 5.Alzheimer dementia with behavioral changes. 6.Vascular dementia. 7.Coronary artery disease. 8.Hypertension. 9.Hyperlipidemia. 10.Benign prostatic hypertrophy. 11.Hypothyroidism. 12.Left kidney cancer. 13.Impaired fasting glucose. Discharge Medications: See copy of transfer orders for details. YARELI/MODL Voice ID: [id number] Report ID: [id number]
--- NOTE | 2021-05-28 15:10 | R.DS ---
DISCHARGE SUMMARY FACILITY [facility] MR# [id number] NAME LUISA ROSS ADDRESS [address] [place] [address] PHONE DATE OF 1950 AGE 70 SSN# [id number] GENDER Male MARITAL STATUS ENCOUNTER PHYSICIAN Dr. Danis Montero M.D. REFERRING DOCTOR REFERRING FACILITY [facility] DISCHARGE DIAGNOSIS: - Stroke 01 - Right Body (Left Brain) (01.2) ACUTE CVA. DATE OF ADMISSION 05/24/2021 15:10 (CDT) MEDICATION ALLERGIES: LEVAQUIN CAUSING PAIN IN HIS HAND ENVIRONMENTAL ALLERGIES: - Substance Allergies None Known - Other Allergies None Known DISCHARGE MEDICATIONS: Other- ContinueSee attached MAR (Medication Administration Record). NURSING: - Shower allowing shower - Bladder care per protocol - Skin care per protocol PRECAUTIONS: - Weight Bearing Precaution WBAT both LE ACTIVITIES OOB only with supervision THERAPIES: - Dietary and Nutrition Adequate Nutrition Nutritional Education Nutritional Supplements - Occupational Therapy Cognitive Retraining Visual Perceptual Training ADL Training - Speech Therapy Cognitive Training Expressive Language Skills Memory Strategies Receptive Language Skills Speech Intelligibility Training - Physical Therapy Evaluate and Treat Gait Training Balance Training LE Strengthening Mobility Training HISTORY OF PRESENT ILLNESS: Pt. is a 70 yo Right-handed male.On 05/14/2021 Pt. presented to [facility] with sudden o nset of right-side weakness.On 05/14/2021 he was admitted to [facility] with diagnosis A CUTE CVA.His impairment category is Stroke 01 - Right Body (Left Brain) (01.2).Pre-morbidly, Pt. was independent/mod-I in Locomotion, Social Cognition, Safety Awareness, Balance, and Transfers Control; and he had good Endurance, Communication, Self-Care, and Sphincter Control.Currently, he has deficit s of Locomotion, Safety Awareness, Social Cognition, Transfers Control, Balance, Sphincter Control, C ommunication, Self-Care, and Endurance.Pt. is now referred to [facility] for a cute in-patient rehabilitation in order to maximize patient's functional independence in activities o f daily living, strength, ROM, and mobility.- Rehab Goal Patient has realistic goal of being discharged at assistance level 7-Ind to reside at Home with Fami ly/Relatives. DIET - LIQUID TEXTURE: On 05/24/2021 Pt was upgraded to Regular Diet - Liquid Texture. DIET - SOLID TEXTURE: On 05/24/2021 Pt was upgraded to Regular Diet - Solid Texture. DIET TYPE: On 05/24/2021 Pt was upgraded to Regular Diet Type. TUBE FEED: On 05/24/2021 Pt was changed to N/A Tube Feed. WEIGHT BEARING PRECAUTION: On 05/25/2021 the following precautions were added for the patient: Weight Bearing Precaution - WBAT both LE. On 05/26/2021 the following precautions were added for the patient: Weight Bearing Precaution - WBAT both LE. Dr. Ross coded on 05/27/21 due to severe symptomatic hypotension and bradycardia. He was treated wi th pressors with improved blood pressure control and transferred to telemetry. DISCHARGE PHYSICAL EXAM - Gen Alert and awake Lying in bed No apparent distress - Skin No skin breakdown. No abnormalities - Eyes No abnormalities - ENMT No abnormalities - Neck No abnormalities - CVS RRR - Chest No abnormalities - Resp Clear to auscultation - Abd + bowel sounds - GI nondistended No abnormalities - No abnormalities - Ext No significant edema - MSK 4/5 weakness in both lower extremities. - Neuro No focal deficits - Psych Marked decrease in verbal fluency. Flat affect with emotional lability. FUNCTIONAL STATUS: - Self-Care A. Eating 3-modA B. Grooming 2-maxA C. Bathing 2-maxA D. Dressing - Upper 2-maxA E. Dressing - Lower 1-Dep F. Toileting 2-maxA - Sphincter Control G. Bladder control 5-sup H. Bowel control 5-sup - Transfers Control I. Bed/Chair/Wheelchair 2-maxA J. Toilet 2-maxA K. Tub/Shower 2-maxA - Locomotion L. Walk/Wheelchair (B) 2-maxA M. Stairs 0-ADNO - Communication N. Comprehension (B) 3-modA O. Expression (B) 2-maxA - Social Cognition P. Social Interaction 3-modA Q. Problem Solving 2-maxA R. Memory 2-maxA - Endurance Poor - Balance Poor - Safety Awareness Poor QI SCORES: - Self-Care A. Eating 03-Partial/moderate assistance B. Oral hygiene 03-Partial/moderate assistance C. Toileting hygiene 02-Substantial/maximal assistance E. Shower/bathe self 02-Substantial/maximal assistance F. Upper body dressing 02-Substantial/maximal assistance G. Lower body dressing 02-Substantial/maximal assistance H. Putting on/taking off footwear 88-Not attempted due to medical condition or safety concerns - Mobility A. Roll left and right 03-Partial/moderate assistance B. Sit to lying 03-Partial/moderate assistance C. Lying to sitting on side of bed 03-Partial/moderate assistance D. Sit to stand 03-Partial/moderate assistance E. Chair/svf-qi-rpwec transfer 03-Partial/moderate assistance F. Toilet transfer 02-Substantial/maximal assistance G. Car transfer 88-Not attempted due to medical condition or safety concerns I. Walk 10 feet 03-Partial/moderate assistance J. Walk 50 feet with two turns 03-Partial/moderate assistance K. Walk 150 feet 03-Partial/moderate assistance L. Walking 10 feet on uneven surfaces 88-Not attempted due to medical condition or safety concerns M. 1 step (curb) 88-Not attempted due to medical condition or safety concerns N. 4 steps 88-Not attempted due to medical condition or safety concerns O. 12 steps 88-Not attempted due to medical condition or safety concerns P. Picking up object 88-Not attempted due to medical condition or safety concerns R. Wheel 50 feet with two turns 88-Not attempted due to medical condition or safety concerns S. Wheel 150 feet 88-Not attempted due to medical condition or safety concerns - Bladder and Bowel Bladder continence Bowel continence - Endurance Fair - Balance Poor - Safety Awareness Fair DISCHARGE INSTRUCTIONS: - N/A Eliquis 5 mg twice daily. DISCHARGE PLAN, FOLLOW UP CARE PROVISIONS: - Estimated Length of Stay (days) 17. - Consensus on plan Discharge plan has been discussed with primary caregiver. Patient/Family is in agreement with the yanet n. Primary caregiver is in agreement with the plan. - Patient/Family Goals Return home independently. - Planned Living Setting Upon Discharge Home, to live with Family/Relatives. Transitional Living. SIGNATURE PANEL: (CDT)
== END 2021-05-27 15:35 | disposition home or self-care (01) | DRG 57 ==
LOC: 5TH 15:10
PROVIDERS: ADMIT Psychiatry & Neurology Neurology with Special Qualifications in Child Neurology; ATTEND Psychiatry & Neurology Neurology with Special Qualifications in Child Neurology
PROC: 05H633Z Insertion of Infusion Device into Left Subclavian Vein, Percutaneous Approach (ICD-10-PCS; principal; 2021-05-27)
DX: I69.351 Hemiplegia and hemiparesis following cerebral infarction affecting right dominant side (principal); F02.81 Dementia in other diseases classified elsewhere, unspecified severity, with behavioral disturbance; I95.9 Hypotension, unspecified; R40.4 Transient alteration of awareness; I48.0 Paroxysmal atrial fibrillation; G30.9 Alzheimer's disease, unspecified; F01.50 Vascular dementia, unspecified severity, without behavioral disturbance, psychotic disturbance, mood disturbance, and anxiety; I25.10 Atherosclerotic heart disease of native coronary artery without angina pectoris; I10 Essential (primary) hypertension; E78.5 Hyperlipidemia, unspecified; N40.0 Benign prostatic hyperplasia without lower urinary tract symptoms; E03.9 Hypothyroidism, unspecified; Z85.528 Personal history of other malignant neoplasm of kidney
CPT/HCPCS: 36415; 70450; 71045; 80048; 80076; 82040; 82550; 82553; 82805; 82947; 83735; 84100; 84134; 84484; 85025; 85379; 85610; 85730; 92523; 97112; 97116; 97163; 97530; J1265; J1630; J2310; J7030; J7042; J7060

== ENCOUNTER 2021-05-27 15:54 | Inpatient (IN) | payer OTHER ==
--- NOTE | 2021-05-27 17:05 | RAD REPORT ---
EXAM DESCRIPTION: CT - Chest For Pe Angio - 05/27/2021 4:52 pm CLINICAL HISTORY: Chest pain. PE protocol COMPARISON: Chest Single View dated 05/27/2021; Brain W/Wo Cont dated 05/14/2021; Head Brain Wo Cont d ated 05/19/2021; Head Brain Wo Cont dated 05/25/2021; Angio Aorta For Dissection dated 03/04/2021 TECHNIQUE: CT angiogram of the pulmonary arteries was performed with MIP. All CT scans are performed using dose optimization technique as appropriate and may include automated exposure control or mA/KV adjustment according to patient size. FINDINGS: No evidence of pulmonary thromboembolism. No acute aortic finding demonstrated. Interstitial lung markings are mildly prominent suggesting mild interstitial edema or viral infection . Linear atelectasis is present in both lung bases. Small pulmonary nodules are evident particularly notable in the left upper lobe and unchanged since 0 03/04/2021. Similarly, bilateral hilar and mediastinal lymphadenopathy is again seen, also appearing e ssentially unchanged since 03/04/2021 when taking into account slight differences in technique. No significant pericardial or pleural fluid. Sclerotic rib lesions identified, most notable posterior left eleventh rib near the costovertebral ju nction. Small low-density hepatic lesions are seen but incompletely assessed on this study. Cholecystectomy c lips noted. IMPRESSION: No evidence of pulmonary thromboembolism.
[2021-05-27] MEDS: D5 0.9 NS 1,000 ML IV SCH (17:46)
[2021-05-27 18:13] VITALS: BMI 24.9
[2021-05-27] MEDS ORDERED: LEVETIRACETAM 500 MG/5 ML VIAL IV ONE (20:28)
[2021-05-27] MEDS ORDERED: ACETAMINOPHEN 500 MG TAB PO PRN (20:31)
[2021-05-27] MEDS ORDERED: ONDANSETRON 4 MG (ODT) TAB PO PRN (20:31)
[2021-05-27] MEDS ORDERED: DOCUSATE NA/SENNA CONC 1 TAB PO PRN (20:31)
[2021-05-27] MEDS ORDERED: D5 0.9 NS 1,000 ML IV SCH (20:31)
[2021-05-27] MEDS ORDERED: ENOXAPARIN 80 MG/0.8 ML SQ SCH ×2 (20:31→21:00)
[2021-05-27] MEDS ORDERED: HALOPERIDOL LACT 5 MG/ML INJ IV PRN (20:31)
[2021-05-27] MEDS ORDERED: levETIRAcetam 250 MG in NA CHLORIDE 0.9% 100 ML IV SCH ×4 (21:00)
[2021-05-27] MEDS ORDERED: NYSTATIN PWDR 100000 UNIT/GM TOP SCH (21:00)
[2021-05-27] MEDS ORDERED: HYDROCORTISONE SUC 100 MG INJ IV SCH (21:00)
[2021-05-27] MEDS: DONEPEZIL HCL 5 MG TAB PO SCH (21:00)
[2021-05-27] MEDS ORDERED: levETIRAcetam 500 MG TAB PO SCH (21:00)
[2021-05-27] MEDS: MEMANTINE HCL 10 MG TABLET PO SCH (21:00)
[2021-05-27] MEDS: ENSURE ENLIVE 237 ML CAN PO SCH (21:00)
[2021-05-27] MEDS: APIXABAN 5 MG TABLET PO SCH (21:00)
[2021-05-27] MEDS ORDERED: lisinopriL 5 MG TAB PO SCH (21:00)
[2021-05-27] MEDS ORDERED: AMLODIPINE 5 MG TAB PO SCH (21:00)
[2021-05-27] MEDS: NYSTATIN PWDR 100000 UNIT/GM TOP SCH (21:00)
[2021-05-27] MEDS: FAMOTIDINE 20 MG/2 ML VIAL IV SCH (21:00)
--- NOTE | 2021-05-27 21:43 | HP ---
Date of Admission: 05/27/2021 Chief Complaint: Altered mental status and low blood pressure. History Of Present Illness: This is a 70-year-old male patient, who was on rehab floor and today because of sudden acute change in his condition, he was brought to medical floor after stabilization on the rehab floor. This morning when I saw him, he was like his normal baseline around 10 or 11 o'clock or so. All of sudden his condition deteriorated where he became unresponsive, hypotensive with blood pressure 70/50, lowest pulse rate was 52. Rapid Response team was called and the patient never required any chest compression or any intubation. He maintained adequate oxygenation without any supplemental oxygen. He received 1 L of IV fluid and dopamine drip and subsequently blood pressure came up, so dopamine was discontinued and the patient was brought to medical floor after stabilization. I went back in his room this evening. He is back to his normal self, awake, but not oriented. When we asked him any questions, he does not give appropriate answers. He says something, but that is totally irrelevant. He did not recognize me and he has not recognized me lately. He was not in any distress this evening when I saw him on the medical floor. Allergies: TO LEVAQUIN CAUSING PAIN IN HIS HANDS. Medications: Current medication list reviewed. Prior to hospital admission, he was taking the following medications: 1. Aspirin 81 mg daily. 2. Welchol 625 mg and I am not sure whether he takes it 1 tablet 2 times a dayor 2 tablets 2 times a day as this is not prescribed by me. 3. Donepezil 23 mg daily. 4. Hydrocortisone 10 mg 3 times a day. 5. Levothyroxine 125 mcg daily. 6. Lisinopril 5 mg 2 times a day. 7. Xarelto 20 mg daily in the evening with evening meal. 8. Sotalol 80 mg 2 times a day. 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 Cardiovascular: As mentioned above. All other systems reviewed and negative. Past Medical History: Significant for Alzheimer disease with dementia and behavioral changes, vascular dementia, hypothyroidism, impaired fasting glucose, pituitary adenoma, testicular hypofunction, hypertension, mixed hyperlipidemia, coronary artery disease, paroxysmal atrial fibrillation, kidney cancer involving left kidney, benign prostatic hypertrophy, chronic kidney disease, elevated PSA for which he had negative prostate biopsy in the past which was in [address] Matias and recent admission was stroke likely embolic in nature due to paroxysmal atrial fibrillation and noncompliance with his medications. Past Surgical History: Cataract surgery, cholecystectomy, coronary artery angioplasty with stent placement in 2014, left-sided partial nephrectomy in 2007 because of kidney cancer, prostate biopsy in [address] Salcedo, and arthroscopic knee surgery. Family History: Father and mother had lung cancer. Mother, hypertension. Sister, ulcerative colitis. Social History: Negative for smoking. Use of alcohol rarely. Physical Examination: Vital Signs: Temperature 98.1, pulse 55, respiratory rate 16, blood pressure 128/64, oxygen saturation 97%. Height 6 feet 4 inches, weight 205 pounds. General: The patient lying in bed, not in distress, but not oriented. HEENT: Head atraumatic, normocephalic. Conjunctivae nonerythematous. Sclerae white. Mouth, no thrush or edema noted. Ears/Nose, no mass, lesion, discharge noted. Neck: Supple. No JVD, lymph nodes, bruit, thyromegaly noted. Lungs: Bilateral good equal air entry. Clear to auscultation. No rhonchi. No rales. Heart: Normal heart sounds, no murmur or gallop. Abdomen: Soft, bowel sounds normal. No guarding, rigidity, tenderness, mass, hepatosplenomegaly, distention, or bruit noted. Extremities: No leg edema. No calf tenderness. Skin: No rash, ulcer, cellulitis. Lymphatics: No lymph node enlargement in neck, supraclavicular, infraclavicular region. Neuro: No focal neurological deficit. Chest: Unremarkable. External Genitalia: Deferred. Rectal: Deferred. 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 Laboratory Data: Sodium 143, potassium 4, chloride 112, bicarb 23, BUN 19, creatinine 1.05, glucose 114. Liver function test unremarkable. Total CPK 3085, CK-MB 4.2, troponin less than 0.02. White count 9.4, hemoglobin 13.6, platelets 260. Impression: 1. Hypotension. 2. Altered mental status. 3. Stroke. 4. Alzheimer disease with dementia with behavioral changes. 5. Vascular dementia. 6. Hyperlipidemia. 7. Coronary artery disease. 8. Benign prostatic hypertrophy. 9. Left kidney cancer. 10. Hypothyroidism. 11. Impaired fasting glucose. Plan: We will go ahead and admit the patient to hospital for further evaluation and management of this problem. The patient is appropriate for inpatient and is expected to spend 2 midnights in hospital. We will continue IV fluid per order. The patient is back to his normal baseline. Start his oral medication including diet. We will go ahead and give him IV steroid and Lovenox was ordered for treatment of his atrial fibrillation and starting tomorrow, we will consider to switch to oral anticoagulant medicine at appropriate time. We will monitor him closely on the medical floor and Cardiology consultation was requested at this point. His condition has improved and he is stable. I did call the patient's this evening again to give her updates and I will see him tomorrow morning for followup. The patient normally takes oral hydrocortisone as his maintenance therapy and we will give him IV hydrocortisone at this point. YARELI/MODL Voice ID: [id number] RADHA
[2021-05-27] MEDS: LORazepam 2 MG/ML VIAL IV PRN (22:41)
[2021-05-28] MEDS: LEVOTHYROXINE SOD 0.1 MG TAB PO SCH (05:59)
[2021-05-28] MEDS ORDERED: SOTALOL HCL 80 MG TAB PO SCH (06:00)
[2021-05-28] MEDS: D5 0.9 NS 1,000 ML IV SCH (06:27)
[2021-05-28] MEDS: HYDROCORTISONE SUC 100 MG INJ IV SCH ×2 (08:23→08:26)
[2021-05-28] MEDS: LIDOCAINE 4% PATCH TOP SCH (08:23)
[2021-05-28] MEDS: APIXABAN 5 MG TABLET PO SCH ×2 (08:24→20:07)
[2021-05-28] MEDS: MEMANTINE HCL 10 MG TABLET PO SCH ×2 (08:24→20:06)
[2021-05-28] MEDS: lisinopriL 5 MG TAB PO SCH ×2 (08:24→20:07)
[2021-05-28] MEDS: levETIRAcetam 500 MG TAB PO SCH ×2 (08:24→20:07)
[2021-05-28] MEDS: FAMOTIDINE 20 MG/2 ML VIAL IV SCH ×2 (08:24→20:08)
[2021-05-28] MEDS: NYSTATIN PWDR 100000 UNIT/GM TOP SCH ×2 (08:25→20:15)
[2021-05-28] MEDS: WATER FOR INJ,STERILE 10 ML IV SCH ×2 (08:26→20:07)
[2021-05-28] MEDS: ENSURE ENLIVE 237 ML CAN PO SCH ×2 (08:27→20:07)
[2021-05-28] MEDS ORDERED: BENZTROPINE 1 MG TAB PO SCH (09:00)
[2021-05-28] MEDS ORDERED: ARIPiprazole 5 MG TAB PO SCH (09:00)
--- NOTE | 2021-05-28 13:21 | CON ---
Date of Consultation: 05/28/2021 Reason For Consultation: History of AFib. History Of Present Illness: A 70-year-old male with advanced vascular dementia, hypothyroidism, hype rtension, dyslipidemia, coronary artery disease, paroxysmal atrial fibrillation, renal cancer, presen ary with altered mental status, low blood pressure. I was consulted for management of AFib. Evaluat ed him by bedside. The patient is pleasantly confused, unable to obtain history and currently is in sinus rhythm. Past Medical History: As outlined above in HPI. Medications: Refer to reconciliation sheet for detailed list. Allergies: LEVOFLOXACIN. Past Surgical History: Cardiac stent placement, cholecystectomy, nephrectomy. Family History: No premature coronary artery disease, but history of lung cancer on mother's side. Social History: Does not smoke or drink. No use of drugs. Review of Systems: All systems reviewed and negative except for mentioned in the HPI. Physical Examination: Vital Signs: Temperature is 97.1, pulse 51, breathing 17, blood pressure is 122/64, satting 95% on r oom air. General: Pleasant, elderly male, in no distress. Head and Neck: Pupils are equal, reactive to light. Intact eye movements. No JVD. No cervical lym phadenopathy. Neck: Supple. Thyroid is not enlarged. Lungs: Clear to auscultation bilaterally. No rhonchi, rales, or crackles. No accessory muscle use. Heart: Regular rate, rhythm. No extra sounds. Abdomen: Soft, nontender. Bowel sounds positive. No organomegaly. No masses or hernia. No rigidi ty or rebound. Extremities: No edema, clubbing, cyanosis. Intact pulses Skin: No rashes. Neurologic: Alert, awake with confusion. No focal deficits appreciated. Lymph nodes: No cervical or axillary lymphadenopathy. Investigations: Labs reviewed. Assessment And Recommendation: History of paroxysmal atrial fibrillation. This patient is in sinus rhythm now. If there is documented atrial fibrillation, then recommend anticoagulation as his CHADS- VASc score is elevated and at high risk for stroke and given his age and dementia, he might benefit f rom left atrial appendage closure which can be arranged at a later time as an outpatient basis. Thank you for the consult. /EMILY Voice ID: [id number] Report ID: [id number]
[2021-05-28] MEDS: LORazepam 2 MG/ML VIAL IV PRN (16:15)
--- NOTE | 2021-05-28 19:44 | CON ---
Reason For Consultation: Consultation called by Dr. Arceo because of stroke, ongoing dementia and rec ent episode of hypotension and bradycardia requiring transfer to the telemetry floor from rehab. 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 He came to rehab and was interacting int ermittently with the staff, at times with absolutely not responding at all and at times would partici brock in bed mobility exercises and at times would push back on the staff and not respond appropriatel y. However, yesterday around noon, had an episode of severe symptomatic bradycardia with hypotension requiring pressors to restore blood pressure. He was coded, did not require intubation or chest com pressions and was then transferred to the floor for telemetry monitoring and management of his atrial fibrillation by Cardiology. I saw him earlier today and he was actually much more interactive. He does have a one-to-one sitter because of his tendency to push and pull things and may pull his lines. He was eating. He was babbling tangentially, did appear to notice, and did talk about the weather, talked about the room, but not in a purposeful manner. He was moving arms and legs equally well. F gail appears symmetric. Past Medical History: As noted in the recent history and physical. Medications: Eliquis 5 mg twice daily, Aricept 10 mg at bedtime, Keppra 250 mg twice daily, Synthroi d 0.1 mg daily, Prinivil 5 mg twice daily. Namenda 5 mg twice daily. Allergies: OFLOXACIN. Family History: Lung cancer in his mother. Social History: The patient was living with his at home. No alcohol, tobacco, or IV drug use. Physical Examination: Vital Signs: Blood pressure 149/66, pulse of 70, respiratory rate 17, temperature 97.8, oxygen satur ation 99% of room air. Weight 205 pounds, height 6 feet 4 inches, BMI 25. General: Dr. 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 As noted, he is in no acute distress. HEENT: He is normocephalic, atraumatic. Sclerae anicteric. Oropharynx is pink and moist. Neck: Supple. Chest: Clear. Heart: Irregularly irregular. Abdomen: Soft. Extremities: Show no significant edema or cyanosis. Neurological: He is alert and oriented to his name. He is disoriented to situation and place. Does follow simple commands intermittently. He was eating. Does have 1-1 sitter at the bedside helping w ith his meals. Cranial nerves despite the findings on his stroke do not show any obvious deficits. Motor in terms of arm and leg movement equally responsive to stimulation. He does have apparent apha bong, very tangential. Difficulty with generating thought and expressing himself appropriately. He ap pears to be more inappropriate, sometimes seemingly to smile when there is nothing there to be smilin g around or looking and commenting on the weather outside when asked about other things. Laboratory Studies: Complete blood count with differential is normal except for mildly elevated neut rophils of 79. His D-dimer 1573. Arterial blood gas showed pH 7.46, pCO2 33, PO2 65. Chemistries s how elevated creatine kinase 3085, elevated CK-MB of 4.2, troponins negative at less than 0.02, gluco se ranged 114, calcium 7.9, cortisol 18.4. He has a negative COVID test from the of May, but positive 3 times between April and May. 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 He has atrial fibrillation and hypertension with episode of h ypotension that resulted in his discharge from the rehab unit. Plan: 1.Continue with aggressive management of blood pressure. Continue with management of atrial fibrill ation, anticoagulation, and possible atrial appendage procedure as per landscape foreman and that is the Barrie narayanan. 2.Management of his cognitive issues with Namenda and Aricept as indicated. 3.The patient's comorbid medical conditions are managed by Dr. Arceo, his primary care physician. LB/MODL Voice ID: [id number] Report ID: [id number]
[2021-05-28] MEDS: DONEPEZIL HCL 5 MG TAB PO SCH (20:06)
[2021-05-28] MEDS: BENZTROPINE 1 MG TAB PO PRN (20:08)
[2021-05-29] MEDS: HALOPERIDOL LACT 5 MG/ML INJ IV PRN ×3 (00:01→21:59)
[2021-05-29] MEDS: LEVOTHYROXINE SOD 0.1 MG TAB PO SCH (05:46)
[2021-05-29] MEDS: WATER FOR INJ,STERILE 10 ML IV SCH ×2 (09:00→20:11)
[2021-05-29] MEDS: ENSURE ENLIVE 237 ML CAN PO SCH ×2 (09:00→20:12)
[2021-05-29] MEDS ORDERED: TIOTROPIUM 18 MCG IH SCH (09:00)
[2021-05-29] MEDS: FAMOTIDINE 20 MG/2 ML VIAL IV SCH ×2 (09:00→20:10)
[2021-05-29] MEDS: MEMANTINE HCL 10 MG TABLET PO SCH ×2 (09:00→20:13)
[2021-05-29] MEDS: APIXABAN 5 MG TABLET PO SCH ×2 (09:00→20:12)
[2021-05-29] MEDS: LIDOCAINE 4% PATCH TOP SCH (09:01)
[2021-05-29] MEDS: levETIRAcetam 500 MG TAB PO SCH ×2 (09:01→20:10)
[2021-05-29] MEDS: lisinopriL 5 MG TAB PO SCH ×2 (09:01→20:11)
[2021-05-29] MEDS: HYDROCORTISONE SUC 100 MG INJ IV SCH ×2 (09:02→20:10)
[2021-05-29] MEDS: NYSTATIN PWDR 100000 UNIT/GM TOP SCH ×2 (09:17→20:14)
[2021-05-29] MEDS ORDERED: ZIPRASIDONE MESYLA 20 MG/VIAL IM ONE (10:46)
[2021-05-29] MEDS ORDERED: WATER FOR INJ,STERILE 10 ML ONE (10:46)
[2021-05-29] MEDS: BENZTROPINE 1 MG TAB PO PRN ×2 (11:30→20:12)
--- NOTE | 2021-05-29 14:07 | PN ---
Date of Progress Note: 05/29/2021 Subjective: The patient had episodes of agitation that required use of Haldol yesterday afternoon, w wayne was ordered by psychiatrist along with Taras was ordered by him. He used second dose for sim ilar reason of agitation last night. He was doing fine this morning, took all his medications and al so ate his breakfast and for no obvious reason all of a sudden he started getting very agitated and Milagros Cortes was called because of his agitation and aggressive behavior and he did receive 1 dose of Kirby dol 2 mg IV for this episode. I arrived at hospital probably about 10-15 minutes after this episode started and after the Haldol injection was given and upon my arrival in room, I found out there were altogether 8 people trying to hold him down in the bed to try to control his behavior. The patient s lowly over period of time calmed down. We did not put him in any restraint, but we were holding his both arms and both legs so that way he would avoid hurting himself or hurting somebody else. Once he calmed down, he fell asleep approximately for 20-30 minutes and we left him alone with 1 on 1 care g iver at the bedside. I came back to check on him again after about 30 minutes or so and the patient was awake but not oriented, not in any distress, and not agitated. When I came back this time, [facility] staff was trying to clean him because he had a bowel movement and his skin over his buttocks has a red rash with some superficial excoriation over the right buttock skin. So far we have been using n ystatin, but I will change it to Silvadene cream. The patient is not oriented. He has periods of de la fuente llucinations. He does not recognize me and does not answer any questions when I talk to him. His wi fe just arrived at the hospital and my recommendation is that the patient should go to [facility] where they can actually help adjust his medications and then he will have a better chance of sta jaime at home. The patient's family does not want him to go to prison and they want him to come home and they are willing to arrange for 24-hour care at home, but with his current hallucination, p aranoid features, and behavioral problem with aggressive behavior family will not be able to handle i t until we get his medication adjusted. So my recommendation is for him to go to such facility and t he patient's is agreeable. We will have our Social Service assist us with that. The patient is medically stable, hemodynamically stable for transfer to such facility. He is tolerating diet well and taking medications well without any problem. No difficulty swallowing. He does not have any foc al neurological deficit now. Physical Examination: HEENT: Unremarkable. Lungs: Clear to auscultation. Heart: Sounds normal. Abdomen: Soft. Bowel sounds normal. No guarding, rigidity, tenderness, distention. Extremities: No leg edema. Neuro: No focal neurological deficits. Skin: Presence of rash over his buttocks. Laboratory Data: There were no new labs today. Impression: 1.Alzheimer disease with dementia, with behavior problem. 2.Vascular dementia. 3.Paroxysmal atrial fibrillation. 4.Stroke. 5.Hypertension. Plan: We will continue current Eliquis. Continue current antihypertensive medications. We will con nestor p.rValentinon. use of Haldol. I did ask nurse to try to communicate with psychiatrist, Dr. Allen to get further recommendation from him. We will consider using Geodon 10 mg IM x1 dose if needed. We d id consider using it, but Haldol injection that he got earlier this morning did finally work to calm him down. So, the patient did not receive any Geodon today. All these details were discussed with t he patient's today and she understands and agrees with transfer to [facility] and once w e have acceptance, we will be able to transfer him to such facility via ground ambulance. The patien t is medically stable for transfer. YARELI/MODL Voice ID: [id number] Report ID: [id number]
--- NOTE | 2021-05-29 17:43 | PN ---
Date of Progress Note: 05/28/2021 Subjective: The patient was seen for followup this morning. He was lying in bed, not in distress. He had uneventful night. He slept off and on during nighttime as reported by nursing staff. Objective: Vital Signs: Reviewed. HEENT: Unremarkable. Lungs: Clear to auscultation. Heart: Sounds normal. Abdomen: Soft. Bowel sounds normal. No guarding, rigidity, tenderness, or distention. Extremities: No leg edema. Laboratory Data: Last night, we did serum cortisol level, it was 18.48 and repeat troponin was less than 0.02. Impression: 1.Alzheimer disease with dementia, with behavioral changes. 2.Vascular dementia. 3.Paroxysmal atrial fibrillation. 4.Hypertension. Plan: We will go ahead and continue current medication. Today, when I saw him in the morning, he wa s not oriented. He was talking, but not answering questions and not in any distress. During the cou rse of day today, he unfortunately had periods of agitation and when nurse contacted me, she was aske d to contact psychiatrist, who ordered some Haldol and we will see him tomorrow for followup. He is tolerating diet well and taking his medications without any difficulty. YARELI/MODL Voice ID: [id number] Report ID: [id number]
[2021-05-29] MEDS: SILVER SULFADIAZINE 1% 25 GM TOP SCH (20:08)
[2021-05-29] MEDS: DONEPEZIL HCL 5 MG TAB PO SCH (20:12)
[2021-05-29] MEDS: DIGOXIN 0.25 MG/ML AMP IV SCH (21:17)
[2021-05-30] MEDS: LEVOTHYROXINE SOD 0.1 MG TAB PO SCH (05:36)
[2021-05-30] MEDS: LIDOCAINE 4% PATCH TOP SCH (08:42)
[2021-05-30] MEDS: MEMANTINE HCL 10 MG TABLET PO SCH ×2 (08:43→19:52)
[2021-05-30] MEDS: lisinopriL 5 MG TAB PO SCH ×2 (08:43→19:51)
[2021-05-30] MEDS: METOPROLOL TAR 25 MG TAB PO SCH ×2 (08:43→19:53)
[2021-05-30] MEDS: APIXABAN 5 MG TABLET PO SCH ×2 (08:44→19:52)
[2021-05-30] MEDS: levETIRAcetam 500 MG TAB PO SCH ×2 (08:44→19:51)
[2021-05-30] MEDS: NYSTATIN PWDR 100000 UNIT/GM TOP SCH ×2 (08:44→19:54)
[2021-05-30] MEDS: SILVER SULFADIAZINE 1% 25 GM TOP SCH ×2 (08:45→19:53)
[2021-05-30] MEDS: HALOPERIDOL LACT 5 MG/ML INJ IV PRN ×2 (09:34→18:22)
[2021-05-30] MEDS: HYDROCORTISONE 10 MG TAB PO SCH ×3 (09:40→20:15)
--- NOTE | 2021-05-30 11:52 | PN ---
Date of Progress Note: 05/30/2021 Subjective: The patient was seen this morning for followup. He was lying in bed, not in distress. Has caregiver present in the room all the time. He has required some Haldol on a p.r.n. basis for agitation. He is eating well, taking medications without any difficulties. Objective: Vital Signs: Reviewed. General: When I saw him, he was not in any distress. He does not answer any questions appropriately. When we are asking something, he starts talking about something totally different. He is not in any distress. HEENT: Unremarkable. Lungs: Clear to auscultation. Heart: Sounds normal. Abdomen: Soft. Bowel sounds normal. No guarding, rigidity, tenderness, distention. Extremities: No leg edema. Neuro: No focal neurological deficits. Laboratory Data: COVID-19 test done yesterday negative. Urinalysis is pending as nurses were not able to collect the urine specimen so far. Impression: 1. Alzheimer disease with dementia, with behavioral changes. 2. Vascular dementia. 3. Paroxysmal atrial fibrillation. 4. Hypertension. 5. Chronic steroid therapy. Plan: We will go ahead and change the steroid medication from IV hydrocortisone to oral hydrocortisone. Normally on outpatient basis, he was taking hydrocortisone 10 mg 3 times a day and our goal is to get down to that maintenance dose over the next couple of days or so. Today, we will discontinue IV steroid, start him on oral hydrocortisone 20 mg 3 times a day. We will continue Eliquis. He was on sotalol 40 mg daily, which was discontinued a few days ago and last night he started to have atrial fibrillation with rapid ventricular rate and 1 dose of digoxin was ordered. His lisinopril that he takes 5 mg twice a day will be kept on hold if systolic blood pressure less than 130 as per order, but we will go ahead and start him on metoprolol 12.5 mg 2 times a day and we will see how he tolerates that for control of atrial fibrillation, rate, and blood pressure control. Considering he is requiring Haldol now, we will avoid sotalol due to interaction with Haldol in terms of potentially increasing QT interval. As of yesterday, we started process of getting the patient transferred to [facility] and so far we are still waiting on any acceptance from this facility. Patient is medically stable for transfer. YARELI/MODL Voice ID: [id number] Report ID: [id number]
[2021-05-30 11:58] LABS: Urine Appearance CLEAR (Clear); Urine Blood NEGATIVE (Negative); Urine Color YELLOW (Yellow); Urine Glucose NEGATIVE (Negative); Urine Protein NEGATIVE (Negative); Urine pH 5.5 (5.0-7.0)
[2021-05-30 12:10] LABS: Urine Bilirubin NEGATIVE (Negative)
[2021-05-30 12:14] LABS: Urine Bacteria <20 /HPF (NONE SEEN); Urine RBC <5 /HPF (NONE SEEN)
[2021-05-30 12:15] LABS: Urine Mucus 2+ /HPF (NONE SEEN)
[2021-05-30] MEDS: ENSURE ENLIVE 237 ML CAN PO SCH ×2 (16:14→20:15)
[2021-05-30] MEDS: WATER FOR INJ,STERILE 10 ML IV SCH (16:27)
[2021-05-30 19:49] VITALS: O2SAT 96
[2021-05-30] MEDS: DONEPEZIL HCL 5 MG TAB PO SCH (19:52)
[2021-05-30] MEDS: BENZTROPINE 1 MG TAB PO PRN (19:53)
[2021-05-30] MEDS: DIGOXIN 0.25 MG/ML AMP IV SCH (20:50)
[2021-05-30] MEDS ORDERED: DIGOXIN 0.25 MG/ML AMP ONE (21:12)
[2021-05-30] MEDS ORDERED: ZIPRASIDONE MESYLA 20 MG/VIAL IM ONE (21:43)
[2021-05-30] MEDS ORDERED: WATER FOR INJ,STERILE 10 ML IM PRN (21:43)
[2021-05-31] MEDS: HALOPERIDOL LACT 5 MG/ML INJ IV PRN ×2 (02:17→08:48)
[2021-05-31] MEDS: LEVOTHYROXINE SOD 0.1 MG TAB PO SCH (05:46)
[2021-05-31] MEDS: levETIRAcetam 500 MG TAB PO SCH (08:47)
[2021-05-31] MEDS: MEMANTINE HCL 10 MG TABLET PO SCH (08:47)
[2021-05-31] MEDS: HYDROCORTISONE 10 MG TAB PO SCH (08:47)
[2021-05-31] MEDS: METOPROLOL TAR 25 MG TAB PO SCH (08:47)
[2021-05-31] MEDS: BENZTROPINE 1 MG TAB PO PRN (08:48)
[2021-05-31] MEDS: APIXABAN 5 MG TABLET PO SCH (08:49)
[2021-05-31] MEDS: ENSURE ENLIVE 237 ML CAN PO SCH (08:50)
[2021-05-31] MEDS: SILVER SULFADIAZINE 1% 25 GM TOP SCH (08:50)
[2021-05-31] MEDS: lisinopriL 5 MG TAB PO SCH (08:50)
[2021-05-31] MEDS: NYSTATIN PWDR 100000 UNIT/GM TOP SCH (08:50)
[2021-05-31] MEDS: LIDOCAINE 4% PATCH TOP SCH (08:50)
[2021-05-31 08:51] VITALS: BP 122/64
[2021-05-31 10:12] VITALS: TEMP 97.6
--- NOTE | 2021-05-31 15:21 | PN ---
Date of Progress Note: 05/28/2021 Subjective: The patient was seen this morning for followup. He had uneventful night. Hemodynamical ly remained stable. He did require 1 dose of IV Ativan once during nighttime because of restlessness and agitation. Otherwise, he did well during night time. He also voided without any difficulty usi ng urinal. Vital signs reviewed. When I walked into his room, he was sleeping, but arousable, talki ng but does not answer questions appropriately. When we asked him something, he talks about somethin g entirely different and not making any sense, but this is how his baseline has been lately. Objective: Vital Signs: Reviewed. HEENT: Examination unremarkable. Lungs: Clear to auscultation. Heart: Sounds normal. Abdomen: Soft. Bowel sounds normal. No guarding, rigidity, tenderness, distention. Extremities: No leg edema. Impression: 1.Hypotension. 2.Altered mental status. 3.Alzheimer disease with dementia, with behavioral changes. 4.Vascular dementia. Plan: We will go ahead and continue IV Solu-Cortef and reduce dose from 100 mg to 50 mg every 12 eve rs. I will discontinue his amlodipine. We will start him on his diet and also start his oral antico agulation therapy, which is Eliquis and discontinue Lovenox. We will not give any Haldol. Start him on oral Keppra and we will discontinue his sotalol in view of his pulse rate around 50 to 55 range, and if necessary, we will consider to restart that. Physical therapy to work with the patient and we will see him tomorrow for followup. I did call and discuss details with the patient's daughter and the patient's this morning, and they have informed me that their desire and decision is to bring patient home with home health care and caregiver services upon discharge from the hospital. They do not want him to go to prison. They are aware that the patient will need 24-hour care. YARELI/MODL Voice ID: [id number] Report ID: [id number]
--- NOTE | 2021-06-01 07:07 | DS ---
Date of Discharge: 05/31/2021 Disposition: The patient was discharged and transferred to [facility]. Physical Examination: General: When I saw him this morning; he was sleeping, lying in bed, not in distress. Vital Signs: Reviewed. HEENT: Unremarkable. Lungs: Clear to auscultation. Heart: Sounds normal. Abdomen: Soft. Bowel sounds normal. No guarding, rigidity, tenderness, or distention. Extremities: No leg edema. Laboratory Data: Labs done during this hospitalization. Troponin less than 0.02. Random serum cortisol level 18.4. Urinalysis negative. COVID-19 test negative. 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 Please see dictated H and P for more information. The patient has underlying Alzheimer disease and dementia along with vascular dementia. Along with Alzheimer disease and dementia, he also has some behavioral changes. So far, he has been under care of neurologist in [place]. Unfortunately, he was not compliant with his medication and he would not allow his to take over his medication management and he was not taking medications as prescribed and presented to hospital with stroke that affected left anterior and middle cerebral artery distribution. There were no hemorrhages. This stroke was thought to be due to embolization from atrial fibrillation. He was stabilized and then subsequently transferred to rehab floor. While on the rehab floor, he had episode of hypotension and he did not require any chest compression or any other aggressive measures. IV fluid and brief use of dopamine corrected the problem and he was brought down to medical floor here. After his transfer to medical floor, his blood pressure remained stable, never had any other episode of hypotension. He was getting Abilify and Haldol and Cogentin as ordered by psychiatrist. Today this particular episode happened on the rehab floor. I did communicate with psychiatrist regarding the event and he informed me that psychiatric medication was not the underlying cause for this hypotension problem and I did request him to continue to follow up for management while on the medical floor. After he was admitted to medical floor, he had intermittent episodes of aggressive behavior to the extent that at some point he also threatened nurses that "I will break your hand." Over the weekend, I did witness 1 of such aggressive behavior as I was in the hospital at that time and it took 8 people to hold him in the bed. We did not have to put any restraints on him, but during that particular episode after Haldol was given, he calmed down. He did require intermittent use of IV Haldol and also required Geodon from time to time. The patient's family really would like for him to come back home, but with this kind of behavior, they will not be able to manage it and other option we discussed was possibility of going to retirement and family has expressed their desire to take him to [facility] if necessary, but at the same time with this kind of behavior, retirement will not be able to keep him either until we get his medications stabilize and his behavior under better control, so I did recommend placement in Gerops[facility] Unit and the patient's agreed. Social Service was consulted and once arrangements completed, the patient was transferred via ground ambulance in stable condition. I have been in contact with the patient's on almost every day or every other day basis to give her updates including today and also communicated with her. Discharge Instructions: Discharge order; continue all current medications and the patient's central line which was in the left subclavian area was ordered to be discontinued prior to discharge from our facility. Discharge Diagnoses: 1. Hypotension. 2. Altered mental status. 3. Stroke. 4. Alzheimer disease with dementia, with behavioral changes. 5. Vascular dementia. 6. Hyperlipidemia. 7. Coronary artery disease. 8. Benign prostatic hypertrophy. 9. Left kidney cancer. 10. Hypothyroidism. 11. Impaired fasting glucose. YARELI/MODL Voice ID: [id number] Report ID: [id number]
== END 2021-05-31 11:30 | DRG 314 ==
LOC: 4TH 15:54
PROVIDERS: ADMIT Internal Medicine; ATTEND Internal Medicine
DX: I95.9 Hypotension, unspecified (principal); I63.9 Cerebral infarction, unspecified; C64.2 Malignant neoplasm of left kidney, except renal pelvis; F02.81 Dementia in other diseases classified elsewhere, unspecified severity, with behavioral disturbance; G30.9 Alzheimer's disease, unspecified; F01.50 Vascular dementia, unspecified severity, without behavioral disturbance, psychotic disturbance, mood disturbance, and anxiety; R21 Rash and other nonspecific skin eruption; E03.9 Hypothyroidism, unspecified; R73.01 Impaired fasting glucose; I10 Essential (primary) hypertension; E78.2 Mixed hyperlipidemia; I25.10 Atherosclerotic heart disease of native coronary artery without angina pectoris; I48.0 Paroxysmal atrial fibrillation; N40.0 Benign prostatic hyperplasia without lower urinary tract symptoms; G31.09 Other frontotemporal neurocognitive disorder; Z91.14 Patient's other noncompliance with medication regimen; Z79.52 Long term (current) use of systemic steroids
CPT/HCPCS: 36415; 71275; 81001; 82533; 84484; 87086; 87088; 93005; 97161; 97530; J1160; J1630; J1720; J1953; J3486; J7042; Q9967; U0003

== ENCOUNTER 2022-09-10 12:19 | Emergency (ER) | payer OTHER ==
--- OUTSIDE RECORDS SUMMARY | 2022-09-10 12:34 | XMS REPORT | Continuity of Care Document ---
:1950 Author Organization [facility] t Address [address] [place] [address] Care Team Providers Name Role Phone Pcp, Patient Does Not Have A Primary Care Physician [phone] Cesar Arceo Attending Clinician Unavailable Manuelito Billy MD Attending Clinician [phone] Doctor Unassigned, [place] Attending Clinician Unavailable JOSE ANTONIO WAGNER Attending Clinician Unavailable JOSE ANTONIO WAGNER Attending Clinician Unavailable Jose Antonio Wagner MD Attending Clinician Reshma Mccormick DO Attending Clinician AFSHIN JORDAN Attending Clinician Unavailable Nurse, Adc Pob Immunization Attending Clinician Unavailable Afshin Jordan DO Attending Clinician ROSANNA YE Attending Clinician Unavailable MD ROSANNA YE Attending Clinician Unavailable RESHMA MCCORMICK Attending Clinician Unavailable Jai Cota RN Attending Clinician Unavailable Bar Hayward MD Attending Clinician Eren PhD, Guru Beckford Attending Clinician DIANNA MATHEWS Attending Clinician Unavailable MANUELITO BILLY Attending Clinician Unavailable EDUARDO ROME Attending Clinician Unavailable ROSANNA YE Admitting Clinician Unavailable MD ROSANNA YE Admitting Clinician Unavailable Payers Payer Name Policy Type Policy Number Effective Date Expiration Date S ource GENERIC PPO - [id number] 2019 00:00:00 GENERIC PAYOR Problems Condition Condition Condition Status Onset Resolution Last Treating Co mments Source Name Details Category Date Date Treatment Clinician Date ALISON (acute ALISON (acute Disease Active M [facility]i kidney kidney 06-02 st injury) injury) 00:00: Hospita 00 l Diarrhea Diarrhea Disease Active [facility] di due to due to 02-[address] st malabsorpt malabsorpt 00:00: Ho spita ion ion 00 l Weight Weight Disease Active [facility] loss, loss, 02-24 st unintentio unintentio 00:00: Ho spita nal nal 00 l Nausea Nausea Disease Active [facility] 02-24 st 00:00: Hospita 00 l Anorexia Anorexia Disease Active [facility]o di 02-24 st 00:00: Hospita 00 l History of History of Disease Active [facility] renal cell renal cell 8-13 [facility] carcinoma carcinoma 00:00: of 00 Medicin e Atrial Atrial Disease Active [facility] fibrillati fibrillati 6-16 Co llege on on 00:00: of Medicin e Routine Routine Disease Active [facility] general general 2-03 [facility] 00:00: of examinatio examinatio 00 Me [facility] Hypogonadi Hypogonadi Disease Active [facility] sm in male sm in male 203 Co llege 00:00: of Medicin e Hyperchole Hyperchole Disease Active [facility] steremia steremia 03 Colleg e 00:00: of 00 Medicin e Coronary Coronary Disease Active [facility] artery artery 2 [place] disease disease 00:00: of involving involving 00 Medi mae [place] e coronary coronary artery of artery of [place] heart heart without without angina angina pectoris pectoris Hypertensi Hypertensi Disease Active [facility] on on 10-07 [place] 00:00: of 00 Medicin e Osteoarthr Osteoarthr Disease Active [facility] itis of itis of 10-07 [place] left knee left knee 00:00: of 00 Medicin e Cognitive Cognitive Disease Active Uni vers change change 10-07 ity of 00:00: [place] 00 [facility] Depression Depression Disease Active U nivers 2-03 ity of 00:00: [place] 00 [facility] Allergies, Adverse Reactions, Alerts Allergy Allergy Status Severity Reaction(s) Onset Inactive Treating Comm ents Source Name Type Date Date Clinician Other Propensi Active levoquine [facility] ty to 2-16 College adverse 00:00: of reaction 00 Medicin s e Statins Propensi Active [facility] ty to 8-13 [place] adverse 00:00: of reaction 00 Medicin s to e drug Levoflox Propensi Active Other [facility] ac[facility] ty to 713 reaction( kes adverse 00:00: s): Medical reaction 00 Unknown - Cente r s See commentsO ther reaction( s): Unknown - See comments Levoflox Propensi Active GI Other [facility] i acin ty to Intolerance 03-16 reaction( st adverse 00:00: s): Hospita reaction 00 Unknown - l s to See drug commentsO ther reaction( s): Unknown - See commentsO ther reaction( s): Unknown - See commentsO ther reaction( s): Unknown - See commentsO ther reaction( s): Unknown - See comments LEVOFLOX Allergy Active [facility] Social History Social Habit Start Date Stop Date Quantity Comments Source History SDOH University o f Alcohol Frequency [place] [facility] History SDDE University o f Alcohol Std [place] [facility] Drinks [facility] History [facility] o f Alcohol Binge [place] [facility] Exposure to 2022-03-25 2022-04-04 Not sure University of SARS-CoV-2 00:00:00 13:29:00 [facility] (event) Branch Tobacco use and 2021-06-09 2021-06-09 Smokeless tobacco [facility] exposure 00:00:00 00:00:00 [facility]-user Hospital Alcohol intake 2018-09-14 2018-09-14 Current drinker Unive rsity of 00:00:00 00:00:00 of alcohol [place] [facility] (finding) Branch Alcohol Comment 2018-03-16 2018-03-16 occaisonal Universit y of 00:00:00 00:00:00 [facility] Sex Assigned At [birth year] [facility] [address] Kirsty kes 00:00:00 [facility]:00:00 [facility] Smoking Status Start Date Stop Date Source Never smoked tobacco [facility] ege of Medicine Tobacco smoking consumption unknown [facility] Medications Ordered Filled Start Stop Current Ordering Indication Dosage Frequency Signature Comments Components Source Medication Medication Date Date Medication? Clinician (SIG) Name Name Evolocumab 2021-09 Yes Inject [facility] (REPATHA 2-15 into the [facility]) 12:00: skin. of 45 Medicin e Calcium 2021-09 Yes 1{tbl} Take 1 [facility] Carbonate-V 2-15 Tablet by Col [facility]ge itamin D 12:00: mouth. of (OYSTER 45 Medicin SHELL e CALCIUM/D) 500-200 MG-UNIT TABS Cholecalcif 2021-09 Yes Take by [place] [facility] brenda caren 2-15 mouth. [place] (VITAMIN 12:00: of D3) 50 MCG 45 Medicin (2000 UT) e TABS Vitamin A 2021-09 Yes Take by [facility] 2400 MCG 2-15 mouth. [place] (8000 UT) 12:00: of CAPS 45 Medicin e escitalopra 2021-09- No Take 1 [place] [facility] brenda m (LEXAPRO) 1-23 12-21 tablet by Co llege 10 MG 00:00: 00:00 mouth once of tablet 00 :00 daily Medicin e memantine 2021-09 Yes Take 1 [facility] (NAMENDA) 5 0-25 tablet by Col [facility]ge MG tablet 00:00: mouth of 00 twice Medicin daily e donepezil Yes [id number] TAKE 1 [facility] 23 MG TABS 7-21 [id number] TABLET BY Co llege 00:00: MOUTH ONCE of 00 DAILY IN Medicin THE e MORNING levothyroxi Yes [id number] Take 1 [facility] ne 4-14 tablet by [place] (EUTHYROX) 00:00: mouth once o f 125 MCG 00 daily- on Medicin tablet an empty e stomach hydrocortis Yes [id number] Take 2 [facility] one 4-14 tablets in [place] (CORTEF) 10 00:00: the of MG tablet 00 morning Medicin and one e tablet in the afternoon. Dx Code: D 35.2 Testosteron Yes [id number] APPLY 3 [facility] e 20.25 4-14 PUMPS TO [place] MG/ACT 00:00: SKIN DAILY of (1.62%) GEL 00 Medicin e Evolocumab Yes Inject [facility] (REPATHA 4-11 into the [facility]) 11:31: skin. of 58 Medicin e Calcium Yes 1{tbl} Take 1 [facility] Carbonate-V 4-11 Tablet by Col lege itamin D 11:31: mouth. of (OYSTER 58 Medicin SHELL e CALCIUM/D) 500-200 MG-UNIT TABS Cholecalcif Yes Take by [place] [facility] brenda caren -11 mouth. [place] (VITAMIN 11:31: of D3) 50 MCG 58 Medicin (1999 UT) e TABS Vitamin A Yes Take by [facility] 2400 MCG 4-11 mouth. [place] (8000 UT) 11:31: of CAPS 58 Medicin e hydrOXYzine Yes 10mg Take 10 mg [facility] (ATARAX) 10 4-11 by mouth Len ege MG tablet 11:31: daily. of 58 Indication Medicin s: patient e not aware of way it was given and had a stroke hydrOXYzine Yes 10mg Take 10 mg [facility] (ATARAX) 10 -11 by mouth Len ege MG tablet 11:31: daily. of 58 Indication Medicin s: patient e not aware of way it was given and had a stroke Aspirin 81 2021-0 2021- No 81mg Take 81 mg [facility] MG tablet 11 -11 by mouth Colle ge 11:23: 00:00 once. of 22 :00 Medicin e sertraline 2021-0 2021- No 25mg Take 25 mg [facility] (ZOLOFT) 25 2-16 02-16 by mouth Col lege MG tablet 14:51: 00:00 daily. of 22 :00 Medicin e Vitamin A 0 Yes Take by [facility] 2400 MCG 2-16 mouth. [place] (8000 UT) 14:25: of CAPS 18 Medicin e Aspirin 81 2021-0 Yes 81mg Take 81 mg [facility] MG tablet 2-16 by mouth Colleg e 14:23: once. of 52 Medicin e Evolocumab Yes Inject [facility] (REPATHA 2-16 into the [facility]) 14:23: skin. of 52 Medicin e Calcium Yes 1{tbl} Take 1 [facility] Carbonate-V 2-16 Tablet by Col lege itamin D 14:23: mouth. of (OYSTER 52 Medicin SHELL e CALCIUM/D) 500-200 MG-UNIT TABS Cholecalcif Yes Take by [place] [facility] brenda caren 2-16 mouth. [place] (VITAMIN 14:23: of D3) 50 MCG 52 Medicin (1999 UT) e TABS escitalopra Yes 10mg Take 1 [facility] (LEXAPRO) 2-16 Tablet by Col [facility]ge 10 MG 00:00: mouth of tablet 00 daily. Medicin e memantine 0 Yes 5mg Take 1 [facility] (NAMENDA) 5 2-16 Tablet by Col [facility] MG tablet 00:00: mouth two of 00 times Medicin daily. e escitalopra 2021-0 Yes 10mg Take 1 [facility] (LEXAPRO) 2-16 Tablet by Col [facility]ge 10 MG 00:00: mouth of tablet 00 daily. Medicin e memantine 0 Yes 5mg Take 1 [facility] (NAMENDA) 5 2-16 Tablet by Col [facility] MG tablet 00:00: mouth two of 00 times Medicin daily. e EUTHYROX 0 Yes [id number] Take 1 [facility] 125 MCG 2-11 tablet by [place] tablet 00:00: mouth once of 00 daily Medicin e EUTHYROX 2021-0 Yes [id number] Take 1 [facility] 125 MCG 2-11 tablet by [place] tablet 00:00: mouth once of 00 daily Medicin e evolocumab 2020-09 Yes Inject [facility] di (REPATHA) 0-[address] 140 mg/mL 22:14: skin. Hospita pen 11 l injector injection apixaban 2020-09 Yes 5mg Q.5D Take 5 mg Meth zoë (ELIQUIS) 5 0-[address] mg tablet 22:14: (two) Hospita 11 times a l day. levETIRAcet 2020-09 Yes 250mg Q.5D Take 250 M ethodi am (KEPPRA) 0-[address] 250 MG 22:14: mouth 2 Hospita tablet 11 (two) l times a day. memantine 2020-09 Yes 5mg Q.5D Take 5 mg [facility] (NAMENDA) 5 0-[address] MG tablet 22:14: (two) Hospita 11 times a l day. famotidine 2020-09 Yes 20mg Q.5D Take 20 mg M [facility]i (PEPCID) 20 0-[address] MG tablet 22:14: (two) Hospita 11 times a l day. levothyroxi 2020-09 Yes 100ug QD Take 100 M ethodi ne 0-[address] (SYNTHROID) 22:14: mouth Hospi ta 100 mcg 11 daily. l tablet lactulose 2020-09 Yes 30g QD Take 30 g [facility] 10 gram/15 0-[address] mL (15 mL) 22:14: daily. Hospi ta solution 11 l nystatin 2020-09 Yes 1{appli Q.5D Apply 1 [facility] (MYCOSTATIN 0-06 cation} applicatio st ) 100,000 22:14: n Hospita unit/gram 11 topically l powder 2 (two) times a day. hydrocortis 2020-09 Yes 1{appli Q.5D Apply 1 [facility] one 1 % 0-06 cation} applicatio st cream 22:14: n Hospita 11 topically l 2 (two) times a day. To back and chest hydrOXYzine 2020-09 Yes 25mg Q.[id number] Take 25 mg [facility] (ATARAX) 25 0-06 [id number] by mouth 3 [address] MG tablet 22:14: 3D (three) Hospi ta 11 times a l day. Scheduled for Anxiolytic , sedatives, hypnotics sertraline 2020-09 Yes 25mg QD Take 25 mg M [facility]i (ZOLOFT) 25 0-[address] MG tablet 22:14: daily. Hospit a 11 l risperiDONE 2020-09 Yes .25mg Q.[id number] Take 0.25 [facility] (RisperDAL) 0-06 [id number] mg by s t 0.25 MG 22:14: 3D mouth 3 Hospita tablet 11 (three) l times a day. alum-mag 2020-09 Yes 30mL Q4H Take 30 mL [facility] hydroxide-s 0-[address] imeth 22:14: every 4 Hospita (MAALOX 11 (four) l MAX) hours as 400-400-40 needed for mg/5 mL indigestio suspension n or heartburn. magnesium 2020-09 Yes 30mL Q24H Take 30 mL [facility] hydroxide 0-[address] 400 mg/5 mL 22:14: daily as Ho spita suspension 11 needed. l acetaminoph 2020-09 Yes 650mg Q4H Take 650 M ethodi en 0-[address] (TYLENOL) 22:14: mouth Hospita 325 MG 11 every 4 l tablet (four) hours as needed for mild pain or fever. Testosteron Yes APPLY 2 [place] [facility] brenda e 20.25 8-21 PUMPS TO College MG/ACT 00:00: SKIN DAILY of (1.62%) GEL 00 Medicin e Testosteron Yes APPLY 2 [place] [facility] brenda e 20.25 8-21 PUMPS TO College MG/ACT 00:00: SKIN DAILY of (1.62%) GEL 00 Medicin e memantine 2021- No 5mg Take 1 [facility] (NAMENDA) 5 818 02-16 Tablet by Co llege MG tablet 00:00: 00:00 mouth of 00 :00 daily. Medicin e colesevelam 2020- No 625mg Q.5D Take 1 [facility] (WELCHOL) 8 09- tablet st 625 mg 00:00: 04:59 (625 mg Hospita tablet 00 :00 total) by l mouth 2 (two) times a day with meals for 60 doses. colesevelam 2020- No 625mg Q.5D Take 1 [facility] (WELCHOL) 7 08-[address] 625 mg 00:00: 00:00 (625 mg Hospita tablet 00 :00 total) by l mouth 2 (two) times a day with meals for 60 doses. tadalafil Yes Take 1 [facility] (CIALIS) 5 7-06 tablet by Len ege MG tablet 00:00: mouth once of 00 daily Medicin e tadalafil 2022- No Take 1 [facility] (CIALIS) 5 7-06 04-11 tablet by Col [facility] MG tablet 00:00: 00:00 mouth once o f 00 :00 daily Medicin e Cholecalcif Yes Take by [place] [facility] brenda caren 6-24 mouth. [place] (VITAMIN 08:09: of D3) 50 MCG 05 Medicin (2000 UT) e TABS Vitamin A Yes Take by [facility] 2400 MCG 6-24 mouth. [place] (8000 UT) 08:09: of CAPS 05 Medicin e Aspirin 81 Yes 81mg Take 81 mg [facility] tablet 6-24 by mouth Colleg e 08:07: once. of 18 Medicin e Evolocumab Yes Inject [facility] (REPATHA 6 into the [facility]) 08:07: skin. of 18 Medicin e Calcium Yes 1{tbl} Take 1 [facility] Carbonate-V 6-24 Tablet by Col [facility] itamin D 08:07: mouth. of (OYSTER 18 Medicin SHELL e CALCIUM/D) 500-200 MG-UNIT TABS donepezil Yes [id number] 1{tbl} Take 1 [facility] (ARICEPT) 6-24 [id number] Tablet by Col [facility] 23 MG TABS 00:00: mouth of 00 every Medicin morning. e donepezil Yes [id number] 1{tbl} Take 1 [facility] (ARICEPT) 6-24 [id number] Tablet by Col [facility]ge 23 MG TABS 00:00: mouth of 00 every Medicin morning. e donepezil 0 Yes [id number] 1{tbl} Take 1 [facility] (ARICEPT) 6-24 [id number] Tablet by Col [facility] 23 MG TABS 00:00: mouth of 00 every Medicin morning. e donepezil 2020- No 1{tbl} Take 1 [place] [facility] brenda (ARICEPT) 6-24 -24 Tablet by Len ege 23 MG TABS 00:00: 00:00 mouth of 00 :00 every Medicin morning. e ascorbic Yes 500mg QD Take 500 Meth zoë acid, 6-[address] vitamin C, 21:22: mouth Hospit a (ascorbic 08 daily. l acid with lisa hips) 500 MG tablet calcium Yes 1{tbl} Q.5D Take 1 [facility] i carbonate-v 6-[address] itamin D3 21:22: mouth 2 Hospi ta 500 mg-200 08 (two) l unit per times a tablet day with meals. vitamin E 0 Yes 1000U QD Take 1,000 M ethodi 1000 UNIT 6-[address] capsule 21:22: mouth Hospita 08 daily. l vitamin A 2020-0 Yes [id number] QD [place] [id number] UNIT 6-23 10,000 [address] capsule 21:22: Units [...] l evolocumab Yes Inject [facility] di (REPATHA) - under the st 140 mg/mL 21:18: skin. Hospita pen 28 l injector injection aspirin 0 Yes 81mg Take 81 mg Meth zoë (ECOTRIN) 6-[address] 81 MG 21:12: Hospita enteric 18 l coated tablet Aspirin 81 2020-0 Yes 81mg Take 81 mg [facility] MG tablet 5-18 by mouth Colleg e 10:46: once. of 31 Medicin e Evolocumab Yes Inject [facility] (REPATHA 5-18 into the [facility]) 10:46: skin. of 31 Medicin e levothyroxi Yes TAKE 1 [facility] zoë ne 5-02 TABLET BY (Euthyrox) 00:00: MOUTH ONCE H ospita 125 mcg 00 DAILY l tablet EUTHYROX Yes TAKE 1 [facility] 125 MCG 5-02 TABLET BY [place] tablet 00:00: MOUTH ONCE of 00 DAILY Medicin e hydrocortis 0 Yes 10mg Take 10 mg [facility] one 4-30 by mouth. (CORTEF) 10 00:00: Hospit a MG tablet 00 l hydrocortis 0 Yes 10mg Take 1 [facility] one 4-30 Tablet by [place] (CORTEF) 10 00:00: mouth 3 of MG tablet 00 times Medicin daily. e Take one tablet in the morning, one tablet at noon and one tablet in the afternoon. Dx Code: D 35.2 hydrocortis Yes 10mg Take 1 [facility] one 4-30 Tablet by [place] ([facility]) 10 00:00: mouth 3 of MG tablet 00 times Medicin daily. e Take one tablet in the morning, one tablet at noon and one tablet in the afternoon. Dx Code: D 35.2 hydrocortis Yes 10mg Take 1 [facility] one 4-30 Tablet by [place] ([facility]) 10 00:00: mouth 3 of MG tablet 00 times Medicin daily. e Take one tablet in the morning, one tablet at noon and one tablet in the afternoon. Dx Code: D 35.2 hydrocortis Yes 10mg Take 1 [facility] one 4-30 Tablet by [place] ([facility]) 10 00:00: mouth 3 of MG tablet 00 times Medicin daily. e Take one tablet in the morning, one tablet at noon and one tablet in the afternoon. Dx Code: D 35.2 tadalafil Yes Take 1 [facility] (CIALIS) 5 4-21 tablet by Len [facility]ge MG tablet 00:00: mouth once of 00 daily Medicin e tadalafil Yes Take 1 [facility] (CIALIS) 5 4-21 tablet by Len ege MG tablet 00:00: mouth once of 00 daily Medicin e DEXILANT 60 Yes TAKE 1 [facility] MG CPDR 1-02 CAPSULE BY Madhuri e 00:00: MOUTH ONCE of 00 DAILY Medicin e DEXILANT 60 0 2020- No TAKE 1 [place] [facility] brenda MG CPDR 1-02 06-24 CAPSULE BY [facility] ge 00:00: 00:00 MOUTH ONCE of 00 :00 DAILY Medicin e tadalafil Yes [id number] Take 1 tab [facility] (CIALIS) 20 8-20 by mouth Len ege MG tablet 00:00: 30 minutes of 00 prior to Medicin intercours e e daily PRN Testosteron Yes Apply 2 [place] [facility] brenda e 20.25 8-20 pumps to College MG/ACT 00:00: the skin of (1.62%) GEL 00 daily Medicin e Testosteron Yes Apply 2 [place] [facility] brenda e 20.25 8-20 pumps to College MG/ACT 00:00: the skin of (1.62%) GEL 00 daily Medicin e tadalafil 2020- No [id number] Take 1 tab [facility] (CIALIS) 20 8-20 24 by mouth Col lege MG tablet 00:00: 00:00 30 minutes o f 00 :00 prior to Medicin intercours e e daily PRN donepeziL Yes TAKE 1 [facility] i (ARICEPT) -[address] 10 MG 00:00: MOUTH ONCE Hospit a tablet 00 DAILY l donepezil Yes TAKE 1 [facility] (ARICEPT) -04 TABLET BY Colle ge 10 MG 00:00: MOUTH ONCE of tablet 00 DAILY Medicin e donepeziL Yes 10mg QD Take 10 mg [facility] (ARICEPT) -[address] 10 MG 00:00: nightly. Hospita tablet 00 l donepezil 2020- No TAKE 1 [facility] (ARICEPT) 102-25 TABLET BY Len ege 10 MG 00:00: 00:00 MOUTH ONCE of tablet 00 :00 DAILY Medicin e sotalol 2018-09 Yes 80mg Take 80 mg [facility] (BETAPACE) 2-30 by mouth Colle ge 80 MG 00:00: daily. of tablet 00 Medicin e sotalol 2018-09 Yes 80mg Take 80 mg [facility] (BETAPACE) 2-30 by mouth Colle ge 80 MG 00:00: daily. of tablet 00 Medicin e sotalol 2018-09 Yes 80mg Take 80 mg [facility] (BETAPACE) 2-30 by mouth Colle ge 80 MG 00:00: daily. of tablet 00 Medicin e sotalol 2018-09 Yes 80mg Take 80 mg [facility] (BETAPACE) 2-30 by mouth Colle ge 80 MG 00:00: daily. of tablet 00 Medicin e sotalol 2018-09 Yes 80mg Take 80 mg [facility] (BETAPACE) 2-30 by mouth Colle ge 80 MG 00:00: daily. of tablet 00 Medicin e [facility]PREDN [facility]21 ity of mg tablets 00:00: 00:00 [place] 00 :00 [facility] rivaroxaban 2017-09 Yes Method i (XARELTO) 09-29 st 20 mg 00:00: Hospita tablet 00 l sotaloL 2017-09 Yes 80mg Take 80 mg Meth zoë (BETAPACE) 09-[address] 80 MG 00:00: Hospita tablet 00 l XARELTO 20 2017-09 Yes Univers mg tablet 09-29 ity of 00:00: [address] Branch Rivaroxaban 2017-09 Yes [facility] 20 MG TABS 09-29 [place] 00:00: of 00 Medicin e Rivaroxaban 2017-09 Yes [facility] 20 MG TABS 09-29 [place] 00:00: of 00 Medicin e Rivaroxaban 2017-09 Yes [facility] (XARELTO) 09-29 College 20 MG TABS 00:00: of 00 Medicin e Rivaroxaban 2017-09 Yes [facility] (XARELTO) 09-29 College 20 MG TABS 00:00: of 00 Medicin e Rivaroxaban 2017-09 Yes [facility] 20 MG TABS 09-29 [place] 00:00: of 00 Medicin e SORINE 80 2017-09 Yes Univers mg tablet 09-29 ity of 00:00: [address] Branch XARELTO 20 2017-09 Yes Univers mg tablet 09-29 ity of 00:00: [address] Branch SORINE 80 2017-09 Yes Univers mg tablet 09-29 ity of 00:00: [address] Branch lisinopriL Yes [facility] (PRINIVIL) 02-26 st 5 mg tablet 00:00: Hospit a 00 l lisinopril Yes [facility] (PRINIVIL, [address] [place] [address]) 5 00:00: of MG tablet 00 Medicin e lisinopril Yes [facility] (PRINIVIL, 02-26 [place] ZESTRI) 5 00:00: of MG tablet 00 Medicin e lisinopril Yes [facility] (PRINIVIL, 02-26 [facility]) 5 00:00: of MG tablet 00 Medicin e lisinopril Yes [facility] (PRINIVIL, [address] [place] [address] ZESTRI) 5 00:00: of MG tablet 00 Medicin e lisinopril Yes [facility] (PRINIVIL, 02-26 College ZESTRIL) 5 00:00: of MG tablet 00 Medicin e lisinopril Yes Univers 5 mg tablet 6-25 ity of 00:00: [place] [facility] rosuvastati Yes Univer s n 10 mg 6-25 ity of tablet 00:00: [place] [facility] lisinopril 2018-0 Yes Univers 5 mg tablet 6-25 ity of 00:00: [place] [facility] rosuvastati 0 Yes Univer s n 10 mg 6-25 ity of tablet 00:00: [address] Immunizations Ordered Immunization Filled Immunization Date Status Commen ts Source Name Name SARS-COV-2 COVID-19 2021-07-13 Completed Unive rsity of PFIZER VACCINE 00:00:00 [facility] SARS-COV-2 COVID-19 2021-07-13 Completed Unive rsity of PFIZER VACCINE 00:00:00 [facility] Pfizer SARS-CoV-2 2020-10-29 Completed [facility] Vaccination 00:00:00 of Medicine Pfizer SARS-CoV-2 2020-10-29 Completed [facility] Vaccination 00:00:00 of Medicine Pfizer SARS-CoV-2 2020-10-29 Completed [facility] Vaccination 00:00:00 of Medicine Pfizer SARS-CoV-2 2020-10-29 Completed [facility] Vaccination 00:00:00 of Medicine Pfizer SARS-CoV-2 2020-10-29 Completed [facility] Vaccination 00:00:00 of Medicine SARS-COV-2 COVID-19 2020-10-29 Completed Unive rsity of PFIZER VACCINE 00:00:00 [facility] SARS-COV-2 COVID-19 2020-10-29 Completed Unive rsity of PFIZER VACCINE 00:00:00 [facility] Pfizer SARS-CoV-2 2020-10-01 Completed [facility] Vaccination 00:00:00 of Medicine Pfizer SARS-CoV-2 2020-10-01 Completed [facility] Vaccination 00:00:00 of Medicine Pfizer SARS-CoV-2 2020-10-01 [facility] Pf[facility] SARS-CoV-2 2020[facility]10-01 [facility] Pfizer SARS-CoV-2 2020-10-01 Completed [facility] Vaccination 00:00:00 of Medicine SARS-COV-2 COVID-19 2020-10-01 Completed Unive rsity of PFIZER VACCINE 00:00:00 [facility] SARS-COV-2 COVID-19 2020-10-01 Completed Unive rsity of PFIZER VACCINE 00:00:00 [facility] Pneumococcal 2020-02-18 Completed [facility] Polysaccharide 00:00:00 of Medicin e Pneumococcal 2020-02-18 Completed [facility] Polysaccharide 00:00:00 of Medicin e Pneumococcal 2020-02-18 Completed [facility] Polysaccharide 00:00:00 of Medicin e Pneumococcal 2020-02-18 Completed [facility] Colle ge Polysaccharide 00:00:00 of Medicin e Pneumococcal 2020-02-18 Completed [facility]le [facility] Polysaccharide 00:00:00 of Medicin e Influenza Hd 2019-07-05 Completed [facility] Colle ge 00:00:00 of Medicine Influenza Hd 2019-07-05 Completed [facility] ge 00:00:00 of Medicine Influenza Hd 2019-07-05 Completed [facility] 00:00:00 of Medicine Influenza Hd 2019-07-05 Completed [facility] 00:00:00 of Medicine Influenza Hd 2019-07-05 Completed [facility] 00:00:00 of Medicine Vital Signs Vital Name Observation Time Observation Value Comments Source Systolic blood 2022-08-18 17:46:00 177 mm[Hg] [facility] Diastolic blood 2022-08-18 17:46:00 100 mm[Hg] [facility] Heart rate 2022-08-18 17:46:00 75 /min [facility] Respiratory rate 2022-08-18 17:46:00 16 /min [facility] Body height 2022-08-18 17:46:00 185.4 cm [facility] Body weight 2022-08-18 17:46:00 109.045 kg [facility] BMI 2022-08-18 17:46:00 31.72 kg/m2 [facility] Systolic blood 2022-04-04 18:48:00 125 mm[Hg] Univer sity of pressure [facility] Diastolic blood 2022-04-04 18:48:00 95 mm[Hg] Unive rsity of pressure [facility] Systolic blood 2021-12-13 16:32:00 116 mm[Hg] [facility] Medicine Diastolic blood 2021-12-13 16:32:00 78 mm[Hg] [facility] Medicine Heart rate 2021-12-13 16:32:00 56 /min [facility] of Medicine Respiratory rate 2021-12-13 16:32:00 16 /min [facility] Body height 2021-12-13 16:32:00 185.4 cm [facility] Medicine Body weight 2021-12-13 16:32:00 103.874 kg [facility] of Medicine BMI 2021-12-13 16:32:00 30.21 kg/m2 [facility] ollege of Medicine Systolic blood 2021-10-20 20:22:00 123 mm[Hg] [facility] Medicine Diastolic blood 2021-10-20 20:22:00 82 mm[Hg] [facility] Medicine Heart rate 2021-10-20 20:22:00 73 /min [facility] Body height 2021-10-20 20:22:00 185.4 cm [facility] Body weight 2021-10-20 20:22:00 100.699 kg [facility] Medicine BMI 2021-10-20 20:22:00 29.29 kg/m2 [facility] Medicine Systolic blood 2021-02-25 13:09:00 148 mm[Hg] [facility] Medicine Diastolic blood 2021-02-25 13:09:00 90 mm[Hg] [facility] Medicine Heart rate 2021-02-25 13:09:00 60 /min [facility] Body height 2021-02-25 13:09:00 180.3 cm [facility] Body weight 2021-02-25 13:09:00 99.791 kg [facility] Medicine BMI 2021-02-25 13:09:00 30.68 kg/m2 [facility] Medicine Systolic blood 2021-02-25 13:09:00 148 mm[Hg] [facility] of pressure Medicine Diastolic blood 2021-02-25 13:09:00 90 mm[Hg] [facility] Medicine Heart rate 2021-02-25 13:09:00 60 /min [facility] Body height 2021-02-25 13:09:00 180.3 cm [facility] Body weight 2021-02-25 13:09:00 99.791 kg [facility] BMI 2021-02-25 13:09:00 30.68 kg/m2 [facility] Body height 2021-03-16 14:38:00 185.4 cm [facility] Body weight 2021-03-16 14:38:00 99.791 kg [facility] BMI 2021-03-16 14:38:00 29.03 kg/m2 [facility] Systolic blood 2021-02-24 21:10:00 142 mm[Hg] [facility] pressure Diastolic blood 2021-02-24 21:10:00 87 mm[Hg] [facility] pressure Heart rate 2021-02-24 21:10:00 67 /min [facility] Body temperature 2021-02-24 21:10:00 36.78 [facility] Procedures Procedure Date / Time Performing Clinician Source Performed INSULIN LIKE GROWTH 2022-08-18 18:48:00 [facility](IGF-1) Formerly [facility] RENIN ACTIVITY 2022-08-18 18:48:00 [facility] ALDOSTERONE 2022-08-18 18:48:00 [facility] METANEPHRINE,FRACT,LC/M 2022-08-18 18:48:00 [facility] of S/MS,PL [facility] (SCN) LAB 2022-08-18 16:46:19 [facility] REFERRAL- 2022-06-07 05:01:00 Doctor Unassigned, No [facility] REQUEST/RESPONSE Name Medical Branch FECAL CALPROTECTIN 2021-03-18 19:36:00 Bar [facility] PANCREATIC ELASTASE, 2021-03-18 19:36:00 [facility] FECAL FECAL FAT, QUALITATIVE 2021-03-18 19:36:00 Bar [place] CT ENTEROGRAPHY 2021-03-16 15:28:16 Bar Hayward [facility] POC CREATININE 2021-03-16 14:45:00 [facility] Shane ESTIMATED GFR 2021-03-16 14:45:00 [facility] Shane FOLATE LEVEL 2021-03-16 12:51:00 [facility] edward [facility] VITAMIN B12 LEVEL 2021-03-16 12:51:00 Bar [facility] TOTAL IRON BINDING 2021-03-16 12:51:00 Bar [place]ward [facility] CAPACITY CELIAC DISEASE PANEL 2021-02-24 22:02:00 [facility] Plan of Care Planned Activity Planned Date Details Comments Source Future Scheduled 2022-08-27 TETANUS SHOT (ADULT) [place] [employer] Test 06:13:42 [code = TETANUS SHOT of [employer] (ADULT)] Future Scheduled 2022-08-27 ZOSTER VACCINE (1 of [place] [employer] Test 06:13:42 2) [code = ZOSTER of Medicin e VACCINE (1 of 2)] Future Scheduled 2022-08-27 FALL SCREEN [code = [employer] Test 06:13:42 FALL SCREEN] of Medicine Future Scheduled 2022-08-27 BMI FOLLOW UP PLAN [facility] r [facility] Test 06:13:42 [code = BMI FOLLOW UP of Med icine PLAN] Future Scheduled 2022-08-27 MEDICARE AWV [facility] Test 06:13:42 (Subsequent) [code = of [employer] MEDICARE AWV (Subsequent)] Future Scheduled 2022-08-27 Pneumococcal 65+ (2 - [employer] Test 06:13:42 PCV) [code = of Medicine Pneumococcal 65+ (2 - PCV)] Future Scheduled 2022-08-27 COVID-19 Vaccine (4 - [employer] Test 06:13:42 Booster for Pfizer of Medici ne series) [code = COVID-19 Vaccine (4 - Booster for Pfizer series)] Future Scheduled 2022-08-27 FLU VACCINE > 6 [facility] C [facility] Test 06:13:42 MONTHS [code = FLU of Medici ne VACCINE > 6 MONTHS] Future Scheduled 2022-08-27 Screening for [facility] Col [facility]ge Test 06:13:42 malignant neoplasm of of Med icine colon (procedure) [code = 736892927] Future Scheduled 2022-08-18 METANEPHRINES, Ordered: [facility] Test 12:37:06 PHEOCHROMOCYT [code = 08/18/2022 of Med icine NOCPT] Future Scheduled 2022-08-18 TESTOSTERONE, Ordered: [facility] Test 12:36:03 FREE/TOTAL SHGB [code 08/18/2022 of Med icine = NOCPT] Future Scheduled 2022-08-18 Hepatitis C screening [facility] 06:26:23 (procedure) [code = Hospital 034127760] Future Scheduled 2022-08-18 COLONOSCOPY SCREENING [facility] 06:26:23 [code = COLONOSCOPY Hospital SCREENING] Future Scheduled 2022-08-18 SHINGLES VACCINES (1 [facility] Test 06:26:23 of 2) [code = Hospital SHINGLES VACCINES (1 of 2)] Future Scheduled 2022-08-18 COVID-19 VACCINE (3 - [facility] 06:26:23 Booster for Pfizer Hospital series) [code = COVID-19 VACCINE (3 - Booster for Pfizer series)] Future Scheduled 2022-08-18 65+ PNEUMOCOCCAL [facility] Test 06:26:23 VACCINE (2 - PCV) Hospital [code = 65+ PNEUMOCOCCAL VACCINE (2 - PCV)] Future Scheduled 2022-08-18 INFLUENZA VACCINE Method ist Test 06:26:23 [code = INFLUENZA Hospital VACCINE] Future Scheduled 2022-05-[address] [facility] Test 00:00:00 (#1) [code = Medical Center INFLUENZA VACCINE (#1)] Future Scheduled 2022-05-[address] [facility] Test 00:00:00 (#1) [code = Medical Center INFLUENZA VACCINE (#1)] Future Scheduled 2021-12-13 ACTH [code = 2141-0] Ordered: [facility] Test 12:10:44 12/13/2021 of Medicine Future Scheduled 2021-12-13 CORTISOL [code = Ordered: [facility] Test 12:10:44 2143-6] 12/13/2021 of Medicine Future Scheduled 2021-12-13 TSH [code = 03245-7] Ordered: [facility] Test 12:10:44 12/13/2021 of Medicine Future Scheduled 2021-12-13 T4 FREE [code = Ordered: [facility] C [facility]lege Test 12:10:44 3024-7] 12/13/2021 of Medicine Future Scheduled 2021-12-13 T3 [code = 3053-6] Ordered: [facility] College Test 12:10:44 12/13/2021 of Medicine Future Scheduled 2021-12-13 TESTOSTERONE, Ordered: [facility] Test 12:10:44 FREE/TOTAL SHGB [code 12/13/2021 of Med icine = NOCPT] Future Scheduled 2021-12-13 ESTRADIOL [code = Ordered: [facility] Test 12:10:44 2243-4] 12/13/2021 of Medicine Future Scheduled 2021-12-13 DHEA-SULFATE [code = Ordered: [facility] Test 12:10:44 2191-5] 12/13/2021 of Medicine Future Scheduled 2021-12-13 FSH [code = 06592-0] Ordered: [facility] Test 12:10:44 12/13/2021 of Medicine Future Scheduled 2021-12-13 INSULIN LIKE GROWTH Ordered: [facility] Test 12:10:44 FACTOR(IGF-1) [code = 12/13/2021 of Med icine 2484-4] Future Scheduled 2021-12-13 COMPREHENSIVE Ordered: [facility] Test 12:10:44 METABOLIC PANEL [code 12/13/2021 of Med icine = 27095-8] Future Scheduled 2021-12-13 LUTEINIZING HORMONE Ordered: [facility] [place] Test 12:10:44 [code = 34420-8] 12/13/2021 of Medicine Future Scheduled 2021-12-13 PROLACTIN [code = Ordered: [facility] Test 12:10:44 2842-3] 12/13/2021 of Medicine Future Scheduled 2021-12-13 TETANUS SHOT (ADULT) [facility] Test 11:32:52 [code = TETANUS SHOT of Medi cine (ADULT)] Future Scheduled 2021-12-13 ZOSTER VACCINE (1 of [place] [employer] Test 11:32:52 2) [code = ZOSTER of Medicin e VACCINE (1 of 2)] Future Scheduled 2021-12-13 FALL SCREEN [code = [employer] [facility] 11:32:52 FALL SCREEN] of Medicine Future Scheduled 2021-12-13 BMI FOLLOW UP PLAN [employer] Test 11:32:52 [code = BMI FOLLOW UP of Med icine PLAN] Future Scheduled 2021-12-13 MEDICARE AWV [facility] Test 11:32:52 (Subsequent) [code = of Medi cine MEDICARE AWV (Subsequent)] Future Scheduled 2021-12-13 FLU VACCINE > 6 [facility] Test 11:32:52 MONTHS [code = FLU of Medici ne VACCINE > 6 MONTHS] Future Scheduled 2021-12-13 Screening for [facility] Col [facility]ge Test 11:32:52 malignant neoplasm of of Med icine colon (procedure) [code = 325515003] Future Scheduled 2021-10-20 TETANUS SHOT (ADULT) [place] [employer] Test 14:26:30 [code = TETANUS SHOT of Medi cine (ADULT)] Future Scheduled 2021-10-20 ZOSTER VACCINE (1 of [place] [employer] Test 14:26:30 2) [code = ZOSTER of Medicin e VACCINE (1 of 2)] Future Scheduled 2021-10-20 FALL SCREEN [code = [employer] [facility] 14:26:30 FALL SCREEN] of Medicine Future Scheduled 2021-10-20 BMI FOLLOW UP PLAN [employer] Test 14:26:30 [code = BMI FOLLOW UP of Med icine PLAN] Future Scheduled 2021-10-20 MEDICARE AWV [facility] Test 14:26:30 (Subsequent) [code = of Medi cine MEDICARE AWV (Subsequent)] Future Scheduled 2021-10-20 FLU VACCINE > 6 [facility] Test 14:26:30 MONTHS [code = FLU of Medici ne VACCINE > 6 MONTHS] Future Scheduled 2021-10-20 Screening for [facility] Test 14:26:30 malignant neoplasm of of Med icine colon (procedure) [code = 208696333] Future Scheduled 2021-09-[address] [facility] Test 00:00:00 (12+) [code = Medical Center DEPRESSION SCREENING (12+)] Future Scheduled 2021-09-04 FALLS RISK SCREENING [facility] Test 00:00:00 [code = FALLS RISK Medical C enter SCREENING] Future Scheduled 2021-09-[address] [facility] Test 00:00:00 (12+) [code = Medical Center DEPRESSION SCREENING (12+)] Future Scheduled 2021-09-04 FALLS RISK SCREENING [facility] Test 00:00:00 [code = FALLS RISK Medical C enter SCREENING] Future Scheduled 2021-05-[address] [facility] Test 00:00:00 (#1) [code = Medical Center INFLUENZA VACCINE (#1)] Future Scheduled 2021-05-[address] [facility] Test 00:00:00 (#1) [code = Medical Center INFLUENZA VACCINE (#1)] Future Scheduled 2021-02-25 TETANUS SHOT (ADULT) [place] [employer] Test 08:04:34 [code = TETANUS SHOT of Medi cine (ADULT)] Future Scheduled 2021-02-25 ZOSTER VACCINE (1 of [place] [employer] Test 08:04:34 2) [code = ZOSTER of Medicin e VACCINE (1 of 2)] Future Scheduled 2021-02-25 FALL SCREEN [code = [employer] [facility] 08:04:34 FALL SCREEN] of Medicine Future Scheduled 2021-02-25 BMI FOLLOW UP PLAN [facility] [employer] Test 08:04:34 [code = BMI FOLLOW UP of Med icine PLAN] Future Scheduled 2021-02-25 MEDICARE AWV [facility] Test 08:04:34 (Subsequent) [code = of Medi cine MEDICARE AWV (Subsequent)] Future Scheduled 2021-02-25 FLU VACCINE > 6 [facility] C [facility] Test 08:04:34 MONTHS [code = FLU of Medici ne VACCINE > 6 MONTHS] Future Scheduled 2021-02-25 Screening for [facility] Test 08:04:34 malignant neoplasm of of Med icine colon (procedure) [code = 102352992] Future Scheduled 2021-01-29 TETANUS SHOT (ADULT) [place] [employer] Test 09:39:48 [code = TETANUS SHOT of Medi cine (ADULT)] Future Scheduled 2021-01-29 ZOSTER VACCINE (1 of [place] [employer] Test 09:39:48 2) [code = ZOSTER of Medicin e VACCINE (1 of 2)] Future Scheduled 2021-01-29 BMI FOLLOW UP PLAN [employer] Test 09:39:48 [code = BMI FOLLOW UP of Med icine PLAN] Future Scheduled 2021-01-29 FALL SCREEN [code = [employer] Test 09:39:48 FALL SCREEN] of Medicine Future Scheduled 2021-01-29 MEDICARE AWV [facility] Test 09:39:48 (Subsequent) [code = of Medi cine MEDICARE AWV (Subsequent)] Future Scheduled 2021-01-29 FLU VACCINE > 6 [facility] Test 09:39:48 MONTHS [code = FLU of Medici ne VACCINE > 6 MONTHS] Future Scheduled 2021-01-29 Screening for [facility] Test 09:39:48 malignant neoplasm of of Med icine colon (procedure) [code = 051958921] Future Scheduled 2020-09-[address] [facility] Test 00:00:00 (12+) [code = Medical Center DEPRESSION SCREENING (12+)] Future Scheduled 2020-09-04 FALLS RISK SCREENING [facility] Test 00:00:00 [code = FALLS RISK Medical C enter SCREENING] Future Scheduled 2020-09-[address] [facility] Test 00:00:00 (12+) [code = Medical Center DEPRESSION SCREENING (12+)] Future Scheduled 2020-09-04 FALLS RISK SCREENING [facility] Test 00:00:00 [code = FALLS RISK Medical C enter SCREENING] Future Scheduled 2014-12-[address] [facility] Test 00:00:00 WELLNESS (YEAR 2 or Medical Center FIRST YEAR if no IPPE) [code = MEDICARE ANNUAL WELLNESS (YEAR 2 or FIRST YEAR if no IPPE)] Future Scheduled 2014-12-[address] [facility] [facility] Test 00:00:00 WELLNESS (YEAR 2 or Medical Center FIRST YEAR if no IPPE) [code = MEDICARE ANNUAL WELLNESS (YEAR 2 or FIRST YEAR if no IPPE)] Future Scheduled 2014-12-[address] [facility] [facility] Test 00:00:00 WELLNESS (YEAR 2 or Medical Center FIRST YEAR if no IPPE) [code = MEDICARE ANNUAL WELLNESS (YEAR 2 or FIRST YEAR if no IPPE)] Future Scheduled 2014-12-[address] [facility] Test 00:00:00 WELLNESS (YEAR 2 or Medical Center FIRST YEAR if no IPPE) [code = MEDICARE ANNUAL WELLNESS (YEAR 2 or FIRST YEAR if no IPPE)] Future Scheduled 2013 PNEUMOCOCCAL 65+ YRS [facility] Test 00:00:00 (1 - PCV) [code = Medical Ce nter PNEUMOCOCCAL 65+ YRS (1 - PCV)] Future Scheduled 2013 PNEUMOCOCCAL 65+ YRS [facility] Test 00:00:00 (1 of 1 - Medical Center [id number] PCV13) [code = PNEUMOCOCCAL 65+ YRS (1 of 1 - [id number] PCV13)] Future Scheduled 2013 PNEUMOCOCCAL 65+ YRS [facility] Test 00:00:00 (1 - PCV) [code = Medical Ce nter PNEUMOCOCCAL 65+ YRS (1 - PCV)] Future Scheduled 2013 PNEUMOCOCCAL 65+ YRS [facility] Test 00:00:00 (1 of 1 - Medical Center [id number] PCV13) [code = PNEUMOCOCCAL 65+ YRS (1 of 1 - [id number] PCV13)] Future Scheduled 1998 SHINGLES VACCINES ([address] [facility] Test 00:00:00 of 2) [code = Medical Center SHINGLES VACCINES (1 of 2)] Future Scheduled 1998 SHINGLES VACCINES ([address] [facility] Test 00:00:00 of 2) [code = Medical Center SHINGLES VACCINES (1 of 2)] Future Scheduled 1998 SHINGLES VACCINES ([address] [facility] Test 00:00:00 of 2) [code = Medical Center SHINGLES VACCINES (1 of 2)] Future Scheduled 1998 SHINGLES VACCINES ([address] [facility] Test 00:00:00 of 2) [code = Medical Center SHINGLES VACCINES (1 of 2)] Future Scheduled 1967-12-23 DTAP/TDAP/TD [facility]ACCINES [facility] Test 00:00:00 (1 - Tdap) [code = Medical C enter DTAP/TDAP/TD VACCINES (1 - Tdap)] Future Scheduled 1967-12-23 DTAP/TDAP/TD [facility]ACCINES [facility] Test 00:00:00 (1 - Tdap) [code = Medical C enter DTAP/TDAP/TD VACCINES (1 - Tdap)] Future Scheduled 1967-12-23 DTAP/TDAP/TD [facility]ACCINES [facility] Test 00:00:00 (1 - Tdap) [code = Medical C enter DTAP/TDAP/TD VACCINES (1 - Tdap)] Future Scheduled 1967-12-23 DTAP/TDAP/TD [facility]ACCINES [facility] Test 00:00:00 (1 - Tdap) [code = Medical C enter DTAP/TDAP/TD VACCINES (1 - Tdap)] Future Scheduled 1966 HEPATITIS C [facility]CRE[facility]ING [facility] Test 00:00:00 [code = HEPATITIS C Medical Center SCREENING] Future Scheduled 1966 HEPATITIS C [facility] Test 00:00:00 [code = HEPATITIS C Medical Center SCREENING] Future Scheduled 1966 HEPATITIS C [facility] Test 00:00:00 [code = HEPATITIS C Medical Center SCREENING] Future Scheduled 1966 HEPATITIS C [facility] Test 00:00:00 [code = HEPATITIS C Medical Center SCREENING] Future Scheduled 1960 COVID-19 VACCINE (1) [facility] Test 00:00:00 [code = COVID-[address] VACCINE (1)] Future Scheduled [address] [facility] Test 00:00:00 Counseling and Medical Cente r Screening (12+) [code = Tobacco Cessation Counseling and Screening (12+)] Future Scheduled 1960 COVID-19 VACCINE (1) [facility] Test 00:00:00 [code = COVID-[address] VACCINE (1)] Future Scheduled [address] [facility] Test 00:00:00 Counseling and Medical Cente r Screening (12+) [code = Tobacco Cessation Counseling and Screening (12+)] Future Scheduled 1949-06-23 COVID-19 VACCINE (#1) [facility] Test 00:00:00 [code = COVID-[address] VACCINE (#1)] Future Scheduled 1949-06-23 COVID-19 VACCINE (#1) [facility] Test 00:00:00 [code = COVID-[address] VACCINE (#1)] Future Scheduled [address] [facility] Test 00:00:00 malignant neoplasm of Medica l Center colon (procedure) [code = 787106112] Future Scheduled [address] [facility] Test 00:00:00 (combo) [code = CT Medical C enter Colonography (combo)] Future Scheduled [address] [facility] Test 00:00:00 malignant neoplasm of Medica l Center colon (procedure) [code = 160469403] Future Scheduled [address] [facility] Test 00:00:00 malignant neoplasm of Medica l Center colon (procedure) [code = 187610473] Future Scheduled [address] [facility] Test 00:00:00 malignant neoplasm of Medica l Center colon (procedure) [code = 973323757] Future Scheduled [address] [facility] Test 00:00:00 malignant neoplasm of Medica l Center colon (procedure) [code = 736992977] Future Scheduled 1948 Sigmoidoscopy [facility] S[facility]oscopy] [facility] r Future Scheduled [address] [facility] Test 00:00:00 malignant neoplasm of Medica l Center colon (procedure) [code = 555659703] Future Scheduled [address] [facility] Test 00:00:00 (combo) [code = CT Medical C enter Colonography (combo)] Future Scheduled [address] [facility] [facility] Test 00:00:00 malignant neoplasm of Medica l Center colon (procedure) [code = 440106759] Future Scheduled [address] [facility] [facility] Test 00:00:00 malignant neoplasm of Medica l Center colon (procedure) [code = 965302254] Future Scheduled [address] [facility] Test 00:00:00 malignant neoplasm of Medica l Center colon (procedure) [code = 534601901] Future Scheduled [address] [facility] Test 00:00:00 malignant neoplasm of Medica l Center colon (procedure) [code = 316033541] Future Scheduled 1948 S[facility]oidoscopy [facility]] Medical Quentin courtney Future Scheduled Hepatitis C screening [facility] (procedure) [code = Hospital 999524202] Future Scheduled COLONOSCOPY SCREENING [facility] [code = COLONOSCOPY Hospital SCREENING] Future Scheduled SHINGLES VACCINES [facility] Test (#1) [code = SHINGLES Hospit al VACCINES (#1)] Future Scheduled INFLUENZA VACCINE [facility] Test [code = INFLUENZA Hospital VACCINE] Encounters Start End Encounter Admission Attending Care Care Encounter Source Date/Time Date/Time Type Type Clinicians Facility Department ID 2022-04-06 Outpatient Arceo, [facility] [id number] Common 10:48:02 Cesar [id number] [facility] 2022-04-04 Outpatient Arceo, [facility] [id number] Common 10:42:00 Cesar [id number] [facility] 2021-09-29 Outpatient Arceo, [facility] [id number] Common 12:47:22 Cesar [id number] [facility] 2021-09-29 Outpatient Arceo, [facility] [id number] Common 11:55:52 Cesar [id number] [facility] 2021-09-29 Outpatient Arceo, [facility] [id number] Common 11:32:33 Cesar [id number] [facility] 2022-08-18 2022-08-18 Office KEMI Billy [id number] [facility] 11:00:00 11:30:00 Visit [facility] [id number] [facility] mae 310 e 2022-06-07 2022-06-07 Orders Doctor HOANG 1.2.840.114 [id number] [facility] 00:00:00 00:00:00 Only Unassigned, MERT 350.1.13.10 ity of [place] [facility] 4.2.7.2.686 Tim as [id number] [facility] tien 009 Branch 2022-04-04 2022-04-04 Outpatient JOSE ANTONIO SHAFFER [facility] [id number] Univers 13:40:00 16:02:46 JOSE ANTONIO WAGNER [facility] 2022-04-04 2022-04-04 Office Bernard [facility] 1.2.840.114 [id number] Univers 13:40:00 16:02:46 Visit Jose Antonio [facility] 350.1.13.10 ity of [place] 4.2.7.2.686 Tim as ZANA?BLEA [phone] Wi dical KNEY 092 [facility] OFFICE [facility] 2021-12-13 2021-12-13 Office Wenceslao [facility] 1.2.840.114 [id number] [facility] 11:00:00 13:13:55 Visit Manuelito Gregorio AMBULATOR 350.1.13.21 College Ashok Y 0.2.7.2.686 of [id number] Medi mae 310 e 2021-10-20 2021-10-20 Office Reshma Mccormick [facility] 1.2.840.114 [id number] [facility] 14:40:00 14:57:28 Visit H AMBULATOR 350.1.13.21 College Y 0.2.7.2.686 of [id number] Medi mae 800 e 2021-07-13 2021-07-13 Outpatient Courtney JORDAN [facility] [id number] Univers 11:00:00 11:00:00 AFSHIN mazariegos [facility] 2021-07-13 2021-07-13 Imm/Inj Nurse, Adc Pob Immunization [facility] 1.2.840.114 [id number] Univers 10:42:56 10:43:04 Visit Afshin Jordan 350.1.13 .10 ity of [facility] 4[place]7.[place] [id number] Wi dical NAL 421 [facility] 2021-06-02 2021-06-09 Inpatient NOOR, [facility] [id number] [place] [address] 00:00:00 00:00:[address] ROSANNA [address] 2021-04-21 2021-04-21 Outpatient RESHMA [facility] [id number] [facility] 09:48:00 10:34:21 Colleblanquita haro of Medicin e 2021-04-05 2021-04-05 Orders Manio, 1.2.840.1 [id number] Methodi 00:00:00 00:00:00 Only Jai [address]509.1.[address] 3.430.2.7 Hospit a .3.757691 l .8 2021-04-05 2021-04-05 Orders Manio, 1.2.840.1 [id number] Methodi 00:00:00 00:00:00 Only Jai 96923.1.[address] 3.430.2.7 Hospit a .3.737355 l .8 2021-03-26 2021-03-26 Orders Mainor, 1.2.840.1 [id number] Methodi 00:00:00 00:00:00 Only Bar M. 50300.1.[address] 3.430.2.7 Hospit a .3.003744 l .8 2021-03-18 2021-03-18 Orders Mainor, 1.2.840.1 [id number] Methodi 00:00:00 00:00:00 Only Bar M. 19315.1.[address] 3.430.2.7 Hospit a .3.160502 l .8 2021-03-16 2021-03-16 Lab [facility], 1.2.840.1 [id number] Methodi 07:48:55 07:53:[address].1.[address] 3.430.2.7 Hospit a .3.137705 l .8 2021-03-16 2021-03-16 Travel 1.2.840.1 1.2.955.610 9694 [id number] Methodi 00:00:00 00:00:[address] 3.430.2.7 0.2.7.3.698 Ho spita .3.071566 084.8 l .8 2021-03-10 2021-03-10 Travel 1.2.840.1 1.2.151.898 1171 [id number] Methodi 00:00:00 00:00:[address] 3.430.2.7 0.2.7.3.698 Ho spita .3.461358 084.8 l .8 2021-02-26 2021-02-26 Travel 1.2.840.1 1.2.727.774 6795 [id number] Methodi 00:00:00 00:00:[address] 3.430.2.7 0.2.7.3.698 Ho spita .3.849991 084.8 l .8 2021-02-25 2021-02-25 Office Reshma Mccormick [facility] 1.2.840.114 84 [id number] 07:55:50 08:59:16 Visit H AMBULATOR 350.1.13.21 Y 0.2.7.2.686 [id number] [facility] 2021-02-25 2021-02-25 Office Reshma Mccormick [facility] 1.2.840.114 [id number] [facility] 07:55:50 08:59:16 Visit H AMBULATOR 350.1.13.21 College Y 0.2.7.2.686 of [id number] [facility] 800 e 2021-02-24 2021-02-24 Office Mainor 1.2.840.1 [id number] Methodi 14:50:16 17:17:15 Visit Bar QuanValentino 18666.1.[address] 3.430.2.7 Hospit a .3.555518 l .8 2021-02-24 2021-02-24 Travel 1.2.840.1 1.2.688.697 0476 [id number] Methodi 00:00:00 00:00:[address] 3.430.2.7 0.2.7.3.698 Ho spita .3.248485 084.8 l .8 2021-01-05 2021-01-05 Office KEMI Jason 1.2.840.114 [id number] 12:31:06 15:54:26 Visit Guru Beckford AMBULATOR 350.1.13.21 Y 0.2.7.2.686 [id number] 810 2021-01-05 2021-01-05 Office KEMI Jason 1.2.840.114 [id number] [facility] 12:31:06 15:54:26 Visit Guru Beckford AMBULATOR 350.1.13.21 College Y 0.2.7.2.686 of [id number] [facility] 810 e 2020-10-29 2020-10-29 [facility] [id number] [facility] 12:00:00 12:00:00 [facility] 2020-10-01 2020-10-01 [facility] [id number] [facility] 10:40:00 10:40:00 [facility] 2020-09-09 2020-09-09 Outpatient KEMI BILLY [facility] [id number] [facility] 10:43:52 16:03:26 MANUELITO [facility] 2019-11-18 2019-11-18 [id number] 00:00:00 00:00:00 [id number] Results Test Description Test Time Test Comments Results Result Comments Source METANEPHRINE,FRACT,LC/MS/MS,PL 2022-08-23 18:20:44 Test Item Value Reference Range Interpretation Comme nts NORMETANEPHRINE FREE PLASMA 0.42 nmol/L 0.00-0.89 (test code = 53600-5) METANEPHRINE FREE PLASMA (test 0.10 nmol/L 0.00-0.49 code = 92698-1) INTERPRETATION/RESULT (test See Note INTERPRETIVE INFORMATION: code = 11475-0) Metanephrine s, Plasma (Free)This test is useful in the detection o f pheochromocytom a, a rare neuroendocrine tumor. The majority of pat ients with pheochromocytom a have a plasma normetanephrine concentration in excess of 2. 2 nmol/L and/or a metanephrine concentration in excess of 1.1 n mol/L. Increased concentrations of these analytes serve as confirmation for diagnosis. Patients with essential hyper tension and plasma concentr ations of normetanephrine below 0.9 nmol/L and a me tanephrine concentration b elow 0.5 nmol/L, can be excluded from further testing. If cli nical suspicion remains, repeat testing or testing for met anephrines in a 24-hr. urine sp ecimen should be considered.This test was developed and i ts performance characteristics determined by [facility]. It has not been cleared or approved by the [place] Food and Jovany g Administration. This test was performed in a CLIA certified laboratory and is intended for clinical purpos es. TESTING PERFORMED AT [facility], [facility] [address], [place] [address] [place]. [id number] 1 CLIA NO. [id number] [facility] Otherwise Indicated, All Testing Performed At: [facility], [address] [place] [address] Laboratory Dire ctor: Fletcher Browne M.D. CLIA Number [id number] [place]. [id number] [facility] [id number] 20:07:54 Test Item Value Reference Range Interpretation Comments RENIN PLASMA ng/mL/hr Reference inte rvals for Renin (test code = Activity Adult, Normal Sodium 2915-7) DietSupine: 0.2 - 1.6 ng/mL/hrUpright : 0.5 - 4.0 ng/mL/hr Pediat olya, Normal Sodium Diet, Supine1 - 7 days 2.0 - 35.0 ng/mL/hrCord Bl ood 4.0 - 32.0 ng/mL/hr1 - 12 months 2.4 - 37.0 ng/mL/hr13 emil hs - 3 yrs 1.7 - 11.2 ng/mL/hr4 - 5 yrs 1.0 - 6.5 ng/mL/hr6 - 10 yrs 0.5 - 5.9 ng/mL/hr11 - 15 yrs 0.5 - 3.3 ng/mL/hr Pediat olya, Normal Sodium Diet, Upright0 - 3 yrs Not Available4 - 5 yrs Less than or equal to 15 ng/ mL/hr6 - 10 yrs Less than or eq ual to 17 ng/mL/hr11 - 15 yrs Less than or equal to 16 ng/ mL/hr The plasma renin activity assay measures conversion ofan giotensinogen into angiotensin I b y renin and is limited by thec oncentration of angiotensinogen in the patient sample.Plasma r enin activity is not an accurate measure of enzyme activitywhen an giotensinogen is decreased. This test was developed and i ts performance characteristics determined by [facility] ([facility]). It has not been cleared or approved by the U.S. Food and Drug Administra tion (FDA).The FDA has determined that such clearance or ap proval is notnecessary. T his test is used for clinical pu rposes and should not beregarded as investigational or for research . [facility] is qualified toperform high complexity testing under the Clini tien LaboratoryImpro vement Amendments (CLIA). TESTING PERFORMED AT [facility] [address] [place] [address], [address], [address] [address] CLIA NO: [id number] Unle ss Otherwise Indicated, All Testing Performed At: [facility], [address] [place] [address] 4 Payroll Administrator: Fletcher Browne M.D. CLIA Number [id number] [place]. [id number] [facility] HospitalINSULIN LIKE GROWTH FACTOR(IGF-1)2022-08-20 14:46:46 Test Item Value Reference Range Interpretation Comments SOMATOMEDIN-C (test code See_Comment L Un less Otherwise = 2484-4) Indicated, All Testing Perform ed At: [facility], [address] [place] [address] Laborator y Director: Fletcher Browne M.D. CLIA Number [id number] [place] Acc[place]. [id number] [Autom ated message] The sy stem which generated this result transmit ary reference range : 38 - 172 NG/ML. The reference range was not used to int erpret this result as normal/abnormal . Lab Interpretation (test Abnormal code = 92690-1) [facility] [id number] 17:20:03 Test Item Value Reference Range Interpretation Comments ALDOSTERONE (test SEE BELOW NG/DL EFFECT JAYE 08/09/2021, code = 1763-2) PLEASE NOTE N EW REFERENCE RANGE. $$$ REFE RENCE RANGE INFORMATION $$$ POSTURE INTERVAL - UPRI GHT. . . . . . . . . 4.0-31. 0 NG/DL - SUPINE . . . . . . . . . . <16.0 NG/DL - N OT SPECIFIED. . . . . . . <=3 1.0 NG/DL SERUM ALDOSTERO NE LEVELS ARE SENSITIVE TO SO DIUM INTAKE AND WHETHERTHE PATIENT IS UPRIGHT OR SUPI NE. HIGH SODIUM INTAKE M AY SUPPRESSALDOSTE TANESHA LEVELS IN THE SERUM WH ILE LOW SODIUM INTAKE M AY RESULT INELEVATION OF SERUM ALDOSTERONE. RE FERENCE INTERVALS ARE B ASED ONNORMAL SODIUM INTAKE. ALDOSTERONE AND RENIN RESUL TS MAY BE AFFECTEDBY CERT AIN CLASSES OF ANTI-HYPERTE NSIVE DRUGS, NSAIDs, POTASSI UMSTATUS, AND DIURETICS, PART ICULARLY MINERALOCORTICO ID ANTAGONISTS. Un less Otherwise Indic ated, All Testing Perform ed At: [facility], [address] [place] [address] 4 Payroll Administrator: Harleen Streeter [id number] [place] [id number] [facility] RNA [Presence] in Respiratory specimen by GENOVEVA with probe [id number] 21:46:59 Test Item Value Reference Range Interpretation Comments SARS-CoV-2 (COVID-19) RNA Not detected Not-Detected [Presence] in Respiratory specimen by GENOVEVA with probe detection (test code = 77061-6) Whether patient is employed in a healthcare setting (test code = 15495-1) Whether the patient has symptoms related to condition of interest (test code = 88997-0) Patient was hospitalized because of this condition (test code = 94026-6) Whether the patient was admitted to intensive care unit (ICU) for condition of interest (test code = 21459-2) Whether patient resides in a congregate care setting (test code = 02869-9) [facility] fat, [id number] 21:08:00 Test Item Value Reference Range Interpretation Comments Fat qual Normal Normal (<60 neutral, stool Droplets/HPF) (test code = 06769-9) Fat qual, Normal Normal (<100 stool (test Droplets/HPF) code = 94598-9) [facility] (test code Test(s) 543069-Cshw, = [facility]) Neutral; 334817-Xbrd, Totalwas developed and its performance characteristics determinedby [facility]. It has not been cleared or approved by the Foodand Drug Administration.Performed at: [address] [id number] Director: Yane Helton MD, Phone: [phone] [facility]intePancreatic elastase, [id number] 18:10:00 Test Item Value Reference Range Interpretation Comments Pancreatic See_Comment Severe Pancrea tic elastase (test Insufficiency : code = 31909-6) <100 Modera te Pancreatic Insufficiency: 100 - 200 Normal: > 200 [Automated message] The system which generated this result transmit ary reference range : >200 ug Elast./ g. The reference range was not u sed to interpret th is result as normal/abnormal . [facility] (test code = Performed at: ) [address] [id number] Director: Yane Helton MD, Phone: [phone] [facility] PointeFecal [id number] 14:10:00 Test Item Value Reference Range Interpretation Comments Fecal calprotectin 17 ug/g 0-120 Concentra tion (test code = Interpretation 93710-9) Follow-Up<16 - 50 ug/g Normal Non e>50 -120 ug/g Vikash dickerson Re-evaluate in 4-6 weeks >120 ug/g Abnormal Repeat as clinically jamarcus cated [facility] (test code = Performed at: [facility]) - [address] [id number] Director: Yane Helton MD, Phone: [phone] [facility] PointeCelia disease [id number] 13:12:00 Test Item Value Reference Interpretation Comments Range Endomysial IgA (test Negative Negative code = 19428-7) Tissue <2 0-3 Negative 0 - 3 Weak transglutaminase Ab, Positiv e 4 - 10 IgA (test code = Positive >1 0 Tissue 77319-9) Transglutaminas e (tTG) has been identified as t he endomysial anti gen. Studies have demonstr- ated that endomysial IgA antibodies have over 99% specificity for gluten sensitiv e enteropathy. IgA (test code = 228 mg/dL 61-437 2458-8) [facility] (test code = [facility]) Performed at: [address] [id number] Director: Yane Helton MD, Phone: [phone] rmed at: [address] [id number] Director: Partha Ray MD, Phone: [phone] [facility] PointeVitamin B12 [id number] 08:07:00 Test Item Value Reference Range Interpretation Comments Vitamin B12 (test 552 pg/mL 232-1245 code = 2132-9) [facility] (test code = [facility]) Performed at: [address] [id number] Director: Partha Ray MD, Phone: [phone] [facility] PointeFolate [id number] 08:07:00 Test Item Value Reference Range Interpretation Comments Folate (test 9.7 ng/mL >3.0 A serum folate code = 2284-8) concentration of less than 3.1 ng/mL isconsidered to represent clini tien deficiency. [facility] (test code Performed at: - = [facility]) [address] [id number] Director: Partha Ray MD, Phone: [phone] [facility]inteTotal iron binding [id number] 07:07:00 Test Item Value Reference Range Interpretation Comments Iron binding capacity 313 ug/dL 250-450 (test code = 2500-7) Unsaturated iron 242 ug/dL 111-343 binding capacity (test code = 2501-5) Iron level (test code = 71 ug/dL 38-169 2498-4) Iron saturation (test 23 % 15-55 code = 2502-3) [facility] (test code = [facility]) Performed at: [address] [id number] Director: Partha Ray MD, Phone: [phone] [facility] PointeCT, [id number] 09:23:00FINAL REPORT CT abdomen and pelvis with contrast History: Abnormal CT scan Jose rison: none Technique: serial axial imaging was performed [...] 12 mm in size. Liver is otherwise unr emarkable. The patient is status post cholecystectomy. There is nonspecific prominence of the commonbile duct, without visualized skeletal obstructive lesion. This [...] No free fluid or lymphadenopathy. No abdominal aorticaneurysm. Scattered sclerotic lesions throughout the axial skeleton, the largest of which is seen within the right iliac crest measuring 17 mm in size. No pathologic fracture is seen. Impression: 1. Noacute findings in the abdomen or pelvis.2. Scattered nonaggressive sclerotic lesions throughout the axial skeleton measuring up to 17 mm in size. Differential diagnostic considerations would include multiple bone islands versus sclerotic bone metastases. Recommend further evaluation with nuclear bone scan.3. Moderate sigmoid diverticulosis, without diverticulitis. Signed: [place] MDReport Verified Date/Time: 11/18/2019 09:23:12 Reading Location: [address] Ortho Consult Reading Room -[id number] 08:47:00 Test Item Value Reference Range Interpretation Comments POC-CREATININE 1.1 mg/dL 0.6-1.3 : TESTED AT [facility] ([facility]) (test [address] [facility] code = 1859) A, [facility] 7 3240: Oncology Coordinator/Techni mary ID = [id number] for FIERRO, CORDELIA ICA POC-EGFR 66 mL/min/1.73M2 (SARAVANAN) (test code = 1860) CT, HEART CORONARY TIEN, WITHOUT IV [id number] 13:48:00FINAL REPORT EXAM: CT Coronary calcium scoring only WITHOUT contrast INDICATION: encounter for preventative health examination COMPARISON: Chest radiograph 10/17/2019 TECHNIQUE: Prospectively triggered multi-detector CT technology was with minimal slice thickness, without intravenous administration of contrast. Postprocessing to evaluate for coronary artery calcium score was performed. IV CONTRAST: None ORAL CONTRAST: None COMPLICATIONS: None RADIATION DOSE: Total DLP: 114.4 mGy*cm Estimated effective [...] arteries. LIMITED CHEST:Limited non-contrast views of the visualized chest show no abnormality within chest wall and [...] the ascending and descending thoracic aorta are ofnormal size. LIMITED ABDOMEN:Limited images of the upper abdomen reveal no abnormalities [...] Verified Date/Time: 10/07/2019 13:48:52 RAD, BONE DENSITY [id number] 12:53:00Reason for Exam:->encounter for preventative health examinationFINAL REPORT Exam: Bone mineral density study. History: Osteopenia. Comparison:None Discussion: Evaluation of the left forearm, bilateral hips, and lumbar spine was performed utilizing DEXA Hologic bone densitometer. The study is technically adequate.Left forearm 1/3 bone mineraldensity: 0.915gm/cm2, T-score is 1.8, Z-score is 3.2. Left forearm total bone mineral density: 0.653gm/cm2, T-score is -0.7, Z-score is 0.6. Left hip total bone mineral density: 0.983gm/cm2, T-score is-0.3, Z-score is 0.4. Left hip femoral neck bone mineral density: 0.841gm/cm2, T-score is -0.7, Z-score is 0.6. Right hip total bone mineral density: 0.957gm/cm2, T-score is -0.5, Z-score is 0.2. Righthip femoral neck bone mineral density: 0.847gm/cm2, T-score is - 0.6, Z-score is 0.6. Lumbar spine total bone mineral density: 1.360gm/cm2, T- score is 2.4, Z-score is 3.4. Impression:1.Normal bone mineral density of the left forearm, fracture risk is not increased.2.Normal bone mineral density of the left hip, fracture risk is not increased.3.Normal bone mineral density of the right hip, fracture riskis not increased.4.Normal bone mineral density of the lumbar spine, fracture risk is not increased. Least significant change (LSC) for bone mineral density as provided by diesel truck crane operator is 0.023 g/cm2 for lumbar spine and 0.027 g/cm2 for total hip. 10 -year fracture risk per WHO Fracture Risk AssessmentTool (FRAX) for:Not reported when T scores are at or above - 1.0The above fracture probability is calculated for an untreated patient. Fracture probably may be lower if the patient has received treatment. All treatment decisions require clinical judgment and consideration of individual patient factors,including patient preferences, comorbidities, previous drug use and risk factors not captured in theFRAX model (e.g. frailty, falls, vitamin D deficiency, increased bone turnover, interval significantdecline in BMD). The patient's fracture risk is compared to an age-matched control. Medical evaluatio n for secondary causes of low bone bone mineral density may be appropriate. Correlate clinically forthe necessity and timing of the next bone mineral density study. Signed: Bobbi Sharif MDReport Verified Date/Time: 10/07/2019 12:53:26 RAD, CHEST, 2 [id number] 08:57:00Reason for Exam:- >encounter for preventative health examinationFINAL REPORT CHEST RADIOGRAPH - 2 VIEWS INDICATION: Encounter for preventative h ealth examination. COMPARISON: None FINDINGS:LINES: None LUNGS: The [...] No acute osseous abnormality. UPPER ABDOMEN: No evidence of free intraperitoneal air. IMPRESSION:No acute radiographic abnormality. A focal opacity in the left lower lung, which may represent superimposition of structures or atelectasis. Underlying pulmonary nodule is not excluded. Recommend repeat radiograph or chest CT for further evaluation. Signed: Jack Zhao MDReport Verified Date/Time: 10/07/2019 08:57:55 Reading Location: [facility] Reading Room [address] [place] [address]
[2022-09-10] MEDS ORDERED: NA CHLORIDE 0.9% 1,000 ML ONE ×2 (12:44→16:47)
--- NOTE | 2022-09-10 12:45 | RAD REPORT ---
EXAM DESCRIPTION: RAD - Chest Single View - 09/10/2022 12:35 pm CLINICAL HISTORY: COUGH COMPARISON: Chest Single View dated 05/27/2021; Chest Single View dated 05/13/2021; Chest Single View d ated 04/24/2021; Chest Single View dated 04/08/2021 FINDINGS: Lines: None. Lungs: No evidence of edema or pneumonia. Pleural: No significant pleural effusions or pneumothorax. Cardiac: The heart size is within normal limits. Mediastinum: Within normal limits. Bones: No acute fractures. Other: None IMPRESSION: No acute cardiopulmonary disease.
[2022-09-10 12:58] LABS: Absolute Lymphocytes (CBC) 1.1 K/uL (0.7-4.9); Hematocrit 47.4 % (39.6-49.0); Lymphocytes % 10.4 % (15.3-44.8); MCV 91.2 fL (80-100); MPV 9.9 fL (7.6-11.3)
[2022-09-10 13:01] LABS: Protime INR 1.53
[2022-09-10 13:15] LABS: Albumin 3.8 g/dL (3.4-5.0); Bilirubin Direct 0.1 mg/dL (0-0.2); Bilirubin Total 0.5 mg/dL (0.2-1.0); Magnesium 2.2 mg/dL (1.6-2.4); Potassium 3.8 mmol/L (3.5-5.1); Protein, Total 7.5 g/dL (6.4-8.2)
[2022-09-10 13:31] LABS: SARS-COV-2 RT PCR NEGATIVE (NEGATIVE)
--- NOTE | 2022-09-10 13:53 | RAD REPORT ---
EXAM DESCRIPTION: CTAbdomen Pelvis Wo Contrast - 09/10/2022 1:37 pm CLINICAL HISTORY: abd pain, diarrhea COMPARISON: Abdomen Pelvis W/Wo Contrast dated 10/30/2019; CTSTONE PROTOCOL dated 05/20/2015; CTSTON E PROTOCOL dated 04/12/2015; CTSTONE PROTOCOL dated 08/15/2013 TECHNIQUE: CT of the abdomen and pelvis was performed without contrast. All CT scans are performed using dose optimization technique as appropriate and may include automated exposure control or mA/KV adjustment according to patient size. FINDINGS: Lower chest: Slight micro nodularity in the left lower lobe. Multi-vessel coronary artery disease. Liver: Several low-density liver lesions noted which are likely benign. Biliary: Cholecystectomy Stomach: No significant focal abnormality. Duodenum: No significant focal abnormality. Pancreas: No significant abnormality. Spleen: No significant abnormality. Adrenal: No suspicious lesions. Kidney/ureter: No hydronephrosis. No renal calculi. Bilateral renal sinus and cortical cysts. Retroperitoneum: No retroperitoneal adenopathy. Vascular: No aneurysm. Bowel: Diverticulosis. No evidence of acute diverticulitis.. Normal appendix. Peritoneum: No ascites or free air. Small fat containing umbilical hernia. Bladder: Grossly unremarkable. Reproductive: No adnexal masses. Bones: Sclerotic osseous foci are unchanged. Other: n/a IMPRESSION: No acute intra-abdominal or pelvic finding. Mild left lower lobe micronodularity that ma y reflect mild aspiration pneumonitis in the setting of recent vomiting and loss of consciousness. In cidental finding as noted above.
--- NOTE | 2022-09-10 13:53 | RAD REPORT ---
EXAM DESCRIPTION: CT - Head Brain Wo Cont - 09/10/2022 1:32 pm CLINICAL HISTORY: seizure vs syncope COMPARISON: Head Brain Wo Cont dated 05/25/2021; Head Brain Wo Cont dated 05/19/2021 TECHNIQUE: All CT scans are performed using dose optimization technique as appropriate and may inclu de automated exposure control or mA/KV adjustment according to patient size. FINDINGS: No intracranial hemorrhage, hydrocephalus or extra-axial fluid collection.No areas of brai n edema or evidence of midline shift. Moderate chronic small vessel ischemic changes. Cerebral atroph y. The paranasal sinuses and mastoids are clear. The calvarium is intact. IMPRESSION: No acute intracranial abnormality.
[2022-09-10 15:07] LABS: Urine Blood Negative (Negative); Urine Glucose Negative (Negative); Urine Protein Negative (Negative); Urine Specific Gravity 1.015 (1.005-1.030)
[2022-09-10 15:21] LABS: Urine Bacteria None Seen /HPF (<20); Urine Mucus Slight /HPF (None Seen); Urine RBC <5 /HPF (None Seen)
--- NOTE | 2022-09-10 15:22 | EDPHYS ---
Physician Documentation [facility] Name: Jhonatan Solis Age: 71 yrs Sex: Male : 1950 Arrival Date: 09/10/2022 Time: 12:23 Bed 5 Private MD: ED Physician Saúl Jesus HPI: 09/10 14:52 This 71 yrs old Male presents to ER via EMS with complaints of Syncope. rn 14:52 The patient has experienced syncope. Onset: The symptoms/episode began/occurred just rn prior to arrival. Duration: This was a single episode. The patient presents. 14:52 Associated injury: The patient did not suffer any apparent associated injury. Current rn symptoms: confusion, decreased level of consciousness. The patient has experienced a previous episode. The patient has not recently seen a physician. Per EMS, family called 911 after possible seizure vs syncope. Was seated in shower, "slumped over", no motor activity noted but was confused/minimally responsive and slowly improved upon transport. Has happened once before and review of inpatient notes does not reveal confirmation of seizures. Family reports not drinking much water lately, and patient reports weakness over last 2-3 weeks. . Historical: - Allergies: 12:27 Levaquin; hb - PMHx: 12:27 Atrial Fib; Depression; Hyperlipidemia; Hypertension; kidney cancer; stent; hb - PSHx: 12:27 L kidney partially removed; hb - Immunization history:: Adult Immunizations up to date. - Social history:: Smoking status: Patient/guardian denies using tobacco. - Family history:: not pertinent. - Hospitalizations: : No recent hospitalization is reported. ROS: 14:52 Constitutional: Negative for fever, chills, and weight loss, Eyes: Negative for injury, rn pain, redness, and discharge, Neck: Negative for injury, pain, and swelling, Cardiovascular: Negative for chest pain, palpitations, and edema, Respiratory: + cough Abdomen/GI: + diarrhea Back: Negative for injury and pain, : Negative for injury, bleeding, discharge, and swelling, MS/Extremity: Negative for injury and deformity, Skin: Negative for injury, rash, and discoloration, Neuro: Negative for headache, numbness, tingling, and seizure. Exam: 14:52 Constitutional: This is a well developed, well nourished patient who is somnolent but rn answers all questions and follows commands Head/Face: Normocephalic, atraumatic. Eyes: Pupils equal round and reactive to light, extra-ocular motions intact. ENT: dry MM Cardiovascular: Tachycardic, irregular. No pulse deficits. Respiratory: No increased work of breathing, no retractions or nasal flaring. Abdomen/GI: Soft, non-tender Skin: Warm, dry MS/ Extremity: Pulses equal, no cyanosis. Neuro: Awake, somnolent, oriented to person/place/time. Moves all 4 extremities with 4/5 strength but equal. Sensation intact. 16:11 ECG was reviewed by the Attending Physician. rn Vital Signs: 12:25 BP 102 / 67; Pulse 87; Resp 16; Temp 97.9(A); Pulse Ox 96% on R/A; hb 14:32 BP 133 / 99; Pulse 101; Resp 16; Pulse Ox 98% on R/A; hb 15:30 BP 136 / 86; Pulse 100; Resp 17; Pulse Ox 99% on R/A; hb 17:00 BP 130 / 80; Pulse 89; Resp 15; Pulse Ox 100% on R/A; hb MDM: 12:24 Patient medically screened. rn 15:16 Differential Diagnosis: cardiac arrhythmia, emotional response, idiopathic syncope, rn seizure, transient ischemic attack, vasovagal episode, COVID. Data reviewed: vital signs, nurses notes, lab test result(s), EKG, radiologic studies, CT scan, and as a result, I will admit patient. Data interpreted: desk monitor: rate is 105 beats/min, rhythm is atrial fibrillation, with no ectopy, Interpretation: atrial fibrillation, tachycardia, Pulse oximetry: on room air is 98 %. Interpretation: normal. Test interpretation: by ED physician or midlevel provider: ECG, plain radiologic studies, CXR independently interpreted by me: No acute disease.. Counseling: I had a detailed discussion with the patient and/or guardian regarding: the historical points, exam findings, and any diagnostic results supporting the discharge/admit diagnosis, lab results, radiology results, the need for further work-up and treatment in the hospital. Response to treatment: the patient's symptoms have mildly improved after treatment, and as a result, I will admit patient. Admission orders: after a detailed discussion of the patient's condition and case, the admit orders are written by me. ED course: A lot of history obtained from outside source: . Discussed case with Dr. Arceo along with results, joint decision made to admit for pneumonitis and dehydration with syncope vs seizure. + elevated creatinine. No acute findings in CT head or Abdomen. Neg COVID/Flu. . 16:14 ED course: Daughter here, requests that patient be discharged as last time he was rn hospitalized he did not do well behaviorally, required a lot of sedation and does not do well in hospital at all. Discussed this with Dr. Arceo, is ok with discharge, augmentin, and zosyn IV here x 1 with more IVF. WIll dc home with return precautions and f/u with Dr. Arceo.. 09/10 12:26 Order name: Basic Metabolic Panel; Complete Time: 13:21 rn 09/10 12:26 Order name: CBC with Diff; Complete Time: 13:21 rn 09/10 12:26 Order name: Hepatic Function; Complete Time: 13:21 rn 09/10 12:26 Order name: Magnesium; Complete Time: 13:21 rn 09/10 12:26 Order name: Protime (+inr); Complete Time: 13:21 rn 09/10 12:26 Order name: Ptt, Activated; Complete Time: 13:21 rn 09/10 12:26 Order name: Troponin High Sensitivity; Complete Time: 13:21 rn 09/10 12:26 Order name: CT Head Brain wo Cont; Complete Time: 13:58 rn 09/10 12:26 Order name: Chest Single View XRAY; Complete Time: 13:21 rn 09/10 12:26 Order name: CT Abd/Pelvis - IV Contrast Only rn 09/10 12:26 Order name: COVID-19/FLU A+B; Complete Time: 13:58 rn 09/10 12:26 Order name: Urine Microscopic Only; Complete Time: 15:32 rn 09/10 12:26 Order name: Blood Culture Adult (2) rn 09/10 15:07 Order name: Urine Dipstick-Ancillary; Complete Time: 15:32 EDMS 09/10 12:26 Order name: EKG; Complete Time: 12:26 rn 09/10 12:26 Order name: Cardiac monitoring; Complete Time: 13:00 rn 09/10 12:26 Order name: EKG - Nurse/Tech; Complete Time: 13:26 rn 09/10 12:26 Order name: IV Saline Lock; Complete Time: 13: rn 09/10 12:26 Order name: Labs collected and sent; Complete Time: 13: rn 09/10 12:26 Order name: O2 Per Protocol; Complete Time: 13: rn 09/10 12:26 Order name: O2 Sat Monitoring; Complete Time: 13: rn 09/10 12:26 Order name: Urine Dipstick-Ancillary (obtain specimen); Complete Time: 15:27 rn 09/10 13:26 Order name: Abdomen ; Complete Time: 13:58 EDMS EC:11 Rate is 93 beats/min. Rhythm is irregularly irregular. QRS [place] is Normal. LA interval rn is normal. QRS interval is normal. QT interval is normal. No Q waves. T waves are Normal. No ST changes noted. Clinical impression: Atrial Fibrillation. Interpreted by me. Reviewed by me. Administered Medications: 13:00 Drug: NS 0.9% 1000 ml Route: IV; Rate: 1000 ml; Site: right antecubital; aa5 17:08 Drug: Zosyn (piperacillin-tazobactam) 2.25 grams Route: IVPB; Infused Over: 60 mins; hb Site: right hand; 17:08 Drug: NS 0.9% 500 ml Route: IV; Rate: bolus; Site: right hand; hb Disposition Summary: 09/10/22 16:35 Discharge Ordered Location: Home(09/10/22 16:35) rn Problem: new(09/10/22 16:35) rn Symptoms: have improved(09/10/22 16:35) rn Condition: Stable(09/10/22 16:35) rn Diagnosis - Dehydration(09/10/22 16:35) rn - Syncope rn - Aspiration pneumonitis rn Followup: rn - With: Matthew Arceo MD - When: 1 - 2 days - Reason: Recheck today's complaints, Re-evaluation by your physician Discharge Instructions: - Discharge Summary Sheet rn - Atrial Fibrillation rn - Dehydration, Adult rn - Syncope rn - Pneumonitis rn - Aspiration Pneumonia, Adult rn Forms: - Medication Reconciliation Form rn - Thank You Letter rn - Antibiotic journalism professor - Prescription Opioid Use rn Prescriptions: - Augmentin 500-125 mg Oral Tablet - take 1 tablet by ORAL route every 8 hours for 10 days; 30 tablet; Refills: 0, rn Product Selection Permitted Signatures: Dispatcher [employer] EDMD Saúl Jesus MD MD rn Ariella Pérez, RN RN aa5 Asmita Mallory, RN RN Corrections: (The following items were deleted from the chart) 13:26 12:32 Abdomen ordered. EDMD EDMS 16:34 15:21 Inpatient Admission rn rn 16:34 15:21 Arceo, A rn rn 16:34 15:21 Telemetry/MedSurg (Inpatient) rn rn 16:34 15:21 Stable rn rn 16:34 15:21 new rn rn 16:34 15:21 have improved rn rn 16:34 15:21 Standard rn rn 16:34 15:21 rn rn 16:34 15:21 Acute kidney failure, unspecified rn rn 16:34 15:21 Dehydration rn rn 16:34 15:21 Syncope rn rn 16:34 15:21 Persistent atrial fibrillation - with RVR rn rn
--- NOTE | 2022-09-10 15:22 | ER ---
Nurse's Notes [facility] Name: Jhonatan Solis Age: 71 yrs Sex: Male : 1950 Arrival Date: 09/10/2022 Time: 12:23 Bed 5 Private MD: Diagnosis: Dehydration;Syncope;Aspiration pneumonitis Presentation: 09/10 12:25 Chief complaint: EMS states: Became unresponsive for approx 8 minutes during shower hb with home health. VS WNL, BGL 142, NSR on 12 lead. 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 Coronavirus screen: At this time, the client does not indicate any symptoms associated with coronavirus-19. Ebola Screen: No symptoms or risks identified at this time. Initial Sepsis Screen: Does the patient meet any 2 criteria? No. Patient's initial sepsis screen is negative. Does the patient have a suspected source of infection? No. Patient's initial sepsis screen is negative. Risk Assessment: Do you want to hurt yourself or someone else? Patient reports no desire to harm self or others. Onset of symptoms was September 10, 2022. 12:25 Method Of Arrival: EMS: [facility] hb 12:25 Acuity: TAMAR 3 hb Historical: - Allergies: 12:27 Levaquin; hb - PMHx: 12:27 Atrial Fib; Depression; Hyperlipidemia; Hypertension; kidney cancer; stent; hb - PSHx: 12:27 L kidney partially removed; hb - Immunization history:: Adult Immunizations up to date. - Social history:: Smoking status: Patient/guardian denies using tobacco. - Family history:: not pertinent. - Hospitalizations: : No recent hospitalization is reported. Screenin:28 [facility] ED Fall Risk Assessment (Adult) Score/Fall Risk Level 0 - 2 = Low Risk hb Oriented to surroundings, Maintained a safe environment. Abuse screen: Denies threats or abuse. Denies injuries from another. Nutritional screening: No deficits noted. Tuberculosis screening: No symptoms or risk factors identified. Assessment: 12:28 General: Appears in no apparent distress. Behavior is calm, cooperative. Pain: Denies hb pain. Neuro: Level of Consciousness is awake, alert, obeys commands, Oriented to person, place, time, situation. Cardiovascular: Patient's skin is warm and dry. Respiratory: Respiratory effort is even, unlabored, Respiratory pattern is regular, symmetrical. GI: Reports nausea. : No signs and/or symptoms were reported regarding the genitourinary system. EENT: No signs and/or symptoms were reported regarding the EENT system. Derm: Skin is pink, warm \T\ dry. Musculoskeletal: No signs and/or symptoms reported regarding the musculoskeletal system. 13:30 Reassessment: Patient appears in no apparent distress at this time. No changes from hb previously documented assessment. Patient and/or family updated on plan of care and expected duration. Pain level reassessed. 14:31 Reassessment: Pt cleaned of incontinence, linens and brief changed. Tolerated well. hb Family remains at bedside. 15:30 Reassessment: Patient appears in no apparent distress at this time. No changes from hb previously documented assessment. Patient and/or family updated on plan of care and expected duration. Pain level reassessed. 17:09 Reassessment: Plan is to discharge after IV ABX complete. Family remains at bedside. hb Vital Signs: 12:25 BP 102 / 67; Pulse 87; Resp 16; Temp 97.9(A); Pulse Ox 96% on R/A; hb 14:32 BP 133 / 99; Pulse 101; Resp 16; Pulse Ox 98% on R/A; hb 15:30 BP 136 / 86; Pulse 100; Resp 17; Pulse Ox 99% on R/A; hb 17:00 BP 130 / 80; Pulse 89; Resp 15; Pulse Ox 100% on R/A; hb ED Course: 12:23 Patient arrived in ED. jl7 12:24 Saúl Jesus MD is Attending Physician. rn 12:27 Triage completed. hb 12:28 Arm band placed on. hb 12:28 Patient has correct armband on for positive identification. hb 12:37 Chest Single View XRAY In Process Unspecified. EDMS 12:40 Inserted saline lock: 20 gauge in right antecubital area, using aseptic technique. aa5 12:40 Initial lab(s) drawn, by me, sent to lab. First set of blood cultures drawn by me. aa5 12:50 Inserted saline lock: 20 gauge in right wrist, using aseptic technique. aa5 12:52 Second set of blood cultures drawn by me. aa5 13:32 EKG done, by ED staff, reviewed by Saúl Jesus MD. em1 13:34 CT Head Brain wo Cont In Process Unspecified. EDMS 13:39 Abdomen In Process Unspecified. EDMS 14:16 Asmita Mallory, RN is Primary Nurse. hb 15:21 Matthew Arceo MD is Hospitalizing Provider. rn 16:34 Matthew Arceo MD is Referral Physician. rn 18:24 No provider procedures requiring assistance completed. IV discontinued, intact, hb bleeding controlled, No redness/swelling at site. Administered Medications: 13:00 Drug: NS 0.9% 1000 ml Route: IV; Rate: 1000 ml; Site: right antecubital; aa5 17:08 Drug: Zosyn (piperacillin-tazobactam) 2.25 grams Route: IVPB; Infused Over: 60 mins; hb Site: right hand; 17:08 Drug: NS 0.9% 500 ml Route: IV; Rate: bolus; Site: right hand; hb Outcome: 15:21 Decision to Hospitalize by Provider. rn 16:35 Discharge ordered by MD. rn 18:24 Discharged to home via wheelchair, with family. hb 18:24 Condition: stable 18:24 Discharge instructions given to patient, family, Instructed on discharge instructions, follow up and referral plans. medication usage, Demonstrated understanding of instructions, follow-up care, medications, Prescriptions given X 1. 18:24 Patient left the ED. hb Signatures: Dispatcher [employer] EDMS Saúl Jesus MD MD rn Martinez, Eric em1 Ariella Pérez RN RN aa5 Asmita Mallory, RN RN Rubén Tsai RN RN [id number]
[2022-09-10] MEDS ORDERED: PIPERACIL/TAZO 2.25 GM VIAL IV ONE (16:47)
[2022-09-10] MEDS ORDERED: PIPERACIL/TAZO 3.375 GM VIAL IV ONE (16:47)
[2022-09-10] MEDS ORDERED: NA CHLORIDE 0.9% 100 ML IV ONE (16:47)
[2022-09-10 19:20] VITALS: TEMP 97.9
[2022-09-10 19:24] VITALS: BP 130/80; O2SAT 100
--- NOTE | 2022-09-11 16:49 | EKG ---
Test Date: 2022-09-10 Test Time: 13:18:29 Web Services Manager: PADMINI MEASUREMENT RESULTS: Intervals: Rate: 93 OR: QRSD: 90 QT: 384 QTc: 477 Morris: P: OR: QRS: 87 T: 179 INTERPRETIVE STATEMENTS: Atrial fibrillation Nonspecific ST and T wave abnormality Abnormal ECG Compared to ECG 05/27/2021 12:03:33 ST (T wave) deviation now present Sinus bradycardia no longer present T-wave abnormality no longer present Possible ischemia no longer present Electronically Signed On 09-11-22 16:48:03 CLINICAL OFFICE TECHNICIAN by Junaid Garg
== END 2022-09-10 18:24 | disposition home or self-care (01) ==
LOC: ER 12:19
DX: E86.0 Dehydration (principal); J69.0 Pneumonitis due to inhalation of food and vomit; I10 Essential (primary) hypertension; I48.91 Unspecified atrial fibrillation; F32.A Depression, unspecified; Z88.1 Allergy status to other antibiotic agents; Z85.528 Personal history of other malignant neoplasm of kidney; Z20.822 Contact with and (suspected) exposure to COVID-19
CPT/HCPCS: 93005; 87040 ×2; 85025; 80048; 36415; 83735; 85610; 80076; 85730; 84484; 0240U; 70450; 74176; 71045; 96374; 99284; J2543 ×2; J7030 ×2; 81003; 81015

== ENCOUNTER 2023-04-10 07:43 | Emergency (ER) | payer OTHER ==
--- OUTSIDE RECORDS SUMMARY | 2023-04-10 07:48 | XMS REPORT | Continuity of Care Document ---
:1950 Author Organization [facility] t Address [address] [place] [id number] Care Team Providers Name Role Phone Pcp, Patient Does Not Have A Primary Care Physician [id number] Cesar Arceo Attending Clinician Unavailable Doctor Unassigned, [place] Attending Clinician Unavailable JOSE ANTONIO WAGNER Attending Clinician Unavailable JOSE ANTONIO WAGNER Attending Clinician Unavailable Jose Antonio Wagner MD Attending Clinician AFSHIN JORDAN Attending Clinician Unavailable Nurse, Adc Pob Immunization Attending Clinician Unavailable Afshin Jordan DO Attending Clinician ROSANNA YE Attending Clinician Unavailable MD ROSANNA YE Attending Clinician Unavailable Jai Cota RN Attending Clinician Unavailable Bar Hayward MD Attending Clinician DIANNA MATHEWS Attending Clinician Unavailable EDUARDO ROME Attending Clinician Unavailable ROSANNA YE Admitting Clinician Unavailable MD ROSANNA YE Admitting Clinician Unavailable Payers Payer Name Policy Type Policy Number Effective Date Expiration Date S ource Problems Condition Condition Condition Status Onset Resolution Last Treating Co mments Source Name Details Category Date Date Treatment Clinician Date ALISON (acute ALISON (acute Disease Active M ethodi kidney kidney 9-29 st injury) injury) 00:00: Hospita 00 l [...] di 02-24 st 00:00: Hospita 00 l Cognitive Cognitive Disease Active Uni vers change change 2 ity of 00:00: [place] [address] Medical Branch Depression Depression Disease Active U nivers 2- ity of 00:00: [place] [address] Medical Branch Allergies, Adverse Reactions, Alerts Allergy Allergy Status Severity Reaction(s) Onset Inactive Treating Comm ents Source Name Type Date Date Clinician Levoflox Propensi Active GI Other Method i acin ty to Intolerance 7- reaction( st adverse 00:00: s): Hospita reaction 00 Unknown - l s to See drug commentsO ther reaction( s): Unknown - See commentsO ther reaction( s): Unknown - See commentsO ther reaction( s): Unknown - See commentsO ther reaction( s): Unknown - See comments Levoflox Propensi Active Other [facility] ac[facility] ty to 7-13 reaction( kes adverse 00:00: s): Medical reaction 00 Unknown - Cente r s See commentsO ther reaction( s): Unknown - See comments LEVOFLOX Allergy Active [facility] Social History Social Habit Start Date Stop Date Quantity Comments Source History SDAZ University o f Alcohol Frequency [facility] edical Branch History [facility] University o f Alcohol Std Drinks [place] [facility] History [facility] University o f Alcohol Binge [place] [facility] Gender identity [facility] Sexual [facility] Exposure to 2022-03-25 2022-04-04 Not sure University of SARS-CoV-2 (event) 00:00:00 13:29:00 [facility] History of Social 2021-06-09 2021-06-[address] function 00:00:00 00:00:00 Hospital Alcohol intake 2018-09-14 2018-09-14 Current drinker Unive rsity of 00:00:00 00:00:00 of alcohol [place] [facility] (finding) [facility] Tobacco use and 2018-03-16 2018-03-16 Smokeless tobacco Un iversity of exposure 00:00:00 00:00:00 non-user [facility] Alcohol Comment 2018-03-16 2018-03-16 occaisonid Universit y of 00:00:00 00:00:00 [facility] Sex Ass[birth year] At [birth year] [facility] 00:00[facility] 00[facility]00 Hospital Smoking Status Start Date Stop Date Source Tobacco smoking consumption [facility] unknown Never smoked tobacco [facility] Medications Ordered Filled Start Stop Current Ordering Indication Dosage Frequency Signature Comments Components Source Medication Medication Date Date Medication? Clinician (SIG) Name Name evolocumab 2020-09 Yes Inject Metho di (REPATHA) [...] back and chest hydrOXYzine 2020-09 Yes 25mg Q.[id number] Take 25 mg Methodi (ATARAX) 25 0-06 [id number] mouth [address] MG tablet 22:14: 3D (three) Hospi ta 11 times a l day. Scheduled for Anxiolytic , sedatives, hypnotics sertraline 2020-09 Yes 25mg QD Take 25 mg M ethodi (ZOLOFT) 25 0-[address] MG tablet 22:14: daily. Hospit a 11 l risperiDONE 2020-09 Yes .25mg Q.[id number] Take 0.25 Methodi (RisperDAL) 0-06 [id number] mg by s t 0.25 MG 22:14: [...] as needed for mild pain or fever. evolocumab 2020-09 Yes Inject Metho di (REPATHA) [...] ta solution 11 l nystatin 2020-09 Yes Q.5D Apply 1 Method i (MYCOSTATIN 0-[address] ) 100,000 22:14: n Hospita unit/gram 11 topically l powder 2 (two) times a day. hydrocortis 2020-09 Yes Q.5D Apply 1 Met hodi one 1 % 0-[address] cream 22:14: n Hospita 11 topically l 2 (two) times a day. To back and chest hydrOXYzine 2020-09 Yes 25mg Q.[id number] Take 25 mg Methodi (ATARAX) 25 0-06 [id number] by mouth 3 st MG tablet 22:14: 3D (three) Hospi ta 11 times a l day. Scheduled for Anxiolytic , sedatives, hypnotics sertraline 2020-09 Yes 25mg QD Take 25 mg M ethodi (ZOLOFT) 25 0-[address] MG tablet 22:14: daily. Hospit a 11 l risperiDONE 2020-09 Yes .25mg Q.[id number] Take 0.25 Methodi (RisperDAL) 0-06 [id number] mg by s t 0.25 MG 22:14: [...] as needed for mild pain or fever. colesevelam 2020- No 625mg Q.5D Take 1 Me thodi (WELCHOL) 8-02 09-[address] 625 mg 00:00: 04:59 (625 mg Hospita tablet 00 :00 total) by l mouth 2 (two) times a day with meals for 60 doses. colesevelam 2020- No 625mg Q.5D Take 1 Me [facility] (WELCHOL) 7-29 08-[address] 625 mg 00:00: 00:00 [...] mouth Hospita 08 daily. l vitamin A [place] [id number] [address] UNIT 6-[address] capsule 21:22: Units by Hospit a 07 mouth l daily. vit B comp Yes 1{tbl} QD Take 1 Met hodi no.3-folic- 6-[address] C-biotin 21:22: mouth Hospita (NEPHRO-VIT 07 daily. l E RX) 1-60-300 mg-mg-mcg tablet mecobalamin Yes Take by Met hodi (B12 ACTIVE - mouth. st ORAL) 21:22: Hospita 07 l [...] a tablet 00 DAILY l donepeziL Yes 10mg QD Take 10 mg Me [facility] (ARICEPT) -[address] 10 MG 00:00: nightly. Hospita tablet 00 l donepeziL Yes 10mg QD Take 10 mg Me th[facility] (ARICEPT) -[address] 10 MG 00:00: nightly. Hospita tablet 00 l methylPREDN 2021- No Unive rs ISolone 4 09-10 08-21 ity of mg tablets 00:00: 00:00 [place] 00 :00 [facility] XARELTO 20 2017-09 Yes Univers mg tablet 09-29 ity of 00:00: [place] 00 [facility] SORINE 80 2017-09 Yes Univers mg tablet 09-29 ity of 00:00: [place] 00 [facility] XARELTO 20 2017-09 Yes Univers mg tablet 09-29 ity of 00:00: [address] Branch SORINE 80 2017-09 Yes Univers mg tablet 1-26 ity of 00:00: [place] 00 [facility] rivaroxaban 2017-09 Yes Method i (XARELTO) 1- st 20 mg 00:00: Hospita tablet 00 l sotaloL 2017-09 Yes 80mg Take 80 mg Meth zoë (BETAPACE) [address] 80 MG 00:00: Hospita tablet 00 l lisinopril Yes Univers 5 mg tablet 6-25 ity of 00:00: [facility] rosuvastati Yes Univer s n 10 mg 6-25 ity of tablet 00:00: [place] [facility] lisinopril Yes Univers 5 mg tablet 6-25 ity of 00:00: [place] [facility] rosuvastati Yes Univer s n 10 mg 6-25 ity of tablet 00:00: [place] [facility] lisinopriL Yes Methodi (PRINIVIL) 6-25 st 5 mg tablet 00:00: Hospit a 00 l Immunizations Ordered Filled Immunization Date Status Comments [facility] e Immunization Name Name SARS-COV-2 COVID-19 2021-07-13 Completed Unive rsity of PFIZER VACCINE 00:00:00 [facility] SARS-COV-2 COVID-19 2021-07-13 Completed Unive rsity of PFIZER VACCINE 00:00:00 [facility] SARS-COV-2 COVID-19 2020-10-29 Completed Unive rsity of PFIZER VACCINE 00:00:00 [facility] SARS-COV-2 COVID-19 2020-10-29 Completed Unive rsity of PFIZER VACCINE 00:00:00 [facility] SARS-COV-2 COVID-19 2020-10-01 Completed Unive rsity of PFIZER VACCINE 00:00:00 [facility] SARS-COV-2 COVID-19 2020-10-01 Completed Unive rsity of PFIZER VACCINE 00:00:00 [facility] Vital Signs Vital Name Observation Time Observation Value Comments Source Systolic blood 2022-04-04 18:48:00 125 mm[Hg] Univer sity of pressure [facility] Diastolic blood 2022-04-04 18:48:00 95 mm[Hg] Unive rsity of pressure [facility] Body height 2021-03-16 14:38:00 185.4 cm [facility] Body weight 2021-03-16 14:38:00 99.791 kg [facility] BMI 2021-03-16 14:38:00 29.03 kg/m2 [facility] Systolic blood 2021-02-24 21:10:00 142 mm[Hg] [facility] pressure Diastolic blood 2021-02-24 21:10:00 87 mm[Hg] [facility] pressure Heart rate 2021-02-24 21:10:00 67 /min [facility] Body temperature 2021-02-24 21:10:00 36.78 Norah [facility] Procedures Procedure Date / Time Performing Clinician Source Performed REFERRAL- 2022-06-07 05:01:00 Doctor Unassigned, Radha Betancourt [facility] REQUEST/RESPONSE Name Medical Branch FECAL CALPROTECTIN 2021-03-18 19:36:00 MainorBar edward [facility] PANCREATIC ELASTASE, 2021-03-18 19:36:00 MainorBar [facility] FECAL FECAL FAT, QUALITATIVE 2021-03-18 [facility] 2021-03-16 15:28:16 [facility] POC CREATININE 2021-03-16 14:45:00 [facility] 2021-03-16 14:45:00 [facility] FOLATE LEVEL 2021-03-16 12:51:00 [facility] VITAMIN B12 LEVEL 2021-03-16 12:51:00 [facility] TOTAL IRON BINDING 2021-03-16 12:51:00 [facility] CAPACITY CELIAC DISEASE PANEL 2021-02-24 22:02:00 [facility] Plan of Care Planned Activity Planned Date Details Comments Source Future Scheduled 2023-04-06 Screening for [facility] Test 04:31:09 malignant neoplasm of colon (procedure) [code = 996597216] Future Scheduled 2023-04-06 [facility] Test 04:31:09 malignant neoplasm of colon (procedure) [code = 056245057] Future Scheduled 2023-04-06 [facility] Test 04:31:09 malignant neoplasm of colon (procedure) [code = 791546557] Future Scheduled 2023-04-06 Hepatitis C screening [facility] Test 04:31:09 (procedure) [code = 613250538] Future Scheduled 2023-04-06 [facility] Test 04:31:09 malignant neoplasm of colon (procedure) [code = 667627566] Future Scheduled 2023-04-06 [facility] Test 04:31:09 malignant neoplasm of colon (procedure) [code = 739931959] Future Scheduled 2023-04-06 SHINGLES VACCINES (1 Met [facility] Test 04:31:09 of 2) [code = SHINGLES VACCINES (1 of 2)] Future Scheduled 2023-04-06 COVID-19 VACCINE (3 - [facility] Test 04:31:09 Pfizer series) [code = COVID-19 VACCINE (3 - Pfizer series)] Future Scheduled 2023-04-06 65+ [facility]OCOCCAL [facility] Test 04:31:09 VACCINE (2 - PCV) [code = 65+ PNEUMOCOCCAL VACCINE (2 - PCV)] Future Scheduled 2023-04-06 INFLUENZA VACCINE [facility] Test 04:31:09 [code = INFLUENZA VACCINE] Future Scheduled 2022-09-[address] [facility] Test 00:00:00 (12+) [code = Medical Center DEPRESSION SCREENING (12+)] Future Scheduled 2022-09-04 FALLS RISK SCREENING [facility] Test 00:00:00 [code = FALLS RISK Medical C enter SCREENING] Future Scheduled 2022-08-18 Hepatitis C screening [facility] Test 06:26:23 (procedure) [code = 840774678] Future Scheduled 2022-08-18 COLONOSCOPY SCREENING [facility] Test 06:26:23 [code = COLONOSCOPY SCREENING] Future Scheduled 2022-08-18 SHINGLES VACCINES (1 [facility] Test 06:26:23 of 2) [code = SHINGLES VACCINES (1 of 2)] Future Scheduled 2022-08-18 COVID-19 VACCINE (3 - [facility] Test 06:26:23 Booster for Pfizer series) [code = COVID-19 VACCINE (3 - Booster for Pfizer series)] Future Scheduled 2022-08-18 65+ [facility]OCOCCAL [facility] Test 06:26:23 VACCINE (2 - PCV) [code = 65+ PNEUMOCOCCAL VACCINE (2 - PCV)] Future Scheduled 2022-08-18 INFLUENZA VACCINE [facility] Test 06:26:23 [code = INFLUENZA VACCINE] Future Scheduled 2022-05-05 INFLUENZA VACCINE (#1[facility] Test 00:00[facility]00 [code = INFLUENZA Medical Ce nter VACCINE (#1)] Future Scheduled 2022-05-05 INFLUENZA VACCINE (#1) [facility] Test 00:00:00 [code = INFLUENZA Medical Ce nter VACCINE (#1)] Future Scheduled 2022-05-05 INFLUENZA VACCINE (#1) [facility] Test 00:00:00 [code = INFLUENZA Medical Ce nter VACCINE (#1)] Future Scheduled 2021-09-[address] [...] enter SCREENING] Future Scheduled 2021-05-05 INFLUENZA VACCINE (#1) [facility] Test 00:00:00 [code = INFLUENZA Medical Ce nter VACCINE (#1)] Future Scheduled 2021-05-05 INFLUENZA VACCINE (#1) [facility] Test 00:00:00 [code = INFLUENZA Medical Ce [...] Lukes Test 00:00:00 (1 of 1 - [facility] ENEG99_Eudkyxy PCV13) [code = PNEUMOCOCCAL 65+ YRS (1 of 1 - IKQH29_Bxhdwwl PCV13)] Future Scheduled 2013 PNEUMOCOCCAL 65+ YRS [...] 00:00:00 (1 of 1 - Medical Center DCQU65_Sqiperr PCV13) [code = PNEUMOCOCCAL 65+ YRS (1 of 1 - GCLD12_Eugmdgt PCV13)] Future Scheduled 1998 SHINGLES VACCINES ([address] [facility] Test 00:00:00 of 2) [code = SHINGLES Medic al Center VACCINES (1 of 2)] Future Scheduled 1998 SHINGLES VACCINES ([address] [facility] Test 00:00:00 of 2) [code = SHINGLES Medic al Center VACCINES (1 of 2)] Future Scheduled 1998 SHINGLES VACCINES ([address] [facility] Test 00:00:00 of 2) [code = SHINGLES Medic al Center VACCINES (1 of 2)] Future Scheduled 1998 SHINGLES VACCINES ([address] [facility] Test 00:00:00 of 2) [code = SHINGLES Medic al Center VACCINES (1 of 2)] Future Scheduled 1998 SHINGLES VACCINES ([address] [facility] Test 00:00:00 of 2) [code = SHINGLES [...] Counseling and Screening (12+)] Future Scheduled [address] [...] Medica l Center colon (procedure) [code = 744143195] Future Scheduled 1950 Sigmoidoscopy [code = [facility] Test [facility] S[facility]oidoscopy] Medical Cente r Future Scheduled [address] [facility] Test 00:00:00 (combo) [code = CT Medical C enter Colonography (combo)] Future Scheduled [address] [facility] Test 00:00:00 malignant neoplasm of Medica l Center colon (procedure) [code = 775506604] Future Scheduled [address] [facility] Test 00:00:00 malignant neoplasm of Medica l Center colon (procedure) [code = 855707067] Future Scheduled [address] Test 00:00:00 malignant neoplasm of Medica l Center colon (procedure) [code = 354380769] Future Scheduled [address] Test 00:00:00 malignant neoplasm of Medica l Center colon (procedure) [code = 092794975] Future Scheduled 1950 Sigmoidoscopy [facility]code [facility] Test 00:00:[facility]oscopy] Medical Cente r Future Scheduled [address] [facility] Test 00:00:00 malignant neoplasm of Medica l Center colon (procedure) [code = 859432466] Future Scheduled [address] [facility] Test 00:00:00 (combo) [code = CT Medical C enter Colonography (combo)] Future Scheduled [address] [facility] Test 00:00:00 malignant neoplasm of Medica l Center colon (procedure) [code = 787318526] Future Scheduled [address] [facility] [facility] Test 00:00:00 malignant neoplasm of Medica l Center colon (procedure) [code = 773333740] Future Scheduled [address] [facility] [facility] Test 00:00:00 malignant neoplasm of Medica l Center colon (procedure) [code = 846894495] Future Scheduled [address] [facility] Test 00:00:00 malignant neoplasm of Medica l Center colon (procedure) [code = 427253763] Future Scheduled 1950 Sigmoidoscopy [facility]code = [facility] Test 00:00:[facility]oscopy] Medical Cente r Future Scheduled [address] [facility] Test 00:00:00 malignant neoplasm of Medica l Center colon (procedure) [code = 609414397] Future Scheduled [address] [facility] Test 00:00:00 (combo) [code = CT Medical C enter Colonography (combo)] Future Scheduled [address] [facility] Test 00:00:00 malignant neoplasm of Medica l Center colon (procedure) [code = 132448308] Future Scheduled [address] [facility] Test 00:00:00 malignant neoplasm of Medica l Center colon (procedure) [code = 429788653] Future Scheduled [address] [facility] Test 00:00:00 malignant neoplasm of Medica l Center colon (procedure) [code = 258147155] Future Scheduled [facility] (procedure) [code = 220221044] Future Scheduled [facility] [code = COLONOSCOPY SCREENING] Future Scheduled SHINGLES VACCINES (#1) [facility] Test [code = SHINGLES VACCINES (#1)] Future Scheduled INFLUENZA VACCINE [facility] Test [code = INFLUENZA VACCINE] Encounters Start End Encounter Admission Attending Care Care Encounter Source Date/Time Date/Time Type Type Clinicians Facility Department ID 2023-02-08 Outpatient Arceo, [facility] [id number] Common 10:11:00 Cesar 6[address]49 [facility] 2022-12-15 Outpatient Arceo, [facility] [id number] Common 14:08:01 Csear 85488 [facility] 2022-12-14 Outpatient Arceo, [facility] [id number] Common 16:41:00 Cesar 01708 [facility] 2022-12-12 Outpatient Arceo, [facility] ST[facility] [id number] Common 07:44:00 Cesar 31704 [facility] 2022-10-11 Outpatient Arceo, STLMLC STLMLC [id number] Common 11:00:01 Cesar 15641 [facility] 2022-10-06 Outpatient Arceo, STLML[facility] STL[facility] [id number] Common 13:36:00 Cesar 35758 [facility] 2022-10-05 Outpatient Arceo, STLMLC STL[facility] [id number] Common 15:47:01 Cesar 67069 [facility] 2022-04-06 Outpatient Arceo, STLMLC STLMLC [id number] Common 10:48:02 Cesar 67222 [facility] 2022-04-04 Outpatient Arceo, STLMLC STLMLC [id number] Common 10:42:00 Cesar 09372 [facility] 2021-09-29 Outpatient Arceo, STLMLC STLMLC [id number] Common 12:47:22 Cesar 80217 [facility] 2021-09-29 Outpatient Arceo, STLMLC STLMLC [id number] Common 11:55:52 Cesar 26685 [facility] 2021-09-29 Outpatient Arceo, STLMLC STLMLC [id number] Common 11:32:33 Cesar 62561 [facility] 2022-06-07 2022-06-07 Orders Doctor BOLTON 1.2.840.114 [id number] Univers 00:00:00 00:00:00 Only Unassigned, MERT 350.1.13.10 ity of [facility] 4.2.7.2.686 Tim as [id number] [address] 2022-04-04 2022-04-04 Outpatient JOSE ANTONIO SHAFFER [facility] [id number] [facility] 13:40:00 16:02:46 JOSE ANTONIO WAGNER [facility] 2022-04-04 2022-04-04 Office MARTHA WagnerMB 1.2.840.114 [id number] Univers 13:40:00 16:02:46 Visit [facility] 350.1.13.10 itbecky flakita [place] 4.2.7.2.686 Tim as ZANA?BLEA [id number] Ny dical KNEY 092 [facility] 2021-07-13 2021-07-13 Outpatient R NIKKI [facility] [id number] Univers 11:00:00 11:00:00 AFSHIN mazariegos [facility] 2021-07-13 2021-07-13 Imm/Inj Nurse, Adc Pob Immunization [facility] 1.2.840.114 [id number] Univers 10:42:56 10:43:04 Visit Afshin Jordan 350.1.13 .10 [place] [id number] Ny dical NAL 421 [facility] 2021-06-02 2021-06-09 Inpatient [place] [id number] [address] [place] [address] 00:00:00 00:00:[address] ROSAN[address] 2021-04-05 2021-04-05 Orders Beata, 1.2.840.1 [id number] Methodi 00:00:00 00:00:00 Only Jai 15052.1.[address] 3.430.2.7 Hospit a .3.575382 l .8 2021-04-05 2021-04-05 Orders Beata, 1.2.840.1 [id number] Methodi 00:00:00 00:00:00 Only Jai 22371.1.[address] 3.430.2.7 Hospit a .3.308206 l .8 2021-03-26 2021-03-26 Orders Mainor 1.2.840.1 [id number] Methodi 00:00:00 00:00:00 Only Bar Gomez 12222.1.[address] 3.430.2.7 Hospit a .3.929366 l .8 2021-03-18 2021-03-18 Orders Mainor 1.2.840.1 [id number] Methodi 00:00:00 00:00:00 Only Bar Gomez 77864.1.[address] 3.430.2.7 Hospit a .3.718388 l .8 2021-03-16 2021-03-16 Lab Main[facility], 1.2.840.1 [id number] Methodi 07:48:55 07:53:55 Bar Gomez [address]25.1.[address] 3.430.2.7 Hospit a .3.654399 l .8 2021-03-16 2021-03-16 Travel 1.2.840.1 1.2.261.251 [id number] [id number] Methodi 00:00:00 00:00:[address] 3.430.2.7 0.2.7.3.698 Ho spita .3.046019 084.8 l .8 2021-03-10 2021-03-10 Travel 1.2.840.1 1.2.759.995 [id number] [id number] Methodi 00:00:00 00:00:[address] 3.430.2.7 0.2.7.3.698 Ho spita .3.375453 084.8 l .8 2021-02-26 2021-02-26 Travel 1.2.840.1 1.2.141.131 0499 [id number] Methodi 00:00:00 00:00:[address] 3.430.2.7 0.2.7.3.698 Ho spita .3.234859 084.8 l .8 2021-02-24 2021-02-24 [facility] Mainor, 1.2.840.1 [id number] Methodi 14:50:16 17:17:15 Visit Bar Gomez 83837.1.[address] 3.430.2.7 Hospit a .3.630316 l .8 2021-02-24 2021-02-24 Travel 1.2.840.1 1.2.027.346 [id number] Methodi 00:00:00 00:00:[address] 3.430.2.7 0.2.7.3.698 Ho spita .3.725962 084.8 l .8 2020-10-29 2020-10-29 Outpatient Courtney MATHEWS [facility] [id number] Univers 12:00:00 12:00:00 [facility] 2020-10-01 2020-10-01 [facility] [id number] [facility] 10:40:00 10:40:00 [facility] 2019-11-18 2019-11-18 Outpatient SLE SLE [id number] 4-2 SLE 00:00:00 00:00:00 [id number] Results Test Description Test Time Test Comments Results Result Comments Source SARS-CoV-2 (COVID-19) RNA [Presence] in Respiratory sp ecimen by 2021-06-02 21:46:59 GENOVEVA with probe detection Test Item Value Reference Range Interpretation Comme nts SARS-CoV-2 (COVID-19) RNA [Presence] in Respiratory Not detected No t-Detected specimen by GENOVEVA with probe detection (test code = 03662-4) Whether patient is employed in a healthcare setting (test code = 95457-0) Whether the patient has symptoms related to condition of interest (test code = 21072-6) Patient was hospitalized because of this condition (test code = 04328-9) Whether the patient was admitted to intensive care unit (ICU) for condition of interest (test code = 93707-6) Whether patient resides in a congregate care setting (test code = 76613-7) [facility] [id number] 21:08:00 Test Item Value Reference Range Interpretation Comments Fat qual Normal Normal (<60 neutral, stool Droplets/HPF) (test code = 67970-1) Fat qual, Normal Normal (<100 stool (test Droplets/HPF) code = 84254-7) LORETTA (test code Test(s) 972226-Odki, = LORETTA) Neutral; 472015-Zscs, Totalwas developed and its performance characteristics determinedby [facility]. It has not been cleared or approved by the Foodand Drug Administration.Performed at: [address] [id number] Director: Yane Helton MD, Phone: [phone] [facility], [id number] 18:10:00 Test Item Value Reference Range Interpretation Comments Pancreatic See_Comment Severe Pancrea tic elastase (test Insufficiency : code = 51684-4) <100 Moderat e Pancreatic Insufficiency: 100 - 200 Normal: > 200 [Automated message] The system which generated this result transmit ary reference range : >200 ug Elast./ g. The reference range was not u sed to interpret th is result as normal/abnormal . [facility] (test code = Performed at: [facility]) [address] [id number] Director: Yane Helton MD, Phone: [phone] [facility] [id number] 14:10:00 Test Item Value Reference Range Interpretation Comments Fecal calprotectin 17 ug/g 0-120 Concentra tion (test code = Interpretation 33898-5) Follow-Up<16 - 50 ug/g Normal Non e>50 -120 ug/g Vikash dickerson Re-evaluate in 4-6 weeks >120 ug/g Abnormal Repeat as clinically indicated [facility] (test code = Performed at: [facility]) - [address] [id number] Director: Yane Helton MD, Phone: [phone] [facility]isco[facility]eliac disease [id number] 13:12:00 Test Item Value Reference Interpretation Comments Range Endomysial IgA (test Negative Negative code = 06515-9) Tissue <2 0-3 Negative 0 - 3 Weak transglutaminase Ab, Positiv e 4 - 10 IgA (test code = Positive > 10 Tissue 81068-6) Transglutaminas e (tTG) has been identified as t he endomysial anti gen. Studies have demonstr- ated that endomysial IgA antibodies have over 99% specificity for gluten sensitiv e enteropathy. IgA (test code = 228 mg/dL 61-437 2458-8) [facility] (test code = [facility]) Performed at: [address] [id number] Director: Yane Helton MD, Phone: [phone] rmed at: [address] [id number] Director: Partha Ray MD, Phone: [phone] [facility]iscoVitamin B12 [id number] 08:07:00 Test Item Value Reference Range Interpretation Comments Vitamin B12 (test 552 pg/mL 232-1245 code = 2132-9) [facility] (test code = [facility]) Performed at: [address] [id number] Director: Partha Ray MD, Phone: [phone] [facility]isco[facility]olate [id number] 08:07:00 Test Item Value Reference Range Interpretation Comments Folate (test 9.7 ng/mL >3.0 A serum folate code = 2284-8) concentration of less than 3.1 ng/mL isconsidered to represent clini tien deficiency. [facility] (test code Performed at: - = [facility]) [address] [id number] Director: Partha Ray MD, Phone: [phone] [facility]iscoTotal iron binding [id number] 07:07:00 Test Item Value Reference Range Interpretation Comments Iron binding capacity 313 ug/dL 250-450 (test code = 2500-7) Unsaturated iron 242 ug/dL 111-343 binding capacity (test code = 2501-5) Iron level (test code = 71 ug/dL 38-169 2498-4) Iron saturation (test 23 % 15-55 code = 2502-3) [facility] (test code = [facility]) Performed at: [address] [place] [id number] Director: Partha Ray MD, Phone: [phone] [facility] FriscoCT, [id number] 09:23:00FINAL REPORT CT abdomen and pelvis with [...] MDReport Verified Date/Time: 11/18/2019 09:23:12 Reading Location: [address] Ortho Consult Reading Room -[id number] 08:47:00 Test Item Value Reference Range Interpretation Comments POC-CREATININE 1.1 mg/dL 0.6-1.3 : TESTED AT [facility] ([facility]) (test [address] [facility] Jason [facility] code = 1859) A, [facility] 7 4158: Motion And Time Study Teacher/Techni mary ID = [id number] for CORDELIA FIERRO ICA POC-EGFR 66 mL/min/1.73M2 ([facility]) (test code = 1860) CT, HEART CORONARY TIEN, WITHOUT IV [id number] 13:48:00FINAL REPORT EXAM: CT Coronary calcium scoring [...] Verified Date/Time: 10/07/2019 13:48:52 RAD, BONE DENSITY [id number] 12:53:00Reason for Exam:->encounter for preventative health examinationFINAL [...] for bone mineral density as provided by cosmetics demonstrator is 0.023 g/cm2 for lumbar spine and [...] Verified Date/Time: 10/07/2019 12:53:26 RAD, CHEST, 2 [id number] 08:57:00Reason for Exam:- >encounter for preventative health [...] Zhao Verified Date/Time: 10/07/2019 08:57:55 Reading Location: [facility] Reading Room [address] [place] [address]
[2023-04-10 08:18] LABS: Specific Gravity 1.026 (1.005-1.030); Urine Bacteria <20 /HPF (<20); Urine Bilirubin NEGATIVE (Negative); Urine Blood Negative (Negative); Urine Clarity Clear (Clear); Urine Color Yellow (Yellow); Urine Glucose NEGATIVE (Negative); Urine Mucus Slight /HPF (None Seen); Urine Protein TRACE (Negative); Urine RBC <5 /HPF (None Seen); Urine Urobilinogen Normal (Normal)
--- NOTE | 2023-04-10 08:50 | RAD REPORT ---
EXAM DESCRIPTION: CT - CTHCSPWOC - 04/10/2023 8:29 am CLINICAL HISTORY: TRAUMA COMPARISON: Head Brain Wo Cont dated 09/10/2022 TECHNIQUE: Axial thin cut noncontrast CT images of the head were obtained. Axial thin cut noncontrast CT images of the cervical spine were obtained. Multiplanar reformatted images were generated and reviewed. All CT scans are performed using dose optimization technique as appropriate and may include automated exposure control or mA/KV adjustment according to patient size. FINDINGS: CT HEAD WITHOUT CONTRAST: No acute hemorrhage, hydrocephalus or extra-axial collection is identified. Stable moderate diffuse p arenchymal volume loss and confluent periventricular and deep white matter hypodensities, nonspecific , but suggestive of chronic small vessel ischemic changes. No areas of brain edema or midline shift. The paranasal sinuses and mastoids are clear.The calvarium is intact. CT CERVICAL SPINE WITHOUT CONTRAST: No fracture or subluxation.Multilevel degenerative changes with [id number]-jwaiqhoa degrees of neural fo raminal narrowing.No prevertebral soft tissues swelling is identified. IMPRESSION: No acute traumatic intracranial or cervical spine findings. Chronic findings as above.
--- NOTE | 2023-04-10 09:16 | RAD REPORT ---
EXAM DESCRIPTION: RADChest Single View04/10/2023 8:56 am CLINICAL HISTORY: BLUNT CHEST TRAUMA COMPARISON: Chest Single View dated 09/10/2022; Chest Single View dated 05/27/2021; Chest Single View d ated 05/13/2021; Chest Single View dated 04/24/2021 TECHNIQUE: Portable AP view of the chest. FINDINGS: The lungs are clear. No pneumothorax or effusion. The cardiomediastinal contours are unrem arkable. IMPRESSION: No acute cardiopulmonary process.
--- NOTE | 2023-04-10 09:17 | RAD REPORT ---
EXAM DESCRIPTION: Ribs Right - 04/10/2023 8:56 am CLINICAL HISTORY: BLUNT CHEST TRAUMA COMPARISON: Chest Single View dated 04/10/2023 TECHNIQUE: Right ribs, 3 views. FINDINGS: No displaced rib fracture is evident. No aggressive rib lesion. No underlying pneumothorax, effusion, infiltrate or pulmonary contusion. IMPRESSION: Negative right rib series.
--- NOTE | 2023-04-10 09:19 | RAD REPORT ---
EXAM DESCRIPTION: RAD - Lumbar Spine 3 Views - 04/10/2023 8:56 am CLINICAL HISTORY: fall COMPARISON: Abdomen W Contrast dated 11/01/2022 TECHNIQUE: Lumbar spine, 3 views. FINDINGS: Lumbar vertebral bodies are normal in height and alignment. No fracture or acute bony proc ess seen. Moderate disc height loss at L5-S1. Multilevel facet degenerative changes. Small right ashley c bone island. No other significant findings. IMPRESSION: No acute osseous abnormality. Multilevel degenerative changes as above.
--- NOTE | 2023-04-10 09:31 | EDPHYS ---
Physician Documentation [facility] Name: Jhonatan Solis Age: 72 yrs Sex: Male : 1950 Arrival Date: 04/10/2023 Time: 07:43 Bed 8 Private MD: Matthew Arceo C ED Physician Saúl Jesus HPI: 04/10 08:00 This 72 yrs old Male presents to ER via Wheelchair with complaints of Fall Injury. jh7 08:00 Details of fall: The patient fell from seated position, out of a chair. Onset: The jh7 symptoms/episode began/occurred yesterday. Associated injuries: The patient sustained neck injury, pain with movement, injury to the low back, pain with movement, R ribs. 72-year-old male presents to the ER after a fall occurring yesterday at 5 PM. The patient and his states that he was trying to stand up from his chair and slipped, falling backwards. Reports that he hit the back of his head, his lower back, and his right anterior lateral ribs. Reports that all of these areas were initially hurting but now he is only experiencing rib pain. States that he takes Xarelto. He reports that he brought a urine sample because Dr. Arceo wanted to check for blood in his urine.. Historical: - Allergies: 08:00 Levaquin; ss - PMHx: 08:00 Atrial Fib; Depression; Hyperlipidemia; Hypertension; kidney cancer; stent; ss - PSHx: 08:00 L kidney partially removed; ss - Immunization history:: Adult Immunizations up to date. - Social history:: Smoking status: unknown. ROS: 08:00 Constitutional: Negative for fever, chills, and weight loss, Eyes: Negative for injury, jh7 pain, redness, and discharge, ENT: Negative for injury, pain, and discharge. 08:00 Respiratory: Negative for shortness of breath, cough, wheezing, and pleuritic chest pain, Abdomen/GI: Negative for abdominal pain, nausea, vomiting, diarrhea, and constipation. 08:00 Skin: Negative for injury, rash, and discoloration, Neuro: Negative for headache, weakness, numbness, tingling, and seizure. 08:00 Neck: Positive for pain with movement, Negative for mass, pain at rest, tenderness, bony tenderness. 08:00 Cardiovascular: 08:00 Back: Positive for pain with movement, of the right low back. 08:00 MS/extremity: Positive for tenderness, of the R anterior lateral ribs, Negative for contusion, decreased range of motion. 08:00 All other systems are negative. Exam: 08:00 Constitutional: This is a well developed, well nourished patient who is awake, alert, jh7 and in no acute distress. Head/Face: Normocephalic, atraumatic. Eyes: Pupils equal round and reactive to light, extra-ocular motions intact. Lids and lashes normal. Conjunctiva and sclera are non-icteric and not injected. Cornea within normal limits. Periorbital areas with no swelling, redness, or edema. ENT: Nares patent. No nasal discharge, no septal abnormalities noted. Tympanic membranes are normal and external auditory canals are clear. Oropharynx with no redness, swelling, or masses, exudates, or evidence of obstruction, uvula midline. Mucous membranes moist. Neck: Trachea midline, no thyromegaly or masses palpated, and no cervical lymphadenopathy. Supple, full range of motion without nuchal rigidity, or vertebral point tenderness. No Meningismus. Cardiovascular: Regular rate and rhythm with a normal S1 and S2. No gallops, murmurs, or rubs. Normal PMI, no JVD. No pulse deficits. Respiratory: Lungs have equal breath sounds bilaterally, clear to auscultation and percussion. No rales, rhonchi or wheezes noted. No increased work of breathing, no retractions or nasal flaring. Abdomen/GI: Soft, non-tender, with normal bowel sounds. No distension or tympany. No guarding or rebound. No evidence of tenderness throughout. Skin: Warm, dry with normal turgor. Normal color with no rashes, no lesions, and no evidence of cellulitis. MS/ Extremity: Pulses equal, no cyanosis. Neurovascular intact. Full, normal range of motion. Neuro: Awake and alert, GCS 15, oriented to person, place, time, and situation. Cranial nerves II-XII grossly intact. Motor strength 5/5 in all extremities. Sensory grossly intact. Cerebellar exam normal. 08:00 Chest/axilla: Palpation: tenderness, that is moderate, of the right lateral anterior chest, that totally reproduces the patient's complaints. 08:00 Back: pain, that is mild, of the right low back, Mild pain elicited with flexion of the lumbar spine and twisting motions. Vital Signs: 07:58 BP 105 / 74; Pulse 104; Resp 16; Temp 97.6(TE); Pulse Ox 99% on R/A; Weight 102.06 kg; ss Height 6 ft. 1 in. ; Pain 4/10; 07:58 Body Mass Index 29.68 (102.06 kg, 185.42 cm) ss 07:58 Pain Scale: Adult ss MDM: 07:47 Patient medically screened. rn 09:25 Differential diagnosis: contusion, fracture, sprain, strain. Data reviewed: vital [facility] signs, nurses notes, lab test result(s), urinalysis, radiologic studies, CT scan, plain films. Independent interpretation of the following test(s) in the Emergency Department X-Ray: My interpretation is no fractures observed. Historians other than the Patient: Spouse/Significant Other: . cargiver. Care significantly affected by the following chronic conditions: Hypertension, a fib. Counseling: I had a detailed discussion with the patient and/or guardian regarding: the historical points, exam findings, and any diagnostic results supporting the discharge/admit diagnosis, to return to the emergency department if symptoms worsen or persist or if there are any questions or concerns that arise at home. 04/10 08:04 Order name: Urinalysis W/Microscopic; Complete Time: 08:22 [facility] 04/10 08:04 Order name: XRAY Ribs RIGHT; Complete Time: 09:22 [facility] 04/10 08:04 Order name: XRAY Chest (1 view); Complete Time: 09:22 [facility] 04/10 08:04 Order name: XRAY Lumbar Spine (3 Views); Complete Time: 09:22 [facility] 04/10 08:04 Order name: CT Head C Spine; Complete Time: 09:04 [facility] Administered Medications: No medications were administered Disposition: 10:53 Co-signature as Attending Physician, Saúl Jesus MD I reviewed the patient's care rn provided by the Advanced Practice Provider and agree with the diagnosis and treatment plan. Disposition Summary: 04/10/23 09:31 Discharge Ordered Location: Home [facility] Problem: new [facility] Symptoms: are unchanged [facility] Condition: Stable [facility] Diagnosis - Right Rib Contusion jh7 - Fall from non-moving wheelchair [facility] Followup: [facility] - With: Matthew Arceo MD - When: 2 - 3 days - Reason: Recheck today's complaints Discharge Instructions: - Discharge Summary Sheet 7 - Rib Contusion 7 - Fall Prevention in the Home, Adult 7 - Lumbar Strain [facility] Forms: - Medication Reconciliation Form [facility] - Thank You Letter [facility] - Patient Portal Instructions [facility] Prescriptions: - Zanaflex 4 mg Oral Tablet - take 1 tablet by ORAL route every 8 hours As needed; 20 tablet; Refills: 0, jh7 Product Selection Permitted Signatures: Dispatcher [employer] Gita Mackey, RN Saúl Wills MD MD rn Blanchard, Shelby, RN RN ss Hadash, Jennifer, PECAN SHELLER PECAN SHELLER [facility]
--- NOTE | 2023-04-10 09:31 | ER ---
Nurse's Notes [facility] Name: Jhonatan Solis Age: 72 yrs Sex: Male : 1950 Arrival Date: 04/10/2023 Time: 07:43 Bed 8 Private MD: Matthew Arceo C Diagnosis: Right Rib Contusion;Fall from non-moving wheelchair Presentation: 04/10 07:58 Chief complaint: Patient states: R chest wall pain after leaning forward yesterday. PT ss feels like it may be one of his ribs. states that patient fell backwards and my have hit his back and/or head. PT denies this, but does state he has some neck tenderness upon palpation. Coronavirus screen: Client denies travel out of the [place] in the last 14 days. Ebola Screen: Patient denies exposure to infectious person. Patient denies travel to an Ebola-affected area in the 21 days before illness onset. Initial Sepsis Screen: Does the patient meet any 2 criteria? No. Patient's initial sepsis screen is negative. Does the patient have a suspected source of infection? No. Patient's initial sepsis screen is negative. Risk Assessment: Do you want to hurt yourself or someone else? Patient reports no desire to harm self or others. Onset of symptoms was April 09, 2023. 07:58 Method Of Arrival: Wheelchair ss 07:58 Acuity: TAMAR 3 ss Historical: - Allergies: 08:00 Levaquin; ss - PMHx: 08:00 Atrial Fib; Depression; Hyperlipidemia; Hypertension; kidney cancer; stent; ss - PSHx: 08:00 L kidney partially removed; ss - Immunization history:: Adult Immunizations up to date. - Social history:: Smoking status: unknown. Screenin:10 [facility] ED Fall Risk Assessment (Adult) History of falling in the last 3 months, iw including since admission Yes- single mechanical fall (1 pt). Abuse screen: Denies threats or abuse. Denies injuries from another. Nutritional screening: No deficits noted. Tuberculosis screening: No symptoms or risk factors identified. Assessment: 08:15 General: Appears in no apparent distress. Behavior is calm, cooperative. Pain: iw Complains of pain in right lateral anterior chest and right low back. Neuro: Level of Consciousness is awake, alert, obeys commands, Oriented to. Cardiovascular: Patient's skin is warm and dry. Respiratory: Respiratory effort is even, unlabored, Respiratory pattern is regular. Derm: Skin is intact, is healthy with good turgor. Musculoskeletal: Range of motion: intact in all extremities. Vital Signs: 07:58 BP 105 / 74; Pulse 104; Resp 16; Temp 97.6(TE); Pulse Ox 99% on R/A; Weight 102.06 kg; ss Height 6 ft. 1 in. ; Pain 4/10; 07:58 Body Mass Index 29.68 (102.06 kg, 185.42 cm) ss 07:58 Pain Scale: Adult ss ED Course: 07:45 Patient arrived in ED. rg4 07:45 Matthew Arceo MD is Private Physician. rg4 07:47 Saúl Jesus MD is Attending Physician. rn 07:54 Klarissa Gray FNP [facility] 08:00 Triage completed. ss 08:00 Arm band placed on right wrist. ss 08:00 Patient has correct armband on for positive identification. iw 08:05 Gita Madera RN is Primary Nurse. iw 08:14 Urinalysis W/Microscopic Sent. iw 08:30 CT Head C Spine In Process Unspecified. EDMS 08:58 XRAY Ribs RIGHT In Process Unspecified. EDMS 08:58 XRAY Chest (1 view) In Process Unspecified. EDMS 08:58 XRAY Lumbar Spine (3 Views) In Process Unspecified. EDMS 09:30 Matthew Arceo MD is Referral Physician. 7 09:44 Provided Education on: d/c . iw 09:44 No provider procedures requiring assistance completed. Patient did not have IV access iw during this emergency room visit. Administered Medications: No medications were administered Medication: 09:44 VIS not applicable for this client. iw Outcome: 09:31 Discharge ordered by . jh7 09:44 Discharged to home via wheelchair, with family. iw 09:44 Condition: good 09:44 Discharge instructions given to family, Instructed on discharge instructions, follow up and referral plans. medication usage, Demonstrated understanding of instructions, follow-up care, medications, Prescriptions given X 1. 09:50 Patient left the ED. iw Signatures: Dispatcher [employer] Gita Mackey RN RN Saúl Jesus MD MD rn Blanchard, Shelby, RN RN ss Garcia, Belinda rg4 Klarissa Gray, SUPERVISOR SHRIMP POND SUPERVISOR SHRIMP POND jh7
[2023-04-10 09:56] VITALS: BP 105/74; TEMP 97.6; O2SAT 99
== END 2023-04-10 09:50 | disposition home or self-care (01) ==
LOC: ER 07:43
DX: S20.211A Contusion of right front wall of thorax, initial encounter (principal); W05.0XXA Fall from non-moving wheelchair, initial encounter; M54.50 Low back pain, unspecified; I10 Essential (primary) hypertension; I48.91 Unspecified atrial fibrillation; Z85.528 Personal history of other malignant neoplasm of kidney; Z90.5 Acquired absence of kidney; Z88.1 Allergy status to other antibiotic agents
CPT/HCPCS: 70450; 71045; 72100; 72125; 81001; 99283

== ENCOUNTER 2023-08-27 19:49 | Emergency (ER) | payer OTHER ==
[2023-08-27] MEDS ORDERED: NALOXONE 0.4 MG/ML VIAL ONE (19:54)
[2023-08-27] MEDS ORDERED: DIAZEPAM 5 MG TABLET ONE (20:29)
[2023-08-27 21:14] LABS: Absolute Lymphocytes (CBC) 1.2 K/uL (0.7-4.9); Hematocrit 37.2 % (39.6-49.0); Lymphocytes % 17.3 % (15.3-44.8); MCV 88.6 fL (80-100); MPV 8.8 fL (7.6-11.3); Platelets 225 thou/uL (152-406)
--- NOTE | 2023-08-27 21:17 | RAD REPORT ---
EXAM DESCRIPTION: RADChest Single View08/27/2023 8:40 pm CLINICAL HISTORY: syncope COMPARISON: Chest Single View dated 08/26/2023; Chest Single View dated 04/10/2023; Chest Single View dated 09/10/2022; Chest Single View dated 05/27/2021; Chest Angio dated 06/30/2023 TECHNIQUE: Portable AP view of the chest. FINDINGS: Bilateral hilar prominence suggestive of adenopathy, and reticulonodular left mid to lower lung opacities are stable. No pneumothorax or effusion. The cardiomediastinal contours are unremark able. IMPRESSION: Stable findings as above, suggestive of an infectious or inflammatory process.
--- NOTE | 2023-08-27 21:24 | RAD REPORT ---
EXAM DESCRIPTION: CT - Head Brain Wo Cont - 08/27/2023 8:42 pm CLINICAL HISTORY: CONFUSED COMPARISON: Ct Stroke Brain Wo Cont dated 08/26/2023; Head angio dated 08/26/2023 TECHNIQUE: Noncontrast head CT images were obtained without IV contrast. Multiplanar reformats were generated and reviewed. All CT scans are performed using dose optimization technique as appropriate and may include automated exposure control or mA/KV adjustment according to patient size. FINDINGS: No intracranial hemorrhage, mass, or edema. Midline structures are unremarkable. Stable ventricular caliber with diffuse parenchymal volume loss. Stable burden of periventricular niya p white matter hypodensities, nonspecific but most suggestive of chronic small vessel ischemic change s. Cortes-white matter differentiation is preserved, without evidence of acute infarct. No abnormal extra- axial fluid collections. Mastoid air cells and visualized portions of the paranasal sinuses are clear. No acute bony findings. IMPRESSION: No evidence of an acute intracranial process. Stable chronic findings as above.
[2023-08-27 21:35] LABS: ALT/SGPT 28 U/L (16-61); AST/SGOT 21 U/L (15-37); Alkaline Phosphatase 78 U/L (45-117); BUN Blood Urea Nitrogen 14 mg/dL (7-18); Bicarbonate 25 mEq/L (21-32); Bilirubin Total 0.3 mg/dL (0.2-1.0); Glomerular Filtration Rate 80 ml/min (=/>90); Glucose Level 104 mg/dL (74-106); Magnesium 1.9 mg/dL (1.6-2.4); Potassium 3.2 mEq/L (3.5-5.1); Protein, Total 6.4 g/dL (6.4-8.2); Sodium Level 143 mEq/L (136-145); Troponin High Sensitivity 32.9 pg/mL (<58.9)
[2023-08-27 21:47] LABS: Bilirubin Direct < 0.1 mg/dL (0-0.2); Bilirubin Indirect, Calculated ND mg/dL (0.2-0.8)
[2023-08-27 22:03] LABS: Protime INR 1.34
[2023-08-27 23:00] LABS: Barbiturates NEGATIVE (NEGATIVE); Benzodiazepines NEGATIVE (NEGATIVE); Cocaine NEGATIVE (NEGATIVE); METHAMPHETAM NEGATIVE (NEGATIVE); Methadone NEGATIVE (NEGATIVE); Opiates NEGATIVE (NEGATIVE); Phencyclidine NEGATIVE (NEGATIVE); THC Cannibis NEGATIVE (NEGATIVE)
[2023-08-27 23:01] LABS: Specific Gravity > 1.030 (1.005-1.030); Urine Bacteria None Seen /HPF (<20); Urine Bilirubin NEGATIVE (Negative); Urine Blood Negative (Negative); Urine Clarity Clear (Clear); Urine Color Yellow (Yellow); Urine Glucose NEGATIVE (Negative); Urine Mucus 1+ /HPF (None Seen); Urine Protein TRACE (Negative); Urine RBC <5 /HPF (None Seen); Urine Urobilinogen Normal (Normal)
--- NOTE | 2023-08-27 23:56 | EDPHYS ---
Physician Documentation [facility] Name: Jhonatan Solis Age: 72 yrs Sex: Male : 1950 Arrival Date: 08/27/2023 Time: 19:49 Bed 17 Private MD: ED Physician Harsha Hernandez HPI: 08/27 20:34 This 72 yrs old Male presents to ER via EMS with complaints of Altered Mental sp4 Status. 20:39 Work up results from yesterday - EXAM DESCRIPTION: CTHead angio08/26/2023 7:24 pm sp4 CLINICAL HISTORY: Unresponsive COMPARISON: None TECHNIQUE: 100 cc Isovue [address] angiogram of the head was obtained. 3D MIPS reconstruction performed. All CT scans are performed using dose optimization technique as appropriate and may include automated exposure control or mA/KV adjustment according to patient size. FINDINGS: The basilar, anterior cerebral, middle cerebral and posterior cerebral arteries do not demonstrate a significant stenosis Mild calcified plaque distal internal carotid arteries An aneurysm is not seen origin right posterior cerebral artery No large vessel occlusion IMPRESSION: No significant abnormality is displayed Dictated By: Josesito Mckinley MD 08/26/231952. EXAM DESCRIPTION: CTNeck Angio08/26/2023 7:25 pm CLINICAL HISTORY: Unresponsive COMPARISON: None TECHNIQUE: 100 cc Isovue [address] angiogram of the neck was obtained. 3D MIPS reconstruction performed. All CT scans are performed using dose optimization technique as appropriate and may include automated exposure control or mA/KV adjustment according to patient size. FINDINGS: Moderate calcified and noncalcified plaque left carotid bulb/proximal left internal carotid artery. Mild plaque common carotid, right internal carotid and external carotid arteries. Vertebral arteries unremarkable No dissection is seen. IMPRESSION: Moderate plaque left carotid bulb/proximal left internal carotid artery resulting in an approximately 65% stenosis . EXAM DESCRIPTION: CT - Ct Stroke Brain Wo Cont - 08/26/2023 7:22 pm CLINICAL HISTORY: Confusion/alteration of awareness COMPARISON: July 11, 2023 TECHNIQUE: Computed axial tomography of the head was obtained. All CT scans are performed using dose optimization technique as appropriate and may include automated exposure control or mA/KV adjustment according to patient size. FINDINGS: An intracranial bleed is not seen . The ventricles are normal in caliber. No extra-axial fluid collection is noted. Moderate low-density within periventricular, deep and subcortical white matter likely ischemic changes secondary to small vessel disease Cerebral atrophy Fluid within the sinuses/ mastoids is not seen. IMPRESSION: No acute intracranial abnormality is seen. If patient's symptoms persist MRI of the brain would be recommended Dr Monson of the emergency room notified 7:32 p.m. on 08/26/2023. 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 Lymphangitic carcinomatosis is a another consideration Dictated By: Josesito Mckinley MD 06/30/23 1547. 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 sp4 Presents with episode of unresponsiveness at home associated with possible syncope. This is patient's second presentation in 2 days for the same symptoms. Yesterday patient was started on levetiracetam 250 mg p.o. twice a day for presumed seizure. Yesterday patient was offered admission but they have declined. Patient was also offered transfer yesterday but family declined. Today family is here requesting transfer for higher level of care. I have consulted with Dr. Montero on patient's arrival Dr. Montero states that EEG is not available at this time and if patient is to be investigated for acute seizure disorder then he should be transferred for higher level of care. . 21:26 On arrival patient was initially uncooperative but then manifested with emotional upset sp4 broke down in tears and reported that he is having emotional difficulties. Mother reports patient has Alzheimer's type dementia. Patient is on memantine and donepezil. Other medications include Crestor, amlodipine, sotalol, rivaroxaban, levothyroxine, hydrocortisone 10 mg p.o. 3 times daily, and also prescription Keppra yesterday 200 mg p.o. twice daily. . Detailed medication list is amlodipine 10 mg p.o. daily, lisinopril 10 mg p.o. twice daily, donepezil 23 mg p.o. daily, memantine p.o. daily, levothyroxine 125 mcg p.o. daily, Xarelto 20 mg p.o. daily, sotalol 80 mg p.o. daily, aspirin 81 mg p.o. daily, hydrocortisone 10 mg p.o. 3 times daily. . Historical: - Allergies: 20:12 Levaquin; nw1 - PMHx: 20:12 Atrial Fib; Depression; Hyperlipidemia; Hypertension; kidney cancer; stent; nw1 - PSHx: 20:12 L kidney partially removed; nw1 - Immunization history:: Adult Immunizations up to date. - Social history:: Smoking status: unknown. - Family history:: not pertinent. ROS: 21:26 Constitutional: ROS not available secondary to emotional upset and poor cooperation sp4 21:26 All other systems are negative, 21:26 Unable to obtain ROS due to patient being uncooperative, Exam: 21:26 Constitutional: This is a well developed, well nourished patient who is awake, became sp4 responsive after arrival, moves all extremities, emotional upset tearful with episodes of mild agitation. In all extremities, exhibiting no signs of stroke. Head/Face: Normocephalic, atraumatic. Eyes: Pupils equal round and reactive to light, extra-ocular motions intact. Lids and lashes normal. Conjunctiva and sclera are not injected. Cornea within normal limits. Periorbital areas with no swelling, redness, or edema. ENT: Nares patent. No nasal discharge, no septal abnormalities noted. Tympanic membranes are normal and external auditory canals are clear. Oropharynx with no redness, swelling, or masses, exudates, or evidence of obstruction, uvula midline. Mucous membranes moist. Neck: Trachea midline, no thyromegaly or masses palpated, and no cervical lymphadenopathy. Supple, full range of motion without nuchal rigidity, or vertebral point tenderness. Chest/axilla: Normal chest wall appearance and motion. Nontender with no deformity. No lesions are appreciated. Cardiovascular: Regular rate and rhythm with a normal S1 and S2. No gallops, murmurs, or rubs. Normal PMI, no JVD. No pulse deficits. Respiratory: Lungs have equal breath sounds bilaterally, clear to auscultation and percussion. No rales, rhonchi or wheezes noted. No increased work of breathing, no retractions or nasal flaring. Abdomen/GI: Soft, non-tender, with normal bowel sounds. No distension or tympany. No guarding or rebound. No evidence of tenderness throughout. Back: No spinal tenderness. No costovertebral tenderness. Male : Normal genitalia with no discharge or lesions. Skin: Warm, dry with normal turgor. Normal color with no rashes, no lesions, and no evidence of cellulitis. MS/ Extremity: Pulses equal, no cyanosis. Neurovascular intact. Full, normal range of motion. Neuro: Awake, emotionally upset, tearful, moving all extremities, no sign of lateralizing neurologic deficits. Not cooperative for examination. Grossly no sign of acute neurologic deficits Psych: Awake, alert, oriented to self, additional exam not possible secondary to emotional upset.. 23:55 ECG was reviewed by the Attending Physician. EKG at 2238 reveals sinus bradycardia with sp4 first-degree AV block, and heart rate 58, no ST elevation or depression. Significant muscle tremor artifact, no ectopy Vital Signs: 20:00 BP 173 / 95; Pulse 68; Resp 17; Pulse Ox 95% on R/A; nw1 20:05 BP 156 / 94; Pulse 63; Resp 15; Temp 97.7; Pulse Ox 97% on R/A; Weight 108.86 kg; nw1 Height 6 ft. 1 in. ; Pain 0/10; 22:10 BP 145 / 92; Pulse 57; Resp 16; Pulse Ox 95% ; nw1 23:00 BP 162 / 91; Pulse 58; Resp 17; Pulse Ox 95% on R/A; nw1 08/28 01:30 BP 161 / 97; Pulse 58; Resp 17; Pulse Ox 94% on R/A; nw1 02:31 BP 148 / 86; Pulse 58; Resp 16; Pulse Ox 94% ; nw1 08/27 20:05 Body Mass Index 31.66 (108.86 kg, 185.42 cm) nw1 20:05 Pain Scale: Adult nw1 [place] Coma Score: 08/27 22:10 Eye Response: spontaneous(4). Motor Response: obeys commands(6). Verbal Response: nw1 confused(4). Total: 14. MDM: 20:06 Patient medically screened. sp4 23:51 ED course: CT head - EXAM DESCRIPTION: CT - Head Brain Wo Cont - 08/27/2023 8:42 pm sp4 CLINICAL HISTORY: CONFUSED COMPARISON: Ct Stroke Brain Wo Cont dated 08/26/2023; Head angio dated 08/26/2023 TECHNIQUE: Noncontrast head CT images were obtained without IV contrast. Multiplanar reformats were generated and reviewed. All CT scans are performed using dose optimization technique as appropriate and may include automated exposure control or mA/KV adjustment according to patient size. FINDINGS: No intracranial hemorrhage, mass, or edema. Midline structures are unremarkable. Stable ventricular caliber with diffuse parenchymal volume loss. Stable burden of periventricular deep white matter hypodensities, nonspecific but most suggestive of chronic small vessel ischemic changes. Cortes-white matter differentiation is preserved, without evidence of acute infarct. No abnormal extra-axial fluid collections. Mastoid air cells and visualized portions of the paranasal sinuses are clear. No acute bony findings. IMPRESSION: No evidence of an acute intracranial process. Stable chronic findings as above.. ED course: EXAM DESCRIPTION: RADChest Single View08/27/2023 8:40 pm CLINICAL HISTORY: syncope COMPARISON: Chest Single View dated 08/26/2023; Chest Single View dated 04/10/2023; Chest Single View dated 09/10/2022; Chest Single View dated 05/27/2021; Chest Angio dated 06/30/2023 TECHNIQUE: Portable AP view of the chest. FINDINGS: Bilateral hilar prominence suggestive of adenopathy, and reticulonodular left mid to lower lung opacities are stable. No pneumothorax or effusion. The cardiomediastinal contours are unremarkable. IMPRESSION: Stable findings as above, suggestive of an infectious or inflammatory process.. 23:53 Differential Diagnosis: electrolyte abnormality, hypoglycemia, intracranial bleed, sp4 overdose, seizure, sepsis, TIA, volume depletion. Data reviewed: vital signs, nurses notes, EMS record, old medical records, lab test result(s), cardiac enzymes, CBC, electrolytes, hepatic panel, urinalysis, EKG, radiologic studies, CT scan, plain films. Consideration of Admission/Observation Escalation of care including admission/observation considered. ED course: Patient CT today reveals no evidence of acute intracranial process, stable chronic findings. There is a stable burden of periventricular deep white matter hypodensities suggestive of chronic small vessel ischemic changes.. 23:55 ED course: Electrolyte panel reveals mildly decreased potassium 3.2. Will replace p.o.. sp4 ED course: CBC reveals hemoglobin 12.6 otherwise unremarkable. Normal LFTs albumin is decreased at 3.0, there is INR 1.3, there is normal troponin, negative urine drug screen, urinalysis unremarkable, negative COVID-19, and also chest x-ray reveals stable findings bilateral hilar prominence suggestive of adenopathy in the reticulonodular left mid to lower lung opacification noted stable. No pneumothorax or effusion. Unremarkable cardiomediastinal silhouette. Overall impression stable findings as above suggestive of inflammatory process. 08/28 01:14 ED course: Patient was accepted, [facility] hospitalist and Neurologist both sp4 accepted.. . 08/27 20:05 Order name: Basic Metabolic Panel; Complete Time: 23:46 [facility] 08/27 20:05 Order name: CBC with Diff; Complete Time: 23:46 [facility] 08/27 20:05 Order name: Hepatic Function; Complete Time: 23:46 [facility] 08/27 20:05 Order name: Magnesium; Complete Time: 23:46 [facility] 08/27 20:05 Order name: Protime (+inr); Complete Time: 23:46 [facility] 08/27 20:05 Order name: Ptt, Activated; Complete Time: 23:46 [facility] 08/27 20:05 Order name: Troponin High Sensitivity; Complete Time: 23:46 [facility] 08/27 20:05 Order name: UDS; Complete Time: 23:46 [facility] 08/27 20:05 Order name: Urinalysis w/ reflexes; Complete Time: 23:46 [facility] 08/27 21:11 Order name: SARS-COV-2 RT PCR; Complete Time: 23:46 [facility] 08/27 20:05 Order name: CT Head Brain wo Cont; Complete Time: 23:46 [facility] 08/27 20:05 Order name: Chest Single View XRAY; Complete Time: 23:46 [facility] 08/27 20:05 Order name: EKG; Complete Time: 20:06 [facility] 08/27 20:05 Order name: Cardiac monitoring; Complete Time: 20:25 [facility] 08/27 20:05 Order name: EKG - Nurse/Tech; Complete Time: 22:33 [facility] 08/27 20:05 Order name: IV Saline Lock; Complete Time: 22:20 [facility] 08/27 20:05 Order name: Labs collected and sent; Complete Time: 22:20 [facility] 08/27 20:05 Order name: NPO; Complete Time: 20:26 sp4 08/27 20:05 Order name: O2 Per Protocol; Complete Time: : sp4 08/27 20:05 Order name: O2 Sat Monitoring; Complete Time: sp4 EC/24 23:55 Rate is 58 beats/min. Rhythm is regular, Sinus bradycardia. QRS [place] is Normal. MS sp4 interval is prolonged. QRS interval is normal. QT interval is normal. No Q waves. T waves are Normal. No ST changes noted. Clinical impression: No evidence of ischemia. Interpreted by me. Reviewed by me. Administered Medications: Not Given (Physician Discretion): naloxone0.4 mg IVP once nw1 20:34 Drug: Diazepam IVP 5 mg IVP once {Note: Given PO_ MD aware.} Route: IVP; Site: Other; nw 22:20 Follow up: Response: No adverse reaction nw08/28 00:56 Drug: Potassium Chloride PO 40 mEq PO once Route: PO; nw 01:14 CANCELLED (Patient Refused): [id number] mg IVP once sp4 01:35 Drug: Keppra PO 250 mg PO once Route: PO; nw1 01:35 Drug: Sotalol PO 80 mg PO once Route: PO; nw 01:35 Drug: Lisinopril PO 10 mg PO once Route: PO; nw1 Disposition Summary: 08/27/23 23:55 Transfer Ordered Notes: Transfer Location: [facility] sp4 Reason: Higher level of care sp4 Condition: Stable sp4 Problem: new sp4 Symptoms: are unchanged sp4 Accepting Physician: [facility] Hospitalist , (08/28/23 02:35) nw1 Diagnosis - Altered mental status, unspecified sp4 - Episode of unresponsiveness, syncopal episode, possible seizures, altered mental sp4 status, acute hypoactive delirium Forms: - Medication Reconciliation Form sp4 - SBAR form sp4 Signatures: Dispatcher [employer] Harsha Louie MD MD sp4 Promise Madera RN RN nw1 Corrections: (The following items were deleted from the chart) 08/27 21:10 20:06 SARS-COV-2 Antigen Rapid+I.LAB.BRZ ordered. EDWV EDWV 08/28 01:14 01:09 Solu-CORTEF IVP 100 mg IVP once ordered. sp4 sp4 02:35 08/27 23:55 [facility] Hospitalist , sp4 nw1
--- NOTE | 2023-08-27 23:56 | ER ---
Nurse's Notes [facility] Name: Jhonatan Solis Age: 72 yrs Sex: Male : 1950 Arrival Date: 08/27/2023 Time: 19:49 Bed 17 Private MD: Diagnosis: Altered mental status, unspecified;Episode of unresponsiveness, syncopal episode, possible seizures, altered mental status, acute hypoactive delirium Presentation: 08/27 20:05 Chief complaint: EMS states: AMS. Pt noted by family not answering questions or nw1 responding to questions. Coronavirus screen: Client denies travel out of the [place] in the last 14 days. At this time, the client does not indicate any symptoms associated with coronavirus-19. Ebola Screen: Patient negative for fever greater than or equal to 101.5 degrees Fahrenheit, and additional compatible Ebola Virus Disease symptoms Patient denies exposure to infectious person. Patient denies travel to an Ebola-affected area in the 21 days before illness onset. No symptoms or risks identified at this time. Initial Sepsis Screen: Does the patient meet any 2 criteria? No. Patient's initial sepsis screen is negative. Does the patient have a suspected source of infection? No. Patient's initial sepsis screen is negative. Risk Assessment: Do you want to hurt yourself or someone else? Patient reports no desire to harm self or others. Onset of symptoms was August 27, 2023 at 19:00. 20:05 Method Of Arrival: EMS: [facility] nw1 20:05 Acuity: TAMAR 3 nw1 Triage Assessment: 20:12 General: Appears distressed, well groomed, well developed, Behavior is agitated, nw1 anxious, crying. Pain: Denies pain. Neuro: Level of Consciousness is awake, alert, Oriented to person, place, situation, in bilateral hand(s) Facial symmetry appears normal, Pupils are constricted, non-reactive, pinpoint. Cardiovascular: Reports None Denies chest pain, diaphoresis, fatigue, lightheadedness. Respiratory: No deficits noted. Musculoskeletal:. Historical: - Allergies: 20:12 Levaquin; nw1 - PMHx: 20:12 Atrial Fib; Depression; Hyperlipidemia; Hypertension; kidney cancer; stent; nw1 - PSHx: 20:12 L kidney partially removed; nw1 - Immunization history:: Adult Immunizations up to date. - Social history:: Smoking status: unknown. - Family history:: not pertinent. Screenin:10 [facility] ED Fall Risk Assessment (Adult) History of falling in the last 3 months, nw1 including since admission Yes- single mechanical fall (1 pt) Confusion or Disorientation Yes (5 pts) Intoxicated or Sedated No (0 pts) Impaired Gait Yes (1 pt) Mobility Assist Device Used Yes (1 pt) Altered Elimination Yes (1 pt) Score/Fall Risk Level 3 or more points = High Risk Oriented to surroundings, Maintained a safe environment, Educated pt \T\ family on fall prevention, incl call for assistance when getting out of bed, Hourly rounding (assess needs \T\ fall precautionary measures) done, Used ambulatory aids as needed (educated on \T\ assisted with), Used gait belt as appropriate Implemented a Fall Risk Plan of Care. Abuse screen: Denies threats or abuse. Denies injuries from another. Nutritional screening: No deficits noted. Tuberculosis screening: No symptoms or risk factors identified. Assessment: 20:21 Reassessment: See triage assessment. Reassessment: Pt noted awake and speaking about nw1 the family that is not there while he is in the hospital. Pt noted fully alert and answering questions appropriately. Pt's family states of syncope greater than 10 min stating of first seizure-like activity for the first time yesterday. 23:20 Reassessment: [phone] Ginna Lin- daughter. nw1 23:33 Reassessment: Family left stating that she needs to take pt's /her mom home and nw1 will return. Pt noted sitting in bed fidgeting with clothing. Call light at bedside and in view of nursing station. Will continue to monitor. 23:45 Reassessment: Pt noted pulling off ECG leads and leads put back on. Pt noted being nw1 agitated but redirected. Pt with sundown like symptoms. Vital Signs: 20:00 BP 173 / 95; Pulse 68; Resp 17; Pulse Ox 95% on R/A; nw1 20:05 BP 156 / 94; Pulse 63; Resp 15; Temp 97.7; Pulse Ox 97% on R/A; Weight 108.86 kg; nw1 Height 6 ft. 1 in. ; Pain 0/10; 22:10 BP 145 / 92; Pulse 57; Resp 16; Pulse Ox 95% ; nw1 23:00 BP 162 / 91; Pulse 58; Resp 17; Pulse Ox 95% on R/A; nw1 08/28 01:30 BP 161 / 97; Pulse 58; Resp 17; Pulse Ox 94% on R/A; nw1 02:31 BP 148 / 86; Pulse 58; Resp 16; Pulse Ox 94% ; nw1 08/27 20:05 Body Mass Index 31.66 (108.86 kg, 185.42 cm) nw1 20:05 Pain Scale: Adult nw1 [place] Coma Score: 08/27 22:10 Eye Response: spontaneous(4). Motor Response: obeys commands(6). Verbal Response: nw1 confused(4). Total: 14. ED Course: 19:51 Patient arrived in ED. jj6 20:03 Harsha Hernandez MD is Attending Physician. sp4 20:12 Triage completed. nw1 20:12 Arm band placed on right wrist. EKG completed in triage. Results shown to MD. EKG done nw1 per protocol. Labs ordered per protocol. X-ray ordered. CT ordered. 20:25 Promise Madera, RN is Primary Nurse. nw1 20:42 Chest Single View XRAY In Process Unspecified. EDMS 20:43 CT Head Brain wo Cont In Process Unspecified. EDMS 22:10 Patient has correct armband on for positive identification. Fall risk band placed. nw1 Placed in gown. Bed in low position. Call light in reach. Side rails up X2. Provided Education on: POC. Client placed on continuous cardiac and pulse oximetry monitoring. NIBP monitoring applied. manager monitoring on. Pulse ox on. NIBP on. Door closed. Noise minimized. Warm blanket given. 22:10 No provider procedures requiring assistance completed. Maintain EMS IV. Dressing nw1 intact. Good blood return noted. Site clean \T\ dry. Gauge \T\ site: 20 g RAC. 22:25 UDS Sent. nw1 22:25 Urinalysis w/ reflexes Sent. nw1 23:41 Initiated transfer to [facility], spoke with Emelia. 08/28 01:18 Pt accepted for transfer to [facility] Rm: 1023 by Bradley Santillan \T\ 0111 per Emelia Dunn. wm 01:58 EMS accepted for transport with an ETA \T\ 0210. 02:20 Report given to Kellie Lazo RN at [phone] Room 1023. nw1 02:20 Patient transferred, IV remains in place. nw1 Administered Medications: 08/27 20:26 Not Given (Physician Discretion): naloxone0.4 mg IVP once nw1 20:34 Drug: Diazepam IVP 5 mg IVP once {Note: Given PO_ MD aware.} Route: IVP; Site: Other; nw1 22:20 Follow up: Response: No adverse reaction nw1 08/28 00:56 Drug: Potassium Chloride PO 40 mEq PO once Route: PO; nw1 01:14 CANCELLED (Patient Refused): [id number] mg IVP once sp4 01:35 Drug: Keppra PO 250 mg PO once Route: PO; nw1 01:35 Drug: Sotalol PO 80 mg PO once Route: PO; nw1 01:35 Drug: Lisinopril PO 10 mg PO once Route: PO; nw1 Medication: 08/27 22:10 VIS not applicable for this client. nw1 Outcome: 23:55 ER care complete, transfer ordered by sp4 08/28 02:20 Transferred by ground EMS Transfer form completed. X-rays sent w/ patient. nw1 Condition: stable Instructed on the need for transfer, 02:35 Patient left the ED. nw1 Signatures: Dispatcher [employer] EDGrisel Thompson Klarissa Shaw [id number] Harsha Hernandez MD MD sp4 Promise Madera RN RN nw1
[2023-08-28] MEDS ORDERED: POTASSIUM CL SA 10 MEQ TAB PO ONE (00:38)
[2023-08-28] MEDS ORDERED: lisinopriL 10 MG TAB ONE (01:21)
[2023-08-28] MEDS ORDERED: levETIRAcetam 500 MG TAB ONE (01:21)
[2023-08-28] MEDS ORDERED: SOTALOL HCL 80 MG TAB ONE (01:21)
[2023-08-28 04:47] VITALS: TEMP 97.7
[2023-08-28 04:52] VITALS: BP 148/86; O2SAT 94
--- NOTE | 2023-08-31 13:32 | EKG ---
Test Date: 2023-08-27 Test Time: 22:30:58 Supervisor Area: MEASUREMENT RESULTS: Intervals: Rate: 58 MO: 222 QRSD: 88 QT: 510 QTc: 500 Gage: P: 99 MO: 222 QRS: 26 T: 91 INTERPRETIVE STATEMENTS: Sinus bradycardia with 1st degree AV block Cannot rule out Inferior infarct, age undetermined Abnormal ECG Compared to ECG 08/26/2023 19:06:35 Myocardial infarct finding now present Sinus rhythm no longer present ST (T wave) deviation no longer present Prolonged QT interval no longer present Electronically Signed On 08-31-23 13:24:49 BAR PORTER by Junaid Garg
== END 2023-08-28 02:35 | disposition short-term general hospital (02) ==
LOC: ER 19:49
DX: R40.4 Transient alteration of awareness (principal); R55 Syncope and collapse; R41.0 Disorientation, unspecified; I10 Essential (primary) hypertension; I48.91 Unspecified atrial fibrillation; E78.5 Hyperlipidemia, unspecified; F32.A Depression, unspecified; Z90.5 Acquired absence of kidney; Z85.528 Personal history of other malignant neoplasm of kidney; Z11.52 Encounter for screening for COVID-19; Z88.1 Allergy status to other antibiotic agents; Z79.01 Long term (current) use of anticoagulants; Z79.82 Long term (current) use of aspirin
CPT/HCPCS: 93005; 85025; 81001; 80048; 36415; 83735; 85610; 80076; 85730; 84484; 87635; 80307; 70450; 71045; 96374; 99285; J2310

== ENCOUNTER → 2023-10-08 | Emergency (ER) | payer OTHER ==
[~2023-10-08] MED LIST: ASPIRIN 81 MG CHEWABLE TABLET ONE
[2023-10-08 23:55] LABS: Absolute Lymphocytes (CBC) 1.2 K/uL (0.7-4.9); Hematocrit 40.4 % (39.6-49.0); Lymphocytes % 17.7 % (15.3-44.8); MCV 87.9 fL (80-100); MPV 9.1 fL (7.6-11.3); Platelets 262 thou/uL (152-406)
[2023-10-08 23:58] LABS: Protime INR 1.15
[2023-10-09 00:14] LABS: ALT/SGPT 37 U/L (16-61); AST/SGOT 31 U/L (15-37); Albumin 3.5 g/dL (3.4-5.0); Alkaline Phosphatase 88 U/L (45-117); BUN Blood Urea Nitrogen 12 mg/dL (7-18); Bicarbonate 26 mEq/L (21-32); Bilirubin Total 0.4 mg/dL (0.2-1.0); Glomerular Filtration Rate 61 ml/min (=/>90); Glucose Level 111 mg/dL (74-106); NT PRO-BNP 393 pg/mL (<125); Potassium 3.7 mEq/L (3.5-5.1); Sodium Level 139 mEq/L (136-145); Troponin High Sensitivity 15.8 pg/mL (<58.9)
[2023-10-09 00:16] LABS: Bilirubin Direct < 0.1 mg/dL (0-0.2); Bilirubin Indirect, Calculated ND mg/dL (0.2-0.8)
[2023-10-09 00:18] LABS: C-Reactive Protein 10.1 mg/L (<3.00); Thyroid Stimulating Hormone 0.029 uIU/mL (0.358-3.740)
--- NOTE | 2023-10-09 01:55 | ER ---
Nurse's Notes [facility] Name: Jhonatan Solis Age: 72 yrs Sex: Male : 1950 Arrival Date: 10/08/2023 Time: 23:16 Bed 14 Private MD: Diagnosis: Chest pain, unspecified Presentation: 10/08 23:35 Chief complaint: Spouse and/or significant other states: Per , pt c/o sudden onset tl4 of left side chest pressure with radiation down his left arm tonight at 2200. Pt did not c/o diaphoresis, nausea, SOB. Pt denies any history of similar symptoms. Coronavirus screen: At this time, the client does not indicate any symptoms associated with coronavirus-19. Ebola Screen: No symptoms or risks identified at this time. Initial Sepsis Screen: Does the patient meet any 2 criteria? No. Patient's initial sepsis screen is negative. Does the patient have a suspected source of infection? No. Patient's initial sepsis screen is negative. Risk Assessment: Do you want to hurt yourself or someone else? Patient reports no desire to harm self or others. Onset of symptoms was October 08, 2023 at 22:00. 23:35 Method Of Arrival: Wheelchair tl4 23:35 Acuity: TAMAR 2 tl4 Triage Assessment: 23:40 General: Appears uncomfortable, Behavior is agitated. Pain: Complains of pain in chest, tl4 right arm and left arm. EENT: No deficits noted. No signs and/or symptoms were reported regarding the EENT system. Neuro: No deficits noted. Cardiovascular: Reports chest pain, Denies diaphoresis, fatigue, lightheadedness, nausea, palpitations, syncope. Respiratory: No deficits noted. Denies cough, shortness of breath. GI: No deficits noted. No signs and/or symptoms were reported involving the gastrointestinal system. : No deficits noted. No signs and/or symptoms were reported regarding the genitourinary system. Derm: No deficits noted. No signs and/or symptoms reported regarding the dermatologic system. Historical: - Allergies: 23:38 Levaquin; tl4 - Home Meds: 23:41 aspirin 81 mg Oral TbEC 1 tab once daily [Active]; donepezil 23 mg Oral tab 1 tab once tl4 daily [Active]; sotalol 80 mg Oral tab 1 tab 2 times per day [Active]; Xarelto 20 mg Oral tab 1 tab once daily [Active]; memantine 5 mg Oral tab 1 tab once daily [Active]; Euthyrox 125 mcg Oral tab 1 tab once daily [Active]; lisinopril 10 mg oral tablet 1 tab 2 times per day [Active]; hydrocortisone 10 mg Oral tab 1 tab 2 times per day [Active]; omeprazole 40 mg oral capsule,delayed release (e.c.) 1 cap daily [Active]; trospium 20 mg oral tablet 1 tab daily [Active]; - PMHx: 23:38 Atrial Fib; kidney cancer; Hypertension; Depression; Hyperlipidemia; stent; tl4 23:41 Aortic aneurysm; tl4 - PSHx: 23:38 L kidney partially removed; tl4 - Immunization history:: Adult Immunizations unknown. - Social history:: Smoking status: Patient denies any tobacco usage or history of. - Family history:: not pertinent. Screenin:35 [facility] ED Fall Risk Assessment (Adult) History of falling in the last 3 months, rv including since admission No falls in past 3 months (0 pts) Score/Fall Risk Level 0 - 2 = Low Risk Oriented to surroundings, Maintained a safe environment, Educated pt \T\ family on fall prevention, incl call for assistance when getting out of bed, Assessed \T\ reinforced patient's understanding of fall precautions. Abuse screen: Denies threats or abuse. Denies injuries from another. Nutritional screening: No deficits noted. Tuberculosis screening: No symptoms or risk factors identified. Assessment: 10/09 01:09 General: Appears comfortable, Behavior is calm, cooperative. Pain: Denies pain. Neuro: rv Level of Consciousness is awake, alert, obeys commands, Oriented to person, place, time, situation. Cardiovascular: Capillary refill < 3 seconds Patient's skin is warm and dry. Respiratory: Airway is patent Respiratory effort is even, unlabored. GI: No signs and/or symptoms were reported involving the gastrointestinal system. : No signs and/or symptoms were reported regarding the genitourinary system. Derm: Skin is intact. Vital Signs: 10/08 23:35 BP 175 / 94; Pulse 61; Resp 16; Temp 97.9(TE); Pulse Ox 98% on R/A; Pain 10/10; tl4 23:48 Weight 107.05 kg; Height 6 ft. 1 in. ; tl4 02 00:32 BP 111 / 71; Pulse 56; Resp 18; Pulse Ox 95% on R/A; rv 02:04 BP 147 / 103; Pulse 64; Resp 16; Pulse Ox 94% on R/A; km8 10/08 23:48 Body Mass Index 31.14 (107.05 kg, 185.42 cm) tl4 10/08 23:35 Pain Scale: Adult tl4 Cayey Coma Score: 01:46 Eye Response: spontaneous(4). Motor Response: obeys commands(6). Verbal Response: sp4 oriented(5). Total: 15. NIH Stroke Scale Scores: 01:46 NIHSS Score: 0 sp4 ED Course: 10/08 23:17 Patient arrived in ED. jb4 23:19 Harsha Hernandez MD is Attending Physician. sp4 23:27 Ian Hale, SERGE is Primary Nurse. rv 23:35 Patient has correct armband on for positive identification. Client placed on continuous rv cardiac and pulse oximetry monitoring. NIBP monitoring applied. electronic device monitor on. 23:35 No provider procedures requiring assistance completed. rv 23:38 Triage completed. tl4 23:41 Inserted saline lock: 20 gauge in right antecubital area, using aseptic technique. ty Blood collected. 23:46 XRAY Chest (1 view) In Process Unspecified. EDMS 10/09 01:54 Junaid Garg MD is Referral Physician. sp4 02:00 Arm band placed on right wrist. km8 02:04 Provided Education on: d/c teaching. km8 02:04 IV discontinued, intact, bleeding controlled, No redness/swelling at site. Pressure km8 dressing applied. Administered Medications: 10/08 23:31 Drug: Aspirin PO Chewable Tablet 324 mg PO once; 81 mg tablets x 4 Route: PO; rv 10/09 02:06 Follow up: Response: No adverse reaction km8 Medication: 10/08 23:35 VIS not applicable for this client. rv Outcome: 10/09 01:55 Discharge ordered by . sp4 02:05 Discharged to home via wheelchair, with significant other, km8 02:05 Condition: good 02:05 Discharge instructions given to patient, significant other, Instructed on discharge instructions, follow up and referral plans. Demonstrated understanding of instructions, follow-up care, 02:06 Patient left the ED. km8 NIH Stroke Scale - NIH Stroke Score Date: 10/09/2023 Time: 01:46 Total Score = 0 10. Dysarthria (speech clarity - read or repeat words) - 0(Normal) 11. Extinction and Inattention (visual/tactile/auditory/spatial/personal) - 0(No abnormality) 1a. Level of Consciousness (LOC) - 0(Alert) 1b. Level of Consciousness (LOC) (Month \T\ Age) - 0(Both) 1c. LOC Commands (Open \T\ Closes Eyes/Core Drilling Supervisor) - 0(Both) 2. Best Gaze (Lateral Gaze Paresis) - 0(Normal) 3. Visual Field Loss - 0(No visual loss) 4. Facial Palsy - 0(Normal) 5a. Left Arm: Motor (10-second hold) - 0(No drift) 5b. Right Arm: Motor (10-second hold) - 0(No drift) 6a. Left Leg: Motor (5-second hold - always test supine) - 0(No drift) 6b. Right Leg: Motor (5-second hold - always test supine) - 0(No drift) 7. Limb Ataxia (finger/nose \T\ heel/lockhart - test with eyes open) - 0(Absent) 8. Sensory Loss (pinprick arms/legs/face) - 0(Normal) 9. Best Language: Aphasia (description/naming/reading) - 0(No aphasia) Initials: sp4 Signatures: Dispatcher [employer] EDCyrus Barfield RN RN jb4 Ian Hale RN RN rv Potepalov, Sergey, MD MD sp4 Fatuma Johsnton RN RN km8 Tay Tran tl4 Guillermo Archuleta Corrections: (The following items were deleted from the chart) 10/08 23:40 23:38 PMHx: Aortic aneurysm (L kidney partially removed); tl4 tl4
--- NOTE | 2023-10-09 01:55 | EDPHYS ---
Physician Documentation [facility] Name: Jhonatan Solis Age: 72 yrs Sex: Male : 1950 Arrival Date: 10/08/2023 Time: 23:16 Bed 14 Private MD: ED Physician Harsha Hernandez HPI: 10/09 01:46 This 72 yrs old Male presents to ER via Wheelchair with complaints of chest sp4 pain.. 01:46 72-year-old male with past medical history of atrial fibrillation, hypertension, renal sp4 cancer, depression, hyperlipidemia, aortic aneurysm, and stent presents with acute onset chest pain starting yesterday. Patient has underlying dementia and is not able to explain nature of the pain but reports nonexertional pressure type pain to the right side of the sternum. Patient states pain is intermittent and at this time he does not have any pain. . 01:55 Medication list today reveals amlodipine 5 mg daily donepezil 23 mg daily, Euthyrox 125 sp4 mcg daily, lisinopril 10 mg daily, memantine 10 mg twice a day, omeprazole 40 mg daily, hydrocortisone 10 mg twice a day, sotalol 80 mg twice a day, trospium 20 mg daily, Xarelto 20 mg daily. Repatha 240 mg.. Historical: - Allergies: 10/08 23:38 Levaquin; tl4 - Home Meds: 23:41 aspirin 81 mg Oral TbEC 1 tab once daily [Active]; donepezil 23 mg Oral tab 1 tab once tl4 daily [Active]; sotalol 80 mg Oral tab 1 tab 2 times per day [Active]; Xarelto 20 mg Oral tab 1 tab once daily [Active]; memantine 5 mg Oral tab 1 tab once daily [Active]; Euthyrox 125 mcg Oral tab 1 tab once daily [Active]; lisinopril 10 mg oral tablet 1 tab 2 times per day [Active]; hydrocortisone 10 mg Oral tab 1 tab 2 times per day [Active]; omeprazole 40 mg oral capsule,delayed release (e.c.) 1 cap daily [Active]; trospium 20 mg oral tablet 1 tab daily [Active]; - PMHx: 23:38 Atrial Fib; kidney cancer; Hypertension; Depression; Hyperlipidemia; stent; tl4 23:41 Aortic aneurysm; tl4 - PSHx: 23:38 L kidney partially removed; tl4 - Immunization history:: Adult Immunizations unknown. - Social history:: Smoking status: Patient denies any tobacco usage or history of. - Family history:: not pertinent. ROS: 10/09 01:46 Constitutional: Negative for fever, chills, and weight loss, positive nonexertional sp4 chest pain All other systems are negative, Exam: 01:46 Constitutional: This is a well developed, well nourished patient who is awake, alert, sp4 and in no acute distress. Patient has signs of moderate dementia Head/Face: Normocephalic, atraumatic. Eyes: Pupils equal round and reactive to light, extra-ocular motions intact. Lids and lashes normal. Conjunctiva and sclera are not injected. Cornea within normal limits. Periorbital areas with no swelling, redness, or edema. ENT: Nares patent. No nasal discharge, no septal abnormalities noted. Tympanic membranes are normal and external auditory canals are clear. Oropharynx with no redness, swelling, or masses, exudates, or evidence of obstruction, uvula midline. Mucous membranes moist. Neck: Trachea midline, no thyromegaly or masses palpated, and no cervical lymphadenopathy. Supple, full range of motion without nuchal rigidity, or vertebral point tenderness. Chest/axilla: Normal chest wall appearance and motion. Nontender with no deformity. No lesions are appreciated. Cardiovascular: Regular rate and rhythm with a normal S1 and S2. No gallops, murmurs, or rubs. Normal PMI, no JVD. No pulse deficits. Respiratory: Lungs have equal breath sounds bilaterally, clear to auscultation and percussion. No rales, rhonchi or wheezes noted. No increased work of breathing, no retractions or nasal flaring. Abdomen/GI: Soft, non-tender, with normal bowel sounds. No distension or tympany. No guarding or rebound. No evidence of tenderness throughout. Back: No spinal tenderness. No costovertebral tenderness. Skin: Warm, dry with normal turgor. Normal color with no rashes, no lesions, and no evidence of cellulitis. MS/ Extremity: Pulses equal, no cyanosis. Neurovascular intact. Full, normal range of motion. Neuro: Awake and alert, GCS 15, oriented to person, Cranial nerves II-XII grossly intact. Motor strength 5/5 in all extremities. Sensory grossly intact. Psych: Awake, alert, with orientation to person, place exam is limited secondary to moderate dementia.. 01:46 ECG was reviewed by the Attending Physician. EKG at 2329 reveals sinus rhythm at the rate of 60, first-degree AV block. Prolonged QT interval Vital Signs: 10/08 23:35 BP 175 / 94; Pulse 61; Resp 16; Temp 97.9(TE); Pulse Ox 98% on R/A; Pain 10/10; tl4 23:48 Weight 107.05 kg; Height 6 ft. 1 in. ; tl4 10/09 00:32 BP 111 / 71; Pulse 56; Resp 18; Pulse Ox 95% on R/A; rv 02:04 BP 147 / 103; Pulse 64; Resp 16; Pulse Ox 94% on R/A; km8 10/08 23:48 Body Mass Index 31.14 (107.05 kg, 185.42 cm) tl4 10/08 23:35 Pain Scale: Adult tl4 NIH Stroke Scale Scores: 01:46 NIHSS Score: 0 sp4 Carole Coma Score: 01:46 Eye Response: spontaneous(4). Motor Response: obeys commands(6). Verbal Response: sp4 oriented(5). Total: 15. MDM: 10/08 23:19 Patient medically screened. sp4 10/09 01:52 Differential Diagnosis altered mental status, sepsis, flu, ACS. Data reviewed: vital sp4 signs, nurses notes, old medical records, lab test result(s), EKG, radiologic studies, plain films. Consideration of Admission/Observation Escalation of care including admission/observation considered. ED course: EXAM DESCRIPTION: Chest Single View CLINICAL HISTORY: CHEST PAIN COMPARISON: None TECHNIQUE: Single AP view of the chest. FINDINGS: Lung volumes adequate. Cardiac silhouette is normal in size. No pneumothorax. No large pleural effusion. No focal consolidation. No acute bony finding. IMPRESSION: No evidence of acute cardiopulmonary disease. . ED course: Patient was advised to stay in the hospital for additional evaluation of his chest pains. However patient desires to go home at this time . Patient was advised to return to the emergency department in case pain returns or becomes worse. . 10/08 23:19 Order name: Basic Metabolic Panel; Complete Time: 01:44 sp4 10/08 23:19 Order name: CBC with Diff; Complete Time: sp4 10/08 23:19 Order name: LFT's; Complete Time: sp4 10/08 23:19 Order name: Magnesium; Complete Time: sp4 10/08 23:19 Order name: NT PRO-BNP; Complete Time: sp4 10/08 23:19 Order name: PT-INR; Complete Time: sp4 10/08 23:19 Order name: Troponin HS; Complete Time: sp4 10/08 23:29 Order name: TSH; Complete Time: sp4 10/08 23:29 Order name: T4 Free; Complete Time: sp4 10/08 23:29 Order name: Lipase; Complete Time: sp4 10/08 23:29 Order name: CRP; Complete Time: sp4 10/09 01:05 Order name: Troponin High Sensitivity; Complete Time: rv 10/08 23:19 Order name: XRAY Chest (1 view) 4 10/08 23:19 Order name: EKG; Complete Time: 23:19 sp4 10/08 23:19 Order name: Cardiac monitoring; Complete Time: 23:27 sp4 10/08 23:19 Order name: EKG - Nurse/Tech; Complete Time: 23: sp4 10/08 23:19 Order name: IV Saline Lock; Complete Time: 23:27 sp4 10/08 23:19 Order name: Labs collected and sent; Complete Time: : sp4 10/08 23:19 Order name: O2 Per Protocol; Complete Time: 23: sp4 10/08 23:19 Order name: O2 Sat Monitoring; Complete Time: 23:27 sp4 EC:46 Rate is 60 beats/min. Rhythm is regular, Sinus Rhythm. QRS [place] is Normal. ME interval sp4 is prolonged. QRS interval is normal. QT interval is prolonged. No ST changes noted. Clinical impression: No evidence of ischemia. Interpreted by me. Reviewed by me. Administered Medications: 10/08 23:31 Drug: Aspirin PO Chewable Tablet 324 mg PO once; 81 mg tablets x 4 Route: PO; rv 10/09 02:06 Follow up: Response: No adverse reaction km8 Disposition Summary: 10/09/23 01:55 Discharge Ordered Notes: Continue all home medications. Location: Home sp4 Problem: new sp4 Symptoms: have improved sp4 Condition: Stable sp4 Diagnosis - Chest pain, unspecified sp4 Followup: sp4 - With: Junaid Garg MD - When: 5 - 6 days - Reason: Recheck today's complaints Discharge Instructions: - Discharge Summary Sheet sp4 - Nonspecific Chest Pain, Adult, [id number] sp4 Forms: - Patient Portal Instructions sp4 NIH Stroke Scale - NIH Stroke Score Date: 10/09/2023 Time: 01:46 Total Score = 0 10. Dysarthria (speech clarity - read or repeat words) - 0(Normal) 11. Extinction and Inattention (visual/tactile/auditory/spatial/personal) - 0(No abnormality) 1a. Level of Consciousness (LOC) - 0(Alert) 1b. Level of Consciousness (LOC) (Month \T\ Age) - 0(Both) 1c. LOC Commands (Open \T\ Closes Eyes/Partner Marketing Intern) - 0(Both) 2. Best Gaze (Lateral Gaze Paresis) - 0(Normal) 3. Visual Field Loss - 0(No visual loss) 4. Facial Palsy - 0(Normal) 5a. Left Arm: Motor (10-second hold) - 0(No drift) 5b. Right Arm: Motor (10-second hold) - 0(No drift) 6a. Left Leg: Motor (5-second hold - always test supine) - 0(No drift) 6b. Right Leg: Motor (5-second hold - always test supine) - 0(No drift) 7. Limb Ataxia (finger/nose \T\ heel/lockhart - test with eyes open) - 0(Absent) 8. Sensory Loss (pinprick arms/legs/face) - 0(Normal) 9. Best Language: Aphasia (description/naming/reading) - 0(No aphasia) Initials: sp4 Signatures: Dispatcher [employer] Ian Aleman RN RN rv Potepalov, Sergey, MD MD sp4 Logdahl, Tay [email or web address] Fatuma Johnston RN km8 Corrections: (The following items were deleted from the chart) 10/08 23:40 23:38 PMHx: Aortic aneurysm (L kidney partially removed); tl4 tl4
--- NOTE | 2023-10-09 13:44 | RAD REPORT ---
EXAM DESCRIPTION: RAD - Chest Single View - 10/08/2023 11:44 pm CLINICAL HISTORY: CHEST PAIN COMPARISON: None TECHNIQUE: Single AP view of the chest. FINDINGS: Lung volumes adequate. Cardiac silhouette is normal in size. No pneumothorax. No large pleural effusion. No focal consolidation. No acute bony finding. IMPRESSION: No evidence of acute cardiopulmonary disease. Electronically signed by: Shanda Null MD 10/08/2023 11:56 PM GRAINER MACHINE Due to temporary technical issues with the PACS/Fluency reporting system, reports are being signed by the in house radiologist without review as a courtesy to ensure prompt reporting. The interpreting r adiologist is fully responsible for the content of the report.
--- NOTE | 2023-10-09 14:58 | EKG ---
Test Date: 2023-10-08 Test Time: 23:29:11 Fleecer: CARTER MEASUREMENT RESULTS: Intervals: Rate: 60 MT: 212 QRSD: 90 QT: 496 QTc: 496 [place]: P: 53 MT: 212 QRS: 32 T: 92 INTERPRETIVE STATEMENTS: Sinus rhythm with 1st degree AV block ST & T wave abnormality, consider anterior ischemia Prolonged QT Abnormal ECG Compared to ECG 08/27/2023 22:30:58 ST (T wave) deviation now present Possible ischemia now present Prolonged QT interval now present Sinus bradycardia no longer present Myocardial infarct finding no longer present Electronically Signed On 10-09-23 14:57:01 DIRECTOR PART by Junaid Garg
[2023-10-09 16:18] VITALS: BP 147/103; TEMP 97.9; O2SAT 94
== END ==
LOC: ER 23:16
DX: R07.9 Chest pain, unspecified (principal); I10 Essential (primary) hypertension; I48.91 Unspecified atrial fibrillation; Z79.01 Long term (current) use of anticoagulants; Z79.82 Long term (current) use of aspirin; Z88.1 Allergy status to other antibiotic agents
CPT/HCPCS: 36415; 71045; 80048; 80076; 83690; 83735; 83880; 84439; 84443; 84484; 85025; 85610; 86140; 93005

== ENCOUNTER 2023-12-31 10:48 | Emergency (ER) | payer OTHER ==
[2023-12-31 11:27] LABS: Absolute Basophils 0.1 K/uL (0-0.5); Absolute Eosinophils 0.1 K/uL (0-0.5); Absolute Monocytes 0.6 K/uL (0.1-1.3); Absolute Neutrophil 5.3 K/uL (1.8-8.0); Basophils % 0.9 % (0-1.3); Eosinophils % 1.7 % (0-4.4); Hematocrit 39.7 % (39.6-49.0); Hemoglobin 13.6 g/dL (13.6-17.9); MCH 30.6 pg (27.0-35.0); MCHC 34.2 g/dL (32.0-36.0); MCV 89.3 fL (80-100); MPV 8.9 fL (7.6-11.3); Neutrophils % 75.4 % (41.7-73.7); Nucleated Red Blood Cells % 0.1 % (0-0); Platelets 289 thou/uL (152-406); RBC Red Blood Cell Count 4.44 M/uL (4.33-5.43); Red Cell Distribution Width 14.7 % (12.1-15.2)
[2023-12-31 11:39] LABS: Anion Gap 10.4 mEq/L (5.0-15.0); Potassium 3.4 mEq/L (3.5-5.1)
--- NOTE | 2023-12-31 11:39 | RAD REPORT ---
EXAM DESCRIPTION: CT - Head C Spine Mpr Wo Con - 12/31/2023 11:23 am CLINICAL HISTORY: Head and neck injury status post fall. Head and neck pain COMPARISON: 2022 TECHNIQUE: Computed axial tomography of the head and cervical spine was obtained. Sagittal and coronal reconstruction was performed. All CT scans are performed using dose optimization technique as appropriate and may include automated exposure control or mA/KV adjustment according to patient size. FINDINGS: Left scalp swelling. An intracranial bleed is not seen. The ventricles are normal in caliber. Mild to moderate low-density periventricular, subcortical white matter probably ischemic changes seco ndary small vessel. An extra-axial fluid collection is not noted. Fluid within the visualized sinuses and mastoids is not seen A cervical fracture is not visualized. No dislocation is noted. Spondylosis cervical spine. Mild coil rewind machine operator betty posterior subluxation C3 on C4 IMPRESSION: No acute intracranial abnormality is seen. A cervical fracture is not visualized. If the patient continues to have symptoms to suggest intracranial /spinal cord pathology then MRI wou ld be recommended
--- NOTE | 2023-12-31 12:07 | RAD REPORT ---
EXAM DESCRIPTION: RAD - Pelvis - 12/31/2023 11:48 am CLINICAL HISTORY: Pelvic pain status post injury FINDINGS: 8 millimeter density overlies left pubic bone not seen on prior exams. This could represen t a new areas of sclerosis. Additional sclerosis within the pelvic bones without significant change No fracture or dislocation seen. The patient continues to have symptoms to suggest an occult fracture then MRI would be recommended
--- NOTE | 2023-12-31 12:10 | RAD REPORT ---
EXAM DESCRIPTION: ANYRusht Single View12/31/2023 11:48 am CLINICAL HISTORY: Chest pain COMPARISON: October 2023 FINDINGS: Extensive left and moderate right miliary nodules without significant change. Stable hilar and mediastinal lymphadenopathy. No acute abnormality displayed
[2023-12-31 12:46] LABS: Specific Gravity 1.013 (1.005-1.030); Sqamous Epithelial None Seen /HPF (None Seen); Urine Bacteria None Seen /HPF (<20); Urine Bilirubin NEGATIVE (Negative); Urine Blood Negative (Negative); Urine Clarity Turbid (Clear); Urine Color Light-Yellow (Yellow); Urine Culture Reflex Order NOT NEEDED; Urine Glucose NEGATIVE (Negative); Urine Ketones NEGATIVE (Negative); Urine Microscopic Reflex YN ORDER UMIC; Urine Mucus Slight /HPF (None Seen); Urine Nitrite NEGATIVE (Negative); Urine Protein NEGATIVE (Negative); Urine RBC <5 /HPF (None Seen); Urine Urobilinogen Normal (Normal); Urine WBC <5 /HPF (<5)
[2023-12-31 12:51] LABS: PT Prothrombin Time 16.3 SECONDS (9.5-12.5); Protime INR 1.5
[2023-12-31 12:55] LABS: Barbiturates NEGATIVE (NEGATIVE); Benzodiazepines NEGATIVE (NEGATIVE); Cocaine NEGATIVE (NEGATIVE); METHAMPHETAM NEGATIVE (NEGATIVE); Methadone NEGATIVE (NEGATIVE); Opiates NEGATIVE (NEGATIVE); Phencyclidine NEGATIVE (NEGATIVE); THC Cannibis NEGATIVE (NEGATIVE)
[2023-12-31 12:59] LABS: Troponin High Sensitivity 7.1 pg/mL (<58.9)
--- NOTE | 2023-12-31 13:25 | RAD REPORT ---
EXAM DESCRIPTION: RAD - Humerus Left - 12/31/2023 1:19 pm CLINICAL HISTORY: Left arm pain status post fall FINDINGS: No fracture is seen. Osteoporosis
--- NOTE | 2023-12-31 13:26 | RAD REPORT ---
EXAM DESCRIPTION: RAD - Forearm Left - 12/31/2023 1:19 pm CLINICAL HISTORY: Left forearm pain status post injury FINDINGS: No fracture is seen
--- NOTE | 2023-12-31 14:00 | ER ---
Nurse's Notes [facility] Name: Jhonatan Solis Age: 73 yrs Sex: Male : 1950 Arrival Date: 12/31/2023 Time: 10:48 Bed 5 Private MD: Diagnosis: Fall on same level, unspecified;Acute kidney failure, unspecified;Dehydration;Unspecified dementia with behavioral disturbance Presentation: 12/30 10:50 Chief complaint: EMS states: patient fell in the shower striking head on edge of ko1 shower, no LOC, is on xarelto, skin tears to left forearm with hematoma. Care prior to arrival: Bleeding of injury controlled. Injury dressed. Cervical collar in place. Medication(s) given: Normal saline infusion, 500 mL, IV initiated. 20 GA, in the right antecubital area, Glucose check: 109. Mechanism of Injury: Fall from standing position. Trauma event details: Injury occurred in the [facility], Injury occurred: at home. Injury occurred: December 31, 2023. 10:50 Acuity: TAMAR 3 ko1 10:50 Method Of Arrival: EMS: [facility] ko1 10:50 Coronavirus screen: At this time, the client does not indicate any symptoms associated ko1 with coronavirus-19. Ebola Screen: No symptoms or risks identified at this time. Initial Sepsis Screen: Does the patient meet any 2 criteria? No. Patient's initial sepsis screen is negative. Does the patient have a suspected source of infection? No. Patient's initial sepsis screen is negative. Risk Assessment: Do you want to hurt yourself or someone else? Patient reports no desire to harm self or others. Onset of symptoms was December 31, 2023. Triage Assessment: 10:50 General: Appears in no apparent distress. Behavior is calm, cooperative, appropriate ko1 for age. Pain: Complains of pain in dorsal aspect of left forearm. EENT: No deficits noted. Neuro: Level of Consciousness is awake, alert, obeys commands, Oriented to person, place, time. Cardiovascular: No deficits noted. Respiratory: No deficits noted. GI: No deficits noted. : No deficits noted. Derm: Bruising that is different stages of healing bruises all over body, new bruising to left arm with skin tears, new bruising to left side of head and left flank.. Musculoskeletal: Circulation, motion, and sensation intact. Capillary refill < 3 seconds, is brisk, Range of motion: intact in all extremities. Injury Description: skin tears to left arm. Trauma Activation: Not Applicable Physician: ED Physician; Name: ; Notified At: ; Arrived At: Physician: General Surgeon; Name: ; Notified At: ; Arrived At: Physician: Radiology; Name: ; Notified At: ; Arrived At: Physician: Respiratory; Name: ; Notified At: ; Arrived At: Physician: Lab; Name: ; Notified At: ; Arrived At: Historical: - Allergies: 11:04 Levaquin; ko1 - PMHx: 11:04 aortic aneurysm; Hyperlipidemia; Hypertension; Depression; Atrial Fib; kidney cancer; ko1 stent; - PSHx: 11:04 L kidney partially removed; ko1 - Immunization history: Last tetanus immunization: < 5 years ago. - Infectious Disease History:: Denies. - Social history:: Smoking status: Patient denies any tobacco usage or history of. The patient lives with spouse, at home. Screenin:50 Abuse screen: Denies threats or abuse. Denies injuries from another. Tuberculosis ko1 screening: No symptoms or risk factors identified. 10:50 [facility] ED Fall Risk Assessment (Adult) History of falling in the last 3 months, ko1 including since admission Yes- fall prone (multiple falls) (3 pts) Confusion or Disorientation Yes (5 pts) Intoxicated or Sedated No (0 pts) Impaired Gait Yes (1 pt) Mobility Assist Device Used Yes (1 pt) Altered Elimination No (0 pt) Score/Fall Risk Level 3 or more points = High Risk Oriented to surroundings, Maintained a safe environment, Educated pt \T\ family on fall prevention, incl call for assistance when getting out of bed, Assessed \T\ reinforced patient's understanding of fall precautions, Provided non-skid footwear, Hourly rounding (assess needs \T\ fall precautionary measures) done, Used ambulatory aids as needed (educated on \T\ assisted with), Used gait belt as appropriate Implemented a Fall Risk Plan of Care, Apply high fall risk patient identification: yellow non skid footwear/ fall signage, Offered frequent toileting (1:1 observation), Remained with patient while ambulating, Utilized family, sitter, or virtual piped buttonhole machine operator as indicated. Nutritional screening: No deficits noted. Primary Survey: 10:50 NO uncontrolled hemorrhage observed. A: The client is awake and alert. The airway is ko1 patent. The client is alert. Airway: patent, Oral cavity: clear, Trachea midline. Breathing/Chest: Spontaneous respiratory effort, equal unlabored respirations, breath sounds clear bilaterally, regular pattern, symmetrical chest rise and fall. Respiratory effort: spontaneous, unlabored, Breath sounds: clear, bilaterally. Respiratory pattern: regular, Chest inspection: symmetrical rise and fall of the chest. Circulation: No external hemorrhage present. Regular and strong central pulse, skin warm/dry/normal color. Disability Pupils are equal, round, reactive to light and accommodation. Client is alert. Exposure/Environment: All clothing and personal items were removed. There is no evidence of uncontrolled external bleeding. Obvious injury(ies) are noted at this time: skin tears to left forearm A warming method has been applied: A warm blanket has been provided to the patient. 11:03 Reassessment Alertness and Airway: Awake and alert. The airway is patent. Airway Patent ko1 Oral cavity Clear Trachea Midline Breathing: Spontaneous respiratory effort, equal unlabored respirations, breath sounds clear bilaterally, regular pattern with symmetrical chest rise and fall. Respiratory effort Spontaneous Unlabored Breath sounds Clear Respiratory pattern Regular Chest inspection Symmetrical Circulation: No external hemorrhage noted. Regular and strong central pulse, skin warm/dry/normal color. Pulses Palpable Color [place] Temperature Warm Dry Disability: Pupils Pupils are equal, round, reactive to light and accomodation. Alert. Assessment: 10:50 General: Appears in no apparent distress. comfortable, Behavior is calm, cooperative, ko1 appropriate for age. Pain: Complains of pain in dorsal aspect of left forearm. Vital Signs: 10:50 BP 125 / 89; Pulse 71; Resp 16; Temp 97; Pulse Ox 100% on R/A; ko1 11:52 BP 121 / 88; Pulse 74; Resp 15; Pulse Ox 98% ; ko1 12:46 BP 136 / 94; Pulse 78; Resp 16; Pulse Ox 95% ; ko1 13:16 BP 116 / 74; Pulse 70; Resp 14; Pulse Ox 99% ; ko1 14:14 BP 134 / 88; Pulse 70; Resp 16; Pulse Ox 97% ; ko1 Carole Coma Score: 10:50 Eye Response: spontaneous(4). Motor Response: obeys commands(6). Verbal Response: ko1 oriented(5). Total: 15. Trauma Score (Adult): 10:50 Eye Response: spontaneous(1); Verbal Response: oriented(1); Motor Response: obeys ko1 commands(2); Systolic BP: > 89 mm Hg(4); Respiratory Rate: 10 to 29 per min(4); [place] Score: 15; Trauma Score: 12 ED Course: 10:49 Patient arrived in ED. eb 10:50 Kathy Soria, RN is Primary Nurse. ko1 10:50 Patient has correct armband on for positive identification. Placed in gown. Bed in low ko1 position. Call light in reach. Side rails up X2. 10:50 Door closed. Noise minimized. Lights dimmed. Warm blanket given. ko1 10:50 Bandage applied. Ice pack applied. ko1 10:50 O2 via room air. ko1 10:50 Maintain EMS IV. Dressing intact. Good blood return noted. Site clean \T\ dry. Gauge \T\ ko 1 site: 20 R AC. IV is patent, is intact, with fluids infusing freely, with good blood return. 11:00 Triage completed. ko1 11:01 Susan Aguirre MD is Attending Physician. gb1 11:04 Arm band placed on right wrist. Patient placed in an exam room, on a stretcher, on ko1 court recording monitor, on pulse oximetry, Patient notified of wait time. 11:10 Client placed on continuous cardiac and pulse oximetry monitoring. NIBP monitoring ko1 applied. vehicle monitor technician on. Warm blanket given. Cleaned of incontinence. 11:15 Initial lab(s) drawn, by me, sent to lab. T\T\S collected, blood band applied to patient. ko1 11:19 Basic Metabolic Panel Sent. ko1 11:19 CBC with Diff Sent. ko1 11:19 Type And Screen Sent. ko1 11:23 CT Head C Spine In Process Unspecified. EDMS 11:50 Chest Single View XRAY In Process Unspecified. EDMS 11:50 Pelvis XRAY In Process Unspecified. EDMS 11:50 Head of bed lowered. Elevated foot. ko1 11:50 removed c collar. ko1 12:00 Thermoregulation: warm blanket given to patient. ko1 12:44 NT PRO-BNP Sent. ko1 12:44 Troponin HS Sent. ko1 12:44 Ptt, Activated Sent. ko1 12:44 PT-INR Sent. ko1 12:44 Urine Drug Screen Sent. ko1 12:44 Urinalysis w/ reflexes Sent. ko1 12:46 Warm blanket given. Assisted with urinal. ko1 12:46 Dressings: Kerlix X 1; left arm non-adherent dressing x 1 dorsal aspect of left forearm ko1 4X4s. 13:21 Humerus Left XRAY In Process Unspecified. EDMS 13:21 Forearm Left XRAY In Process Unspecified. EDMS 14:15 Provided Education on: na. ko1 14:15 No provider procedures requiring assistance completed. IV discontinued, intact, ko1 bleeding controlled, No redness/swelling at site. Pressure dressing applied. Administered Medications: No medications were administered Medication: 11:50 VIS not applicable for this client. ko1 Intake: 14:28 PO: 120ml (Water); IV: 700ml (IV Fluid); Total: 820ml. ko1 Output: 14:28 Urine: 500ml (Voided); Total: 500ml. ko1 Outcome: 13:59 Discharge ordered by . gb1 14:15 Discharged to home via wheelchair, with family, ko1 14:15 Condition: stable 14:15 Discharge instructions given to patient, family, Instructed on discharge instructions, follow up and referral plans. Demonstrated understanding of instructions, follow-up care, 14:28 Patient's length of stay in the Emergency Department was greater than 2 hours. ED ko1 censusPatient's length of stay extended due to 14:30 Patient left the ED. ko1 Signatures: Dispatcher [employer] [facility] Tracee Hdez Kathy, RN RN ko1 Susan Aguirre MD MD gb1
--- NOTE | 2023-12-31 14:00 | EDPHYS ---
Physician Documentation [facility] Name: Jhonatan Solis Age: 73 yrs Sex: Male : 1950 Arrival Date: 12/31/2023 Time: 10:48 Bed 5 Private MD: ED Physician Susan Aguirre HPI: 12/30 13:56 This 73 yrs old Male presents to ER via EMS with complaints of Fall Injury. gb1 14:05 73-year-old male who slipped off of his shower chair and struck his arm on the side of gb1 the shower rail. Patient has history of dementia and hyperlipidemia, hypertension, depression, atrial fibrillation disease on Xarelto and Plavix as well as history of recent cardiac stent. Patient is here with his at the bedside. He denies any chest pain, shortness of breath or back pain.. Historical: - Allergies: 11:04 Levaquin; ko1 - PMHx: 11:04 aortic aneurysm; Hyperlipidemia; Hypertension; Depression; Atrial Fib; kidney cancer; ko1 stent; - PSHx: 11:04 L kidney partially removed; ko1 - Immunization history: Last tetanus immunization: < 5 years ago. - Infectious Disease History:: Denies. - Social history:: Smoking status: Patient denies any tobacco usage or history of. The patient lives with spouse, at home. Exam: 14:05 Constitutional: This is a well developed, well nourished patient who is awake, alert, gb1 and in no acute distress. Head/Face: Normocephalic, atraumatic. Eyes: Pupils equal round and reactive to light, extra-ocular motions intact. Lids and lashes normal. Conjunctiva and sclera are non-icteric and not injected. Cornea within normal limits. Periorbital areas with no swelling, redness, or edema. ENT: Nares patent. No nasal discharge, no septal abnormalities noted. Tympanic membranes are normal and external auditory canals are clear. Oropharynx with no redness, swelling, or masses, exudates, or evidence of obstruction, uvula midline. Mucous membranes moist. Neck: Trachea midline, no thyromegaly or masses palpated, and no cervical lymphadenopathy. Supple, full range of motion without nuchal rigidity, or vertebral point tenderness. No Meningismus. Chest/axilla: Normal chest wall appearance and motion. Nontender with no deformity. No lesions are appreciated. Cardiovascular: Regular rate and rhythm with a normal S1 and S2. No gallops, murmurs, or rubs. Normal PMI, no JVD. No pulse deficits. Respiratory: Lungs have equal breath sounds bilaterally, clear to auscultation and percussion. No rales, rhonchi or wheezes noted. No increased work of breathing, no retractions or nasal flaring. Abdomen/GI: Soft, non-tender, with normal bowel sounds. No distension or tympany. No guarding or rebound. No evidence of tenderness throughout. Back: No spinal tenderness. No costovertebral tenderness. Full range of motion. Skin: Warm, dry with normal turgor. patient has multiple wounds in various stages of healing with a small skin tear to the left midshaft humerus on the lateral side-no active bleeding. MS/ Extremity: Pulses equal, no cyanosis. Neurovascular intact. Full, normal range of motion. Neuro: Awake and alert, GCS 15, oriented to person, place, time, and situation. Cranial nerves II-XII grossly intact. Motor strength 5/5 in all extremities. Sensory grossly intact. Cerebellar exam normal. Normal gait. Psych: Awake, alert, with orientation to person, place and time. Behavior, mood, and affect are within normal limits. Vital Signs: 10:50 BP 125 / 89; Pulse 71; Resp 16; Temp 97; Pulse Ox 100% on R/A; ko1 11:52 BP 121 / 88; Pulse 74; Resp 15; Pulse Ox 98% ; ko1 12:46 BP 136 / 94; Pulse 78; Resp 16; Pulse Ox 95% ; ko1 13:16 BP 116 / 74; Pulse 70; Resp 14; Pulse Ox 99% ; ko1 14:14 BP 134 / 88; Pulse 70; Resp 16; Pulse Ox 97% ; ko1 Carole Coma Score: 10:50 Eye Response: spontaneous(4). Motor Response: obeys commands(6). Verbal Response: ko1 oriented(5). Total: 15. Trauma Score (Adult): 10:50 Eye Response: spontaneous(1); Verbal Response: oriented(1); Motor Response: obeys ko1 commands(2); Systolic BP: > 89 mm Hg(4); Respiratory Rate: 10 to 29 per min(4); [place] Score: 15; Trauma Score: 12 MDM: 11:01 Patient medically screened. gb1 14:05 Differential diagnosis: abrasion, closed head injury, contusion, fracture, multiple gb1 trauma, sprain, strain. Data reviewed: vital signs, nurses notes, radiologic studies, CT scan, plain films. Historians other than the Patient: Spouse/Significant Other: Patient's is at bedside and corroborated the story of which she presented of the shower fall.. 12/30 11:05 Order name: Basic Metabolic Panel; Complete Time: 12:12 12/30 11:05 Order name: CBC with Diff; Complete Time: 12:12 12/30 11:05 Order name: Type And Screen; Complete Time: 12:12 12/30 11:05 Order name: Urinalysis w/ reflexes; Complete Time: 13:20 12/30 12:24 Order name: Urine Drug Screen; Complete Time: 13:20 12/30 12:25 Order name: PT-INR; Complete Time: 13:20 12/30 12:25 Order name: Ptt, Activated; Complete Time: 13:20 12/30 12:25 Order name: NT PRO-BNP; Complete Time: 13:20 12/30 12:25 Order name: Troponin HS; Complete Time: 13:20 12/30 11:05 Order name: CT Head C Spine; Complete Time: 12:12 12/30 11:06 Order name: Chest Single View XRAY; Complete Time: 12:12 12/30 11:06 Order name: Pelvis XRAY; Complete Time: 12:12 12/30 12:29 Order name: Humerus Left XRAY; Complete Time: 13:33 12/30 12:29 Order name: Forearm Left XRAY; Complete Time: 13:33 12/30 11:05 Order name: Labs collected and sent; Complete Time: 11:19 gb Administered Medications: No medications were administered Disposition Summary: 12/31/23 13:59 Discharge Ordered Notes: Location: Home gb1 Condition: Fair gb1 Diagnosis - Fall on same level, unspecified gb1 - Acute kidney failure, unspecified gb1 - Dehydration gb1 - Unspecified dementia with behavioral disturbance gb1 Followup: gb1 - With: Private Physician - When: Upon discharge from the Emergency Department - Reason: Re-evaluation by your physician Discharge Instructions: - Discharge Summary Sheet gb1 - Acute Kidney Injury, Adult gb1 - Skin Tear, [id number] gb1 - Fall Prevention in the Home, Adult, [id number] gb1 - Dehydration, Adult, [id number] gb1 Forms: - Medication Reconciliation Form gb1 - Antibiotic Education gb1 - Prescription Opioid Use gb1 - Patient Portal Instructions gb1 - Leadership Thank You Letter gb1 Signatures: Dispatcher [employer] EDKathy Armstrong, RN RN ko1 Susan Aguirre MD MD gb1 Corrections: (The following items were deleted from the chart) 11:07 11:06 Head Brain Wo Cont+CT.RAD.BRZ ordered. EDMS EDMS 12:25 12:25 URINE DRUG SCREEN+UC.LAB.BRZ ordered. EDMS EDMS 12:25 12:25 PROTIME (+INR)+COAG.LAB.BRZ ordered. EDMS EDMS 12:25 12:25 PTT, ACTIVATED+COAG.LAB.BRZ ordered. EDMS EDMS 12:25 12:25 PROBNP+C.LAB.BRZ ordered. EDMS EDMS 12:25 12:25 Troponin High Sensitivity+C.LAB.BRZ ordered. EDMS EDMS
[2023-12-31 14:49] VITALS: BP 134/88; TEMP 97; O2SAT 97
--- NOTE | 2024-01-01 12:56 | EKG ---
Test Date: 2023-12-31 Test Time: 14:52:40 Talent Acquisition Manager: CARLOS MEASUREMENT RESULTS: Intervals: Rate: 121 VA: QRSD: 92 QT: 340 QTc: 482 [place]: P: VA: QRS: 39 T: 268 INTERPRETIVE STATEMENTS: Atrial fibrillation Nonspecific ST abnormality, probably digitalis effect Abnormal ECG Compared to ECG 11/04/2023 09:01:39 Sinus bradycardia no longer present First degree AV block no longer present Possible ischemia no longer present Prolonged QT interval no longer present ST (T wave) deviation still present Electronically Signed On 01-01-24 12:54:54 CDT by Junaid Garg
== END 2023-12-31 14:30 | disposition home or self-care (01) ==
LOC: ER 10:48
DX: N17.9 Acute kidney failure, unspecified (principal); E86.0 Dehydration; F03.918 Unspecified dementia, unspecified severity, with other behavioral disturbance; W07.XXXA Fall from chair, initial encounter; I10 Essential (primary) hypertension; I48.91 Unspecified atrial fibrillation; E78.5 Hyperlipidemia, unspecified; Z90.5 Acquired absence of kidney; Z85.528 Personal history of other malignant neoplasm of kidney; Z95.818 Presence of other cardiac implants and grafts; Z79.01 Long term (current) use of anticoagulants
CPT/HCPCS: 36415; 70450; 71045; 72125; 72170; 80048; 80307; 81001; 83880; 84484; 85025; 85610; 85730; 86850; 86900; 86901; 93005; 99285

== ENCOUNTER 2023-12-31 14:42 | Inpatient (IN) | payer OTHER ==
[2023-12-31 15:11] LABS: Absolute Basophils 0.1 K/uL (0-0.5); Absolute Eosinophils 0.1 K/uL (0-0.5); Absolute Lymphocytes (CBC) 1.8 K/uL (0.7-4.9); Absolute Monocytes 0.9 K/uL (0.1-1.3); Absolute Neutrophil 11.1 K/uL (1.8-8.0); Basophils % 0.6 % (0-1.3); Eosinophils % 0.7 % (0-4.4); Hematocrit 42.6 % (39.6-49.0); Hemoglobin 14.4 g/dL (13.6-17.9); Lymphocytes % 12.6 % (15.3-44.8); MCH 30.1 pg (27.0-35.0); MCHC 33.8 g/dL (32.0-36.0); MCV 89.1 fL (80-100); Monocytes % 6.5 % (3.3-12.3); Neutrophils % 79.6 % (41.7-73.7); Nucleated Red Blood Cells % 0.1 % (0-0); Platelets 346 thou/uL (152-406); RBC Red Blood Cell Count 4.78 M/uL (4.33-5.43); Red Cell Distribution Width 14.9 % (12.1-15.2)
[2023-12-31 15:30] LABS: Anion Gap 12.2 mEq/L (5.0-15.0); Potassium 3.2 mEq/L (3.5-5.1); Troponin High Sensitivity 9.7 pg/mL (<58.9)
--- NOTE | 2023-12-31 15:59 | ER ---
Nurse's Notes [facility] Name: Jhonatan Solis Age: 73 yrs Sex: Male : 1950 Arrival Date: 12/31/2023 Time: 14:42 Bed 4 Private MD: Diagnosis: Paroxysmal atrial fibrillation;Syncope Near;Unspecified dementia with behavioral disturbance;Acute kidney failure, unspecified Presentation: 12/30 14:39 Chief complaint: Pt discharged from ED, taken to vehicle via wc by volunteer. Volunteer anderson has gone to get a nurse to help him get in vehicle, by the time they came back to him, he had slid down to the floor from wheelchair and a bystander was attempting to get him up. Pt pale, diaphoretic, weak, pt unable to describe recollection of events. 14:39 Coronavirus screen: Vaccine status: Patient reports receiving the 2nd dose of the covid nj1 vaccine. Ebola Screen: Patient denies travel to an Ebola-affected area in the 21 days before illness onset. Risk Assessment: Do you want to hurt yourself or someone else? Patient reports no desire to harm self or others. Onset of symptoms was December 31, 2023. 14:39 Method Of Arrival: Wheelchair nj1 14:39 Acuity: TAMAR 2 nj1 18:16 Initial Sepsis Screen: Does the patient meet any 2 criteria? No. Patient's initial ko1 sepsis screen is negative. Does the patient have a suspected source of infection? No. Patient's initial sepsis screen is negative. Triage Assessment: 18:16 General: Appears comfortable. ko1 Historical: - Allergies: 14:54 Levaquin; nj1 - PMHx: 14:54 aortic aneurysm; Atrial Fib; Depression; Hyperlipidemia; stent; Hypertension; kidney nj1 cancer; - PSHx: 14:54 L kidney partially removed; nj1 - Immunization history:: Client reports receiving the 2nd dose of the Covid vaccine. - Infectious Disease History:: Denies. - Social history:: Smoking status: unknown. Screenin:34 [facility] ED Fall Risk Assessment (Adult) History of falling in the last 3 months, ko1 including since admission Yes- fall prone (multiple falls) (3 pts) Confusion or Disorientation Yes (5 pts) Intoxicated or Sedated No (0 pts) Impaired Gait Yes (1 pt) Mobility Assist Device Used Yes (1 pt) Altered Elimination No (0 pt) Score/Fall Risk Level 3 or more points = High Risk Oriented to surroundings, Maintained a safe environment, Educated pt \\T\\ family on fall prevention, incl call for assistance when getting out of bed, Assessed \\T\\ reinforced patient's understanding of fall precautions, Provided non-skid footwear, Hourly rounding (assess needs \\T\\ fall precautionary measures) done, Used ambulatory aids as needed (educated on \\T\\ assisted with), Used gait belt as appropriate Implemented a Fall Risk Plan of Care, Apply high fall risk patient identification: yellow non skid footwear/ fall signage, Remained w/in arm's length of patient and in sight while toileting, Offered frequent toileting (1:1 observation), Remained with patient while ambulating, Utilized family, sitter, or virtual tool honing machine set up operator as indicated. Abuse screen: Denies threats or abuse. Denies injuries from another. Nutritional screening: No deficits noted. Tuberculosis screening: No symptoms or risk factors identified. Assessment: 14:50 General: Appears ill, Behavior is drowsy. Neuro: Level of Consciousness is lethargic. ko1 Cardiovascular: Rhythm is atrial fibrillation with rapid ventricular response. Respiratory: No deficits noted. GI: Reports nausea. : No deficits noted. EENT: No deficits noted. Derm: Skin is fragile, is thin, with poor turgor has skin tears on left arm Skin is clammy, diaphoretic, Skin is pale, Bruising that is different levels of healing of bruises, hematoma to left arm, left flank. Musculoskeletal: Circulation, motion, and sensation intact. 15:34 Pain: Denies pain. ko1 16:00 Reassessment: patient began yelling and cussing saying he had " thrown up on the floor ko1 and had to clean it up". No vomit on the floor, patient had been sleeping. 18:10 Reassessment: attempted to call report, ICU asked if I could call back in 15minutes. ko1 Vital Signs: 14:39 BP 139 / 78; Pulse 85; Resp 18; Pulse Ox 96% on R/A; Weight 100.7 kg; Height 6 ft. 1 nj1 in. ; 14:50 BP 144 / 90; Pulse 112; Resp 18; Pulse Ox 100% ; ko1 15:34 BP 118 / 75; Pulse 102; Resp 16; Temp 97; Pulse Ox 98% on R/A; ko1 16:56 BP 91 / 71; Pulse 115; Resp 12; Pulse Ox 99% ; ko1 18:14 BP 110 / 80; Pulse 118; Resp 18; Pulse Ox 100% on R/A; ko1 14:39 Body Mass Index 29.29 (100.70 kg, 185.42 cm) nj1 Carole Coma Score: 15:58 Eye Response: spontaneous(4). Motor Response: obeys commands(6). Verbal Response: gb1 confused(4). Total: 14. NIH Stroke Scale Scores: 15:58 NIHSS Score: 2 gb1 ED Course: 14:46 Patient arrived in ED. eb 14:48 Kathy Soria, RN is Primary Nurse. ko1 14:49 Susan Aguirre MD is Attending Physician. gb1 14:54 Triage completed. nj1 14:55 Arm band placed on. nj1 14:58 EKG done, by ED staff, reviewed by Susan Aguirre MD. jr12 15:06 Patient has correct armband on for positive identification. Allergy band placed. Fall ko1 risk band placed. Placed in gown. Bed in low position. Call light in reach. Side rails up X2. Provided Education on: na. Client placed on continuous cardiac and pulse oximetry monitoring. NIBP monitoring applied. banjo repair person on. Door closed. Noise minimized. Lights dimmed. Warm blanket given. Elevated foot. 15:06 Initial lab(s) drawn, by hi, sent to lab. Inserted saline lock: 22 gauge in right ko1 antecubital area, using aseptic technique. Blood collected. 15:56 Felton Khan MD is Hospitalizing Provider. gb1 16:05 Hospitalizing Provider role handed off by Felton Khan MD gb1 16:05 Cesar Arceo MD is Hospitalizing Provider. gb1 16:29 Chest Single View XRAY In Process Unspecified. EDMS 18:14 Cleaned of incontinence. ko1 18:14 No provider procedures requiring assistance completed. Patient admitted, IV remains in ko1 place. Administered Medications: 16:11 Drug: Haloperidol IVP 2 mg IVP once Route: IVP; Site: right antecubital; ko1 16:30 Follow up: Response: Anxiety decreased ko1 Medication: 14:50 VIS not applicable for this client. ko1 Point of Care Testing: Blood Glucose: 15:58 Blood Glucose: 137 mg/dL; gb1 Ranges: Outcome: 15:58 Decision to Hospitalize by Provider. gb1 18:14 Admitted to ER Hold. Please see [facility] for further documentation. ko1 18:14 Condition: stable 18:14 Instructed on the need for admit, 18:32 Admitted to accompanied by tech, via stretcher, with chart, Report called to SERGE lazaro ko1 19:35 Patient left the ED. jb4 NIH Stroke Scale - NIH Stroke Score Date: 12/31/2023 Time: 15:58 Total Score = 2 10. Dysarthria (speech clarity - read or repeat words) - 0(Normal) 11. Extinction and Inattention (visual/tactile/auditory/spatial/personal) - 0(No abnormality) 1a. Level of Consciousness (LOC) - 0(Alert) 1b. Level of Consciousness (LOC) (Month \\T\\ Age) - 2(Neither) 1c. LOC Commands (Open \\T\\ Closes Eyes/Natural Fabricator) - 0(Both) 2. Best Gaze (Lateral Gaze Paresis) - 0(Normal) 3. Visual Field Loss - 0(No visual loss) 4. Facial Palsy - 0(Normal) 5a. Left Arm: Motor (10-second hold) - 0(No drift) 5b. Right Arm: Motor (10-second hold) - 0(No drift) 6a. Left Leg: Motor (5-second hold - always test supine) - 0(No drift) 6b. Right Leg: Motor (5-second hold - always test supine) - 0(No drift) 7. Limb Ataxia (finger/nose \\T\\ heel/lockhart - test with eyes open) - 0(Absent) 8. Sensory Loss (pinprick arms/legs/face) - 0(Normal) 9. Best Language: Aphasia (description/naming/reading) - 0(No aphasia) Initials: gb1 Signatures: Dispatcher [employer] Cyrus Tovar, RN RN jb4 Tracee Hdez Kathy, RN RN ko1 Maricarmen Saleem RN RN nj1 Susan Aguirre MD MD gb1 Yanna Middleton [facility]
--- NOTE | 2023-12-31 15:59 | EDPHYS ---
Physician Documentation [facility] Name: Jhonatan Solis Age: 73 yrs Sex: Male : 1950 Arrival Date: 12/31/2023 Time: 14:42 Bed 4 Private MD: ED Physician Susan Aguirre HPI: 12/30 15:58 This 73 yrs old Male presents to ER via Wheelchair with complaints of Near gb1 Syncope. 15:58 73-year-old male with history of Alzheimer's dementia, atrial fibrillation, gb1 hyperlipidemia 3 recent stents placed at the [facility] about a month ago by Dr. De, hypertension was discharged just about an hour ago went to the vehicle did a ride home with his and he had another syncopal episode for which she returned to the emergency department diaphoretic and currently in atrial fibrillation with RVR. Patient also seems clearly altered versus normal mental status at time of recent discharge from the ER.. Historical: - Allergies: 14:54 Levaquin; nj1 - PMHx: 14:54 aortic aneurysm; Atrial Fib; Depression; Hyperlipidemia; stent; Hypertension; kidney nj1 cancer; - PSHx: 14:54 L kidney partially removed; nj1 - Immunization history:: Client reports receiving the 2nd dose of the Covid vaccine. - Infectious Disease History:: Denies. - Social history:: Smoking status: unknown. Exam: 15:58 Constitutional: see below Chest/axilla: Normal chest wall appearance and motion. gb1 Nontender with no deformity. No lesions are appreciated. Cardiovascular: Atrial fibrillation with rapid ventricular response Respiratory: Lungs have equal breath sounds bilaterally, clear to auscultation and percussion. No rales, rhonchi or wheezes noted. No increased work of breathing, no retractions or nasal flaring. Abdomen/GI: Soft, non-tender, with normal bowel sounds. No distension or tympany. No guarding or rebound. No evidence of tenderness throughout. Back: No spinal tenderness. No costovertebral tenderness. Full range of motion. 15:58 Constitutional: The patient appears diaphoretic, obviously ill, pale, uncomfortable, 15:58 Head/face: Exam is negative for Noted is no obvious of injury or deformity except Vital Signs: 14:39 BP 139 / 78; Pulse 85; Resp 18; Pulse Ox 96% on R/A; Weight 100.7 kg; Height 6 ft. 1 nj1 in. ; 14:50 BP 144 / 90; Pulse 112; Resp 18; Pulse Ox 100% ; ko1 15:34 BP 118 / 75; Pulse 102; Resp 16; Temp 97; Pulse Ox 98% on R/A; ko1 16:56 BP 91 / 71; Pulse 115; Resp 12; Pulse Ox 99% ; ko1 18:14 BP 110 / 80; Pulse 118; Resp 18; Pulse Ox 100% on R/A; ko1 14:39 Body Mass Index 29.29 (100.70 kg, 185.42 cm) nj1 NIH Stroke Scale Scores: 15:58 NIHSS Score: 2 gb1 Carole Coma Score: 15:58 Eye Response: spontaneous(4). Motor Response: obeys commands(6). Verbal Response: gb1 confused(4). Total: 14. MDM: 14:49 Patient medically screened. gb1 16:05 Data reviewed: nurses notes. 12/30 14:50 Order name: Basic Metabolic Panel; Complete Time: 15:37 12/30 14:50 Order name: CBC with Diff; Complete Time: 15:37 12/30 14:50 Order name: Troponin HS; Complete Time: 15:37 12/30 14:59 Order name: Glucose, Ancillary Testing; Complete Time: 15:37 EDMS 12/30 16:07 Order name: Chest Single View XRAY; Complete Time: 16:59 12/30 17:37 Order name: CT; Complete Time: 17:38 EDMS 12/30 14:50 Order name: EKG; Complete Time: 14:50 12/30 14:50 Order name: Cardiac monitoring; Complete Time: 14:58 12/30 14:50 Order name: EKG - Nurse/Tech; Complete Time: 14:58 12/30 14:50 Order name: IV Saline Lock; Complete Time: 15:14 12/30 14:50 Order name: Labs collected and sent; Complete Time: 15:14 12/30 14:50 Order name: O2 Per Protocol; Complete Time: 14:58 12/30 14:50 Order name: O2 Sat Monitoring; Complete Time: 14:58 gb1 Administered Medications: 16:11 Drug: Haloperidol IVP 2 mg IVP once Route: IVP; Site: right antecubital; ko1 16:30 Follow up: Response: Anxiety decreased ko1 Point of Care Testing: Blood Glucose: 15:58 Blood Glucose: 137 mg/dL; gb1 Ranges: Critical Glucose Levels:Adult <50 mg/dl or >400 mg/dl <40 mg/dl or >180 mg/dl Disposition Summary: 12/31/23 15:58 Hospitalization Ordered Notes: Hospitalization Status: Inpatient Admission gb1 Condition: Fair gb1 Problem: an acute exacerbation gb1 Symptoms: have worsened gb1 Bed/Room Type: Standard gb1 Provider: Cesar Arceo(12/31/23 16:05) herminia Location: Intensive Care Unit(12/31/23 17:57) ja1 Room Assignment: 1-(12/31/23 18:30) cp Diagnosis - Paroxysmal atrial fibrillation gb1 - Syncope Near gb1 - Unspecified dementia with behavioral disturbance gb1 - Acute kidney failure, unspecified gb1 Forms: - Medication Reconciliation Form gb1 - SBAR form gb1 - Leadership Thank You Letter gb1 NIH Stroke Scale - NIH Stroke Score Date: 12/31/2023 Time: 15:58 Total Score = 2 10. Dysarthria (speech clarity - read or repeat words) - 0(Normal) 11. Extinction and Inattention (visual/tactile/auditory/spatial/personal) - 0(No abnormality) 1a. Level of Consciousness (LOC) - 0(Alert) 1b. Level of Consciousness (LOC) (Month \T\ Age) - 2(Neither) 1c. LOC Commands (Open \T\ Closes Eyes/China Painter) - 0(Both) 2. Best Gaze (Lateral Gaze Paresis) - 0(Normal) 3. Visual Field Loss - 0(No visual loss) 4. Facial Palsy - 0(Normal) 5a. Left Arm: Motor (10-second hold) - 0(No drift) 5b. Right Arm: Motor (10-second hold) - 0(No drift) 6a. Left Leg: Motor (5-second hold - always test supine) - 0(No drift) 6b. Right Leg: Motor (5-second hold - always test supine) - 0(No drift) 7. Limb Ataxia (finger/nose \T\ heel/lockhart - test with eyes open) - 0(Absent) 8. Sensory Loss (pinprick arms/legs/face) - 0(Normal) 9. Best Language: Aphasia (description/naming/reading) - 0(No aphasia) Initials: banner Signatures: Dispatcher [employer] EDMS José Gonzalez PA PA cp Aguilar, Jose RN RN ja1 Kathy Soria RN RN ko1 Maricarmen Saleem RN RN nj1 Susan Aguirre MD MD 1 Corrections: (The following items were deleted from the chart) 16:05 15:58 Felton Khan 1 gb1 16:06 16:06 Head Brain Wo Cont+CT.RAD.BRZ ordered. EDMS EDMS 17:57 15:58 Telemetry/MedSurg (Inpatient) banner ja 17:57 15:58 1 [facility] 18:30 17:57 3- ja1 cp
[2023-12-31] MEDS ORDERED: HALOPERIDOL LACT 5 MG/ML INJ ONE (16:09)
--- NOTE | 2023-12-31 16:56 | RAD REPORT ---
[facility]28 pm CLINICAL HISTORY: Shortness breath COMPARISON: Chest ray earlier same date FINDINGS: Extensive left and moderate right miliary nodules without significant change. Stable hilar and mediastinal lymphadenopathy. No change since prior exam
--- NOTE | 2023-12-31 17:36 | RAD REPORT ---
EXAM DESCRIPTION: CT - Head Brain Wo Cont - 12/31/2023 5:07 pm CLINICAL HISTORY: Alteration of awareness/confusion COMPARISON: 2022 TECHNIQUE: Computed axial tomography of the head was obtained. IV contrast was not requested. All CT scans are performed using dose optimization technique as appropriate and may include automated exposure control or mA/KV adjustment according to patient size. FINDINGS: An intracranial bleed is not seen Prominence of ventricles unchanged likely sequela of cerebral atrophy No extra-axial fluid collection is noted. Moderate low-density areas within periventricular, deep and subcortical white matter likely represent ischemic changes secondary to small vessel disease. Fluid within the sinuses/ mastoids is not seen. IMPRESSION: No acute intracranial abnormality is seen If patient's symptoms persist MRI of the brain would be recommended
[2023-12-31] MEDS: HYDROCORTISONE 10 MG TAB PO SCH (22:00)
[2023-12-31] MEDS: lisinopriL 10 MG TAB PO SCH (22:00)
[2023-12-31] MEDS: DONEPEZIL HCL 5 MG TAB PO SCH (22:00)
[2023-12-31] MEDS: SOTALOL HCL 80 MG TAB PO SCH (22:00)
[2023-12-31] MEDS: MEMANTINE HCL 10 MG TABLET PO SCH (22:00)
[2023-12-31] MEDS: RIVAROXABAN 10 MG TABLET PO SCH (22:00)
[2023-12-31] MEDS: AMLODIPINE 5 MG TAB PO SCH (22:00)
[2023-12-31] MEDS: POTASSIUM CL SA 10 MEQ TAB PO ONE (22:20)
[2024-01-01 01:33] VITALS: BMI 24.5
[2024-01-01 06:33] LABS: Absolute Basophils 0.1 K/uL (0-0.5); Absolute Eosinophils 0.1 K/uL (0-0.5); Absolute Lymphocytes (CBC) 1.1 K/uL (0.7-4.9); Absolute Monocytes 0.6 K/uL (0.1-1.3); Absolute Neutrophil 5.6 K/uL (1.8-8.0); Basophils % 0.7 % (0-1.3); Eosinophils % 1.2 % (0-4.4); Hematocrit 38.8 % (39.6-49.0); Hemoglobin 13.4 g/dL (13.6-17.9); Lymphocytes % 15.1 % (15.3-44.8); MCH 30.7 pg (27.0-35.0); MCHC 34.6 g/dL (32.0-36.0); MCV 88.8 fL (80-100); Monocytes % 8.2 % (3.3-12.3); Neutrophils % 74.8 % (41.7-73.7); Platelets 270 thou/uL (152-406); RBC Red Blood Cell Count 4.37 M/uL (4.33-5.43); Red Cell Distribution Width 14.6 % (12.1-15.2)
[2024-01-01] MEDS: PANTOPRAZOLE 40MG TABLET PO SCH (06:35)
[2024-01-01] MEDS: LEVOTHYROXINE SOD 0.125 MG TAB PO SCH (06:36)
[2024-01-01 06:48] LABS: Albumin 3.2 g/dL (3.4-5.0); Anion Gap 11.9 mEq/L (5.0-15.0); Bilirubin Total 0.8 mg/dL (0.2-1.0); Globulin 3.1 g/dL (2.3-3.5); Magnesium 2.1 mg/dL (1.6-2.4); Potassium 3.9 mEq/L (3.5-5.1); Protein, Total 6.3 g/dL (6.4-8.2); Thyroid Stimulating Hormone 0.117 uIU/mL (0.358-3.740); Troponin High Sensitivity 10.4 pg/mL (<58.9)
--- NOTE | 2024-01-01 19:54 | CON ---
Date of Consultation: 01/01/2024 Reason: Wound, left forearm. History Of Present Illness: The patient is a 73-year-old gentleman who came to the emergency room wi th the near syncope, fell at home. The patient has a complex history with Alzheimer's, AFib, hyperli pidemia, and recent placement of 3 stents about a month ago. He came to the ER. He was in AFib with RVR and upon evaluation by Dr. Arceo was found to have a wound on his left forearm. I was asked to e valuate. The patient is on Xarelto. Review of Systems: Otherwise, unremarkable. Past Medical History: Aortic aneurysm, AFib, depression, hyperlipidemia, Alzheimer's, hypertension, left kidney cancer. Past Surgical History: Recent stents in his heart and left partial nephrectomy. Allergies: INCLUDE LEVAQUIN. Social History: Patient does not smoke. Drinks occasionally in the past. Physical Examination: Vital Signs: Currently are stable. He is afebrile. He is in sinus rhythm. Head and Neck: No masses. Chest: Clear. Heart: S1, S2. Abdomen: Soft. Extremities: Neurovascularly intact. Neuro: Nonfocal. Skin: On left forearm, there is approximately a 3 x 4 cm area of denuded skin, partial thickness in nature with surrounding ecchymosis and bruising. No active bleeding noted. No surrounding erythema, warmth, or edema. Laboratory Data: Reviewed. His white count this morning is normal with slight left shift. Chemistr y reviewed. Assessment: 73-year-old gentleman with multiple medical problems with syncope. Workup in progress a nd with the stage II wound on his left forearm secondary to minor trauma. Recommendation: Silvadene and Xeroform dressing should suffice. The patient can follow up with me i n my office after discharge. There is no need for any acute intervention at this time. Medical bunny johnson per Dr. Arceo. Plan of care discussed with the family as well as Dr. rAceo. /MODL Voice ID: [id number] Report ID: [id number]
--- NOTE | 2024-01-01 20:09 | CON ---
Date of Consultation: 01/01/2024 Reason For Consultation: Atrial fibrillation. History Of Present Illness: This is a 73-year-old male, has history of dementia, atrial fibrillation , dyslipidemia, coronary artery disease, status post PCI recently, hypertension. Apparently at home, he was in the car with his . He had a syncopal episode and she brought him to the emergency [facility]. He was diaphoretic, was found to be in atrial fibrillation with rapid ventricular response, and s o I was consulted. At the present time, his heart rate is controlled and he is doing well, has no sy mptoms. Past Medical History: Atrial fibrillation, coronary artery disease, dyslipidemia, hypertension, and chronic kidney disease. Medications: Refer reconciliation sheet for detailed list. Allergies: LEVAQUIN. Family History: No premature coronary artery disease or cancer. Social History: Does not smoke or drink. Does not use any drugs. Review of Systems: All systems reviewed and they were negative except as mentioned in the HPI. Physical Examination: Vital Signs: Reviewed. Temperature is 97.1, pulse is 56, breathing at 16, blood pressure is 121/71, saturating 98%. General: Pleasant elderly male, in no apparent distress. Head and Neck: Pupils are equal, reactive to light. Intact eye movements. No JVD. No cervical lym phadenopathy. Neck is supple. Thyroid is not enlarged. Lungs: Clear to auscultation bilaterally. No rhonchi, wheezing, or crackles. No accessory muscle u se. Heart: Regular rate and rhythm. No extra sounds. Abdomen: Soft, nontender. Bowel sounds positive. No organomegaly. No masses or hernia. No rigidi ty or rebound. Extremities: No edema, clubbing, cyanosis. Intact pulses. Skin: No rash or nodule. Neurologic: Alert, awake, oriented x3. No acute focal deficits appreciated. Investigations: Cardiac enzymes x2 were negative. BUN 17, creatinine 1.06, potassium on arrival was 3.2, and hemoglobin is 13.4. Assessment/recommendation: 1.Atrial fibrillation. He appears to be in sinus rhythm, now I recommend to continue sotalol plus X arelto if his baseline heart rate is in the low 50s. Monitor him over telemetry over the next 24 eve rs and if he goes into further atrial fibrillation, then we will increase the sotalol to 100 mg twice a day. 2.Coronary artery disease, status post recent PCI. Apparently, the patient should be on dual antipl atelet therapy. The patient is a poor historian. I will check with his and please resume his h ome medications. 3.Dyslipidemia. Recommend high-dose statin like Lipitor 40 mg q.h.s. 4.Hypertension. Blood pressure is controlled. Affects on the low side. Could potentially stop the amlodipine and monitor his blood pressure. SR/MODL Voice ID: [id number] Report ID: [id number]
--- NOTE | 2024-01-02 06:51 | HP ---
Date of Admission: 12/31/2023 Chief Complaint: Fainting episode. History Of Present Illness: A 73-year-old pleasant male patient, who had myocardial infarction and w as sent to [facility] from our emergency room almost a month ago or so and had angiopl asty with stent placement as I understand. After he was discharged from the hospital, he was suppose d to have a followup at office, but never returned back to the office for followup until last night. He came to our emergency room with syncopal episode and was admitted to the hospital. As per my dis cussion with the patient's , he was in the shower and all of a sudden, he fell against the shower wall and injured his left forearm as he fell down in the shower. EMS was called and he was brought into emergency room and after ER physician evaluated him, she decided to discharge him to go home and while he was trying to get into the car in the parking lot just outside the emergency room, he had a nother brief episode of fainting type of spell where he actually became unconscious and he was tete t back into the emergency room and this time, he was found to have atrial fibrillation with rapid stanton tricular rate. With this, ER physician decided to admit him to hospital and I was contacted for the admission. This morning when I saw him, he was in ICU as an overflow patient because there were no b eds available on the medical floor overnight. He did not recognize me and he has late stage Alzheime r's disease. Allergies: TO LEVAQUIN CAUSING PAIN IN HIS HANDS. Medications: List reviewed. Review of Systems: Cardiovascular: As mentioned above. [employer] WMS CONSULTANT: Impaired memory due to Alzheimer's disease. All other systems reviewed and negative. Past Medical History: Reviewed. Past Surgical History: Reviewed. Family History: Reviewed. Social History: Reviewed. Physical Examination: Vital Signs: Temperature 97.3, pulse 56, respiratory rate 16, blood pressure 154/86, oxygen saturati on 94%. General: Awake, alert, oriented, not in distress. HEENT: Head atraumatic, normocephalic. Conjunctivae nonerythematous. Sclerae white. Mouth, no thr ush or edema noted. Ears/Nose, no mass, lesion, discharge noted. Neck: Supple. No JVD, lymph nodes, bruit, thyromegaly noted. Lungs: Bilateral good equal air entry. Clear to auscultation. No rhonchi. No rales. Heart: Normal heart sounds, no murmur or gallop. Abdomen: Soft, bowel sounds normal. No guarding, rigidity, tenderness, mass, hepatosplenomegaly, dis tention, or bruit noted. Extremities: Left forearm has dressing present and it is saturated with blood. His both lower extre mities have multiple bruises and disappears old bruises. Skin: No rash, ulcer, cellulitis. Lymphatics: No lymph node enlargement in neck, supraclavicular, infraclavicular region. Neuro: No focal neurological deficit. Chest: Unremarkable. External Genitalia: Deferred. Rectal: Deferred. Laboratory Data: Chest x-ray, no acute cardiopulmonary changes. CT scan of the head was negative fo r any acute intracranial changes. Initial WBC count was 14, with hemoglobin 14.4, platelets 346, and this morning, WBC count is 7.5 with hemoglobin 13.4 and platelets 270. Initial chemistry: Sodium 1 37, potassium 3.2, chloride 103, bicarb 25, BUN 18, creatinine 1.37, glucose 137. This morning, sodi um 143, potassium 3.9, chloride 110, bicarb 25, BUN 17, creatinine 1.06, glucose 101. Hemoglobin A1c 5. Liver function tests normal. TSH 0.117. Impression: 1.Syncope. 2.Atrial fibrillation with rapid ventricular rate. 3.Coronary artery disease. 4.Hypertension. 5.Alzheimer's disease, late stage. 6.Hyperlipidemia. 7.Hypothyroidism. 8.Adrenal insufficiency. Plan: We will go ahead and admit the patient to hospital for further evaluation and management of th is problem. The patient will be transferred out of ICU to regular room today as soon as the room is available as he does not need any ICU level of care. I have consulted Dr. Read and details were dis cussed with him regarding left forearm injury and I talked to him before he evaluated the patient and after he evaluated the patient and details were discussed with him. We will also consult our cardio logist for his atrial fibrillation problem. Initially, the patient's medication list was not availab le, but subsequently the patient's who I communicated with was asked to bring all the home medic ations and the patient is on triple therapy with aspirin, Plavix, and Xarelto. We will have our card iologist provide recommendation on that to see if aspirin can be discontinued and just maintain the p atient on Plavix and Xarelto. For his hypertension, we will continue antihypertensive medication per order. For hyperlipidemia, no need for further intervention as he takes Repatha injection at home a nd no need for any further intervention in the hospital. For hypothyroidism, continue medications pe r order, but we will have to make some adjustment on the dose because TSH is slightly low. For his a drenal insufficiency, we will continue hydrocortisone as per order. I have ordered nursing staff to check orthostatic vitals on him and then we will decide for the need for any intervention as he does have a prior history of orthostatic hypotension and that is probably the likely underlying reason for his syncopal episode at this point. Details of plan of treatment discussed with the patient's this morning outside ICU waiting room. YARELI/EMILY Voice ID: [id number]
[2024-01-02] MEDS ORDERED: ASPIRIN EC 81 MG TAB PO SCH (09:00)
[2024-01-02] MEDS: METOPROLOL TAR 25 MG TAB PO SCH (09:00)
[2024-01-02] MEDS: CLOPIDOGREL 75 MG TABLET PO SCH (09:22)
[2024-01-02] MEDS: SILVER SULFADIAZINE 1% 25 GM TOP SCH (10:22)
[2024-01-02 10:32] VITALS: O2SAT 97
[2024-01-02 12:33] VITALS: BP 120/78; TEMP 97.2
--- NOTE | 2024-01-02 19:12 | PN ---
Date of Progress Note: 01/02/2024 Subjective: Seen by bedside. He continues to be in sinus rhythm. No further episodes of syncope. Review of Systems: No chest pain, shortness of breath, orthopnea, or cough. No nausea, vomiting, or diarrhea. All othe r systems reviewed, they are negative. Physical Examination: Vital Signs: Reviewed. Head and Neck: Pupils are equal, reactive to light. Intact eye movements. No JVD. No cervical lym phadenopathy. Neck is supple. Thyroid is not enlarged. Lungs: Clear to auscultation bilaterally. No rhonchi, wheezing, or crackles. No accessory muscle u se. Heart: Regular rate and rhythm. No extra sounds. Abdomen: Soft, nontender. Bowel sounds positive. No organomegaly. No masses or hernia. No rigidi ty or rebound. Extremities: No edema, clubbing, or cyanosis. Intact pulses. Skin: No rash or nodule. Neurologic: Alert, awake, no acute focal deficits appreciated. Lymph Nodes: No cervical or axillary lymphadenopathy. Investigations: Labs reviewed. Assessment/recommendation: 1.Atrial fibrillation with rapid ventricular response. Currently, is in sinus rhythm. Continue sot alol and Xarelto. 2.Coronary artery disease, status post PCI a month ago at [place], is on Plavix, which was done alre albino yesterday and no need for aspirin as he has taken Xarelto. 3.Dyslipidemia, on anti-dyslipidemia medications. 4.Dementia, it is advanced. I truly believe his syncopal episode was just psychological in nature a s this afternoon, when I walked into the room, he was completely unresponsive and as per his , he was unresponsive for 3 hours, would not move, and I did sternal rub on him even he would not react a nd then when I touched one of his toes, he got bothered and he woke up screaming and cursing me indic ating advanced dementia. I recommend a special care unit for dementia as his apparently will no t be able to take care of him on outpatient basis. Cardiology will sign off on the case, it is nothi ng acute. SR/MODL Voice ID: [id number] Report ID: [id number]
[2024-01-02] MEDS ORDERED: RIVAROXABAN 20 MG TABLET PO SCH (21:00)
[2024-01-02] MEDS ORDERED: EZETIMIBE 10 MG TAB PO SCH (21:00)
--- NOTE | 2024-01-03 05:03 | DS ---
Date of Discharge: 01/02/2024 Disposition: Discharged to go home. Physical Examination: General: This morning when I saw him, he was lying in bed, not in distress. Awake, alert, did not r ecognize me, but he appeared like his normal self. He follows simple commands. Vital Signs: Reviewed. HEENT: Unremarkable. Lungs: Clear to auscultation. Heart: Sounds normal. Abdomen: Soft. Bowel sounds normal. No guarding, rigidity, tenderness, distention. Extremities: No leg edema. Laboratory Data: Please see history and physical dictation for details on labs. Discharge Medications And Instructions: Continue all prior home medications except following changes : 1.Stop aspirin. 2.Stop Synthroid 125 mcg dose. 3.Start Synthroid 112 mcg daily and prescription was sent to [facility]. 4.Start midodrine 2.5 mg 3 times a day, to be taken at 6 a.m., 11 a.m., and 4 p.m., and prescription was sent to [facility]. 5.Follow up at my office next week. Hospital Course: This is a 73-year-old pleasant male patient admitted to the hospital after 2 syncop al episodes. Please see dictated H and P for more information. The patient had 1 syncopal episode a t home while he was in the shower and second episode was outside emergency room in the parking lot [facility]. He was admitted to the hospital under my service and after he was admitted, Cardiology consultat ion was obtained from Dr. Garg. The patient had coronary artery angioplasty and stent placement in [place] about 1 month ago and since that time, he has been taking aspirin, Plavix, and Xarelto. Dr. Garg has recommended for him to discontinue aspirin now and for the patient to continue Plavix and Xarelto. Since he came home from [place] in last 1 month, he has been sleeping a lot more than usua l and in fact he really did not even come to see me for followup as he was supposed to. He has late stage Alzheimer's disease and unfortunately it is progressing over period of time. After I saw him t his morning, nursing staff checked his orthostatic vitals as per recommendation and his supine blood pressure was 126/72 and sitting blood pressure was 118/67, and standing blood pressure was 100/64. I n the past, the patient was prescribed midodrine 5 mg 3 times a day and unfortunately he stopped taki ng it. This was probably over a year to 2 years ago and I have recommended for him to start taking t his medication again at a lower dose which is 2.5 mg 3 times a day and I did have my office nurse sabrina mcgrath out to the patient's and explained the importance of taking this medication at designated aditi e and also she was instructed to reduce levothyroxine dose in view of TSH being suppressed. cam e to hospital today to take him home and at that time, the patient was very sleepy and she did not fe el comfortable taking him home, so nurse contacted me with this information and she was advised to ca ncel discharge. Continue all current medications and Neurology consultation was requested from Dr. Rima serrano. After a while, nurse contacted me and informed me that the patient's did not feel comf ortable having neurology consultation with Dr. Montero and subsequently, nurse contacted and informe d me that the patient's decided to take him home. The patient has skin tear over left forearm f rom the fall that happened at home and Dr. Read from General Surgery was consulted yesterday and he has recommended dressing changes per his instructions and also [facility]. So cial Service consultation was requested today for Social Service to make arrangements for home health care services, home physical therapy services, and home health nurse to change dressing as per instr uction from Dr. Read. I have also requested a nurse to contact the home health nurse to provide ins truction regarding dressing changes per Dr. Read. Final Diagnoses: 1.Syncope. 2.Orthostatic hypotension. 3.Coronary artery disease. 4.Paroxysmal atrial fibrillation. 5.Hypertension. 6.Hyperlipidemia. 7.Adrenal insufficiency. 8.Alzheimer's disease, late stage. 9.Hypothyroidism. Total time spent minutes. YARELI/MODL Voice ID: [id number] Report ID: [id number]
[2024-01-03] MEDS ORDERED: PANTOPRAZOLE 40MG TABLET PO SCH (07:30)
== END 2024-01-02 15:57 | disposition home health service (06) | DRG 312 ==
LOC: ER 14:42 → ERHOLD 16:49 → 3RD-ICU 18:07 → 2ND 01-01 09:11
PROVIDERS: ADMIT Internal Medicine; ATTEND Internal Medicine
DX: I95.1 Orthostatic hypotension (principal); N17.9 Acute kidney failure, unspecified; E27.40 Unspecified adrenocortical insufficiency; F02.C11 Dementia in other diseases classified elsewhere, severe, with agitation; G30.1 Alzheimer's disease with late onset; I48.0 Paroxysmal atrial fibrillation; S51.812A Laceration without foreign body of left forearm, initial encounter; S80.12XA Contusion of left lower leg, initial encounter; S80.11XA Contusion of right lower leg, initial encounter; W18.2XXA Fall in (into) shower or empty bathtub, initial encounter; Y93.E1 Activity, personal bathing and showering; Y92.002 Bathroom of unspecified non-institutional (private) residence as the place of occurrence of the external cause; I25.10 Atherosclerotic heart disease of native coronary artery without angina pectoris; E03.9 Hypothyroidism, unspecified; I10 Essential (primary) hypertension; I71.40 Abdominal aortic aneurysm, without rupture, unspecified; E78.5 Hyperlipidemia, unspecified; F32.A Depression, unspecified; I25.2 Old myocardial infarction; Z95.5 Presence of coronary angioplasty implant and graft; Z79.01 Long term (current) use of anticoagulants; Z79.82 Long term (current) use of aspirin; Z79.02 Long term (current) use of antithrombotics/antiplatelets; Z79.899 Other long term (current) drug therapy; Z88.1 Allergy status to other antibiotic agents; Z85.528 Personal history of other malignant neoplasm of kidney; Z90.5 Acquired absence of kidney
CPT/HCPCS: 36415; 70450; 71045; 72125; 72170; 80048; 80053; 80307; 81001; 82947; 83036; 83735; 83880; 84443; 84484; 85025; 85610; 85730; 86850; 86900; 86901; 93005; 96374; 97161; 97530; 99285; J1630

== ENCOUNTER 2024-06-30 14:08 | Emergency (ER) | payer OTHER ==
--- NOTE | 2024-06-30 15:43 | RAD REPORT ---
EXAM: CT brain without contrast HISTORY: SYNCOPE COMPARISON: 12/31/2023 TECHNIQUE: Multiple contiguous axial images were obtained and a CT of the brain without contrast. Sag ittal and coronal reformats were performed. One or more of the following dose reduction techniques were used: Automated exposure control, adjust ment of the mA and/or kV according to patient size, and/or iterative reconstruction. FINDINGS: No evidence of hydrocephalus, intracranial hemorrhage, or extra-axial fluid collection. Moderate brain atrophy with moderate periventricular and deep white matter chronic microvascular isc hemic changes present. No evidence of midline shift or areas of brain edema. Mild vertebral atherosclerosis. The calvarium is intact. The visualized paranasal sinuses and mastoid air cells are essentially clear . IMPRESSION: No evidence of acute intracranial abnormality.
--- NOTE | 2024-06-30 17:52 | RAD REPORT ---
EXAMINATION: ONE VIEW CHEST XR CLINICAL INDICATION: CHEST PAIN TECHNIQUE: Frontal chest projection is submitted. Examination is limited by patient positioning and t echnique. COMPARISON: 12/31/2023 FINDINGS: Miliary nodular pattern is again seen, greater on the left presumably metastatic disease. This appear s unchanged. Soft tissue fullness in both hilar regions likely representing adenopathy. The heart is normal in size. Prominent right shoulder degenerative changes.
--- NOTE | 2024-06-30 18:27 | ER ---
Nurse's Notes [facility] Name: Jhonatan Solis Age: 73 yrs Sex: Male : 1950 Arrival Date: 06/30/2024 Time: 14:08 Bed 2 Private MD: Diagnosis: Dementia in other diseases classified elsewhere without behavioral disturbance Presentation: 06/30 14:13 Chief complaint: EMS states: Pt from [facility], was lying in bed and staff reports ph that he became unresponsive for approx 5 minutes, when EMS arrived pt was awake and at baseline mental status. Hx of vascular dementia, normally A\\T\\O x 2, VSS for EMS, BGL 119, pt has no complaints. Coronavirus screen: Vaccine status: unable to obtain, hx of dementia. Ebola Screen: No symptoms or risks identified at this time. Initial Sepsis Screen: Does the patient meet any 2 criteria? No. Patient's initial sepsis screen is negative. Does the patient have a suspected source of infection? No. Patient's initial sepsis screen is negative. Risk Assessment: Do you want to hurt yourself or someone else? Patient reports no desire to harm self or others. Onset of symptoms was June 30, 2024. 14:13 Method Of Arrival: EMS: [facility] 14:13 Acuity: TAMRA 3 ph Triage Assessment: 14:21 General: Appears in no apparent distress. Behavior is calm, cooperative. Pain: Denies ph pain. Neuro: Level of Consciousness is awake, alert, obeys commands, Oriented to person, place. Cardiovascular: Capillary refill < 3 seconds in bilateral fingers Patient's skin is warm and dry. Rhythm is atrial fibrillation. Respiratory: Airway is patent Respiratory effort is even, unlabored. GI: No signs and/or symptoms were reported involving the gastrointestinal system. Derm: Skin is pink, warm \\T\\ dry. Musculoskeletal: Circulation, motion, and sensation intact. Range of motion: intact in all extremities. Historical: - Allergies: 14:20 Levaquin; ph - PMHx: 14:20 aortic aneurysm; Atrial Fib; Depression; Hyperlipidemia; Hypertension; kidney cancer; ph stent; Dementia; vascular; - PSHx: 14:20 L kidney partially removed; ph - Immunization history:: Adult Immunizations unknown. - Infectious Disease History:: Denies. - Social history:: Smoking status: unknown. Screenin:11 [facility] ED Fall Risk Assessment (Adult) History of falling in the last 3 months, ph including since admission No falls in past 3 months (0 pts) Confusion or Disorientation Yes (5 pts) Intoxicated or Sedated No (0 pts) Impaired Gait No (0 pts) Mobility Assist Device Used Yes (1 pt) Altered Elimination No (0 pt) Score/Fall Risk Level 3 or more points = High Risk Oriented to surroundings, Maintained a safe environment, Hourly rounding (assess needs \\T\\ fall precautionary measures) done. Abuse screen: Denies threats or abuse. Denies injuries from another. Nutritional screening: No deficits noted. Tuberculosis screening: No symptoms or risk factors identified. Assessment: 15:10 Reassessment: Pt resting w/ eyes closed and stable VS, awakens easily, when asked if he ph would allow me to start an IV and draw blood pt refused, also refused EKG. 15:25 Reassessment: Pt agreed to EKG. ph 15:35 Reassessment: Pt taken to CT. ph 15:45 Reassessment: Pt returned to ED bed 2, refused CXR. ph 16:30 Reassessment: a bedside, states, " The [facility] insisted on him coming to the hospital but I told them that I didn't want him to come. This happened a few days ago and he went to [facility] and they didn't find anything new." states that she does not wish for IV/bloodwork to be done at this time. 16:40 Reassessment: Dr. Haro at bedside to speak w/ family, requesting CXR d/t pt c/o R ph sided rib pain. 18:30 Reassessment: Attempted to contact [facility], no answer. ph 18:55 Reassessment: Spoke w/ Rae who is director at [facility] who states that the facility does not arrange for transportation back and that family is responsible for contacting EMS. at bedside states that she will take pt back to [facility]. Vital Signs: 14:13 BP 135 / 102; Pulse 72; Resp 18; Temp 97.5; Pulse Ox 99% ; Weight 90.26 kg; Height 6 ph ft. 1 in. ; 16:01 BP 157 / 93; Pulse 94; Resp 18; Pulse Ox 98% on R/A; ph 17:32 BP 148 / 90; Pulse 106; Resp 18; Pulse Ox 99% on R/A; ph 14:13 Body Mass Index 26.25 (90.26 kg, 185.42 cm) ph ED Course: 14:12 Patient arrived in ED. ph 14:20 Triage completed. ph 14:21 Arm band placed on Patient placed in an exam room, on a stretcher, on foam fabricator, ph on pulse oximetry. 14:25 Susanne Marquez RN is Primary Nurse. ph 14:31 Randy Haro MD is Attending Physician. bo1 15:12 Patient has correct armband on for positive identification. Bed in low position. Call ph light in reach. Side rails up X 1. underwriting clerk on. Pulse ox on. NIBP on. 15:27 EKG done, by ED staff, reviewed by Randy Haro MD. ph 15:36 CT Head Brain wo Cont In Process Unspecified. EDMS 17:23 Chest Single View XRAY In Process Unspecified. EDMS 19:05 No provider procedures requiring assistance completed. Patient did not have IV access ph during this emergency room visit. 19:11 Provided Education on: post er care. ph Administered Medications: No medications were administered Medication: 15:12 VIS not applicable for this client. ph Outcome: 18:26 Discharge ordered by . bo1 19:11 Discharged to home via wheelchair, ph 19:11 Condition: stable 19:11 Discharge instructions given to patient, family, Instructed on discharge instructions, follow up and referral plans. Demonstrated understanding of instructions, follow-up care, medications, 19:12 Patient left the ED. ph Signatures: Dispatcher [employer] EDMS Susanne Marquez RN RN ph Randy Haro MD MD bo1 Corrections: (The following items were deleted from the chart) 14: 14:20 PMHx: Vascular dementia (L kidney partially removed); ph ph
--- NOTE | 2024-06-30 18:27 | EDPHYS ---
Physician Documentation [facility] Name: Jhonatan Solis Age: 73 yrs Sex: Male : 1950 Arrival Date: 06/30/2024 Time: 14:08 Bed 2 Private MD: ED Physician Randy Haro HPI: 06/30 18:17 This 73 yrs old Male presents to ER via EMS with complaints of Syncope. 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 Hx of the bo1 same. Recent eval - TIA dx.. Onset: The symptoms/episode began/occurred acutely, just prior to arrival. Context: the episode(s) was witnessed, by the shelter staff. Current symptoms: confusion, Pt is alert and will respond appropriately. Appears to have baseline dementia. 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 Spouse on her way. Historical: - Allergies: 14:20 Levaquin; ph - PMHx: 14:20 aortic aneurysm; Atrial Fib; Depression; Hyperlipidemia; Hypertension; kidney cancer; ph stent; Dementia; vascular; - PSHx: 14:20 L kidney partially removed; ph - Immunization history:: Adult Immunizations unknown. - Infectious Disease History:: Denies. - Social history:: Smoking status: unknown. ROS: 18:19 Unable to obtain ROS due to baseline dementia, bo1 18:26 Cardiovascular: Positive for chest pain, Per spouse on the right side, bo1 18:26 Skin: Negative for rash, 18:26 Neuro: Negative for seizure activity, acute changes, 18:27 Constitutional: Negative for fever bo1 Exam: 18:20 Constitutional: This is a well developed, well nourished patient who is awake, alert, bo1 and in no acute distress. 18:20 Constitutional: The patient appears alert, awake, comfortable, non-toxic, 18:20 Head/face: Exam is negative for acute changes, obvious evidence of injury or deformity, 18:20 Eyes: Exam is negative for acute changes, 18:20 Neck: External neck: is normal, 18:20 Chest/axilla: Palpation: tenderness, that is moderate, of the right breast, No skin candelaria or lesions, 18:20 Cardiovascular: Rate: normal, Rhythm: irregular, 18:20 ECG was reviewed by the Attending Physician. 18:20 Respiratory: the patient does not display signs of respiratory distress, Respirations: normal, Breath sounds: are clear throughout, 18:20 Abdomen/GI: Inspection: abdomen appears normal, distension, is not seen, 18:20 Musculoskeletal/extremity: Extremities: all appear grossly normal, with no appreciated pain with palpation, no acute changes, 18:20 Skin: no rash present. Turgor: is good, 18:20 Neuro: Orientation: appropriate for stated age, Mild dementia - answers appropriately, Mentation: appropriate for stated age, Per spouse that arrived later, pt is at his baseline and that she did not want him seen in the ER, Vital Signs: 14:13 BP 135 / 102; Pulse 72; Resp 18; Temp 97.5; Pulse Ox 99% ; Weight 90.26 kg; Height 6 ph ft. 1 in. ; 16:01 BP 157 / 93; Pulse 94; Resp 18; Pulse Ox 98% on R/A; ph 17:32 BP 148 / 90; Pulse 106; Resp 18; Pulse Ox 99% on R/A; ph 14:13 Body Mass Index 26.25 (90.26 kg, 185.42 cm) ph MDM: 14:31 Medical Screening Exam initiated bo1 18:24 Differential Diagnosis: transient ischemic attack, Baseline dementia - no acute change bo1 or cause identified. 18:26 Data reviewed: vital signs, old medical records, lab test result(s), radiologic bo1 studies, CT scan, plain films. 06/30 14:58 Order name: CT Head Brain wo Cont; Complete Time: 15:47 bo1 06/30 16:42 Order name: Chest Single View XRAY; Complete Time: 17:59 bo06/30 14:58 Order name: Cardiac monitoring; Complete Time: 15:04 bo06/30 14:58 Order name: EKG - Nurse/Tech; Complete Time: 15:27 bo06/30 14:58 Order name: Labs collected and sent; Complete Time: 17:11 bo06/30 14:58 Order name: NPO; Complete Time: 15:04 bo06/30 14:58 Order name: O2 Per Protocol; Complete Time: 15:04 bo06/30 14:58 Order name: O2 Sat Monitoring; Complete Time: 15:04 bo1 EC:20 Rate is 95 beats/min. Rhythm is irregular. QRS [place] is Normal. [place] interval is normal. bo1 QRS interval is normal. QT interval is normal. No Q waves. T waves are Normal. No ST changes noted. Clinical impression: Atrial Fibrillation. Interpreted by me. Reviewed by me. Administered Medications: No medications were administered Disposition Summary: 06/30/24 18:26 Discharge Ordered Notes: Location: Snf bo1 Problem: chronic bo1 Symptoms: are unchanged bo1 Condition: Stable bo1 Diagnosis - Dementia in other diseases classified elsewhere without behavioral disturbance bo1 Followup: bo1 - With: Private Physician - When: As needed - Reason: Discharge Instructions: - Discharge Summary Sheet bo1 - Dementia, [id number] bo1 - Dementia Caregiver Guide bo1 Forms: - Medication Reconciliation Form bo1 - Antibiotic Education bo1 - Prescription Opioid Use bo1 - Patient Portal Instructions bo1 - Leadership Thank You Letter bo1 Signatures: Dispatcher [employer] EDSusanne Quigley RN RN ph Oei, MD SCARLET Padilla bo1 Corrections: (The following items were deleted from the chart) 14:21 14:20 PMHx: Vascular dementia (L kidney partially removed); ph ph 14:59 14:59 BASIC METABOLIC PANEL+C.LAB.BRZ ordered. EDMS EDMS 14:59 14:59 CBC+H.LAB.BRZ ordered. EDMS EDMS 14:59 14:59 HEPATIC FUNCTION+C.LAB.BRZ ordered. EDMS EDMS 14:59 14:59 MAGNESIUM+C.LAB.BRZ ordered. EDMS EDMS 14:59 14:59 PROTIME (+INR)+COAG.LAB.BRZ ordered. EDMS EDMS 14:59 14:59 Troponin High Sensitivity+C.LAB.BRZ ordered. EDMS EDMS 14:59 14:59 Urinalysis+U.LAB.BRZ ordered. EDMS EDMS 14:59 14:59 Head Brain Wo Cont+CT.RAD.BRZ ordered. EDMS EDMS 14:59 14:59 Chest Single View+RAD.RAD.BRZ ordered. EDMS EDMS 16:43 16:43 Chest Single View+RAD.RAD.BRZ ordered. EDMS EDMS 19:11 14:58 IV Saline Lock ordered. bo1 ph
[2024-07-01 01:48] VITALS: TEMP 97.5
[2024-07-01 01:50] VITALS: BP 148/90; O2SAT 99
--- NOTE | 2024-07-01 12:36 | EKG ---
Test Date: 2024-06-30 Test Time: 15:20:18 Director Of Software Engineering: PH MEASUREMENT RESULTS: Intervals: Rate: 95 WI: QRSD: 86 QT: 406 QTc: 510 [place]: P: WI: QRS: 29 T: -54 INTERPRETIVE STATEMENTS: Atrial fibrillation Nonspecific ST and T wave abnormality Abnormal ECG Compared to ECG 12/31/2023 14:52:40 No significant changes Electronically Signed On 07-01-24 12:35:44 CDT by Ji Amezquita
== END 2024-06-30 19:12 ==
LOC: ER 14:08
DX: R55 Syncope and collapse (principal); F03.90 Unspecified dementia, unspecified severity, without behavioral disturbance, psychotic disturbance, mood disturbance, and anxiety; I48.91 Unspecified atrial fibrillation; I10 Essential (primary) hypertension; E78.5 Hyperlipidemia, unspecified; F32.A Depression, unspecified; Z85.528 Personal history of other malignant neoplasm of kidney; Z88.1 Allergy status to other antibiotic agents
CPT/HCPCS: 70450; 71045; 93005; 99284